=== PATIENT | female | born 1965 | race Caucasian/White ===

== ENCOUNTER 2019-06-26 09:28 | Outpatient (RCR) | payer BC, OTHER ==
[~2019-06-26 09:28] MED LIST: AC325T PO; ALBUTEROL INH; ALDACTONE25 MG PO; AMIT100T2 PO; AMIT75TA2 PO; CITA10TA GT; CTLP20T PO; ESCI20TA2 PO; ESTR0.5T PO; FRSM40T PO; FURO40TA4 PO; KCL10CCR PO; MAGN400C PO; METH10TA3 PO; METO50TA7 PO; MTF500T PO; MTP25TSR PO; OMEP20CA6 PO; PNT40TEC PO; POTA20TA15 PO; SCR1T1 PO; SLF10OP15 OP
== END 2019-07-28 | disposition home or self-care (01) ==
PROVIDERS: ATTEND Orthopaedic Surgery
DX: M75.02 Adhesive capsulitis of left shoulder (principal); I10 Essential (primary) hypertension; E11.9 Type 2 diabetes mellitus without complications; F32.9 Major depressive disorder, single episode, unspecified; Z90.710 Acquired absence of both cervix and uterus; Z98.890 Other specified postprocedural states

== ENCOUNTER 2019-11-02 06:45 | Emergency (ER) | payer BC ==
[~2019-11-02] VITALS: Ht 157 cm; Wt 77.0 kg
--- OUTSIDE RECORDS SUMMARY | 2019-11-02 06:55 | XMS REPORT | Encounter Summary ---
Author Author [facility] Organization [facility] Address Unknown Phone Unavailable Care Team Providers Care Advanced Practice Registered Nurse Name Role Phone PCP Unavailable Encounter Details Care Team Description Date Type Department Malu Almaguer [phone] Other disorder of menstruation and other abnormal bleeding from female genital tract (Primary Dx) 01/19/2000 Outpatient HIS [facility] XRAY LAB Historical Social History Date Tobacco Use Types Packs/Day Years Used Never Assessed Sex Assigned at Date Recorded Not on file Industry Job Start Date Occupation Not on file Not on file Not on file Travel End Travel History Travel Start No recent travel history available. documented as of this encounter Plan of Treatment Not on filedocumented as of this encounter Visit Diagnoses Diagnosis Other disorder of menstruation and othe r abnormal bleeding from female genital tract - Primary documented in this encounter
--- OUTSIDE RECORDS SUMMARY | 2019-11-02 06:55 | XMS REPORT | Encounter Summary ---
Author Author [facility] Organization [facility] Address Unknown Phone Unavailable Care Team Providers Care Staff Forester Name Role Phone PCP Unavailable Encounter Details Care Team Description Date Type Department Ilia Smith [phone] Gynecologic examination (Primary Dx) 01/16/2003 Outpatient [facility] Consol idated Historical [address] [address] Social History Date Tobacco Use Types Packs/Day Years Used Never Assessed Sex Assigned at Date Recorded Not on file Industry Job Start Date Occupation Not on file Not on file Not on file Travel End Travel History Travel Start No recent travel history available. documented as of this encounter Plan of Treatment Not on filedocumented as of this encounter Visit Diagnoses Diagnosis Gynecologic examination - Primary Gynecological examination documented in this encounter
--- OUTSIDE RECORDS SUMMARY | 2019-11-02 06:55 | XMS REPORT | Encounter Summary ---
Author Author [facility] Organization [facility] Address Unknown Phone Unavailable Care Team Providers Care Mainframe Architect Name Role Phone PCP Unavailable Encounter Details Care Team Description Date Type Department Ilia Haq MD [facility] [address] [facility] [address] [place] [address] CHRONIC SINUSITIS NOS (Primary Dx) 09/22/2003 [facility] Historical [address] [address] Social History Date Tobacco Use Types Packs/Day Years Used Never Assessed Sex Assigned at Date Recorded Not on file Industry Job Start Date Occupation Not on file Not on file Not on file Travel End Travel History Travel Start No recent travel history available. documented as of this encounter Plan of Treatment Not on filedocumented as of this encounter Visit Diagnoses Diagnosis Unspecified sinusitis (chronic) - Prima ry documented in this encounter
--- OUTSIDE RECORDS SUMMARY | 2019-11-02 06:55 | XMS REPORT | Encounter Summary ---
Author Author [facility] Organization [facility] Address Unknown Phone Unavailable Care Team Providers Care Negative Restorer Name Role Phone PCP Unavailable Encounter Details Care Team Description Date Type Department Ilia Smith [phone] Ovarian cyst NEC/NOS (Primary Dx) 01/20/2003 Outpatient [facility] Ultrasound [address] [place] [address] Social History Date Tobacco Use Types Packs/Day Years Used Never Assessed Sex Assigned at Date Recorded Not on file Industry Job Start Date Occupation Not on file Not on file Not on file Travel End Travel History Travel Start No recent travel history available. documented as of this encounter Plan of Treatment Not on filedocumented as of this encounter Visit Diagnoses Diagnosis Ovarian cyst NEC/NOS - Primary Other and unspecified ovarian cyst documented in this encounter
--- OUTSIDE RECORDS SUMMARY | 2019-11-02 06:55 | XMS REPORT | Encounter Summary ---
Author Author [facility] Organization [facility] Address Unknown Phone Unavailable Care Team Providers Care Radiation Protection Technician Name Role Phone PCP Unavailable Encounter Details Care Team Description Date Type Department Self, Erick Morris MD [address] [place] [address] TIETZE'S DISEASE (Primary Dx) 06/22/2003 Outpatient [facility] Consol idated Historical [facility] [place] [address] [place] [address] Social History Date Tobacco Use Types Packs/Day Years Used Never Assessed Sex Assigned at Date Recorded Not on file Industry Job Start Date Occupation Not on file Not on file Not on file Travel End Travel History Travel Start No recent travel history available. 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
--- OUTSIDE RECORDS SUMMARY | 2019-11-02 06:55 | XMS REPORT | Encounter Summary ---
Author Author [facility] Organization [facility] Address Unknown Phone Unavailable Care Team Providers Care Handkerchief Sample Clerk Name Role Phone PCP Unavailable Encounter Details Care Team Description Date Type Department Christelle Guerra, ADMISSION SPECIALIST [address] [place] [address] 01/02/2007 Outpatient [facility] Pathology [address] [place] [address] Social History Date Tobacco Use Types Packs/Day Years Used Never Assessed Sex Assigned at Date Recorded Not on file Industry Job Start Date Occupation Not on file Not on file Not on file Travel End Travel History Travel Start No recent travel history available. documented as of this encounter Plan of Treatment Not on filedocumented as of this encounter Visit Diagnoses Not on filedocumented in this encounter
--- OUTSIDE RECORDS SUMMARY | 2019-11-02 06:55 | XMS REPORT | Encounter Summary ---
Author Author [facility] Organization [facility] Address Unknown Phone Unavailable Care Team Providers Care Needle Molder Name Role Phone PCP Unavailable Encounter Details Care Team Description Date Type Department Malu Almaguer [phone] Excessive menstruation (Primary Dx) 01/19/2000 Outpatient HIS [facility] Historical Social History Date Tobacco Use Types Packs/Day Years Used Never Assessed Sex Assigned at Date Recorded Not on file Industry Job Start Date Occupation Not on file Not on file Not on file Travel End Travel History Travel Start No recent travel history available. documented as of this encounter Plan of Treatment Not on filedocumented as of this encounter Visit Diagnoses Diagnosis Excessive menstruation - Primary Excessive or frequent menstruation documented in this encounter
--- OUTSIDE RECORDS SUMMARY | 2019-11-02 06:55 | XMS REPORT | Encounter Summary ---
Author Author [facility] Organization [facility] Address Unknown Phone Unavailable Care Team Providers Care Profile Mill Operator Tape Control Name Role Phone PCP Unavailable Encounter Details Care Team Description Date Type Department Wayne Christianson MD 07/04/2002 Outpatient HIS [facility] [address] REF LAB Historical Social History Date Tobacco Use [...]
--- OUTSIDE RECORDS SUMMARY | 2019-11-02 06:55 | XMS REPORT | Encounter Summary ---
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
--- OUTSIDE RECORDS SUMMARY | 2019-11-02 06:55 | XMS REPORT | Encounter Summary ---
Author Author [facility] Organization [facility] Address Unknown Phone Unavailable Care Team Providers Care Dictionary Editor Name Role Phone PCP Unavailable Encounter Details Care Team Description Date Type Department Self, Erick Morris MD [address] [place] [address] CHEST PAIN NOS (Primary Dx) 06/15/2003 Outpatient [facility] Consol idated Historical [facility] [place] [address] [place] [address] Social History Date Tobacco Use Types Packs/Day Years Used Never Assessed Sex Assigned at Date Recorded Not on file Industry Job Start Date Occupation Not on file Not on file Not on file Travel End Travel History Travel Start No recent travel history available. documented as of this encounter Plan of Treatment Not on filedocumented as of this encounter Visit Diagnoses Diagnosis Chest pain, unspecified - Primary documented in this encounter
--- OUTSIDE RECORDS SUMMARY | 2019-11-02 06:55 | XMS REPORT | Encounter Summary ---
Author Author [facility] Organization [facility] Address Unknown Phone Unavailable Care Team Providers Care Criminal Research Specialist Name Role Phone PCP Unavailable Encounter Details Care Team Description Date Type Department Cecilia Lucas RN 03/24/2002 Outpatient [facility] Laboratory Services [address] [address] Social History Date Tobacco Use [...]
--- OUTSIDE RECORDS SUMMARY | 2019-11-02 06:55 | XMS REPORT | Encounter Summary ---
Author Author [facility] Organization [facility] Address Unknown Phone Unavailable Care Team Providers Care Four Horse Hitch Driver Name Role Phone PCP Unavailable Encounter Details Care Team Description Date Type Department TrippMalu [phone] Ant pituit hyperfunc NEC (Primary Dx) 03/13/2000 Outpatient HIS [facility] XRAY LAB Historical Social History Date [...]
--- OUTSIDE RECORDS SUMMARY | 2019-11-02 06:55 | XMS REPORT | Encounter Summary ---
Author Author [facility] Organization [facility] Address Unknown Phone Unavailable Care Team Providers Care Field Naturalist Name Role Phone PCP Unavailable Encounter Details Care Team Description Date Type Department Ilia Haq MD [facility] [address] [facility] [address] [place] [address] PREOP EXAM OTHER UNSPECIFIED (Primary Dx ) 10/14/2003 Outpatient [facility] Historical [facility] [place] [facility] [address] [place] [address] Social History Date Tobacco Use [...] as of this encounter Visit Diagnoses Diagnosis Preoperative examination, unspecified - Primary documented in this encounter
--- OUTSIDE RECORDS SUMMARY | 2019-11-02 06:55 | XMS REPORT | Encounter Summary ---
Author Author [facility] Organization [facility] Address Unknown Phone Unavailable Care Team Providers Care Operator Maintainer Name Role Phone PCP Unavailable Encounter Details Care Team Description Date Type Department Malu Almaguer [phone] Ant pituit hyperfunc NEC (Primary Dx) 01/24/2000 [facility] Historical [address] [address] Social History Date Tobacco Use [...]
--- OUTSIDE RECORDS SUMMARY | 2019-11-02 06:55 | XMS REPORT | Encounter Summary ---
Author Author [facility] Organization [facility] Address Unknown Phone Unavailable Care Team Providers Care Nailing Machine Operator Name Role Phone PCP Unavailable Encounter Details Care Team Description Date Type Department TrippMalu [phone] Ant pituit hyperfunc NEC (Primary Dx) 04/23/2000 Outpatient HIS [facility] Historical Social History Date Tobacco Use Types [...]
--- OUTSIDE RECORDS SUMMARY | 2019-11-02 06:55 | XMS REPORT | Encounter Summary ---
Author Author [facility] Organization [facility] Address Unknown Phone Unavailable Care Team Providers Care Ceramic Research Engineer Name Role Phone PCP Unavailable Encounter Details Care Team Description Date Type Department Self, Erick Morris MD [address] [place] [address] 05/09/2000 Outpatient [facility] Laboratory Services [address] [address] Social History Date Tobacco Use [...]
--- OUTSIDE RECORDS SUMMARY | 2019-11-02 06:55 | XMS REPORT | Encounter Summary ---
Author Author [facility] Organization [facility] Address Unknown Phone Unavailable Care Team Providers Care Registered Nurse Ambulatory Name Role Phone PCP Unavailable Encounter Details Care Team Description Date Type Department RendonStan, [address] [place] [address] Follow-up examination following surgery (Primary Dx) 01/18/2000 Outpatient HIS [facility] Historical Social History Date Tobacco Use Types Packs/Day Years Used Never Assessed Sex Assigned at Date Recorded Not on file Industry Job Start Date Occupation Not on file Not on file Not on file Travel End Travel History Travel Start No recent travel history available. documented as of this encounter Plan of Treatment Not on filedocumented as of this encounter Visit Diagnoses Diagnosis Follow-up examination following surgery - Primary documented in this encounter
--- OUTSIDE RECORDS SUMMARY | 2019-11-02 06:55 | XMS REPORT | Encounter Summary ---
Author Author [facility] Organization [facility] Address Unknown Phone Unavailable Care Team Providers Care Roaster Supervisor Name Role Phone PCP Unavailable Encounter Details Care Team Description Date Type Department Self, Erick Morris MD [address] [place] [address] Tietze's Disease (Primary Dx) 05/08/2006 Outpatient [facility] Consol idated Historical [facility] [place] [address] [place] [address] Social History Date Tobacco Use Types Packs/Day [...]
--- OUTSIDE RECORDS SUMMARY | 2019-11-02 06:55 | XMS REPORT | Encounter Summary ---
Author Author [facility] Organization [facility] Address Unknown Phone Unavailable Care Team Providers Care Spa Manager/Esthetician Name Role Phone PCP Unavailable Encounter Details Care Team Description Date Type Department Self, Erick Morris MD [address] [place] [address] Chest pain, unspecified (Primary Dx) 05/09/[address] [facility] Consol idated Historical [facility] [place] [address] [place] [address] Social History Date Tobacco Use Types Packs/Day [...]
--- OUTSIDE RECORDS SUMMARY | 2019-11-02 06:55 | XMS REPORT | Encounter Summary ---
Author Author [facility] Organization [facility] Address Unknown Phone Unavailable Care Team Providers Care Broker Agricultural Produce Name Role Phone PCP Unavailable Encounter Details Care Team Description Date Type Department Self, Erick Morris MD [address] [place] [address] 06/17/2003 Outpatient HIS [facility] [address] REF [facility] [...]
--- OUTSIDE RECORDS SUMMARY | 2019-11-02 06:55 | XMS REPORT | Encounter Summary ---
Author Author [facility] Organization [facility] Address Unknown Phone Unavailable Care Team Providers Care Vacuum Bottle Assembler Name Role Phone PCP Unavailable Encounter Details Care Team Description Date Type Department Self, Erick Morris MD [address] [place] [address] Chest pain, unspecified (Primary Dx) 05/08/2000 Outpatient [facility] Consol idated Historical [facility] [place] [address] [place] [address] Social History Date Tobacco Use Types Packs/Day [...]
--- OUTSIDE RECORDS SUMMARY | 2019-11-02 06:55 | XMS REPORT | Encounter Summary ---
Author Author [facility] Organization [facility] Address Unknown Phone Unavailable Care Team Providers Care Restaurant Busser Name Role Phone PCP Unavailable Encounter Details Care Team Description Date Type Department Malu Almaguer [phone] Galactorrhea-nonobstet (Primary Dx) 03/19/[address] [facility] Historical Social History Date Tobacco Use Types Packs/Day Years Used Never Assessed Sex Assigned at Date Recorded Not on file Industry Job Start Date Occupation Not on file Not on file Not on file Travel End Travel History Travel Start No recent travel history available. documented as of this encounter Plan of Treatment Not on filedocumented as of this encounter Visit Diagnoses Diagnosis Galactorrhea-nonobstet - Primary Galactorrhea not associated with childb irth documented in this encounter
--- OUTSIDE RECORDS SUMMARY | 2019-11-02 06:55 | XMS REPORT | Encounter Summary ---
Author Author [facility] Organization [facility] Address Unknown Phone Unavailable Care Team Providers Care Coin Machine Assembler Name Role Phone PCP Unavailable Encounter Details Care Team Description Date Type Department Provider, Abstract 01/02/2007 Abstract [facility]STRA[facility] Social History Date Tobacco Use Types Packs/Day Years Used Never Assessed Sex Assigned at Date Recorded Not on file Industry Job Start Date Occupation Not on file Not on file Not on file Travel End Travel History Travel Start No recent travel history available. documented as of this encounter Last Filed Vital Signs Reading Time Taken Comments Vital Sign 90/60 01/02/2007 10:00 AM CDT Blood Pressure - - Pulse - - Temperature - - Respiratory Rate - - Oxygen Saturation - - Inhaled Oxygen Concentration 65.3 kg (144 lb) 01/02/2007 10:00 AM CDT Weight - - Height - - Body Mass Index documented in this encounter Plan of Treatment Not on filedocumented as of this encounter Visit Diagnoses Not on filedocumented in this encounter
--- OUTSIDE RECORDS SUMMARY | 2019-11-02 06:55 | XMS REPORT | Encounter Summary ---
Author Author [facility] Organization [facility] Address Unknown Phone Unavailable Care Team Providers Care Grab Driver Name Role Phone PCP Unavailable Encounter Details Care Team Description Date Type Department Christelle Guerra, ENGINEER BOOSTER AND EXHAUSTER [address] [place] [address] ACUTE PHARYNGITIS (Primary Dx) 08/20/2003 Outpatient [facility] Family Historical Medicine [place] [address] [place] [address] Social History Date Tobacco Use Types Packs/Day Years Used Never Assessed Sex Assigned at Date Recorded Not on file Industry Job Start Date Occupation Not on file Not on file Not on file Travel End Travel History Travel Start No recent travel history available. documented as of this encounter Plan of Treatment Not on filedocumented as of this encounter Visit Diagnoses Diagnosis Acute pharyngitis - Primary documented in this encounter
--- OUTSIDE RECORDS SUMMARY | 2019-11-02 06:55 | XMS REPORT | Encounter Summary ---
Author Author [facility] Organization [facility] Address Unknown Phone Unavailable Care Team Providers Care Senior Behavioral Scientist Name Role Phone PCP Unavailable Encounter Details Care Team Description Date Type Department TrippMalu [phone] Ant pituit hyperfunc NEC (Primary Dx) 04/19/2000 Outpatient [facility] Historical Social History Date Tobacco [...]
--- OUTSIDE RECORDS SUMMARY | 2019-11-02 06:55 | XMS REPORT | Encounter Summary ---
Author Author [facility] Organization [facility] Address Unknown Phone Unavailable Care Team Providers Care Automotive Center Manager Name Role Phone PCP Unavailable Encounter Details Care Team Description Date Type Department Cecilia Lucas RN No proc for reasons NEC (Primary Dx) 11/26/2003 Outpatient [facility] Laboratory Services [address] [address] Social History Date Tobacco Use [...] as of this encounter Visit Diagnoses Diagnosis No proc for reasons NEC - Primary Procedure not carried out for other moise sons documented in this encounter
--- OUTSIDE RECORDS SUMMARY | 2019-11-02 06:55 | XMS REPORT | Encounter Summary ---
Author Author [facility] Organization [facility] Address Unknown Phone Unavailable Care Team Providers Care Law Writer Name Role Phone PCP Unavailable Encounter Details Care Team Description Date Type Department Ilia Haq MD [facility] [address] [facility] [address] [place] [address] CHRONIC TONSILLITIS (Primary Dx) 10/19/2003 Outpatient HIS [facility] Historical Social History Date Tobacco Use Types Packs/Day Years Used Never Assessed Sex Assigned at Date Recorded Not on file Industry Job Start Date Occupation Not on file Not on file Not on file Travel End Travel History Travel Start No recent travel history available. documented as of this encounter Plan of Treatment Not on filedocumented as of this encounter Visit Diagnoses Diagnosis Chronic tonsillitis - Primary documented in this encounter
--- OUTSIDE RECORDS SUMMARY | 2019-11-02 06:55 | XMS REPORT | Encounter Summary ---
Author Author [facility] Organization [facility] Address Unknown Phone Unavailable Care Team Providers Care Spinning Machine Operator Name Role Phone PCP Unavailable Encounter Details Care Team Description Date Type Department Self, Erick Morris MD [address] [place] [address] CHEST PAIN NOS (Primary Dx) 06/17/2003 Outpatient [facility] Consol idated Historical [facility] [place] [address] [place] [address] Social History Date Tobacco Use Types Packs/Day [...]
--- OUTSIDE RECORDS SUMMARY | 2019-11-02 06:55 | XMS REPORT | Encounter Summary ---
Author Author [facility] Organization [facility] Address Unknown Phone Unavailable Care Team Providers Care Plug Overwrap Machine Tender Name Role Phone PCP Unavailable Encounter Details Care Team Description Date Type Department Buck Isabel [phone] UNSPEC CONSTIPATION (Primary Dx) 12/15/2002 Emergency [facility] Emergency Department [address] [address] Social History Date Tobacco Use [...] of this encounter Visit Diagnoses Diagnosis Unspecified constipation - Primary documented in this encounter
--- OUTSIDE RECORDS SUMMARY | 2019-11-02 06:55 | XMS REPORT | Encounter Summary ---
Author Author [facility] Organization [facility] Address Unknown Phone Unavailable Care Team Providers Care Dev Technical Mgr Name Role Phone PCP Unavailable Encounter Details Care Team Description Date Type Department Malu Almaguer [phone] 01/20/2000 Outpatient [facility] Path[facility] [address] [place] [address] Social History Date Tobacco Use Types [...]
--- OUTSIDE RECORDS SUMMARY | 2019-11-02 06:55 | XMS REPORT | Encounter Summary ---
Author Author [facility] Organization [facility] Address Unknown Phone Unavailable Care Team Providers Care Sausage Mixer Name Role Phone PCP Unavailable Encounter Details Care Team Description Date Type Department Ilia Smith [phone] Ovarian cyst NEC/NOS (Primary Dx) 01/27/[address] [facility] Consol idated Historical [address] [address] Social History Date Tobacco Use Types Packs/Day [...]
--- OUTSIDE RECORDS SUMMARY | 2019-11-02 06:55 | XMS REPORT | Clinical Summary ---
Author Author [facility] Organization [facility] Address Unknown Phone Unavailable Care Team Providers Care Director Marketing Name Role Phone PCP Unavailable Allergies Comments Active Allergy Reactions Severity Noted Date Erythromycin Nausea and Vomiting Medications End Date Status Medication Sig Dispensed Refills Start Date Active ACIPHEX 20 mg Oral TbEC Take 20 mg by 0 mouth daily. Active Problems Problem Noted Date Esophageal reflux Social History Date Tobacco Use Types Packs/Day Years Used Never Assessed Sex Assigned at Date Recorded Not on file Industry Job Start Date Occupation Not on file Not on file Not on file Travel End Travel History Travel Start No recent travel history available. Last Filed Vital Signs Reading Time Taken Comments Vital Sign 90/60 01/02/2007 10:00 AM CDT Blood Pressure - - Pulse - - Temperature - - Respiratory Rate - - Oxygen Saturation - - Inhaled Oxygen Concentration 65.3 kg (144 lb) 01/02/2007 10:00 AM CDT Weight - - Height - - Body Mass Index Plan of Treatment Health Maintenance Due Date Last Done Comments BREAST CANCER SCREENING 2004 CERVICAL CANCER SCREENING 12/31/2009 12/31/2006 COLORECTAL SCREENING 2014 ZOSTER VACCINE (1 of 2) 2014 INFLUENZA VACCINE 01/16/2019 PNEUMOCOCCAL VACCINE 0-64 Aged Out No longer el igible based YEARS on patient's age to complete this topic Results Not on filefrom Last 3 Months
--- OUTSIDE RECORDS SUMMARY | 2019-11-02 06:55 | XMS REPORT | Encounter Summary ---
Author Author [facility] Organization [facility] Address Unknown Phone Unavailable Care Team Providers Care Drawing Operator Name Role Phone PCP Unavailable Encounter Details Care Team Description Date Type Department Wayne Christianson MD ACUTE SINUSITIS NOS (Primary Dx) 07/04/[address] [facility] Consol idated Historical [address] [address] Social History Date Tobacco Use Types Packs/Day Years Used Never Assessed Sex Assigned at Date Recorded Not on file Industry Job Start Date Occupation Not on file Not on file Not on file Travel End Travel History Travel Start No recent travel history available. documented as of this encounter Plan of Treatment Not on filedocumented as of this encounter Visit Diagnoses Diagnosis Acute sinusitis, unspecified - Primary documented in this encounter
--- OUTSIDE RECORDS SUMMARY | 2019-11-02 06:56 | XMS REPORT | Encounter Summary ---
Author Author [facility] Organization [facility] Address Unknown Phone Unavailable Care Team Providers Care Leadership Intern Name Role Phone PCP Unavailable Encounter Details Care Team Description Date Type Department Bulmaro Spencer ARNP [address] [place] [address] Need for prophylactic vaccination and in oculation against other specified disease (Primary Dx) 08/11/1993 Outpatient Historical Social History Date Tobacco Use Types Packs/Day Years Used Never Assessed Sex Assigned at Date Recorded Not on file Industry Job Start Date Occupation Not on file Not on file Not on file Travel End Travel History Travel Start No recent travel history available. documented as of this encounter Plan of Treatment Not on filedocumented as of this encounter Visit Diagnoses Diagnosis Need for prophylactic vaccination and i noculation against other specified disease - Primary documented in this encounter
--- OUTSIDE RECORDS SUMMARY | 2019-11-02 06:56 | XMS REPORT | Clinical Summary ---
Author Author [facility], [employer], [place], [facility] Organization [facility] [employer], [place], [place], [facility] Address Unknown Phone Unavailable Care Team Providers Care Mobile Health Vehicle Operator Name Role Phone Husam Red MD PCP Allergies Not on File Medications Not on file Active Problems Not on file Social History Date Tobacco Use Types Packs/Day Years Used Never Assessed Sex Assigned at Date Recorded Not on file Industry Job Start Date Occupation Not on file Not on file Not on file Travel End Travel History Travel Start No recent travel history available. Last Filed Vital Signs Not on file Plan of Treatment Health Maintenance Due Date Last Done Comments CERVICAL CANCER SCREENING 1994 BREAST CANCER SCREENING 2004 COLORECTAL SCREENING 2014 ZOSTER VACCINE (1 of 2) 2014 INFLUENZA VACCINE 01/16/2019 PNEUMOCOCCAL VACCINE 0-64 Aged Out No longer el igible based YEARS on patient's age to complete this topic Results Not on filefrom Last 3 Months
--- OUTSIDE RECORDS SUMMARY | 2019-11-02 06:56 | XMS REPORT | Encounter Summary ---
Author Author [facility], [place], [place], [place], [facility] Organization [facility] [place], [place], [place], [facility] Address Unknown Phone Unavailable Care Team Providers Care Claim Processor Name Role Phone Husam Red MD PCP Encounter Details Care Team Description Date Type Department Lorrie Ortiz, SORAYA [address] [facility] [place] [id number] 12/10/2001 Inpatient Historical Social History Date Tobacco Use Types [...]
--- OUTSIDE RECORDS SUMMARY | 2019-11-02 06:56 | XMS REPORT | Encounter Summary ---
Author Author [facility] Organization [facility] Address Unknown Phone Unavailable Care Team Providers Care Ict Account Manager Name Role Phone PCP Unavailable Encounter Details Care Team Description Date Type Department Buck Isabel [phone] Inflam disease of breast (Primary Dx) 01/03/2000 Outpatient [facility] Family [facility] Medicine [place] [address] [place] [address] Social History Date Tobacco Use [...] as of this encounter Visit Diagnoses Diagnosis Inflam disease of breast - Primary Inflammatory disease of breast documented in this encounter
--- OUTSIDE RECORDS SUMMARY | 2019-11-02 06:56 | XMS REPORT | Encounter Summary ---
Author Author [facility] Organization [facility] Address Unknown Phone Unavailable Care Team Providers Care Kitchen Help Handyman Name Role Phone PCP Unavailable Encounter Details Care Team Description Date Type Department Christelle Guerra, PLANT PRODUCTION WORKER [address] [place] [address] Symptoms in breast NEC (Primary Dx) 01/09/[facility] [address] [address] Social History Date Tobacco Use [...] as of this encounter Visit Diagnoses Diagnosis Symptoms in breast NEC - Primary Other sign and symptom in breast documented in this encounter
--- OUTSIDE RECORDS SUMMARY | 2019-11-02 06:56 | XMS REPORT | Encounter Summary ---
Author Author [facility] Organization [facility] Address Unknown Phone Unavailable Care Team Providers Care Material Movers Name Role Phone PCP Unavailable Encounter Details Care Team Description Date Type Department Jr Jonny Ernst, [facility] [address] [place] [id number] Stomach function dis NEC (Primary Dx) 08/01/1997 Outpatient Historical Social History Date Tobacco Use [...] as of this encounter Visit Diagnoses Diagnosis Stomach function dis NEC - Primary Dyspepsia and other specified disorders of function of stomach documented in this encounter
--- OUTSIDE RECORDS SUMMARY | 2019-11-02 06:56 | XMS REPORT | Encounter Summary ---
Author Author [facility] Organization [facility] Address Unknown Phone Unavailable Care Team Providers Care Repairer Sash And Door Name Role Phone PCP Unavailable Encounter Details Care Team Description Date Type Department Shawn Lu, DO [address] [place] [address] Strep sore throat (Primary Dx) 02/12/1996 Outpatient Historical Social History Date Tobacco Use [...] as of this encounter Visit Diagnoses Diagnosis Strep sore throat - Primary Streptococcal sore throat documented in this encounter
--- OUTSIDE RECORDS SUMMARY | 2019-11-02 06:56 | XMS REPORT | Encounter Summary ---
Author Author [facility] Organization [facility] Address Unknown Phone Unavailable Care Team Providers Care Instructional Support Technician Name Role Phone PCP Unavailable Encounter Details Care Team Description Date Type Department Bulmaro Spencer ARNP [address] [place] [address] Need for prophylactic vaccination and in oculation against other specified disease (Primary Dx) 03/22/1993 Outpatient Historical Social History Date Tobacco Use [...]
--- OUTSIDE RECORDS SUMMARY | 2019-11-02 06:56 | XMS REPORT | Encounter Summary ---
Author Author [facility], [place], [place], [facility] Organization [facility] [place], [place], [place], [facility] Address Unknown Phone Unavailable Care Team Providers Care Creative Director Name Role Phone Husam Red MD PCP Encounter Details Care Team Description Date Type Department Tonio Juarez MD [address] [facility] [place] [address] Edema (Primary Dx) 10/14/2009 Outpatient [facility] Historical [address] [place] [address] [place] [address] Social History Date Tobacco Use Types Packs/Day Years Used Never Assessed Sex Assigned at Date Recorded Not on file Industry Job Start Date Occupation Not on file Not on file Not on file Travel End Travel History Travel Start No recent travel history available. documented as of this encounter Plan of Treatment Not on filedocumented as of this encounter Visit Diagnoses Diagnosis Edema - Primary documented in this encounter
--- OUTSIDE RECORDS SUMMARY | 2019-11-02 06:56 | XMS REPORT | Encounter Summary ---
Author Author [facility] Organization [facility] Address Unknown Phone Unavailable Care Team Providers Care Digital Production Operator Name Role Phone PCP Unavailable Encounter Details Care Team Description Date Type Department High-risk (Primary Dx) 09/17/1991 Outpatient Historical Social History Date Tobacco Use [...] as of this encounter Visit Diagnoses Diagnosis High-risk - Primary Supervision of other high-risk pregnanc y documented in this encounter
--- OUTSIDE RECORDS SUMMARY | 2019-11-02 06:56 | XMS REPORT | Encounter Summary ---
Author Author [facility] Organization [facility] Address Unknown Phone Unavailable Care Team Providers Care Grease Worker Name Role Phone PCP Unavailable Encounter Details Care Team Description Date Type Department Christelle Guerra, MEDICAL LIAISON [address] [place] [address] Symptoms in breast NEC (Primary Dx) 01/03/2000 Outpatient [facility] [address] [place] [address] Social History Date Tobacco Use [...]
--- OUTSIDE RECORDS SUMMARY | 2019-11-02 06:56 | XMS REPORT | Encounter Summary ---
Author Author [facility] Organization [facility] Address Unknown Phone Unavailable Care Team Providers Care Aquatic Biologist Name Role Phone PCP Unavailable Encounter Details Care Team Description Date Type Department Alyse Arcos MD NO ADDRESS ON FILE Acute upper respiratory infections of un specified site (Primary Dx) 09/30/1998 Outpatient Historical Social History Date Tobacco Use [...] of this encounter Visit Diagnoses Diagnosis Acute upper respiratory infections of u nspecified site - Primary documented in this encounter
--- OUTSIDE RECORDS SUMMARY | 2019-11-02 06:56 | XMS REPORT | Encounter Summary ---
Author Author [facility] [place] Organization [facility] [place], [place], [facility] Address Unknown Phone Unavailable Care Team Providers Care Prop Drawer Name Role Phone Husam Red MD PCP Encounter Details Care Team Description Date Type Department Tonio Juarez MD [address] [facility] [place] [address] Edema (Primary Dx) 10/14/2009 Inpatient [facility] a [facility] Wound Care [address] [place] [address] Social History Date Tobacco Use Types Packs/Day [...]
--- OUTSIDE RECORDS SUMMARY | 2019-11-02 06:56 | XMS REPORT | Encounter Summary ---
Author Author [facility] Address Unknown Phone Unavailable Care Team Providers Care Pump Servicer Supervisor Name Role Phone PCP Unavailable Encounter Details Care Team Description Date Type Department [place], [address] [place] [address] Symptoms in breast NEC (Primary Dx) 01/10/2000 Outpatient [facility] Historical Social History Date Tobacco [...]
--- OUTSIDE RECORDS SUMMARY | 2019-11-02 06:56 | XMS REPORT | Encounter Summary ---
Author Author [facility] Organization [facility] Address Unknown Phone Unavailable Care Team Providers Care Design Engineer Products Name Role Phone PCP Unavailable Encounter Details Care Team Description Date Type Department Sarah Spivey AR[address] [address] 02/27/1997 Outpatient Historical Social History Date Tobacco Use [...]
--- OUTSIDE RECORDS SUMMARY | 2019-11-02 06:56 | XMS REPORT | Encounter Summary ---
Author Author [facility] Organization [facility] Address Unknown Phone Unavailable Care Team Providers Care Tree Pruner Name Role Phone PCP Unavailable Encounter Details Care Team Description Date Type Department 02/25/1992 Outpatient Historical Social History Date Tobacco Use [...]
--- OUTSIDE RECORDS SUMMARY | 2019-11-02 06:56 | XMS REPORT | Encounter Summary ---
Author Author [facility], [place], [facility] Organization [facility], [place], [facility] Address Unknown Phone Unavailable Care Team Providers Care Lead Software Tester Name Role Phone Husam Red MD PCP Encounter Details Care Team Description Date Type Department Tonio Juarez MD [address] [facility] [place] [address] Edema (Primary Dx) 11/16/2009 Inpatient [facility] a [facility] Wound Care [address] [place] [address] Social History Date [...]
--- OUTSIDE RECORDS SUMMARY | 2019-11-02 06:56 | XMS REPORT | Encounter Summary ---
Author Author [facility] Organization [facility] Address Unknown Phone Unavailable Care Team Providers Care Outside Salesperson Name Role Phone PCP Unavailable Encounter Details Care Team Description Date Type Department Previous delivery, delivered, with or without mention of antepartum condition (Primary Dx) 01/21/1992 Inpatient Historical Social History Date Tobacco Use [...] as of this encounter Visit Diagnoses Diagnosis Previous delivery, delivered, with or without mention of antepartum condition - Primary documented in this encounter
--- OUTSIDE RECORDS SUMMARY | 2019-11-02 06:56 | XMS REPORT | Encounter Summary ---
Author Author [facility] Organization [facility] Address Unknown Phone Unavailable Care Team Providers Care Gold Leaf Gilder Name Role Phone PCP Unavailable Encounter Details Care Team Description Date Type Department Blumaro Spencer ARNP [address] [place] [address] 08/13/1996 Outpatient Historical Social History Date Tobacco Use [...]
--- OUTSIDE RECORDS SUMMARY | 2019-11-02 06:56 | XMS REPORT | Encounter Summary ---
Author Author [facility] Organization [facility] Address Unknown Phone Unavailable Care Team Providers Care Parimutuel Ticket Cashier Name Role Phone PCP Unavailable Encounter Details Care Team Description Date Type Department [place], [address] [place] [address] Diffus cystic mastopathy (Primary Dx) 01/13/2000 Outpatient Historical Social History Date Tobacco Use [...] as of this encounter Visit Diagnoses Diagnosis Diffus cystic mastopathy - Primary Diffuse cystic mastopathy documented in this encounter
--- OUTSIDE RECORDS SUMMARY | 2019-11-02 06:56 | XMS REPORT | Encounter Summary ---
Author Author [facility], [place] [facility] Organization [facility] [place], [place], [facility] Address Unknown Phone Unavailable Care Team Providers Care Value Engineer Name Role Phone Husam Red MD PCP Encounter Details Care Team Description Date Type Department Tonio Juarez MD [address] [facility] [place] [address] Edema (Primary Dx) 10/16/2009 Inpatient [facility] W[facility] Care [address] [place] [address] Social History Date [...]
--- OUTSIDE RECORDS SUMMARY | 2019-11-02 06:56 | XMS REPORT | Encounter Summary ---
Author Author [facility] Organization [facility] Address Unknown Phone Unavailable Care Team Providers Care Deflector Operator Name Role Phone PCP Unavailable Encounter Details Care Team Description Date Type Department Bulmaro Spencer ARNP [address] [place] [address] Need for prophylactic vaccination and in oculation against other specified disease (Primary Dx) 01/25/1993 Outpatient Historical Social History Date Tobacco Use [...]
--- OUTSIDE RECORDS SUMMARY | 2019-11-02 06:57 | XMS REPORT | CCD ---
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 [id number] Unknown Family history Brother Diagnosis Age At Onset No Family Disease Entered N/A Son Diagnosis Age At Onset No Family Disease Entered N/A Sister Diagnosis Age At Onset No Family Disease Entered N/A Daughter Diagnosis Age At Onset No Family Disease Entered N/A Mother Diagnosis Age At Onset No Family Disease Entered N/A Brother Diagnosis Age At Onset No Family Disease Entered N/A Daughter Diagnosis Age At Onset No Family Disease Entered N/A Daughter Diagnosis Age At Onset No Family Disease Entered N/A Brother Diagnosis Age At Onset No Family Disease Entered N/A Father Diagnosis Age At Onset No Family Disease Entered N/A Social History Social History Element Codes Description Effective Dates Number of children Unknown 4 02/04/2012 Marital status Unknown M arried 12/07/[address]: 422432625 Never smoker 12/07/2011 Alcohol history Unknown occasionally drinks alcohol 12/07/2011 Has the patient ever used illegal drugs? Unknown Has never used illegal drugs 012 Allergies, Adverse Reactions, Alerts Substance Reaction Codes Entered Date Inactivated Date Status Erythromycin RxNorm: 4053 12/07/2011 No Inactive Date Active Past Medical History Illness Codes Condition Status Onset Date Resolved Date Essential (primary) hypertension ICD-9: 401.9 ICD-10: I10 Active 11/22/2018 Unknown Type 2 diabetes alex itus with hyperglycemia ICD-9: 250.02 ICD-10: E11.65 Active 07/16/2012 Unknown Pleurodynia ICD-9: 786.50 ICD-10: R07.81 Active 07/05/2018 Unknown Attention-deficit hy peractivity disorder, combined type ICD-9: 314.01 ICD-10: F90.2 Active 03/14/2018 Unknown Encounter for immuni zation ICD-9: V03.9 ICD-10: Z23 Active 03/14/2018 Unknown Mixed hyperlipidemia ICD-9: 272.2 ICD-10: E78.2 Active 03/14/2018 Unknown Other allergic rhinitis ICD-9: 477.8 ICD-10: J30.89 Active 05/01/2016 Unknown Acute maxillary sinu sitis, unspecified ICD-9: 461.0 ICD-10: J01.00 Active 04/18/2015 Unknown Allergic rhinitis, u nspecified ICD-9: 477.9 ICD-10: J30.9 Active 04/18/2015 Unknown Other acute sinusitis ICD-9: 461.8 ICD-10: J01.80 Active 05/25/2017 Unknown Melena ICD-9: 578.1 ICD-10: K92.1 Active 05/14/2017 Unknown Other disorders of p ituitary gland ICD-9: 253.8 ICD-10: E23.6 Active 05/01/2016 Unknown Other hemorrhoids ICD-9: 455.8 ICD-10: K64.8 Active 05/14/2017 Unknown Acute bronchitis due to other specified organisms ICD-9: 466.0 ICD-10: J20.8 Active 05/01/2016 Unknown Allergic rhinitis du e to pollen ICD-9: 477.0 ICD-10: J30.1 Active 10/27/2015 Unknown Otalgia, right ear ICD- 9: 388.70 ICD-10: H92.01 Active 10/27/2015 Unknown DYSURIA ICD-9: 788.1 Active 03/14/2015 Unknow n UTI ICD-9: 599.0 Active 07/16/2012 Unknow n Sunburn ICD-9: 692.71 Active 12/23/2014 Unknow n Swelling of eyelid ICD- 9: 374.82 Active 12/23/2014 Unknown Depression Unknown Active 10/13/2013 Unknow n Diabetes Unknown Active 10/13/2013 Unknow n ADHD (attention defi cit hyperactivity disorder) ICD-9: 314.01 Active 10/13/2013 Unknown Depression ICD-9: 311 Active 10/13/2013 Unknow n DIABETES TYPE II ICD-9: 250.00 Active 10/13/2013 Unknown EDEMA ICD-9: 782.3 Active 03/18/2013 Unknow n DM W/O COMPLICATION TYPE II, UNCONTROLLED ICD-9: 250.02 Active 07/16/2012 Unknown Uncontrolled narcolepsy ICD-9: 347.00 Active 01/17/2012 Unknown Hypertension Unknown Active 12/07/2011 Unknow n pituitary adenoma Unknown Active 12/07/2011 Unknown Sciatica Unknown Active 12/07/2011 Unknow n Chronic back pain ICD-9: 724.5 Active 12/07/2011 Unknown ESSENTIAL HYPERTENSION ICD-9: 401.9 Active 12/07/2011 Unknown Sacroiliitis ICD-9: 720.2 Active 12/07/2011 Unknown Sciatica ICD-9: 724.3 Active 12/07/2011 Unknow n Problems Condition Codes Effectiv e Dates Condition Status Essential (primary) hypertension ICD-9: 401.9 ICD-10: I10 11/22/2018 Active Type 2 diabetes alex itus with hyperglycemia ICD-9: 250.02 ICD-10: E11.65 07/16/2012 Active Pleurodynia ICD-9: 786.50 ICD-10: R07.81 07/05/2018 Active Attention-deficit hy peractivity disorder, combined type ICD-9: 314.01 ICD-10: F90.2 03/14/2018 Active Encounter for immuni zation ICD-9: V03.9 ICD-10: Z23 03/14/2018 Active Mixed hyperlipidemia ICD-9: 272.2 ICD-10: E78.2 03/14/2018 Active Other allergic rhinitis ICD-9: 477.8 ICD-10: J30.89 05/01/2016 Active Acute maxillary sinu sitis, unspecified ICD-9: 461.0 ICD-10: J01.00 04/18/2015 Active Allergic rhinitis, u nspecified ICD-9: 477.9 ICD-10: J30.9 04/18/2015 Active Other acute sinusitis ICD-9: 461.8 ICD-10: J01.80 05/25/2017 Active Melena ICD-9: 578.1 ICD-10: K92.1 05/14/2017 Active Other disorders of p ituitary gland ICD-9: 253.8 ICD-10: E23.6 05/01/2016 Active Other hemorrhoids ICD-9: 455.8 ICD-10: K64.8 05/14/2017 Active Acute bronchitis due to other specified organisms ICD-9: 466.0 ICD-10: J20.8 05/01/2016 Active Allergic rhinitis du e to pollen ICD-9: 477.0 ICD-10: J30.1 10/27/2015 Active Otalgia, right ear ICD- 9: 388.70 ICD-10: H92.01 10/27/2015 Active DYSURIA ICD-9: 788.1 03/14/2015 Active UTI ICD-9: 599.0 07/16/2012 Active Sunburn ICD-9: 692.71 12/23/2014 Active Swelling of eyelid ICD- 9: 374.82 12/23/2014 Active Depression Unknown 10/13/2013 Active Diabetes Unknown 10/13/2013 Active ADHD (attention defi cit hyperactivity disorder) ICD-9: 314.01 10/13/2013 Active Depression ICD-9: 311 10/13/2013 Active DIABETES TYPE II ICD-9: 250.00 10/13/2013 Active EDEMA ICD-9: 782.3 03/18/2013 Active DM W/O COMPLICATION TYPE II, UNCONTROLLED ICD-9: 250.02 07/16/2012 Active Uncontrolled narcolepsy ICD-9: 347.00 01/17/2012 Active Hypertension Unknown 12/07/2011 Active pituitary adenoma Unknown 12/07/2011 Active Sciatica Unknown 12/07/2011 Active Chronic back pain ICD-9: 724.5 12/07/2011 Active ESSENTIAL HYPERTENSION ICD-9: 401.9 12/07/2011 Active Sacroiliitis ICD-9: 720.2 12/07/2011 Active Sciatica ICD-9: 724.3 12/07/2011 Active Medications Medication Codes Instruc tions Start Date Stop Date Sta tus Fill Instructions Januvia 100 mg tablet RxNorm: 004553 1 Tablet(s) PO daily 12/12/2018 09/07/2019 Active Ritalin 10 mg tablet RxNorm: 2549964 1 Tablet(s) PO BID 12/12/2018 01/10/2019 Active Januvia 100 mg tablet RxNorm: 430701 1 Tablet(s) PO daily 12/12/2018 12/11/2018 Inactive Ritalin 10 mg tablet RxNorm: 5213717 1 Tablet(s) PO BID 10/17/2018 11/15/2018 Inactive [SAVINGS FOR NON-COVERED DRUGS -- BIN:00 3585, PCN: ASPROD1, Group: XXXXX, ID# [id number], Questions: . THIS IS NOT INSURANCE.] estradiol 0.5 mg tablet RxNorm: 622294 TAKE ONE TABLET BY MOUTH EVERY DAY 09/06/2018 08/20/2021 Ac tive Celexa 20 mg tablet RxNorm: 614654 TAKE 1 AND 1/2 TABLETS BY MOUTH DAILY 09/06/2018 08/20/2021 Ac tive trimethoprim 100 mg tablet RxNorm: 116651 1 Tablet(s) PO daily 08/30/2018 03/27/2019 Active trimethoprim 100 mg tablet RxNorm: 621455 1 Tablet(s) PO daily 08/30/2018 08/14/2018 Inactive Keflex 500 mg capsule RxNorm: 680300 1 Capsule(s) PO QID 08/15/2018 08/28/2018 Inactive Keflex 500 mg capsule RxNorm: 470011 1 Capsule(s) PO QID 08/15/2018 08/14/2018 Inactive trimethoprim 100 mg tablet RxNorm: 896159 1 Tablet(s) PO daily 08/15/2018 08/29/2018 Inactive Toprol XL 25 mg tabl et,extended release RxNorm: 821247 1 Tablet(s) PO daily 07/26/2018 06/26/2019 Ac tive waiting on mail order amitriptyline 100 mg tablet RxNorm: 353209 Tablet(s) TAKE 1 TABL ET BY MOUTH DAILY AT BEDTIME 07/26/2018 07/20/2019 Active Toprol XL 25 mg tabl et,extended release RxNorm: 568947 1 Tablet(s) PO daily 07/26/2018 07/25/2018 In active waiting on mail order Januvia 50 mg tablet RxNorm: 537633 1 Tablet(s) PO daily 07/26/2018 12/11/2018 Inactive amitriptyline 100 mg tablet RxNorm: 999816 Tablet(s) TAKE 1 TABL ET BY MOUTH DAILY AT BEDTIME 07/26/2018 07/25/2018 Inactive waiting on mail order prednisone 20 mg tablet RxNorm: 427322 3 Tablet(s) PO daily 07/05/2018 07/04/2018 Inactive Kenalog 40 mg/mL kat pension for injection RxNorm: 5760628 Milliliter(s) Inj 07/05/2018 07/05/2018 In active Ritalin 10 mg tablet RxNorm: 4472962 1 Tablet(s) PO BID 07/05/2018 08/03/2018 Inactive [SAVINGS FOR NON-COVERED DRUGS -- BIN: 3585, PCN: ASPROD1, Group: XXXXX, ID# [id number], Questions: . THIS IS NOT INSURANCE.] prednisone 20 mg tablet RxNorm: 851149 3 Tablet(s) PO daily 07/05/2018 07/09/2018 Inactive Aldactone 25 mg tablet RxNorm: 408530 Tablet(s) 1 TABLET(S) PO BID 04/17/2018 01/11/2019 Active pantoprazole 40 mg t ablet,delayed release RxNorm: 641581 1 Tablet(s) PO QHS 04/17/2018 01/11/2019 Ac tive Ritalin 10 mg tablet RxNorm: 9897270 1 Tablet(s) PO BID 04/17/2018 05/16/2018 Inactive [SAVINGS FOR NON-COVERED DRUGS -- BIN: 358, PCN: ASPROD1, Group: XXXXX, ID# [id number], Questions: . THIS IS NOT INSURANCE.] Bactrim 400 mg-80 mg tablet RxNorm: 091656 Tablet(s) TAKE 1 TABL ET BY MOUTH NEEDED FOR SEXUAL INTERCOURSE FOR UTI PREVENTION 04/17/2018 08/14/2018 Inactive Kenalog 40 mg/mL kat pension for injection RxNorm: 9085819 1 Milliliter(s) Inj 03/14/2018 03/14/2018 In active amitriptyline 100 mg tablet RxNorm: 807652 Tablet(s) TAKE 1 TABL ET BY MOUTH DAILY AT BEDTIME 03/14/2018 07/25/2018 Inactive Ritalin 10 mg tablet RxNorm: 7277963 1 Tablet(s) PO BID 03/14/2018 04/12/2018 Inactive [SAVINGS FOR NON-COVERED DRUGS -- BIN:00 3585, PCN: ASPROD1, Group: XXXXX, ID# [id number], Questions: . THIS IS NOT INSURANCE.] Bactrim 400 mg-80 mg tablet RxNorm: 976715 TAKE 1 TABLET BY MOUT H NEEDED FOR SEXUAL INTERCOURSE FOR UTI PREVENTION 09/28/2017 11/26/2017 Inactive amitriptyline 100 mg tablet RxNorm: 768083 TAKE 1 TABLET BY MOUT H DAILY AT BEDTIME 09/25/2017 03/13/2018 In active Diflucan 150 mg tablet RxNorm: 199503 1 Tablet(s) PO daily 05/31/2017 06/04/2017 Inactive Diflucan 150 mg tablet RxNorm: 601891 1 Tablet(s) PO daily 05/31/2017 05/30/2017 Inactive Kenalog 40 mg/mL kat pension for injection RxNorm: 1344080 Milliliter(s) Inj 05/25/2017 05/25/2017 In active prednisone 10 mg tablet RxNorm: 375064 Tablet(s) PO UD 05/25/2017 09/24/2017 Inactive 6,5,4,3,2,1 Phenergan with Codei ne Syrup RxNorm: 5-10 Milliliter(s) PO QID a s needed 05/25/2017 03/13/2018 In active Keflex 500 mg capsule RxNorm: 106394 1 Capsule(s) PO TID 05/25/2017 06/03/2017 Inactive ceftriaxone 500 mg s olution for injection RxNorm: 5801066 1 Milliliter(s) Inj 05/25/2017 05/25/2017 In active estradiol 0.5 mg tablet RxNorm: 292932 1 Tablet(s) PO daily 05/14/2017 09/05/2018 Inactive Celexa 20 mg tablet RxNorm: 083695 1.5 Tablet(s) PO daily 05/14/2017 09/05/2018 Inactive amitriptyline 100 mg tablet RxNorm: 386237 1 Tablet(s) PO QHS 05/14/2017 09/24/2017 Inactive Januvia 50 mg tablet RxNorm: 602413 1 Tablet(s) PO daily 05/14/2017 05/08/2018 Inactive pantoprazole 40 mg t ablet,delayed release RxNorm: 105468 1 Tablet(s) PO QHS 05/14/2017 02/07/2018 In active Bactrim 400 mg-80 mg tablet RxNorm: 571797 Tablet(s) TAKE ONE TA BLET BY MOUTH NEEDED FOR SEXUAL INTERCOURSE FOR UTI PREVENTION 05/14/2017 08/11/2017 Inactive Toprol XL 25 mg tabl et,extended release RxNorm: 395619 1 Tablet(s) PO daily 05/14/2017 05/08/2018 In active Aldactone 25 mg tablet RxNorm: 227681 Tablet(s) 1 TABLET(S) PO BID 05/14/2017 02/07/2018 Inactive Celexa 20 mg tablet RxNorm: 245100 TAKE ONE & ONE-HALF TABLETS BY MOUTH ONC E DAILY 04/12/2017 05/13/2017 Inactive Toprol XL 25 mg tabl et,extended release RxNorm: 122752 TAKE ONE TABLET BY MO UTH ONCE DAILY 02/06/2017 05/13/2017 Inactive Celexa 20 mg tablet RxNorm: 567106 TAKE ONE & ONE-HALF TABLETS BY MOUTH ONC E DAILY 01/03/2017 03/03/2017 Inactive amitriptyline 100 mg tablet RxNorm: 540491 TAKE ONE TABLET BY MO UTH AT BEDTIME 12/08/2016 05/13/2017 In active Toprol XL 25 mg tabl et,extended release RxNorm: 152745 TAKE ONE TABLET BY MO UTH ONCE DAILY 11/23/2016 02/06/2017 Inactive Januvia 50 mg tablet RxNorm: 438591 TAKE ONE TABLET BY MOUTH ONCE DAILY 11/09/2016 03/08/2017 In active Bactrim 400 mg-80 mg tablet RxNorm: 056835 TAKE ONE TABLET BY MO UTH NEEDED FOR SEXUAL INTERCOURSE FOR UTI PREVENTION 09/19/2016 04/24/2017 Inactive amitriptyline 100 mg tablet RxNorm: 092734 TAKE ONE TABLET BY MO UTH AT BEDTIME 08/31/2016 11/28/2016 In active pantoprazole 40 mg t ablet,delayed release RxNorm: 788587 Tablet(s) TAKE 1 TABL ET BY MOUTH ONCE DAILY 08/16/2016 05/12/2017 Inactive estradiol 0.5 mg tablet RxNorm: 156204 TAKE ONE TABLET BY MOUTH ONCE DAILY 08/13/2016 05/13/2017 In active amitriptyline 100 mg tablet RxNorm: 668649 TAKE ONE TABLET BY MO UTH AT BEDTIME 07/31/2016 08/29/2016 In active ProAir HFA 90 mcg/ac tuation aerosol inhaler RxNorm: 988228 2 inhale INH PRN as n eeded 05/02/2016 No Stop Date Active ciprofloxacin 0.3 % eye drops RxNorm: 139384 Drop(s) OPH 2 drops e very 2 hours while awake for days 1-2 and 2 drops every 4 hours for days 3 - 7 05/02/2016 03/13/2018 Inactive Kenalog 40 mg/mL kat pension for injection RxNorm: 2942919 Milliliter(s) Inj 05/02/2016 05/02/2016 In active Zithromax Z-Nick 250 mg tablet RxNorm: 691528 1 Tablet(s) PO UD 05/02/2016 09/24/2017 Inactive albuterol sulfate 2. 5 mg/3 mL (0.083 %) solution for nebulization RxNorm: 941831 1 Milliliter(s) INH QID as needed 03/13/2018 Inactive prednisone 20 mg tablet RxNorm: 241119 1 Tablet(s) PO BID 05/02/2016 05/06/2016 Inactive amitriptyline 100 mg tablet RxNorm: 407171 1 TABLET(S) PO QHS 03/01/2016 07/30/2016 Inactive estradiol 0.5 mg tablet RxNorm: 414354 1 TABLET(S) PO DAILY 03/01/2016 09/24/2017 Inactive TAKE 1 TABLET BY MOUTH DAILY estradiol 0.5 mg tablet RxNorm: 337696 TAKE ONE TABLET BY MOUTH ONCE DAILY 03/01/2016 05/29/2016 In active Celexa 20 mg tablet RxNorm: 954481 TAKE ONE & ONE-HALF TABLETS BY MOUTH ONC E DAILY 12/03/2015 11/26/2016 Inactive amoxicillin 500 mg c apsule RxNorm: 630719 1 Capsule(s) PO BID 11/05/2015 11/04/2015 Inactive amoxicillin 500 mg c apsule RxNorm: 951228 1 Capsule(s) PO BID 11/05/2015 04/30/2017 Inactive Kenalog 40 mg/mL kat pension for injection RxNorm: 8989823 Milliliter(s) Inj 10/28/2015 10/28/2015 In active Januvia 50 mg tablet RxNorm: 807244 Tablet(s) 1 TABLET(S) PO DAILY 10/28/2015 10/21/2016 In active Ritalin 10 mg tablet RxNorm: 7222900 1 Tablet(s) PO BID 10/28/2015 11/26/2015 Inactive [SAVINGS FOR NON-COVERED DRUGS -- BIN:00 3585, PCN: ASPROD1, Group: XXXXX, ID# [id number], Questions: . THIS IS NOT INSURANCE.] Toprol XL 25 mg tabl et,extended release RxNorm: 038713 Tablet(s) 1 TABLET(S) PO DAILY 10/28/2015 10/21/2016 Inactive prednisone 20 mg tablet RxNorm: 201347 1 Tablet(s) PO BID 10/28/2015 11/01/2015 Inactive Lasix 40 mg tablet RxNorm: 585269 TAKE ONE TABLET BY MOUTH ONCE DAILY. MAY TAKE EXTRA TABLET NEEDED. 09/27/2015 12/25/2015 Inactive Bactrim 400 mg-80 mg tablet RxNorm: 712897 Tablet(s) 1 TABLET(S) PO PRN SEXUAL INTERCOURSE, UTI PREVENTATIVE 09/22/2015 12/20/2015 Inactive pantoprazole 40 mg t ablet,delayed release RxNorm: 049084 TAKE 1 TABLET BY MOUT H ONCE DAILY 07/29/2015 01/24/2016 Inactive amitriptyline 100 mg tablet RxNorm: 900592 Tablet(s) 1 TABLET(S) PO QHS 07/26/2015 09/24/2017 In active pantoprazole 40 mg t ablet,delayed release RxNorm: 222020 TAKE 1 TABLET BY MOUT H ONCE DAILY 07/21/2015 07/28/2015 Inactive Bactrim 400 mg-80 mg tablet RxNorm: 293768 1 TABLET(S) PO PRN SE XUAL INTERCOURSE, UTI PREVENTATIVE 06/21/2015 09/18/2015 Inactive Ritalin 10 mg tablet RxNorm: 7873732 1 Tablet(s) PO BID 04/19/2015 05/18/2015 Inactive [SAVINGS FOR NON-COVERED DRUGS -- BIN:00 3585, PCN: ASPROD1, Group: XXXXX, ID# [id number], Questions: . THIS IS NOT INSURANCE.] Keflex 500 mg capsule RxNorm: 475795 1 Capsule(s) PO TID 04/19/2015 04/28/2015 Inactive Kenalog 40 mg/mL kat pension for injection RxNorm: 6851718 Milliliter(s) Inj 04/19/2015 04/19/2015 In active ceftriaxone 500 mg s olution for injection RxNorm: 3008590 Inj 04/19/2015 04/19/2015 Inactive amitriptyline 100 mg tablet RxNorm: 487085 1 TABLET(S) PO QHS 03/26/2015 07/25/2015 Inactive Lasix 40 mg tablet RxNorm: 578281 1 Tablet(s) PO daily 03/26/2015 09/21/2015 Inactive may take an extra tablet as needed Aldactone 25 mg tablet RxNorm: 616185 1 TABLET(S) PO BID 03/26/2015 12/20/2015 Inactive Levaquin 500 mg tablet RxNorm: 670133 1 Tablet(s) PO daily 03/15/2015 03/21/2015 Inactive Levaquin 500 mg tablet RxNorm: 956858 1 Tablet(s) PO daily 03/15/2015 03/14/2015 Inactive hydrocodone 5 mg-devang taminophen 325 mg tablet RxNorm: 193509 one or two tabs po ev ey six hours prn Tablet(s) PO 02/26/2015 03/13/2018 Inactive hydrocodone 5 mg-devang taminophen 325 mg tablet RxNorm: 167596 one or two tabs po ev ey six hours prn Tablet(s) PO 02/26/2015 02/25/2015 Inactive amitriptyline 100 mg tablet RxNorm: 360268 1 TABLET(S) PO QHS 02/22/2015 01/17/2016 Inactive Keflex 500 mg capsule RxNorm: 358076 1 Capsule(s) PO TID 01/25/2015 01/24/2015 Inactive Keflex 500 mg capsule RxNorm: 196008 1 Capsule(s) PO TID 01/25/2015 01/31/2015 Inactive Bactrim 400 mg-80 mg tablet RxNorm: 374946 1 Tablet(s) PO PRN se xual intercourse, uti preventative 01/04/2015 01/03/2015 Inactive Bactrim 400 mg-80 mg tablet RxNorm: 688282 1 Tablet(s) PO PRN se beto perdue, uti preventative 01/04/2015 06/20/2015 Inactive Ritalin 10 mg tablet RxNorm: 8421172 1 Tablet(s) PO BID 12/24/2014 01/22/2015 Inactive [SAVINGS FOR NON-COVERED DRUGS -- BIN:00 3585, PCN: ASPROD1, Group: XXXXX, ID# [id number], Questions: . THIS IS NOT INSURANCE.] Kenalog 40 mg/mL kat pension for injection RxNorm: 8775433 Milliliter(s) Inj 12/24/2014 12/24/2014 In active estradiol 0.5 mg tablet RxNorm: 586464 1 Tablet(s) PO daily 12/16/2014 02/29/2016 Inactive TAKE 1 TABLET BY MOUTH DAILY pantoprazole 40 mg t ablet,delayed release RxNorm: 161092 1 Tablet(s) daily 10/26/2014 07/20/2015 In active [SAVINGS FOR NON-COVERED DRUGS -- BIN:00 3585, PCN: ASPROD1, Group: XXXXX, ID# [id number], Questions: . THIS IS NOT INSURANCE.] Ritalin 10 mg tablet RxNorm: 1430098 1 Tablet(s) PO BID 10/23/2014 11/21/2014 Inactive [SAVINGS FOR NON-COVERED DRUGS -- BIN:00 3585, PCN: ASPROD1, Group: XXXXX, ID# [id number], Questions: . THIS IS NOT INSURANCE.] pantoprazole 40 mg t ablet,delayed release RxNorm: 624029 3/4 Tablet(s) daily 10/23/2014 10/25/2014 In active [SAVINGS FOR NON-COVERED DRUGS -- BIN:00 3585, PCN: ASPROD1, Group: XXXXX, ID# [id number], Questions: . THIS IS NOT INSURANCE.] Toprol XL 25 mg tabl et,extended release RxNorm: 339765 1 TABLET(S) PO DAILY 10/20/2014 10/14/2015 In active Januvia 50 mg tablet RxNorm: 682022 1 TABLET(S) PO DAILY 10/20/2014 10/14/2015 Inactive samples and script Celexa 20 mg tablet RxNorm: 479120 1.5 TABLET(S) PO DAILY TAKE 1 & 1/2 TABL ETS BY MOUTH DAILY 10/20/2014 10/14/2015 Inactive omeprazole 20 mg cap maco,delayed release RxNorm: 100939 1 Capsule(s) PO BID 09/25/2014 09/24/2014 In active omeprazole 20 mg cap maco,delayed release RxNorm: 407370 1 Capsule(s) PO BID 09/25/2014 10/22/2014 In active DC pantoprazole [SAVINGS FOR NON-COVERED DRUGS -- BIN:737859, PCN: ASPROD1, Group: XXXXX, ID# [id number], Questions: . THIS IS NOT INSURANCE.] pantoprazole 40 mg t ablet,delayed release RxNorm: 102036 1 TABLET(S) PO BID 09/24/2014 09/24/2014 In active omeprazole 20 mg tab let,delayed release RxNorm: 015238 1 Tablet(s) PO BID 08/31/2014 08/30/2014 In active dc pantoprazole 40mg omeprazole 20 mg tab let,delayed release RxNorm: 459670 1 Tablet(s) PO BID 08/31/2014 08/30/2014 In active omeprazole 20 mg tab let,delayed release RxNorm: 189275 1 Tablet(s) PO daily 08/31/2014 10/27/2015 In active change to daily Ritalin 10 mg tablet RxNorm: 8756716 1 Tablet(s) PO BID 07/20/2014 08/18/2014 Inactive [SAVINGS FOR UNINSURED PATIENTS -- BIN:0 11337, PCN: ASPROD1, Group: [id number], ID# [id number], Process claim through [employer], for questions: . THIS IS NOT INSURANCE.] amitriptyline 100 mg tablet RxNorm: 078380 1 TABLET(S) PO QHS 04/27/2014 02/21/2015 Inactive Ritalin 10 mg tablet RxNorm: 8679270 1 Tablet(s) PO BID 02/09/2014 06/08/2014 Inactive [SAVINGS FOR UNINSURED PATIENTS -- BIN:0 40464, PCN: ASPROD1, Group: [id number], ID# [id number], Process claim through [employer], for questions: . THIS IS NOT INSURANCE.] ProAir HFA 90 mcg/ac tuation aerosol inhaler RxNorm: 964239 2 inhale INH PRN 11/19/2013 10/27/2015 In active amitriptyline 100 mg tablet RxNorm: 102771 Tablet(s) PO TAKE 1 T ABLET BY MOUTH AT BEDTIME 10/27/2013 04/23/2017 Inactive Ritalin 10 mg tablet RxNorm: 5154555 1 Tablet(s) PO BID 10/13/2013 02/08/2014 Inactive estradiol 0.5 mg tablet RxNorm: 800177 1 Tablet(s) PO daily 10/13/2013 12/15/2014 Inactive TAKE 1 TABLET BY MOUTH DAILY pantoprazole 40 mg t ablet,delayed release RxNorm: 414849 1 Tablet(s) PO BID 10/13/2013 08/30/2014 In active Januvia 50 mg tablet RxNorm: 719751 1 Tablet(s) PO daily 10/13/2013 10/07/2014 Inactive samples and script Toprol XL 25 mg tabl et,extended release RxNorm: 913452 1 Tablet(s) PO daily 10/13/2013 10/07/2014 In active Celexa 20 mg tablet RxNorm: 372665 1.5 Tablet(s) PO daily TAKE 1 & 1/2 TABL ETS BY MOUTH DAILY 10/13/2013 10/07/2014 Inactive Aldactone 25 mg tablet RxNorm: 848915 1 Tablet(s) PO BID 10/13/2013 10/07/2014 Inactive Januvia 50 mg tablet RxNorm: 992615 1 Tablet(s) PO daily 10/07/2013 10/12/2013 Inactive samples and script Celexa 20 mg tablet RxNorm: 784334 1 1/2 Tablet(s) PO daily TAKE 1 & 1/2 TA BLETS BY MOUTH DAILY 05/05/2013 10/12/2013 Inactive pantoprazole 40 mg t ablet,delayed release RxNorm: 776579 1 Tablet(s) PO daily 04/30/2013 10/12/2013 In active amitriptyline 100 mg tablet RxNorm: 614986 1 Tablet(s) PO QHS 04/28/2013 10/26/2013 Inactive Ritalin 10 mg tablet RxNorm: 0665341 1 Tablet(s) PO BID 04/18/2013 05/17/2013 Inactive Kenalog 40 mg/mL Kat p for Injection RxNorm: 6301860 1 Milliliter(s) Inj 03/18/2013 03/18/2013 In active amitriptyline 100 mg tablet RxNorm: 557392 1 Tablet(s) PO QHS 03/18/2013 04/27/2013 Inactive Ritalin 10 mg tablet RxNorm: 0558461 1 Tablet(s) PO BID 02/21/2013 03/17/2013 Inactive Toprol XL 25 mg tabl et,extended release RxNorm: 986074 1 Tablet(s) PO daily 01/23/2013 07/21/2013 In active amitriptyline 100 mg tablet RxNorm: 901189 1 Tablet(s) PO QHS 01/23/2013 03/17/2013 Inactive Celexa 20 mg tablet RxNorm: 684794 Tablet(s) PO TAKE 1 & 1/2 TABLETS BY HERLINDA TH DAILY 12/13/2012 05/04/2013 Inactive Lasix 40 mg tablet RxNorm: 890624 1 Tablet(s) PO daily 12/13/2012 02/10/2013 Inactive and prn amitriptyline 100 mg tablet RxNorm: 501007 1 Tablet(s) PO QHS 10/21/2012 01/18/2013 Inactive Toprol XL 25 mg tabl et,extended release RxNorm: 678151 1 Tablet(s) PO daily 09/17/2012 01/14/2013 In active potassium chloride E R 10 mEq tablet,extended release RxNorm: 830141 1 Tablet(s) PO daily 08/19/2012 10/13/2013 Inactive Lasix 40 mg tablet RxNorm: 239630 1 Tablet(s) PO daily 08/19/2012 12/12/2012 Inactive and prn Ritalin 10 mg tablet RxNorm: 7408347 1 Tablet(s) PO BID 07/16/2012 10/13/2012 Inactive ciprofloxacin 500 mg tablet RxNorm: 202655 1 Tablet(s) PO BID 07/16/2012 07/22/2012 Inactive Celexa 20 mg tablet RxNorm: 200918 Tablet(s) PO TAKE 1 & 1/2 TABLETS BY HERLINDA TH DAILY 07/15/2012 12/12/2012 Inactive GE100 Blood Glucose Test Strip RxNorm: 1 Miscellaneous BID 07/11/2012 08/04/2013 Inactive and lancets Aldactone 25 mg tablet RxNorm: 266381 1 Tablet(s) PO BID 03/20/2012 03/14/2013 Inactive estradiol 0.5 mg tablet RxNorm: 628263 1 Tablet(s) PO daily 03/15/2012 06/07/2013 Inactive TAKE 1 TABLET BY MOUTH DAILY amitriptyline 100 mg tablet RxNorm: 694166 1 Tablet(s) PO QHS 03/13/2012 10/08/2012 Inactive amitriptyline 100 mg tablet RxNorm: 008278 1 Tablet(s) PO QHS 12/07/2011 01/05/2012 Inactive Kenalog 40 mg/mL Kat p for Injection RxNorm: 6404130 1 Milliliter(s) Inj 12/07/2011 12/07/2011 In active Provigil 200 mg Tab RxNorm: 673266 1 Tablet(s) PO QAM 12/07/2011 01/05/2012 Inactive Flonase Allergy Reli ef 50 mcg/actuation nasal spray,suspension RxNorm: 5988913 [place] NASAL daily as needed No Start Date Active Fish Oil 1,000 mg ca psule RxNorm: 1 Capsule(s) PO BID No Start Date 10/27/2015 Inactive Provigil 200 mg Tab RxNorm: 332196 1 Tablet(s) PO daily No Start Date 10/13/2013 Inactive Lasix 40 mg tablet RxNorm: 469737 1 Tablet(s) PO BID No Start Date 03/25/2015 Inactive Toprol XL 25 mg tabl et,extended release RxNorm: 898999 1 Tablet(s) PO daily No Start Date 09/16/2012 Inactive Prilosec 20 mg Capsu le, delayed release RxNorm: 980006 1 Capsule(s) PO daily No Start Date 10/13/2013 Inactive cyclobenzaprine 10 m g Tab RxNorm: 814706 1 Tablet(s) PO Q8 PRN No Start Date 03/17/2013 Inactive GE100 Blood Glucose Test Strip RxNorm: 1 Miscellaneous BID No Start Date 07/10/2012 Inactive pantoprazole 40 mg t ablet,delayed release RxNorm: 574392 1 Tablet(s) PO daily No Start Date 04/29/2013 Inactive Januvia 50 mg tablet RxNorm: 586752 1 Tablet(s) PO daily No Start Date 10/06/2013 Inactive samples and script Aldactone 25 mg tablet RxNorm: 503262 1 Tablet(s) PO BID No Start Date 03/19/2012 Inactive amitriptyline 100 mg Tab RxNorm: 488417 1 Tablet(s) PO QHS No Start Date 12/06/2011 Inactive Celexa 20 mg tablet RxNorm: 351235 1.5 Tablet(s) PO daily No Start Date 07/14/2012 Inactive potassium chloride E R 10 mEq tablet,extended release RxNorm: 073821 1 Tablet(s) PO BID No Start Date 08/18/2012 Inactive prednisone 20 mg Tab RxNorm: 079072 Tablet(s) PO UD 3 tabs x 2 days, 2 tabs x 2 days, 1 tab x 2 days, 1/2 tab x 2 days, 1/2 tab QOD x 2 doses then stop No Start Date 10/13/2013 Inactive estradiol 0.5 mg tablet RxNorm: 395744 1 Tablet(s) PO daily No Start Date 03/15/2012 Inactive Aldactone 25 mg tablet RxNorm: 261752 1 Tablet(s) PO BID No Start Date 10/12/2013 Inactive Lasix 40 mg tablet RxNorm: 087588 1 Tablet(s) PO BID No Start Date 08/18/2012 Inactive amitriptyline 75 mg Tab RxNorm: 356147 1 Tablet(s) PO QHS No Start Date 10/13/2013 Inactive Medication Administered Medication Codes Instruc tions Start Date Status Kenalog 40 mg/mL suspension for injection RxNorm: 8115210 Milliliter 07/05/2018 No longer Active Kenalog 40 mg/mL suspension for injection RxNorm: 9865482 1Milliliter 03/14/2018 N o longer Active ceftriaxone 500 mg solution for injection RxNorm: 1554266 1Milliliter 05/25/2017 N o longer Active Kenalog 40 mg/mL suspension for injection RxNorm: 2985947 Milliliter 05/25/2017 No longer Active Kenalog 40 mg/mL suspension for injection RxNorm: 9512856 Milliliter 05/02/2016 No longer Active Kenalog 40 mg/mL suspension for injection RxNorm: 1065309 Milliliter 10/28/2015 No longer Active ceftriaxone 500 mg solution for injection RxNorm: 4789308 04/19/2015 No longer A ctive Kenalog 40 mg/mL suspension for injection RxNorm: 4268276 Milliliter 04/19/2015 No longer Active Kenalog 40 mg/mL suspension for injection RxNorm: 5583694 Milliliter 12/24/2014 No longer Active Kenalog 40 mg/mL Susp for Injection RxNorm: 1517366 1Milliliter 03/18/2013 N o longer Active Kenalog 40 mg/mL Susp for Injection RxNorm: 4048018 1Milliliter 12/07/2011 N o longer Active Immunizations Vaccine Codes Date Status Tetanus, Diptheria, Pertussis CVX: 113 03/14/2018 completed Tetanus/Diptheria CVX: 113 03/14/2018 completed Assessments Condition Codes Effectiv e Dates Essential (primary) hypertension ICD -10: I10 ICD-9: 401.9 11/22/2018 Type 2 diabetes mellitus with hyperglycemia ICD-10: E11.65 ICD-9: 250.02 11/22/2018 Pleurodynia ICD-10: R07.81 ICD-9: 786.50 07/05/2018 Encounter for immunization ICD-10: Z 23 ICD-9: V03.9 03/14/2018 Attention-deficit hyperactivity disorder, combined typ e ICD- 10: F90.2 ICD-9: 314.01 03/14/2018 Other allergic rhinitis ICD-10: J30. 89 ICD-9: 477.8 03/14/2018 Mixed hyperlipidemia ICD-10: E78.2 ICD-9: 272.2 03/14/2018 Other acute sinusitis ICD-10: J01.80 ICD-9: 461.8 05/25/2017 Other disorders of pituitary gland I CD-10: E23.6 ICD-9: 253.8 05/14/2017 Other hemorrhoids ICD-10: K64.8 ICD-9: 455.8 05/14/2017 Melena ICD-10: K92.1 ICD-9: 578.1 05/14/2017 Acute bronchitis due to other specified organisms ICD-10: J20.8 ICD-9: 466.0 05/02/2016 Otalgia, right ear ICD-10: H92.01 ICD-9: 388.70 10/28/2015 Allergic rhinitis due to pollen ICD- 10: J30.1 ICD-9: 477.0 10/28/2015 Acute maxillary sinusitis, unspecified ICD-10: J01.00 ICD-9: 461.0 04/19/2015 Allergic rhinitis, unspecified ICD-1 0: J30.9 ICD-9: 477.9 04/19/2015 DYSURIA ICD-9: 788.1 UTI ICD-9: 599.0 015 Swelling of eyelid ICD-9: 374.82 12/24/2014 [place] ICD-9: 692.71 ADHD (attention deficit hyperactivity disorder) ICD-9: 314.01 10/13/2013 ESSENTIAL HYPERTENSION SNOMED: 46156 000 ICD-9: 401.9 10/13/2013 Depression ICD-9: 311 DIABETES TYPE II SNOMED: 501508362 ICD-9: 250.00 10/13/2013 EDEMA ICD-9: 782.3 03/18 DM W/O COMPLICATION TYPE II, UNCONTROLLED SNOMED: 20149462 ICD-9: 250.02 03/18/2013 Uncontrolled narcolepsy ICD-9: 347.00 01/17/2012 Sacroiliitis ICD-9: 720.2 12/07/2011 Chronic back pain ICD-9: 724.5 12/07/2011 Sciatica ICD-9: 724.3 Reason For Visit Reason For Visit Effective Dates Notes flank pain 07/05/2018 diabetes mellitus 03/14/2018 ADHD headache 05/25/2017 hemorrhoids 05/14/2017 sinus congestion 05/02/2016 earache 10/28/2015 headache 04/19/2015 eyelid edema 12/24/2014 hypertension 10/13/2013 diabetes mellitus 03/18/2013 Hospital Follow Up 07/16/2012 daytime hypersomnolence 01/17/2012 back pain 12/07/2011 Results Observation Observation Code Item Item Code Result Date Comp Metabolic Psk229 NA 139 mEq/L 11/22/2018 Comp Metabolic Ebn757 K 4.4 mEq/L 11/22/2018 Comp Metabolic Bht070 CL 105 mEq/L 11/22/2018 Comp Metabolic Ghh224 CO2 27.0 mEq/L 11/22/2018 Comp Metabolic Tzw962 AN ION GAP 11 11/22/2018 Comp Metabolic Bwl616 GL UCOSE 136 mg/dL 11/22/2018 Comp Metabolic Dsu998 Cr eat 0.8 mg/dL 11/22/2018 Comp Metabolic Wss678 eG FR 75 ml/min/1.73m2 11/22 Comp Metabolic Hrg630 BUN 13 mg/dL 11/22/2018 Comp Metabolic Sao013 B/ C Ratio 15.5 Ratio 11/22/2018 Comp Metabolic Doa574 CA LCIUM 9.3 mg/dL 11/22/2018 Comp Metabolic Rxq709 AL K PHOS 56 U/L 11/22/2018 Comp Metabolic Wrq049 T(SGOT) 15 U/L 11/22/2018 Comp Metabolic Hcp601 AL T(SGPT) 13 U/L 11/22/2018 Comp Metabolic Ref638 BI LI T 0.4 mg/dL 11/22/2018 Comp Metabolic Agk494 AL BUMIN 4.2 g/dL 11/22/2018 Comp Metabolic Woa505 TP RO 6.4 g/dL 11/22/2018 Comp Metabolic Ekh497 GL OB 2.2 g/dL 11/22/2018 Comp Metabolic Jwb872 A/ G Ratio 1.9 Ratio 11/22/2018 Comp Metabolic Dws298 Os mo 280 mOsmo 11/22/2018 Lipid Ord30 CHOL 196 mg/dL 11/22/2018 Lipid Ord30 HDL 58.0 mg/dl 11/22/2018 Lipid Ord30 TRIG 132 mg/dL 11/22/2018 Lipid Ord30 LDL 112 mg/dL 11/22/2018 Lipid Ord30 C/HDL 3.4 Ratio 11/22/2018 %Hba1C Jvo846 % HbA1c 66820-5 6.5 % 11/22/2018 %Hba1C Kxd747 Gluc Ave 140 mg/dL 11/22/2018 Cbc With Differential Ord2 WBC 7.96 K/ul 11/22/2018 Cbc With Differential Ord2 RBC 4.48 M/ul 11/22/2018 Cbc With Differential Ord2 HGB 14.3 g/dl 11/22/2018 Cbc With Differential Ord2 Neut% 66.6 % 11/22/2018 Cbc With Differential Ord2 HCT 43.5 % 11/22/2018 Cbc With Differential Ord2 Lymph% 22.6 % 11/22/2018 Cbc With Differential Ord2 MCV 97.1 fl 11/22/2018 Cbc With Differential Ord2 MCH 31.9 pg 11/22/2018 Cbc With Differential Ord2 [place]% 6.7 % 11/22/2018 Cbc With Differential Ord2 Eos% 3.5 % 11/22/2018 Cbc With Differential Ord2 MCHC 32.9 pg 11/22/2018 Cbc With Differential Ord2 PLT 327 K/ul 11/22/2018 Cbc With Differential Ord2 Baso% 0.6 % 11/22/2018 Cbc With Differential Ord2 RDW 12.6 % 11/22/2018 Cbc With Differential Ord2 Neut ABS# 5.30 K/ul 11/22/2018 Cbc With Differential Ord2 Lymph ABS# 1.80 K/ul 11/22/2018 Cbc With Differential Ord2 [place] ABS# 0.5 K/ul 11/22/2018 Cbc With Differential Ord2 Eos ABS# 0.3 K/ul 11/22/2018 Cbc With Differential Ord2 Baso ABS# 0.1 K/ul 11/22/2018 Tsh Ord6 TSH (3rd IS) 0.79 uIU/mL 11/22/2018 Cbc With Differential Ord2 WBC 8.55 K/ul 03/26/2018 Cbc With Differential Ord2 RBC 4.69 M/ul 03/26/2018 Cbc With Differential Ord2 HGB 15.0 g/dl 03/26/2018 Cbc With Differential Ord2 HCT 45.6 % 03/26/2018 Cbc With Differential Ord2 Neut% 67.6 % 03/26/2018 Cbc With Differential Ord2 MCV 97.2 fl 03/26/2018 Cbc With Differential Ord2 Lymph% 23.5 % 03/26/2018 Cbc With Differential Ord2 MCH 32.0 pg 03/26/2018 Cbc With Differential Ord2 [place]% 6.9 % 03/26/2018 Cbc With Differential Ord2 MCHC 32.9 pg 03/26/2018 Cbc With Differential Ord2 Eos% 1.5 % 03/26/2018 Cbc With Differential Ord2 PLT 351 K/ul 03/26/2018 Cbc With Differential Ord2 Baso% 0.5 % 03/26/2018 Cbc With Differential Ord2 RDW 13.1 % 03/26/2018 Cbc With Differential Ord2 Neut ABS# 5.78 K/ul 03/26/2018 Cbc With Differential Ord2 Lymph ABS# 2.01 K/ul 03/26/2018 Cbc With Differential Ord2 [place] ABS# 0.6 K/ul 03/26/2018 Cbc With Differential Ord2 Eos ABS# 0.1 K/ul 03/26/2018 Cbc With Differential Ord2 Baso ABS# 0.0 K/ul 03/26/2018 Tsh Ord6 TSH (3rd IS) 1.30 uIU/mL 03/26/2018 %Hba1C Bpf420 % HbA1c 80330-3 6.5 % 03/26/2018 %Hba1C Tzd283 Gluc Ave 140 mg/dL 03/26/2018 Comp Metabolic Wkp598 NA 141 mEq/L 03/26/2018 Comp Metabolic Kbt358 K 4.5 mEq/L 03/26/2018 Comp Metabolic Zpe460 CL 106 mEq/L 03/26/2018 Comp Metabolic Xsw452 CO2 30.0 mEq/L 03/26/2018 Comp Metabolic Xek028 AN ION GAP 10 03/26/2018 Comp Metabolic Fwg700 GL UCOSE 122 mg/dL 03/26/2018 Comp Metabolic Aiv668 Cr eat 1.0 mg/dL 03/26/2018 Comp Metabolic Dpd795 eG FR 60 ml/min/1.73m2 03/26 Comp Metabolic Ama051 BUN 18 mg/dL 03/26/2018 Comp Metabolic Qge918 B/ C Ratio 17.5 Ratio 03/26/2018 Comp Metabolic Shg583 CA LCIUM 10.1 mg/dL 03/26/2018 Comp Metabolic Uky501 AL K PHOS 67 U/L 03/26/2018 Comp Metabolic Luz660 T(SGOT) 22 U/L 03/26/2018 Comp Metabolic Amb079 AL T(SGPT) 26 U/L 03/26/2018 Comp Metabolic Ojq635 BI LI T 0.4 mg/dL 03/26/2018 Comp Metabolic Eie046 AL BUMIN 4.5 g/dL 03/26/2018 Comp Metabolic Tda241 TP RO 7.0 g/dL 03/26/2018 Comp Metabolic Qhl947 GL OB 2.6 g/dL 03/26/2018 Comp Metabolic Skt474 A/ G Ratio 1.7 Ratio 03/26/2018 Comp Metabolic Dgn978 Os mo 284 mOsmo 03/26/2018 Lipid Ord30 CHOL 203 mg/dL 03/26/2018 Lipid Ord30 HDL 62.0 mg/dl 03/26/2018 Lipid Ord30 TRIG 94 mg/dL 03/26/2018 Lipid Ord30 LDL 122 mg/dL 03/26/2018 Lipid Ord30 C/HDL 3.3 Ratio 03/26/2018 Prolactin 184274 PROLACT IN 5.2 ng/mL 05/15/2017 Cbc With Differential Ord2 WBC 9.75 K/ul 05/14/2017 Cbc With Differential Ord2 RBC 4.80 M/ul 05/14/2017 Cbc With Differential Ord2 HGB 15.3 g/dl 05/14/2017 Cbc With Differential Ord2 HCT 46.4 % 05/14/2017 Cbc With Differential Ord2 Neut% 67.1 % 05/14/2017 Cbc With Differential Ord2 MCV 96.7 fl 05/14/2017 Cbc With Differential Ord2 Lymph% 23.8 % 05/14/2017 Cbc With Differential Ord2 MCH 31.9 pg 05/14/2017 Cbc With Differential Ord2 [place]% 7.6 % 05/14/2017 Cbc With Differential Ord2 MCHC 33.0 pg 05/14/2017 Cbc With Differential Ord2 Eos% 1.2 % 05/14/2017 Cbc With Differential Ord2 PLT 369 K/ul 05/14/2017 Cbc With Differential Ord2 Baso% 0.3 % 05/14/2017 Cbc With Differential Ord2 RDW 13.2 % 05/14/2017 Cbc With Differential Ord2 Neut ABS# 6.54 K/ul 05/14/2017 Cbc With Differential Ord2 Lymph ABS# 2.32 K/ul 05/14/2017 Cbc With Differential Ord2 [place] ABS# 0.7 K/ul 05/14/2017 Cbc With Differential Ord2 Eos ABS# 0.1 K/ul 05/14/2017 Cbc With Differential Ord2 Baso ABS# 0.0 K/ul 05/14/2017 Tsh Ord6 hTSH II 1.69 uIU/mL 05/14/2017 %Hba1C Pyt573 % HbA1c 95043-9 6.4 % 05/14/2017 %Hba1C Qlx435 Gluc Ave 137 mg/dL 05/14/2017 Comp Metabolic Fvr521 NA 138 mEq/L 05/14/2017 Comp Metabolic Vuz745 K 4.2 mEq/L 05/14/2017 Comp Metabolic Scp386 CL 102 mEq/L 05/14/2017 Comp Metabolic Jpu154 CO2 29.0 mEq/L 05/14/2017 Comp Metabolic Mhz506 AN ION GAP 11 05/14/2017 Comp Metabolic Kyr187 GL UCOSE 114 mg/dL 05/14/2017 Comp Metabolic Dyt867 Cr eat 1.0 mg/dL 05/14/2017 Comp Metabolic Ild929 eG FR 64 ml/min/1.73m2 05/14 Comp Metabolic Alm744 BUN 22 mg/dL 05/14/2017 Comp Metabolic Qeb021 B/ C Ratio 22.7 Ratio 05/14/2017 Comp Metabolic Pjj056 CA LCIUM 9.6 mg/dL 05/14/2017 Comp Metabolic Yxk727 AL K PHOS 91 U/L 05/14/2017 Comp Metabolic Dhy648 T(SGOT) 13 U/L 05/14/2017 Comp Metabolic Shu809 AL T(SGPT) 16 U/L 05/14/2017 Comp Metabolic Swi124 BI LI T 0.4 mg/dL 05/14/2017 Comp Metabolic Acn981 AL BUMIN 4.2 g/dL 05/14/2017 Comp Metabolic Xkz848 TP RO 6.9 g/dL 05/14/2017 Comp Metabolic Wal950 GL OB 2.7 g/dL 05/14/2017 Comp Metabolic Yli997 A/ G Ratio 1.6 Ratio 05/14/2017 Comp Metabolic Xwj980 Os mo 280 mOsmo 05/14/2017 Lipid Ord30 CHOL 219 mg/dL 05/14/2017 Lipid Ord30 HDL 67.0 mg/dl 05/14/2017 Lipid Ord30 TRIG 157 mg/dL 05/14/2017 Lipid Ord30 LDL 121 mg/dL 05/14/2017 Lipid Ord30 C/HDL 3.3 Ratio 05/14/2017 Prolactin 107804 PROLACT IN 4.5 ng/mL 05/04/2016 %Hba1C Jqb309 % HbA1c 10623-5 5.9 % 05/03/2016 %Hba1C Caq827 Gluc Ave 123 mg/dL 05/03/2016 Cbc With Differential Ord2 WBC 8.63 K/ul 05/03/2016 Cbc With Differential Ord2 RBC 4.61 M/ul 05/03/2016 Cbc With Differential Ord2 HGB 14.9 g/dl 05/03/2016 Cbc With Differential Ord2 HCT 45.1 % 05/03/2016 Cbc With Differential Ord2 Neut% 62.8 % 05/03/2016 Cbc With Differential Ord2 MCV 97.8 fl 05/03/2016 Cbc With Differential Ord2 Lymph% 27.6 % 05/03/2016 Cbc With Differential Ord2 MCH 32.3 pg 05/03/2016 Cbc With Differential Ord2 [place]% 7.0 % 05/03/2016 Cbc With Differential Ord2 MCHC 33.0 pg 05/03/2016 Cbc With Differential Ord2 Eos% 2.0 % 05/03/2016 Cbc With Differential Ord2 PLT 344 K/ul 05/03/2016 Cbc With Differential Ord2 Baso% 0.6 % 05/03/2016 Cbc With Differential Ord2 RDW 12.7 % 05/03/2016 Cbc With Differential Ord2 Neut ABS# 5.43 K/ul 05/03/2016 Cbc With Differential Ord2 Lymph ABS# 2.38 K/ul 05/03/2016 Cbc With Differential Ord2 [place] ABS# 0.6 K/ul 05/03/2016 Cbc With Differential Ord2 Eos ABS# 0.2 K/ul 05/03/2016 Cbc With Differential Ord2 Baso ABS# 0.1 K/ul 05/03/2016 Tsh Ord6 hTSH II 0.70 uIU/mL 05/03/2016 Comp Metabolic Ivk195 NA 137 mEq/L 05/03/2016 Comp Metabolic Zxc981 K 4.3 mEq/L 05/03/2016 Comp Metabolic Vzd909 CL 102 mEq/L 05/03/2016 Comp Metabolic Xhh152 CO2 25.0 mEq/L 05/03/2016 Comp Metabolic Ywy127 AN ION GAP 14 05/03/2016 Comp Metabolic Eau168 GL UCOSE 87 mg/dL 05/03/2016 Comp Metabolic Wnj928 Cr eat 0.8 mg/dL 05/03/2016 Comp Metabolic Rrf443 eG FR 76 ml/min/1.73m2 05/03 Comp Metabolic Gsz043 BUN 11 mg/dL 05/03/2016 Comp Metabolic Isf513 B/ C Ratio 13.1 Ratio 05/03/2016 Comp Metabolic Xsa538 CA LCIUM 9.3 mg/dL 05/03/2016 Comp Metabolic Rid727 AL K PHOS 76 U/L 05/03/2016 Comp Metabolic Hrs814 T(SGOT) 27 U/L 05/03/2016 Comp Metabolic Nhg281 AL T(SGPT) 25 U/L 05/03/2016 Comp Metabolic Eiz881 BI LI T 0.3 mg/dL 05/03/2016 Comp Metabolic Tqe285 AL BUMIN 4.1 g/dL 05/03/2016 Comp Metabolic Zjn768 TP RO 7.1 g/dL 05/03/2016 Comp Metabolic Qpe736 GL OB 3.0 g/dL 05/03/2016 Comp Metabolic Cfe829 A/ G Ratio 1.4 Ratio 05/03/2016 Comp Metabolic Qzp105 Os mo 273 mOsmo 05/03/2016 Urine Culture Ucult Comp lete >100,000 col/ml aerobic grow th sent to ref lab 03/17/2015 Culture Urine [id number] URI NE CULTURE SEE NOTES 01/28/2015 Culture Urine [id number] Con tinued Results 01/28/2015 Urine Culture Ucult Comp lete >100,000 col/ml aerobic grow th sent to ref lab 01/26/2015 URINALYSIS NONAUTO W/O SCOPE 57404 Specific [place] 1.005 DateTime(Free Text in ) URINALYSIS NONAUTO W/O SCOPE 61549 PH 7.5 DateTime(Free Ruben t in ) URINALYSIS NONAUTO W/O SCOPE 94078 GLUCOSE neg DateTime(Free Ruben t in ) URINALYSIS NONAUTO W/O SCOPE 59840 Protein neg DateTime(Free Ruben t in ) URINALYSIS NONAUTO W/O SCOPE 51544 Blood trace DateTime(Free T ext in ) URINALYSIS NONAUTO W/O SCOPE 48871 Bilirubin small DateTime(Free T ext in ) URINALYSIS NONAUTO W/O SCOPE 31032 Ketones neg DateTime(Free Ruben t in ) URINALYSIS NONAUTO W/O SCOPE 32247 Urobilinogen 0.2 DateTime(Free Text in ) URINALYSIS NONAUTO W/O SCOPE 25230 Nitrite neg DateTime(Free Ruben t in ) URINALYSIS NONAUTO W/O SCOPE 21021 Leukocytes moderate DateTime(Free Text in ) Review of Systems System Result Effective Dates Constitutional No recent illness 07/05/2018 Constitutional No chills 07/05/2018 Constitutional No fever 07/05/2018 Eyes No eye erythema Ears/Nose/Throat/Neck No nasal discharge 07/05/2018 Cardiovascular No chest pain/pressure 07/05/2018 Cardiovascular No dyspnea 07/05/2018 Respiratory No cough Respiratory No dyspnea 0 07/05/2018 Musculoskeletal joint complaint 07/05/2018 Neurologic No alteration of consciousness 07/05/2018 Neurologic No mental status change 07/05/2018 Constitutional No recent illness 03/14/2018 Constitutional No anorexia 03/14/2018 Constitutional No night sweats 03/14/2018 Constitutional No chills 03/14/2018 Constitutional No diaphoresis 03/14/2018 Constitutional No fatigue 03/14/2018 Constitutional No fever 03/14/2018 Constitutional No insomnia 03/14/2018 Constitutional No malaise 03/14/2018 Constitutional No weight loss 03/14/2018 Constitutional No weight gain 03/14/2018 Eyes No eye discharge Eyes No eye erythema Ears/Nose/Throat/Neck nasal allergies 03/14/2018 Ears/Nose/Throat/Neck nasal discharge 03/14/2018 Cardiovascular No chest pain/pressure 03/14/2018 Cardiovascular No dyspnea 03/14/2018 Cardiovascular edema Respiratory No cough Gastrointestinal No abdominal pain 03/14/2018 Gastrointestinal No constipation 03/14/2018 Gastrointestinal No diarrhea 03/14/2018 Genitourinary/Nephrology No dysuria 03/14/2018 Musculoskeletal back pain 03/14/2018 Musculoskeletal No joint complaint 03/14/2018 Dermatologic No rash Dermatologic No sores Neurologic No alteration of consciousness 03/14/2018 Psychiatric No depression 03/14/2018 Endocrine No dry or coarse skin 03/14/2018 Constitutional recent illness 05/25/2017 Constitutional chills Constitutional diaphoresis 05/25/2017 Constitutional fever 01/2017 Eyes No eye discharge Eyes No eye erythema 01/2017 Ears/Nose/Throat/Neck headache 05/25/2017 Ears/Nose/Throat/Neck nasal allergies 05/25/2017 Ears/Nose/Throat/Neck nasal discharge 05/25/2017 Ears/Nose/Throat/Neck sinus congestion 05/25/2017 Ears/Nose/Throat/Neck sore throat 05/25/2017 Cardiovascular No chest pain/pressure 05/25/2017 Cardiovascular No dyspnea 05/25/2017 Respiratory productive sputum 05/25/2017 Respiratory chest congestion 05/25/2017 Respiratory cough 2016 Gastrointestinal No abdominal pain 05/25/2017 Gastrointestinal No constipation 05/25/2017 Gastrointestinal No diarrhea 05/25/2017 Dermatologic No rash 01/2017 Neurologic No alteration of consciousness 05/25/2017 Ears/Nose/Throat/Neck postnasal drip 05/25/2017 Constitutional No recent illness 05/14/2017 Constitutional No chills 05/14/2017 Constitutional No diaphoresis 05/14/2017 Constitutional No fever 05/14/2017 Eyes No eye erythema Ears/Nose/Throat/Neck nasal allergies 05/14/2017 Ears/Nose/Throat/Neck No nasal discharge 05/14/2017 Cardiovascular No chest pain/pressure 05/14/2017 Cardiovascular No dyspnea 05/14/2017 Respiratory No cough Respiratory No chest congestion 05/14/2017 Gastrointestinal No abdominal pain 05/14/2017 Gastrointestinal No constipation 05/14/2017 Gastrointestinal diarrhea 05/14/2017 Gastrointestinal No vomiting 05/14/2017 Gastrointestinal No nausea 05/14/2017 Gastrointestinal hematochezia 05/14/2017 Gastrointestinal No melena 05/14/2017 Musculoskeletal No joint complaint 05/14/2017 Neurologic No alteration of consciousness 05/14/2017 Neurologic No mental status change 05/14/2017 Constitutional recent illness 05/02/2016 Constitutional fatigue 1 07/02/2015 Eyes No eye erythema Ears/Nose/Throat/Neck nasal allergies 05/02/2016 Ears/Nose/Throat/Neck nasal discharge 05/02/2016 Ears/Nose/Throat/Neck sinus congestion 05/02/2016 Cardiovascular No chest pain/pressure 05/02/2016 Respiratory cough 2015 Respiratory chest congestion 05/02/2016 Respiratory wheezing Neurologic No alteration of consciousness 05/02/2016 Neurologic No mental status change 05/02/2016 Constitutional recent illness 10/28/2015 Constitutional No anorexia 10/28/2015 Constitutional No night sweats 10/28/2015 Constitutional No chills 10/28/2015 Constitutional No diaphoresis 10/28/2015 Constitutional fatigue 0 10/28/2015 Constitutional No fever 10/28/2015 Constitutional No insomnia 10/28/2015 Constitutional No malaise 10/28/2015 Constitutional No weight loss 10/28/2015 Constitutional No weight gain 10/28/2015 Eyes No eye discharge Eyes No eye erythema 05/2016 Ears/Nose/Throat/Neck nasal allergies 10/28/2015 Ears/Nose/Throat/Neck nasal discharge 10/28/2015 Ears/Nose/Throat/Neck otalgia 10/28/2015 Ears/Nose/Throat/Neck sinus congestion 10/28/2015 Cardiovascular No chest pain/pressure 10/28/2015 Respiratory No cough 05/2016 Gastrointestinal No abdominal pain 10/28/2015 Genitourinary/Nephrology No dysuria 10/28/2015 Musculoskeletal No joint complaint 10/28/2015 Dermatologic No rash 05/2016 Constitutional recent illness 04/19/2015 Constitutional No anorexia 04/19/2015 Constitutional night sweats 04/19/2015 Constitutional chills Constitutional diaphoresis 04/19/2015 Constitutional fever 07/2014 Constitutional fatigue 1 06/19/2014 Constitutional insomnia 04/19/2015 Constitutional No weight loss 04/19/2015 Constitutional No malaise 04/19/2015 Constitutional No weight gain 04/19/2015 Eyes No eye discharge Eyes No eye erythema 07/2014 Ears/Nose/Throat/Neck No dizziness 04/19/2015 Ears/Nose/Throat/Neck headache 04/19/2015 Ears/Nose/Throat/Neck nasal allergies 04/19/2015 Ears/Nose/Throat/Neck nasal discharge 04/19/2015 Ears/Nose/Throat/Neck otalgia 04/19/2015 Ears/Nose/Throat/Neck sinus congestion 04/19/2015 Ears/Nose/Throat/Neck sore throat 04/19/2015 Cardiovascular No chest pain/pressure 04/19/2015 Cardiovascular No dyspnea 04/19/2015 Respiratory productive sputum 04/19/2015 Respiratory chest congestion 04/19/2015 Respiratory cough 2014 Gastrointestinal No abdominal pain 04/19/2015 Gastrointestinal No constipation 04/19/2015 Gastrointestinal No diarrhea 04/19/2015 Genitourinary/Nephrology No dysuria 04/19/2015 Musculoskeletal No joint complaint 04/19/2015 Dermatologic No rash 07/2014 Neurologic No alteration of consciousness 04/19/2015 Psychiatric No anxiety 1 06/19/2014 Psychiatric No depression 04/19/2015 Endocrine No dry or coarse skin 04/19/2015 Hematologic/Lymphatic No abnormal bl eeding and bruising 04/19/2015 Constitutional No recent illness 12/24/2014 Constitutional No anorexia 12/24/2014 Constitutional No night sweats 12/24/2014 Constitutional No chills 12/24/2014 Constitutional No diaphoresis 12/24/2014 Constitutional No fatigue 12/24/2014 Constitutional No fever 12/24/2014 Constitutional No weight loss 12/24/2014 Constitutional No malaise 12/24/2014 Constitutional No insomnia 12/24/2014 Eyes No eye discharge Eyes No eye pain 015 Eyes eyelid edema 2014 Eyes eyelid erythema 02/2015 Ears/Nose/Throat/Neck No dizziness 12/24/2014 Ears/Nose/Throat/Neck No headache 12/24/2014 Cardiovascular No chest pain/pressure 12/24/2014 Respiratory No dyspnea on exertion 12/24/2014 Respiratory No cough 02/2015 Gastrointestinal No vomiting 12/24/2014 Gastrointestinal No nausea 12/24/2014 Genitourinary/Nephrology No dysuria 12/24/2014 Musculoskeletal No joint complaint 12/24/2014 Dermatologic erythema Neurologic No alteration of consciousness 12/24/2014 Constitutional No recent illness 10/13/2013 Constitutional No diaphoresis 10/13/2013 Constitutional No fatigue 10/13/2013 Constitutional No insomnia 10/13/2013 Constitutional No malaise 10/13/2013 Eyes No eye discharge Eyes No eye erythema Ears/Nose/Throat/Neck No dizziness 10/13/2013 Ears/Nose/Throat/Neck No nasal allergies 10/13/2013 Ears/Nose/Throat/Neck No nasal discharge 10/13/2013 Ears/Nose/Throat/Neck No otalgia 10/13/2013 Cardiovascular No chest pain/pressure 10/13/2013 Cardiovascular No dyspnea 10/13/2013 Cardiovascular No hypertension 10/13/2013 Gastrointestinal No abdominal pain 10/13/2013 Gastrointestinal No constipation 10/13/2013 Gastrointestinal No diarrhea 10/13/2013 Gastrointestinal No nausea 10/13/2013 Gastrointestinal No vomiting 10/13/2013 Musculoskeletal No arthralgia(s) 10/13/2013 Musculoskeletal back pain 10/13/2013 Neurologic No dizziness 10/13/2013 Neurologic No headache 0 10/13/2013 Psychiatric No anxiety 0 10/13/2013 Psychiatric depression 0 10/13/2013 Respiratory No chest tightness 10/13/2013 Respiratory No cigarette smoking 10/13/2013 Respiratory No cough Respiratory No dyspnea 0 10/13/2013 Respiratory No pedal edema 10/13/2013 Respiratory No snoring 0 10/13/2013 Respiratory No wheezing 10/13/2013 Constitutional No recent illness 03/18/2013 Constitutional No diaphoresis 03/18/2013 Constitutional No fatigue 03/18/2013 Constitutional No insomnia 03/18/2013 Constitutional No malaise 03/18/2013 Eyes No eye discharge Eyes No eye erythema 06/2012 Ears/Nose/Throat/Neck No dizziness 03/18/2013 Ears/Nose/Throat/Neck No nasal allergies 03/18/2013 Ears/Nose/Throat/Neck No nasal discharge 03/18/2013 Ears/Nose/Throat/Neck No otalgia 03/18/2013 Cardiovascular No chest pain/pressure 03/18/2013 Cardiovascular No dyspnea 03/18/2013 Cardiovascular No hypertension 03/18/2013 Gastrointestinal No abdominal pain 03/18/2013 Gastrointestinal No constipation 03/18/2013 Gastrointestinal No diarrhea 03/18/2013 Gastrointestinal No nausea 03/18/2013 Gastrointestinal No vomiting 03/18/2013 Musculoskeletal No arthralgia(s) 03/18/2013 Musculoskeletal back pain 03/18/2013 Neurologic No dizziness 03/18/2013 Neurologic No headache 1 Psychiatric No anxiety 1 Psychiatric depression 1 Psychiatric depression 0 07/16/2012 Constitutional No recent illness 07/16/2012 Constitutional No diaphoresis 07/16/2012 Constitutional No fatigue 07/16/2012 Constitutional No insomnia 07/16/2012 Constitutional No malaise 07/16/2012 Eyes No eye discharge Eyes No eye erythema Ears/Nose/Throat/Neck No dizziness 07/16/2012 Ears/Nose/Throat/Neck No nasal allergies 07/16/2012 Ears/Nose/Throat/Neck No nasal discharge 07/16/2012 Ears/Nose/Throat/Neck No otalgia 07/16/2012 Cardiovascular No chest pain/pressure 07/16/2012 Cardiovascular No dyspnea 07/16/2012 Cardiovascular No hypertension 07/16/2012 Gastrointestinal No abdominal pain 07/16/2012 Gastrointestinal No constipation 07/16/2012 Gastrointestinal No diarrhea 07/16/2012 Gastrointestinal No nausea 07/16/2012 Gastrointestinal No vomiting 07/16/2012 Musculoskeletal No arthralgia(s) 07/16/2012 Musculoskeletal back pain 07/16/2012 Neurologic No dizziness 07/16/2012 Neurologic No headache 0 07/16/2012 Psychiatric No anxiety 0 07/16/2012 Constitutional No recent illness 01/17/2012 Constitutional No diaphoresis 01/17/2012 Constitutional No fatigue 01/17/2012 Constitutional No insomnia 01/17/2012 Constitutional No malaise 01/17/2012 Eyes No eye discharge Eyes No eye erythema 06/2011 Ears/Nose/Throat/Neck No dizziness 01/17/2012 Ears/Nose/Throat/Neck No nasal allergies 01/17/2012 Ears/Nose/Throat/Neck No nasal discharge 01/17/2012 Ears/Nose/Throat/Neck No otalgia 01/17/2012 Cardiovascular No chest pain/pressure 01/17/2012 Cardiovascular No dyspnea 01/17/2012 Cardiovascular No hypertension 01/17/2012 Gastrointestinal No abdominal pain 01/17/2012 Gastrointestinal No constipation 01/17/2012 Gastrointestinal No diarrhea 01/17/2012 Gastrointestinal No nausea 01/17/2012 Gastrointestinal No vomiting 01/17/2012 Psychiatric No anxiety 0 01/17/2012 Psychiatric depression 0 01/17/2012 Neurologic No dizziness 01/17/2012 Neurologic No headache 0 01/17/2012 Musculoskeletal No arthralgia(s) 01/17/2012 Musculoskeletal back pain 01/17/2012 Constitutional No recent illness 12/07/2011 Constitutional No anorexia 12/07/2011 Constitutional No night sweats 12/07/2011 Constitutional No chills 12/07/2011 Constitutional No diaphoresis 12/07/2011 Constitutional No fatigue 12/07/2011 Constitutional No fever 12/07/2011 Constitutional No insomnia 12/07/2011 Constitutional No malaise 12/07/2011 Constitutional No weight loss 12/07/2011 Constitutional No weight gain 12/07/2011 Eyes No eye discharge Eyes No eye erythema Cardiovascular No chest pain/pressure 12/07/2011 Cardiovascular No dyspnea 12/07/2011 Cardiovascular No hypertension 12/07/2011 Ears/Nose/Throat/Neck No dizziness 12/07/2011 Ears/Nose/Throat/Neck No nasal allergies 12/07/2011 Ears/Nose/Throat/Neck No nasal discharge 12/07/2011 Ears/Nose/Throat/Neck No otalgia 12/07/2011 Respiratory No productive sputum 12/07/2011 Respiratory No chest congestion 12/07/2011 Respiratory No cough Gastrointestinal No abdominal pain 12/07/2011 Gastrointestinal No vomiting 12/07/2011 Gastrointestinal No nausea 12/07/2011 Gastrointestinal No constipation 12/07/2011 Gastrointestinal No diarrhea 12/07/2011 Physical Exam Exam Name System Name It em Name Status Result Effective Dates Notes Full Exam - Orthopedics Constitutional general appearance Overall: well nourished 07/05/2018 None Full Exam - Orthopedics Constitutional general appearance Overall: well developed 07/05/2018 None Full Exam - Orthopedics Constitutional general appearance Overall: in no acute distress 07/05/2018 None Full Exam - Orthopedics Eyes conjunctiva/eyelids Overall: conjunctiva clear 07/05/2018 None Full Exam - Orthopedics Eyes conjunctiva/eyelids Overall: eyelids normal 07/05/2018 None Full Exam - Orthopedics Ears/Nose/Throat lips/teeth/gingiva Overall: benign lips 07/05/2018 None Full Exam - Orthopedics Ears/Nose/Throat oral cavity/pharynx/larynx Overall: oral mucosa clear 07/05/2018 None Full Exam - Orthopedics Respiratory respiratory effort/rhythm Overall: no retractions 07/05/2018 None Full Exam - Orthopedics Respiratory respiratory effort/rhythm Overall: normal rate 07/05/2018 None Full Exam - Orthopedics Psychiatric orientation/consciousness Overall: oriented to person, place and time 07/05/2018 None Full Exam - Orthopedics Psychiatric mood and affect Overall: normal mood and affect 07/05/2018 None Full Exam - Orthopedics Psychiatric appearance Overall: well-groomed, good eye contact 07/05/2018 None Full Exam - Orthopedics MS: spine/ri b/pelvis insp & palp - S/R/P Ribs/trunk inspection: normal ribs and sternum 07/05/2018 tender to palpation - left ribs Full Exam - General 1994 Constitutional general appearance Overall: well developed 03/14/2018 None Full Exam - General 1994 Constitutional general appearance Overall: in no acute distress 03/14/2018 None Full Exam - General 1994 Constitutional general appearance Overall: well nourished 03/14/2018 None Full Exam - General 1994 Eyes conjunctiva/eyelids Overall: conjunctiva clear 03/14/2018 None Full Exam - General 1994 Eyes conjunctiva/eyelids Overall: cornea clear 03/14/2018 None Full Exam - General 1994 Eyes conjunctiva/eyelids Overall: eyelids normal 03/14/2018 None Full Exam - General 1994 Ears/Nose/Throat lips/teeth/gingiva Overall: benign lips 03/14/2018 None Full Exam - General 1994 Ears/Nose/Throat oral cavity/pharynx/larynx Overall: oral mucosa clear 03/14/2018 None Full Exam - General 1994 Respiratory auscultation Overall: breath sounds clear bilaterally 03/14/2018 None Full Exam - General 1994 Respiratory respiratory effort/rhythm Overall: no retractions 03/14/2018 None Full Exam - General 1994 Respiratory respiratory effort/rhythm Overall: normal rate 03/14/2018 None Full Exam - General 1994 Cardiovascular auscultation of heart Overall: regular rate 03/14/2018 None Full Exam - General 1994 Cardiovascular auscultation of heart Overall: normal heart sounds 03/14/2018 None Full Exam - General 1994 Musculoskeletal gait and station Overall: normal gait 03/14/2018 None Full Exam - General 1994 Musculoskeletal gait and station Overall: normal station 03/14/2018 None Full Exam - General 1994 Musculoskeletal head and neck Overall: head atraumatic 03/14/2018 None Full Exam - General 1994 Neurologic cranial nerves Overall: crainial nerves 2 - 12 grossly intact 03/14/2018 None Full Exam - General 1994 Psychiatric orientation/consciousness Overall: oriented to person, place and time 03/14/2018 None Full Exam - General 1994 Psychiatric mood and affect Overall: normal mood and affect 03/14/2018 None Full Exam - General 1994 Psychiatric appearance Overall: well-groomed, good eye contact 03/14/2018 None Full Exam - General 1994 Abdomen abdominal exam Overall: no tenderness 03/14/2018 None Full Exam - General 1994 Abdomen abdominal exam Overall: normal bowel sounds 03/14/2018 None Full Exam - General 1994 Ears/Nose/Throat otoscopic exam External auditory canal: partial cerumen occlusion 03/14/2018 None Full Exam - General 1994 Ears/Nose/Throat otoscopic exam Overall: tympanic membranes clear 03/14/2018 None Full Exam - General 1994 Ears/Nose/Throat otoscopic exam Tympanic membrane: not visualized 03/14/2018 None Full Exam - ENT Constitutional general appearance Overall: well nourished 05/25/2017 None Full Exam - ENT Constitutional general appearance Overall: well developed 05/25/2017 None Full Exam - ENT Constitutional general appearance Overall: in no acute distress 05/25/2017 None Full Exam - ENT Ears/Nose/Throat otoscopic exam Overall: external auditory canals normal 05/25/2017 None Full Exam - ENT Ears/Nose/Throat otoscopic exam Overall: tympanic membranes normal 05/25/2017 None Full Exam - ENT Ears/Nose/Throat oropharynx Overall: oral mucosa clear 05/25/2017 None Full Exam - ENT Face and Head palpation Left maxillary sinus: tender 05/25/2017 None Full Exam - ENT Face and Head palpation Right maxillary sinus: tender 05/25/2017 None Full Exam - ENT Respiratory inspection Overall: no retractions 05/25/2017 None Full Exam - ENT Respiratory inspection Overall: normal rate 01/2017 None Full Exam - ENT Respiratory auscultation Overall: breath sounds clear bilater ally 05/25/2017 None Full Exam - ENT Cardiovascular auscultation of heart Overall: regular rate 05/25/2017 None Full Exam - ENT Cardiovascular auscultation of heart Overall: normal heart sounds 05/25/2017 None Full Exam - ENT Lymphatic palpation of lymph nodes Overall: shotty lymphadenopathy 05/25/2017 None Full Exam - ENT Neurologic orientation Overall: oriented to person, place a nd time 05/25/2017 None Full Exam - ENT Ears/Nose/Throat lips/teeth/gingiva Overall: benign lips 05/25/2017 None Full Exam - ENT Ears/Nose/Throat oropharynx Posterior Pharynx: clear post nasal drainage 05/25/2017 None Full Exam - ENT Neurologic mood and affect Overall: normal affect 05/25/2017 None Full Exam - ENT Neurologic mood and affect Overall: normal mood 05/25/2017 None Full Exam - ENT Neurologic cranial nerves/coordination Overall: cranial nerves 2-12 grossly intact 05/25/2017 None Full Exam - General 1994 Constitutional general appearance Overall: well developed 05/14/2017 None Full Exam - General 1994 Constitutional general appearance Overall: in no acute distress 05/14/2017 None Full Exam - General 1994 Constitutional general appearance Overall: well nourished 05/14/2017 None Full Exam - General 1994 Eyes conjunctiva/eyelids Overall: conjunctiva clear 05/14/2017 None Full Exam - General 1994 Eyes conjunctiva/eyelids Overall: cornea clear 05/14/2017 None Full Exam - General 1994 Eyes conjunctiva/eyelids Overall: eyelids normal 05/14/2017 None Full Exam - General 1994 Ears/Nose/Throat lips/teeth/gingiva Overall: benign lips 05/14/2017 None Full Exam - General 1994 Ears/Nose/Throat oral cavity/pharynx/larynx Overall: oral mucosa clear 05/14/2017 None Full Exam - General 1994 Respiratory respiratory effort/rhythm Overall: normal rate 05/14/2017 None Full Exam - General 1994 Respiratory respiratory effort/rhythm Overall: no retractions 05/14/2017 None Full Exam - General 1994 Respiratory auscultation Overall: breath sounds clear bilaterally 05/14/2017 None Full Exam - General 1994 Cardiovascular auscultation of heart Overall: regular rate 05/14/2017 None Full Exam - General 1994 Cardiovascular auscultation of heart Overall: normal heart sounds 05/14/2017 None Full Exam - General 1994 Musculoskeletal head and neck Overall: head atraumatic 05/14/2017 None Full Exam - General 1994 Musculoskeletal gait and station Overall: normal station 05/14/2017 None Full Exam - General 1994 Musculoskeletal gait and station Overall: normal gait 05/14/2017 None Full Exam - General 1994 Neurologic cranial nerves Overall: crainial nerves 2 - 12 grossly intact 05/14/2017 None Full Exam - General 1994 Psychiatric orientation/consciousness Overall: oriented to person, place and time 05/14/2017 None Full Exam - General 1994 Psychiatric mood and affect Overall: normal mood and affect 05/14/2017 None Full Exam - General 1994 Psychiatric appearance Overall: well-groomed, good eye contact 05/14/2017 None Full Exam - General 1994 Constitutional general appearance Overall: well developed 05/02/2016 None Full Exam - General 1994 Constitutional general appearance Overall: in no acute distress 05/02/2016 None Full Exam - General 1994 Constitutional general appearance Overall: well nourished 05/02/2016 None Full Exam - General 1994 Eyes conjunctiva/eyelids Overall: conjunctiva clear 05/02/2016 None Full Exam - General 1994 Eyes conjunctiva/eyelids Overall: eyelids normal 05/02/2016 None Full Exam - General 1994 Eyes pupils and irises Overall: pupils equal, round, reactive to light and accomodation 05/02/2016 None Full Exam - General 1994 Ears/Nose/Throat otoscopic exam Overall: external auditory canals clear 05/02/2016 None Full Exam - General 1994 Ears/Nose/Throat otoscopic exam Tympanic membrane: air-fluid level 05/02/2016 None Full Exam - General 1994 Ears/Nose/Throat lips/teeth/gingiva Overall: benign lips 05/02/2016 None Full Exam - General 1994 Ears/Nose/Throat oral cavity/pharynx/larynx Overall: oral mucosa clear 05/02/2016 None Full Exam - General 1994 Ears/Nose/Throat oral cavity/pharynx/larynx Posterior Pharynx: clear post nasal drainage 05/02/2016 None Full Exam - General 1994 Respiratory auscultation Lower lung field: expiratory wheezes 05/02/2016 None Full Exam - General 1994 Respiratory respiratory effort/rhythm Overall: no retractions 05/02/2016 None Full Exam - General 1994 Respiratory respiratory effort/rhythm Overall: normal rate 05/02/2016 None Full Exam - General 1994 Cardiovascular auscultation of heart Overall: regular rate 05/02/2016 None Full Exam - General 1994 Cardiovascular auscultation of heart Overall: normal heart sounds 05/02/2016 None Full Exam - General 1994 Lymphatic neck nodes Overall: posterior cervical chain benign 05/02/2016 None Full Exam - General 1994 Lymphatic neck nodes Overall: anterior cervical chain benign 05/02/2016 None Full Exam - General 1994 Neurologic cranial nerves Overall: crainial nerves 2 - 12 grossly intact 05/02/2016 None Full Exam - General 1994 Psychiatric orientation/consciousness Overall: oriented to person, place and time 05/02/2016 None Full Exam - General 1994 Psychiatric mood and affect Overall: normal mood and affect 05/02/2016 None Full Exam - General 1994 Psychiatric appearance Overall: well-groomed, good eye contact 05/02/2016 None Full Exam - ENT Constitutional general appearance Overall: well nourished 10/28/2015 None Full Exam - ENT Constitutional general appearance Overall: well developed 10/28/2015 None Full Exam - ENT Constitutional general appearance Overall: in no acute distress 10/28/2015 None Full Exam - ENT Ears/Nose/Throat otoscopic exam Overall: external auditory canals normal 10/28/2015 None Full Exam - ENT Ears/Nose/Throat oropharynx Overall: oral mucosa clear 10/28/2015 None Full Exam - ENT Respiratory inspection Overall: no retractions 10/28/2015 None Full Exam - ENT Respiratory inspection Overall: normal rate 05/2016 None Full Exam - ENT Respiratory auscultation Overall: breath sounds clear bilater ally 10/28/2015 None Full Exam - ENT Cardiovascular auscultation of heart Overall: regular rate 10/28/2015 None Full Exam - ENT Cardiovascular auscultation of heart Overall: normal heart sounds 10/28/2015 None Full Exam - ENT Lymphatic palpation of lymph nodes Overall: shotty lymphadenopathy 10/28/2015 None Full Exam - ENT Integument inspection of skin Overall: no rash, lesions 10/28/2015 None Full Exam - ENT Neurologic orientation Overall: oriented to person, place a nd time 10/28/2015 None Full Exam - ENT Face and Head palpation Overall: no sinus tenderness 10/28/2015 None Full Exam - ENT Ears/Nose/Throat otoscopic exam Left tympanic membrane: air-fluid le sherly 10/28/2015 None Full Exam - ENT Ears/Nose/Throat otoscopic exam Right tympanic membrane: air-fluid level 10/28/2015 None Full Exam - ENT Constitutional general appearance Overall: well nourished 04/19/2015 None Full Exam - ENT Constitutional general appearance Overall: well developed 04/19/2015 None Full Exam - ENT Constitutional general appearance Overall: in no acute distress 04/19/2015 None Full Exam - ENT Neurologic orientation Overall: oriented to person, place a nd time 04/19/2015 None Full Exam - ENT Integument inspection of skin Overall: no rash, lesions 04/19/2015 None Full Exam - ENT Lymphatic palpation of lymph nodes Overall: shotty lymphadenopathy 04/19/2015 None Full Exam - ENT Cardiovascular auscultation of heart Overall: regular rate 04/19/2015 None Full Exam - ENT Cardiovascular auscultation of heart Overall: normal heart sounds 04/19/2015 None Full Exam - ENT Respiratory inspection Overall: no retractions 04/19/2015 None Full Exam - ENT Respiratory inspection Overall: normal rate 07/2014 None Full Exam - ENT Respiratory auscultation Overall: breath sounds clear bilater ally 04/19/2015 None Full Exam - ENT Face and Head palpation Left maxillary sinus: tender 04/19/2015 None Full Exam - ENT Face and Head palpation Right maxillary sinus: tender 04/19/2015 None Full Exam - ENT Ears/Nose/Throat otoscopic exam Overall: external auditory canals normal 04/19/2015 None Full Exam - ENT Ears/Nose/Throat otoscopic exam Overall: tympanic membranes normal 04/19/2015 None Full Exam - ENT Ears/Nose/Throat oropharynx Overall: oral mucosa clear 04/19/2015 None Full Exam - ENT Constitutional general appearance Overall: well nourished 12/24/2014 None Full Exam - ENT Constitutional general appearance Overall: well developed 12/24/2014 None Full Exam - ENT Constitutional general appearance Overall: in no acute distress 12/24/2014 None Full Exam - ENT Neurologic orientation Overall: oriented to person, place a nd time 12/24/2014 None Full Exam - ENT Lymphatic palpation of lymph nodes Overall: anterior cervical chain benign 12/24/2014 None Full Exam - ENT Lymphatic palpation of lymph nodes Overall: posterior cervical chain benign 12/24/2014 None Full Exam - ENT Ears/Nose/Throat oropharynx Overall: oral mucosa clear 12/24/2014 None Full Exam - ENT Ears/Nose/Throat otoscopic exam Overall: external auditory canals normal 12/24/2014 None Full Exam - ENT Ears/Nose/Throat otoscopic exam Overall: tympanic membranes normal 12/24/2014 None Full Exam - ENT Eyes ocu lar motility Left eye movement: a normal exam 12/24/2014 None Full Exam - ENT Eyes ocu lar motility Right eye movement: a normal exam 12/24/2014 None Full Exam - ENT Eyes ocu lar motility Overall: normal gaze alignment 12/24/2014 swelling bilateral upper and lower eyeli ds-sunburn to forhead noted Full Exam - ENT Respiratory auscultation Overall: breath sounds clear bilater ally 12/24/2014 None Full Exam - ENT Respiratory inspection Overall: no retractions 12/24/2014 None Full Exam - ENT Respiratory inspection Overall: normal rate 02/2015 None Full Exam - ENT Cardiovascular auscultation of heart Overall: regular rate 12/24/2014 None Full Exam - ENT Cardiovascular auscultation of heart Overall: normal heart sounds 12/24/2014 None Full Exam - ENT Cardiovascular auscultation of heart Overall: no murmurs 12/24/2014 None Full Exam - General 1994 Constitutional general appearance Development: well developed 10/13/2013 None Full Exam - General 1994 Constitutional general appearance Development: appears stated age 0410/13/2013 None Full Exam - General 1994 Eyes conjunctiva/eyelids Overall: conjunctiva clear 10/13/2013 None Full Exam - General 1994 Eyes pupils and irises Overall: pupils equal, round, reactive to light and accomodation 10/13/2013 None Full Exam - General 1994 Ears/Nose/Throat otoscopic exam Overall: external auditory canals clear 10/13/2013 None Full Exam - General 1994 Ears/Nose/Throat otoscopic exam Overall: tympanic membranes clear 10/13/2013 None Full Exam - General 1994 Ears/Nose/Throat oral cavity/pharynx/larynx Overall: oral mucosa clear 10/13/2013 None Full Exam - General 1994 Ears/Nose/Throat oral cavity/pharynx/larynx Overall: oropharyngeal mucosa clear 10/13/2013 None Full Exam - General 1994 Ears/Nose/Throat oral cavity/pharynx/larynx Overall: no masses 10/13/2013 None Full Exam - General 1994 Respiratory auscultation Overall: breath sounds clear bilaterally 10/13/2013 None Full Exam - General 1994 Respiratory respiratory effort/rhythm Overall: no retractions 10/13/2013 None Full Exam - General 1994 Respiratory respiratory effort/rhythm Overall: normal rate 10/13/2013 None Full Exam - General 1994 Cardiovascular extremities Overall: no clubbing 10/13/2013 None Full Exam - General 1994 Cardiovascular auscultation of heart Overall: regular rate 10/13/2013 None Full Exam - General 1994 Cardiovascular auscultation of heart Overall: normal heart sounds 10/13/2013 None Full Exam - General 1994 Cardiovascular auscultation of heart Overall: no murmurs 10/13/2013 None Full Exam - General 1994 Abdomen abdominal exam Overall: no tenderness 10/13/2013 None Full Exam - General 1994 Abdomen abdominal exam Overall: normal bowel sounds 10/13/2013 None Full Exam - General 1994 Musculoskeletal spine, ribs and pelvis Spine: a normal exam 10/13/2013 None Full Exam - General 1994 Musculoskeletal spine, ribs and pelvis Sacroiliac joints: tender left sacroiliac joint 10/13/2013 None Full Exam - General 1994 Musculoskeletal spine, ribs and pelvis Inspection: a normal exam 10/13/2013 None Full Exam - General 1994 Neurologic deep tendon reflexes Overall: deep tendon reflexes intact 10/13/2013 None Full Exam - General 1994 Neurologic cranial nerves Overall: crainial nerves 2 - 12 grossly intact 10/13/2013 None Full Exam - General 1994 Psychiatric orientation/consciousness Overall: oriented to person, place and time 10/13/2013 None Full Exam - General 1994 Constitutional general appearance Development: well developed 03/18/2013 None Full Exam - General 1994 Constitutional general appearance Development: appears stated age 1003/18/2013 None Full Exam - General 1994 Eyes conjunctiva/eyelids Overall: conjunctiva clear 03/18/2013 None Full Exam - General 1994 Eyes pupils and irises Overall: pupils equal, round, reactive to light and accomodation 03/18/2013 None Full Exam - General 1995 Ears/Nose/Throat otoscopic exam Overall: external auditory canals clear 03/18/2013 None Full Exam - General 1995 Ears/Nose/Throat otoscopic exam Overall: tympanic membranes clear 03/18/2013 None Full Exam - General 1995 Ears/Nose/Throat oral cavity/pharynx/larynx Overall: oral mucosa clear 03/18/2013 None Full Exam - General 1995 Ears/Nose/Throat oral cavity/pharynx/larynx Overall: oropharyngeal mucosa clear 03/18/2013 None Full Exam - General 1994 Ears/Nose/Throat oral cavity/pharynx/larynx Overall: no masses 03/18/2013 None Full Exam - General 1994 Respiratory auscultation Overall: breath sounds clear bilaterally 03/18/2013 None Full Exam - General 1994 Respiratory respiratory effort/rhythm Overall: no retractions 03/18/2013 None Full Exam - General 1994 Respiratory respiratory effort/rhythm Overall: normal rate 03/18/2013 None Full Exam - General 1994 Cardiovascular extremities Overall: no clubbing 03/18/2013 None Full Exam - General 1994 Cardiovascular auscultation of heart Overall: regular rate 03/18/2013 None Full Exam - General 1994 Cardiovascular auscultation of heart Overall: normal heart sounds 03/18/2013 None Full Exam - General 1994 Cardiovascular auscultation of heart Overall: no murmurs 03/18/2013 None Full Exam - General 1994 Abdomen abdominal exam Overall: no tenderness 03/18/2013 None Full Exam - General 1994 Abdomen abdominal exam Overall: normal bowel sounds 03/18/2013 None Full Exam - General 1994 Musculoskeletal spine, ribs and pelvis Spine: a normal exam 03/18/2013 None Full Exam - General 1994 Musculoskeletal spine, ribs and pelvis Sacroiliac joints: tender left sacroiliac joint 03/18/2013 None Full Exam - General 1994 Musculoskeletal spine, ribs and pelvis Inspection: a normal exam 03/18/2013 None Full Exam - General 1994 Neurologic deep tendon reflexes Overall: deep tendon reflexes intact 03/18/2013 None Full Exam - General 1994 Neurologic cranial nerves Overall: crainial nerves 2 - 12 grossly intact 03/18/2013 None Full Exam - General 1994 Psychiatric orientation/consciousness Overall: oriented to person, place and time 03/18/2013 None Full Exam - General 1994 Eyes pupils and irises Overall: pupils equal, round, reactive to light and accomodation 07/16/2012 None Full Exam - General 1995 Ears/Nose/Throat otoscopic exam Overall: external auditory canals clear 07/16/2012 None Full Exam - General 1995 Ears/Nose/Throat otoscopic exam Overall: tympanic membranes clear 07/16/2012 None Full Exam - General 1995 Ears/Nose/Throat oral cavity/pharynx/larynx Overall: oral mucosa clear 07/16/2012 None Full Exam - General 1995 Ears/Nose/Throat oral cavity/pharynx/larynx Overall: oropharyngeal mucosa clear 07/16/2012 None Full Exam - General 1994 Ears/Nose/Throat oral cavity/pharynx/larynx Overall: no masses 07/16/2012 None Full Exam - General 1994 Respiratory auscultation Overall: breath sounds clear bilaterally 07/16/2012 None Full Exam - General 1994 Respiratory respiratory effort/rhythm Overall: no retractions 07/16/2012 None Full Exam - General 1994 Respiratory respiratory effort/rhythm Overall: normal rate 07/16/2012 None Full Exam - General 1994 Cardiovascular extremities Overall: no clubbing 07/16/2012 None Full Exam - General 1994 Cardiovascular auscultation of heart Overall: regular rate 07/16/2012 None Full Exam - General 1994 Cardiovascular auscultation of heart Overall: normal heart sounds 07/16/2012 None Full Exam - General 1994 Cardiovascular auscultation of heart Overall: no murmurs 07/16/2012 None Full Exam - General 1994 Constitutional general appearance Development: well developed 07/16/2012 None Full Exam - General 1994 Constitutional general appearance Development: appears stated age 0107/16/2012 None Full Exam - General 1994 Eyes conjunctiva/eyelids Overall: conjunctiva clear 07/16/2012 None Full Exam - General 1994 Abdomen abdominal exam Overall: no tenderness 07/16/2012 None Full Exam - General 1994 Abdomen abdominal exam Overall: normal bowel sounds 07/16/2012 None Full Exam - General 1994 Musculoskeletal spine, ribs and pelvis Spine: a normal exam 07/16/2012 None Full Exam - General 1994 Musculoskeletal spine, ribs and pelvis Sacroiliac joints: tender left sacroiliac joint 07/16/2012 None Full Exam - General 1994 Musculoskeletal spine, ribs and pelvis Inspection: a normal exam 07/16/2012 None Full Exam - General 1994 Neurologic deep tendon reflexes Overall: deep tendon reflexes intact 07/16/2012 None Full Exam - General 1994 Neurologic cranial nerves Overall: crainial nerves 2 - 12 grossly intact 07/16/2012 None Full Exam - General 1994 Psychiatric orientation/consciousness Overall: oriented to person, place and time 07/16/2012 None Full Exam - General 1994 Ears/Nose/Throat oral cavity/pharynx/larynx Overall: no masses 01/17/2012 None Full Exam - General 1994 Respiratory auscultation Overall: breath sounds clear bilaterally 01/17/2012 None Full Exam - General 1994 Respiratory respiratory effort/rhythm Overall: no retractions 01/17/2012 None Full Exam - General 1994 Respiratory respiratory effort/rhythm Overall: normal rate 01/17/2012 None Full Exam - General 1994 Cardiovascular extremities Overall: no clubbing 01/17/2012 None Full Exam - General 1994 Cardiovascular auscultation of heart Overall: regular rate 01/17/2012 None Full Exam - General 1994 Cardiovascular auscultation of heart Overall: normal heart sounds 01/17/2012 None Full Exam - General 1994 Cardiovascular auscultation of heart Overall: no murmurs 01/17/2012 None Full Exam - General 1994 Abdomen abdominal exam Overall: no tenderness 01/17/2012 None Full Exam - General 1994 Abdomen abdominal exam Overall: normal bowel sounds 01/17/2012 None Full Exam - General 1994 Musculoskeletal spine, ribs and pelvis Spine: a normal exam 01/17/2012 None Full Exam - General 1994 Musculoskeletal spine, ribs and pelvis Sacroiliac joints: tender left sacroiliac joint 01/17/2012 None Full Exam - General 1994 Musculoskeletal spine, ribs and pelvis Inspection: a normal exam 01/17/2012 None Full Exam - General 1994 Neurologic deep tendon reflexes Overall: deep tendon reflexes intact 01/17/2012 None Full Exam - General 1994 Constitutional general appearance Development: well developed 01/17/2012 None Full Exam - General 1994 Constitutional general appearance Development: appears stated age 0801/17/2012 None Full Exam - General 1994 Eyes conjunctiva/eyelids Overall: conjunctiva clear 01/17/2012 None Full Exam - General 1994 Eyes pupils and irises Overall: pupils equal, round, reactive to light and accomodation 01/17/2012 None Full Exam - General 1994 Ears/Nose/Throat otoscopic exam Overall: external auditory canals clear 01/17/2012 None Full Exam - General 1995 Ears/Nose/Throat otoscopic exam Overall: tympanic membranes clear 01/17/2012 None Full Exam - General 1995 Ears/Nose/Throat oral cavity/pharynx/larynx Overall: oral mucosa clear 01/17/2012 None Full Exam - General 1995 Ears/Nose/Throat oral cavity/pharynx/larynx Overall: oropharyngeal mucosa clear 01/17/2012 None Full Exam - General 1994 Neurologic cranial nerves Overall: crainial nerves 2 - 12 grossly intact 01/17/2012 None Full Exam - General 1994 Psychiatric orientation/consciousness Overall: oriented to person, place and time 01/17/2012 None Full Exam - General 1994 Constitutional general appearance Development: appears stated age 0612/07/2011 None Full Exam - General 1994 Eyes conjunctiva/eyelids Overall: conjunctiva clear 12/07/2011 None Full Exam - General 1994 Eyes pupils and irises Overall: pupils equal, round, reactive to light and accomodation 12/07/2011 None Full Exam - General 1994 Psychiatric orientation/consciousness Overall: oriented to person, place and time 12/07/2011 None Full Exam - General 1994 Neurologic deep tendon reflexes Overall: deep tendon reflexes intact 12/07/2011 None Full Exam - General 1994 Neurologic cranial nerves Overall: crainial nerves 2 - 12 grossly intact 12/07/2011 None Full Exam - General 1994 Musculoskeletal spine, ribs and pelvis Sacroiliac joints: tender left sacroiliac joint 12/07/2011 None Full Exam - General 1994 Musculoskeletal spine, ribs and pelvis Inspection: a normal exam 12/07/2011 None Full Exam - General 1994 Musculoskeletal spine, ribs and pelvis Spine: a normal exam 12/07/2011 None Full Exam - General 1994 Abdomen abdominal exam Overall: no tenderness 12/07/2011 None Full Exam - General 1994 Abdomen abdominal exam Overall: normal bowel sounds 12/07/2011 None Full Exam - General 1994 Cardiovascular extremities Overall: no clubbing 12/07/2011 None Full Exam - General 1994 Cardiovascular auscultation of heart Overall: regular rate 12/07/2011 None Full Exam - General 1994 Cardiovascular auscultation of heart Overall: normal heart sounds 12/07/2011 None Full Exam - General 1994 Constitutional general appearance Development: well developed 12/07/2011 None Full Exam - General 1994 Cardiovascular auscultation of heart Overall: no murmurs 12/07/2011 None Full Exam - General 1994 Respiratory auscultation Overall: breath sounds clear bilaterally 12/07/2011 None Full Exam - General 1994 Respiratory respiratory effort/rhythm Overall: normal rate 12/07/2011 None Full Exam - General 1994 Respiratory respiratory effort/rhythm Overall: no retractions 12/07/2011 None Full Exam - General 1994 Ears/Nose/Throat oral cavity/pharynx/larynx Overall: oropharyngeal mucosa clear 12/07/2011 None Full Exam - General 1994 Ears/Nose/Throat oral cavity/pharynx/larynx Overall: no masses 12/07/2011 None Full Exam - General 1994 Ears/Nose/Throat oral cavity/pharynx/larynx Overall: oral mucosa clear 12/07/2011 None Full Exam - General 1994 Ears/Nose/Throat otoscopic exam Overall: tympanic membranes clear 12/07/2011 None Full Exam - General 1994 Ears/Nose/Throat otoscopic exam Overall: external auditory canals clear 12/07/2011 None Procedures Procedure Codes Date THER/PROPH/DIAG INJ SC/IM CPT-4: 86800 07/05/2018 TRIAMCINOLONE ACET I [place] NOS CPT-4: J3301 07/05/2018 TRIAMCINOLONE ACET I [place] NOS CPT-4: J3301 03/14/2018 IMMUNIZATION ADMIN CPT- 4: 27921 03/14/2018 ADACEL TDAP VACCINE 7 YRS/> IM CPT-4: 32007 03/14/2018 TRIAMCINOLONE ACET I [place] NOS CPT-4: J3301 05/25/2017 ROCEPHIN, PER 250 MG CPT-4: J0696 05/25/2017 TRIAMCINOLONE ACET I [place] NOS CPT-4: J3301 05/02/2016 TRIAMCINOLONE ACET I [place] NOS CPT-4: J3301 10/28/2015 ROCEPHIN, PER 250 MG CPT-4: J0696 04/19/2015 TRIAMCINOLONE ACET I [place] NOS CPT-4: J3301 04/19/2015 URINALYSIS NONAUTO W /O SCOPE CPT-4: 01581 03/15/2015 URINALYSIS NONAUTO W /O SCOPE CPT-4: 22272 01/25/2015 TRIAMCINOLONE ACET I [place] NOS CPT-4: J3301 12/24/2014 THER/PROPH/DIAG INJ SC/IM CPT-4: 10487 12/24/2014 URINALYSIS NONAUTO W /O SCOPE CPT-4: 27345 07/16/2012 DRAIN/INJECT JOINT/B URSA CPT-4: 03882 12/07/2011 Vital Signs Date Vital 07/05/2018 Blood Pressure 1: 132/78 Code: 8480-6 BMI: 32.6 Code: 40140-3 Heart Rate 1: 75 bpm Height: 5'2" SpO2: 96% Weight: 178 lbs 03/14/2018 Blood Pressure 1: 108/74 Code: 8480-6 BMI: 33.3 Code: 94423-3 Heart Rate 1: 91 bpm Height: 5'2" SpO2: 98% Weight: 182 lbs 05/25/2017 Blood Pressure 1: 142/82 Code: 8480-6 BMI: 32.0 Code: 26040-5 Heart Rate 1: 96 bpm Height: 5'2" SpO2: 94% Temperature: 37.3 (C ) / 99.2 (F) Weight: 175 lbs 05/14/2017 Blood Pressure 1: 142/78 Code: 8480-6 BMI: 32.0 Code: 18069-7 Heart Rate 1: 111 bpm Height: 5'2" SpO2: 95% Weight: 175 lbs 05/02/2016 Blood Pressure 1: 124/74 Code: 8480-6 BMI: 32.4 Code: 60681-7 Heart Rate 1: 107 bpm Height: 5'2" SpO2: 98% Weight: 177 lbs 10/28/2015 Blood Pressure 1: 124/80 Code: 8480-6 BMI: 32.6 Code: 35276-6 Heart Rate 1: 78 bpm Height: 5'2" SpO2: 91% Weight: 178 lbs 04/19/2015 Blood Pressure 1: 110/78 Code: 8480-6 BMI: 31.5 Code: 51059-2 Heart Rate 1: 88 bpm Height: 5'2" SpO2: 96% Weight: 172 lbs 12/24/2014 Blood Pressure 1: 112/72 Code: 8480-6 BMI: 30.4 Code: 91037-4 Heart Rate 1: 88 bpm Height: 5'2" Weight: 166 lbs 10/13/2013 Blood Pressure 1: 104/78 Code: 8480-6 BMI: 30.7 Code: 48356-3 Heart Rate 1: 100 bpm Height: 5'2" Weight: 168 lbs 03/18/2013 Blood Pressure 1: 112/74 Code: 8480-6 Heart Rate 1: 88 bpm Weight: 161 lbs 07/16/2012 Blood Pressure 1: 108/72 Code: 8480-6 Heart Rate 1: 92 bpm Weight: 168 lbs 01/17/2012 Blood Pressure 1: 112/72 Code: 8480-6 Heart Rate 1: 80 bpm Weight: 174 lbs 12/07/2011 Blood Pressure 1: 114/74 Code: 8480-6 Heart Rate 1: 96 bpm Respiratory Rate: 12 bpm Weight: 174 lbs Functional Status No Functional Status data History of Present Illness Symptom Name Status Resu lt Effective Date Notes Location on the left 07/05/2018 None Quality sharp 07/05/2018 None Quality stabbing 07/05/2018 None Quality constant 07/05/2018 None Onset and Resolution s udden in onset 07/05/2018 None Onset of Symptom 10 da ys ago 07/05/2018 None Limitation on Activities moderately limits activities 07/05/2018 None diabetes mellitus Quality chronic 03/14/2018 None diabetes mellitus Quality non-insulin dependent 03/14/2018 None diabetes mellitus Alleviating Factors medication 03/14/2018 None diabetes mellitus Exacerbating Factors diet 03/14/2018 None nasal allergies Location in both nares 03/14/2018 None nasal allergies Onset and Resolution ongoing 03/14/2018 None nasal allergies Pertinent Findings cough 03/14/2018 None nasal allergies Pertinent Findings Denies fever 03/14/2018 None nasal allergies Significant Medical Conditions allergic rhinitis 03/14/2018 None diabetes mellitus Test results Pt checking blood glucose readings, did not bring results to clinic 03/14/2018 None diabetes mellitus Glucose monitoring occasional glucose testing 03/14/2018 None diabetes mellitus Pertinent Findings Denies dizziness 03/14/2018 None diabetes mellitus Pertinent Findings Denies dyspnea 03/14/2018 None diabetes mellitus Pertinent Findings Denies nausea 03/14/2018 None disturbances of thinking Quality chronic 03/14/2018 None disturbances of thinking Onset and R esolution ongoing 03/14/2018 None disturbances of thinking Alleviating Factors medication 03/14/2018 No ne headache Location diffus cassandra 05/25/2017 None headache Quality aching 05/25/2017 None headache Quality constant 05/25/2017 None headache Quality pressure 05/25/2017 None headache Onset and Resolution sudden in onset 05/25/2017 None headache Onset of Symptom 10 days ago 05/25/2017 None headache Frequency of Episodes daily 05/25/2017 None headache Pertinent Findings dizziness 05/25/2017 None headache Pertinent Findings facial pain 05/25/2017 None sinus congestion Location frontal sinuses 05/25/2017 None sinus congestion Quality fullness 05/25/2017 None sinus congestion Quality pressure 05/25/2017 None sinus congestion Quality constant 05/25/2017 None sinus congestion Onset and Resolution sudden in onset 05/25/2017 None sinus congestion Onset of Symptom 10 days ago 05/25/2017 None sinus congestion Frequency of Episodes daily 05/25/2017 None sore throat Location dif fusely 05/25/2017 None sore throat Quality achi ng 05/25/2017 None sore throat Quality scra tchy 05/25/2017 None sore throat Onset and Resolution sudden in onset 05/25/2017 None sore throat Onset of Symptom 10 days ago 05/25/2017 None sore throat Frequency of Episodes daily 05/25/2017 None hemorrhoids Quality blee ding 05/14/2017 None hemorrhoids Quality cons tant 05/14/2017 None hemorrhoids Quality itch ing 05/14/2017 None hemorrhoids Quality pres sure 05/14/2017 None hemorrhoids Onset and Resolution ongoing 05/14/2017 None hemorrhoids Pertinent Findings pain 05/14/2017 None sinus congestion Onset and Resolution sudden in onset 05/02/2016 None sinus congestion Onset of Symptom 2 weeks ago 05/02/2016 None sinus congestion Frequency of Episodes daily 05/02/2016 None sinus congestion Timing of Episodes all day long 05/02/2016 None sinus congestion Pertinent Findings cough 05/02/2016 None sinus congestion Pertinent Findings hoarseness 05/02/2016 None sinus congestion Location on both sides 05/02/2016 None sinus congestion Quality fullness 05/02/2016 None sinus congestion Quality pressure 05/02/2016 None cough Location in the th roat 05/02/2016 None cough Quality constant 05/02/2016 None cough Quality hacking 05/02/2016 None cough Onset and Resolution sudden in onset 05/02/2016 None cough Onset of Symptom 2 weeks ago 05/02/2016 None cough Frequency of Episodes daily 05/02/2016 None cough Pertinent Findings chest discomfort 05/02/2016 None cough Pertinent Findings hoarseness 05/02/2016 None cough Pertinent Findings nasal congestion 05/02/2016 None earache Location right e ar 10/28/2015 None earache Quality sharp pa in 10/28/2015 None earache Onset and Resolution ongoing 10/28/2015 None earache Onset of Symptom 2 months ago 10/28/2015 None earache Frequency of Episodes daily 10/28/2015 None headache Onset of Symptom 9 days ago 04/19/2015 None headache Frequency of Episodes increasing 04/19/2015 None headache Pertinent Findings Denies nausea 04/19/2015 None headache Pertinent Findings fever 04/19/2015 None headache Location in the frontal area 04/19/2015 None cough Onset of Symptom 1 months ago 04/19/2015 None cough Frequency of Episodes increasing 04/19/2015 None cough Pertinent Findings fever 04/19/2015 None cough Pertinent Findings sputum production 04/19/2015 None headache Onset and Resolution ongoing 04/19/2015 None headache Limitation on Activities does not limit activities 04/19/2015 None headache Significant Medical Conditions allergic rhinitis 04/19/2015 None headache Triggers no kno wn associated factors 04/19/2015 None headache Pertinent Findings Denies anxiety 04/19/2015 None headache Pertinent Findings Denies dizziness 04/19/2015 None cough Location in the th roat 04/19/2015 None cough Quality acute 04/19/2015 None cough Onset and Resolution ongoing 04/19/2015 None cough Limitation on Activities does not limit activities 04/19/2015 None cough Triggers no known associated factors 04/19/2015 None eyelid edema Location on both eyelids 12/24/2014 started on Sunday after s he was at [employer] [place] before- On Sunday was swollen into forehead reports that it looked like a baseball on forehead, that is better- has moved into eyes and nose. eyelid edema Onset of Symptom 3 days ago 12/24/2014 None eyelid edema Pertinent Findings Denies facial pain 12/24/2014 None eyelid edema Quality acu te 12/24/2014 None eyelid edema Onset and Resolution ongoing 12/24/2014 None eyelid edema Limitation on Activities does not limit activities 12/24/2014 None eyelid edema Frequency of Episodes decreasing 12/24/2014 None eyelid edema Length of Episodes _ days 12/24/2014 None eyelid edema Triggers no known associated factors 12/24/2014 None hypertension Quality chr onic 10/13/2013 None hypertension Blood Pressure Values patient checking blood pressure at home - did not bring in readings 10/13/2013 None hypertension Pertinent Findings edema 10/13/2013 None diabetes mellitus Pertinent Findings Denies nausea 10/13/2013 None diabetes mellitus Pertinent Findings lethargy 10/13/2013 None hypertension Pertinent Findings Denies dizziness 10/13/2013 None hypertension Pertinent Findings Denies dyspnea 10/13/2013 None hypertension Pertinent Findings lethargy 10/13/2013 None hypertension Pertinent Findings Denies palpitations 10/13/2013 None hypertension Onset and Resolution ongoing 10/13/2013 None hypertension Onset of Symptom during adulthood 10/13/2013 None hypertension Alleviating Factors medication 10/13/2013 None hypertension Exacerbating Factors stress 10/13/2013 None diabetes mellitus Onset of Symptom onset as an adult 10/13/2013 None diabetes mellitus Quality non-insulin dependent 10/13/2013 None diabetes mellitus Quality improving 10/13/2013 None diabetes mellitus Nutrition regular diet 10/13/2013 None diabetes mellitus Exercise no exercise 10/13/2013 None diabetes mellitus Quality non-insulin dependent 03/18/2013 None diabetes mellitus Test results Pt checking blood glucose readings, did not bring results to clinic 03/18/2013 states metformin makes her nauseated diabetes mellitus Severity mild 03/18/2013 None diabetes mellitus Blood glucose levels greater than 120 03/18/2013 None diabetes mellitus Nutrition regular diet 03/18/2013 None diabetes mellitus Exercise no exercise 03/18/2013 None diabetes mellitus Pertinent Findings Denies lethargy 03/18/2013 None diabetes mellitus Pertinent Findings Denies dizziness 03/18/2013 None diabetes mellitus Pertinent Findings Denies dyspnea 03/18/2013 None diabetes mellitus Quality non-insulin dependent 07/16/2012 None diabetes mellitus Quality stable 07/16/2012 None diabetes mellitus Test results Pt checking blood glucose at home, see scanned readings 07/16/2012 None dysuria Quality acute 07/16/2012 None dysuria Quality burning 07/16/2012 None dysuria Quality worsening 07/16/2012 None Hospital Follow Up Quality acute illness 07/16/2012 None Hospital Follow Up Quality improving 07/16/2012 None diabetes mellitus Onset of Symptom onset as an adult 07/16/2012 None diabetes mellitus Severity mild 07/16/2012 None diabetes mellitus Blood glucose levels greater than 120 07/16/2012 None diabetes mellitus Glucose monitoring occasional glucose testing 07/16/2012 None diabetes mellitus Pertinent Findings Denies dizziness 07/16/2012 None diabetes mellitus Pertinent Findings lethargy 07/16/2012 None diabetes mellitus Pertinent Findings Denies nausea 07/16/2012 None diabetes mellitus Exercise minimal exercise 07/16/2012 None diabetes mellitus Alleviating Factors diet 07/16/2012 None diabetes mellitus Alleviating Factors medication 07/16/2012 None dysuria Onset and Resolution sudden in onset 07/16/2012 None dysuria Onset of Symptom 1-2 days ago 07/16/2012 None dysuria Significant Medical Conditions diabetes mellitus 07/16/2012 None dysuria Triggers no know n associated factors 07/16/2012 None dysuria Pertinent Findings back pain 07/16/2012 None dysuria Pertinent Findings bladder pain 07/16/2012 None dysuria Pertinent Findings nocturia 07/16/2012 None dysuria Pertinent Findings polyuria 07/16/2012 None daytime hypersomnolence Onset of Symptom 1 years ago 01/17/2012 since dx with pituitary tumor daytime hypersomnolence Frequency of Episodes daily 01/17/2012 None daytime hypersomnolence Onset and Re solution gradual in onset 01/17/2012 None daytime hypersomnolence Onset and Re solution ongoing 01/17/2012 None daytime hypersomnolence Quality chronic 01/17/2012 None daytime hypersomnolence Quality worsening 01/17/2012 None daytime hypersomnolence Triggers no known associated factors 01/17/2012 None daytime hypersomnolence Pertinent Findings Denies bradycardia 01/17/2012 None daytime hypersomnolence Pertinent Findings caffeine consumption 01/17/2012 None daytime hypersomnolence Pertinent Findings decreased energy level 01/17/2012 None daytime hypersomnolence Pertinent Findings edema 01/17/2012 None daytime hypersomnolence Pertinent Findings Denies frequent napping 01/17/2012 None daytime hypersomnolence Pertinent Findings Denies frequent arousals 01/17/2012 None daytime hypersomnolence Pertinent Findings Denies frequent nocturnal awakening 01/17/2012 None daytime hypersomnolence Pertinent Findings Denies heartburn 01/17/2012 None daytime hypersomnolence Pertinent Findings Denies noisy breathing 01/17/2012 None daytime hypersomnolence Pertinent Findings poor concentration 01/17/2012 None daytime hypersomnolence Pertinent Findings Denies poor sleep hygiene 01/17/2012 None daytime hypersomnolence Pertinent Findings Denies restless sleep 01/17/2012 None daytime hypersomnolence Pertinent Findings stress 01/17/2012 None back pain Initial treatment heat 12/07/2011 None back pain Initial treatment medication 12/07/2011 None back pain Initial treatment injections 12/07/2011 None back pain Initial treatment physical therapy 12/07/2011 None back pain Radiating down left leg 12/07/2011 None back pain Severity severe 12/07/2011 None back pain Quality acute 12/07/2011 None back pain Quality pinchi ng 12/07/2011 None back pain Location lumba r-sacral spine 12/07/2011 left lower side, into but tock, down left leg. Saw Dr. Driver and had injections in the past that didn't help. Also saw Dr. Quan-took physical therapy-states helped. States elavil helps the most with pain. back pain Onset and Resolution sudden in onset 12/07/2011 None back pain Onset of Symptom 1 days ago 12/07/2011 Started last night. 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 back pain Limitation on Activities moderately limits activities 12/07/2011 Taking ibuprofen for the pain. back pain Frequency of Episodes constant 12/07/2011 None back pain Triggers no kn own associated factors 12/07/2011 None back pain Alleviating Factors heat 12/07/2011 None back pain Alleviating Factors medication 12/07/2011 None Advance Directives No Advance Directive data Encounters Encounter Performer Loca tion Codes Date EST. PATIENT, LEVEL III Diagnosis: Pleurodynia[ICD10: R07.81] [facility] CPT-4: 83558 07/05/2018 ([id number]) [id number] EST. P ATIENT, LEVEL IV Diagnosis: Type 2 diabetes mellitus with hyperglycemia[ICD10: E11.65] Diagnosis: Mixed hyperlipidemia[ICD10: E78.2] Diagnosis: Other allergic rhinitis[ICD10: J30.89] Diagnosis: Attention-deficit hyperactivity disorder, combined type[ICD10: F90.2] Diagnosis: Encounter for immunization[ICD10: Z23] [facility] CPT-4: 29265 03/14/2018 13020 EST. PATIENT, LEVEL IV Diagnosis: Other acute sinusitis[ICD10: J01.80] Diagnosis: Other allergic rhinitis[ICD10: J30.89] [facility] CPT-4: 00098 05/25/2017 [id number] EST. PATIENT, LEVEL III Diagnosis: Other hemorrhoids[ICD10: K64.8] Diagnosis: Melena[ICD10: K92.1] Diagnosis: Type 2 diabetes mellitus with hyperglycemia[ICD10: E11.65] Diagnosis: Other disorders of pituitary gland[ICD10: E23.6] Michelle Martinez MD, [facility] CPT-4: 06072 05/14/2017 [id number] EST. PATIENT, LEVEL IV Diagnosis: Type 2 diabetes mellitus with hyperglycemia[ICD10: E11.65] Diagnosis: Other allergic rhinitis[ICD10: J30.89] Diagnosis: Acute bronchitis due to other specified organisms[ICD10: J20.8] Diagnosis: Other disorders of pituitary gland[ICD10: E23.6] Michelle Martinez MD, [facility] CPT-4: 75496 05/02/2016 ([id number]) [id number] EST. P ATIENT, LEVEL III Diagnosis: Allergic rhinitis due to pollen[ICD10: J30.1] Diagnosis: Otalgia, right ear[ICD10: H92.01] Maci Martinez MD, [facility] CPT- 4: 93432 10/28/2015 ([id number]) [id number] EST. P ATIENT, LEVEL III Diagnosis: Acute maxillary sinusitis, unspecified[ICD10: J01.00] Diagnosis: Allergic rhinitis, unspecified[ICD10: J30.9] Maci Martinez MD, [facility] CPT-4: 99740 04/19/2015 ([id number]) [id number] EST. P ATIENT, LEVEL III Diagnosis: Swelling of eyelid[ICD9: 374.82] Diagnosis: Sunburn[ICD9: 692.71] Maci Martinez MD, [facility] CPT-4: 30657 12/24/2014 ([id number]) 25484 EST. P ATIENT, LEVEL IV Diagnosis: ESSENTIAL HYPERTENSION[SNOMED: 75335551] Diagnosis: DIABETES TYPE II[SNOMED: 793972833] Diagnosis: ADHD (attention deficit hyperactivity disorder)[ICD9: 314.01] Diagnosis: Depression[ICD9: 311] Joy Martinez MD, [facility] CPT-4: 39088 10/13/2013 ([id number]) [id number] EST. P ATIENT, LEVEL IV Diagnosis: DM W/O COMPLICATION TYPE II, UNCONTROLLED[SNOMED: 71975704] Diagnosis: ESSENTIAL HYPERTENSION[SNOMED: 50604970] Diagnosis: EDEMA[ICD9: 782.3] Joy Martinez MD, [facility] CPT-4: 22939 03/18/2013 ([id number]) 84486 EST. P ATIENT, LEVEL IV Diagnosis: UTI[ICD9: 599.0] Diagnosis: DM W/O COMPLICATION TYPE II, UNCONTROLLED[SNOMED: 72287297] Joy Martinez MD, [facility] CPT-4: 61135 07/16/2012 ([id number]) 78423 EST. P ATIENT, LEVEL III Diagnosis: Uncontrolled narcolepsy[ICD9: 347.00] Diagnosis: ESSENTIAL HYPERTENSION[SNOMED: 16781691] Joy Martinez MD, C CPT-4: 35180 01/17/2012 Office outpatient ne w 30 minutes Diagnosis: Sciatica[ICD9: 724.3] Diagnosis: Chronic back pain[ICD9: 724.5] Diagnosis: ESSENTIAL HYPERTENSION[SNOMED: 36086670] Joy Martinez MD, C CPT-4: 45865 12/07/2011 Plan of Care Planned Activity Notes C odes Status Date Patient Education: Patient Medication Summary Completed 11/22/2018 Visit Plan: Left rib pain - the pat ient was instructed in appropriate posture - The pt is to use prn antiinflammatories to manage acute pain. The patient is to call the office if the pain is worsening or does not improve. 07/05/2018 Appointment: Michelle Mora WPtel: [address] [place], [place] [id number] (15 min) Moderate 07/05/2018 Patient Education: Patient Medication Summary Completed 07/05/2018 Visit Plan: Diabetes Mellitus -I nava ve recommended for the patient to have follow up labs prior to the next office visit. The patient has been instructed to continue with current medications as previously directed, continue with regular FSBS monitoring to assure continued control of diabetes. Pt to call for any acute concerns, complaints, or if the blood glucose readings are starting to become less controlled. Hyperlipidemia - pt has been counseled about appropriate diet, exercise, and need for low fat food choices. I have discussed the need for the patient to take medications as prescribed. If the patient has negative side effects from the medication, they are to CALL the office and not abruptly discontinue the medication without discussion with a practitioner in the office. We will check labs in 3-6 months for follow up on the patient's chronic medical problem and to assure normal liver response to medications. Allergies-kenalog injection today in the office ADHD-controlled with ritalin -refilled today in the office 03/14/2018 App[facility]ment: [facility] [phone] [phone] (30 min) Complex 03/14/2018 Patient Education: Patient Medication Summary Completed 03/14/2018 Patient Education: Diabetes Completed 03/14/2018 Patient Education: Cholesterol Management Completed 03/14/2018 Visit Plan: Sinusitis - Pt has acut e infection - pain in face, maxillary region, Pt informed to use decongestant, RX given to patient, sinus rinses also recommended. Call if symptoms do not show improvement. Allerg ies - chronic - recommended pt to use allergy medication as prescribed. Pt has been counseled as to the appropriate use of the medication. Pt to call if allergy symptoms are not controlled with the medication. If using nasal spray, instructions as follows: Nasal spray- use twice daily, one spray per nostril twice daily, after 30 minutes, rinse out nose with saline spray.. Use opposite hand per nostril to spray in the nasal steroid allergy spray. 05/25/2017 Appointment: [facility] [phone] [facility] (15 min) Moderate 05/25/2017 Patient Education: Patient Medication Summary Completed 05/25/2017 Referral: Jules Maria Referral Initiated 05/24/2017 Visit Plan: Hemorrhoids, screening colonoscopy - will refer pt to surgeon to eval and treat - pt is to notify clinic if symptoms do not improve, if they worsen, or with any changes, questions, or concerns. Diabetes Mellitus - I have recommended for the patient to have follow up labs prior to the next office visit. The patient has been instructed to continue with current medications as previously directed, continue with regular FSBS monitoring to assure continued control of diabetes. Pt to call for any acute concerns, complaints, or if the blood glucose readings are starting to become less controlled. I have recommended for the patient to follow more strictly to the diabetic diet as discussed in clinic to allow for greater blood glucose control. 05/14/2017 Appointment: [facility] [phone] [facility] (30 min) Complex 05/14/2017 Patient Education: Patient Medication Summary Completed 05/14/2017 Patient Education: Obesity Completed 05/14/2017 Care Plan: Referral Order SNOMED-CT : 665699775 Pending 05/14/2017 Visit Plan: Allergies - chronic - r ecommended pt to use allergy medication as prescribed. Pt has been counseled as to the appropriate use of the medication. Pt to call if allergy symptoms are not controlled with th e medication. If using nasal spray, instructions as follows: Nasal spray- use twice daily, one spray per nostril twice daily, after 30 minutes, rinse out nose with saline spray.. Use opposite hand per nostril to spray in the nasal steroid allergy spray. Bronchitis - acute case of bronchitis identified. Pt has been given antibiotics, breathing treatments as appropriate, and pt has been instructed to call if symptoms are not improved, or if symptoms acutely worsen. Diabetes Mellitus - I have recommended for the patient to have follow up labs prior to the next office visit. The patient has been instructed to continue with current medications as previously directed, continue with regular FSBS monitoring to assure continued control of diabetes. Pt to call for any acute concerns, complaints, or if the blood glucose readings are starting to become less controlled. 05/02/2016 Visit Plan: Allergies - chronic - r ecommended pt to use allergy medication as prescribed. Pt has been counseled as to the appropriate use of the medication. Pt to call if allergy symptoms are not controlled with th e medication. If using nasal spray, instructions as follows: Nasal spray- use twice daily, one spray per nostril twice daily, after 30 minutes, rinse out nose with saline spray.. Use opposite hand per nostril to spray in the nasal steroid allergy spray. Bronchitis - acute case of bronchitis identified. Pt has been given antibiotics, breathing treatments as appropriate, and pt has been instructed to call if symptoms are not improved, or if symptoms acutely worsen. Diabetes Mellitus - I have recommended for the patient to have follow up labs prior to the next office visit. The patient has been instructed to continue with current medications as previously directed, continue with regular FSBS monitoring to assure continued control of diabetes. Pt to call for any acute concerns, complaints, or if the blood glucose readings are starting to become less controlled. 05/02/2016 Appointment: Maci Moreno WPtel: [facility] [address] (15 min) Moderate 05/02/2016 Patient Education: Patient Medication Summary Completed 05/02/2016 Visit Plan: Allergies - right earac he - recommended pt to use allergy medication as prescribed. Pt has been counseled as to the appropriate use of the medication. Pt to call if allergy symptoms are not controlled with the medication. If using nasal spray, instructions as follows: Nasal spray- use twice daily, one spray per nostril twice daily, after 30 minutes, rinse out nose with saline spray.. Use opposite hand per nostril to spray in the nasal steroid allergy spray. 10/28/2015 Appointment: Maci Moreno WPtel: [phone] (30 min) Complex 10/28/2015 Patient Education: Patient Medication Summary Completed 10/28/2015 Patient Education: Obesity Completed 10/28/2015 Visit Plan: Sinusitis - Pt has acut e infection - pain in face, maxillary region, Pt informed to use decongestant, RX given to patient, sinus rinses also recommended. Call if symptoms do not show improvement. Roceph in and kenalog injections today in the office for acute symptoms. 04/19/2015 Appointment: Maci Moreno WPtel: [phone] (15 min) Moderate 04/19/2015 Patient Education: Patient Medication Summary Completed 04/19/2015 Appointment: Lab Draw 03/15/2015 Patient Education: Patient Medication Summary Completed 03/15/2015 Patient Education: Patient Medication Summary Completed 01/25/2015 Visit Plan: Swelling of eyelids-sun burn reaction-discussed natural and expected course of this diagnosis and to alert me if symptoms do not follow expected course, or if any worse. Kenalog injection today in the office and samples of duexis (ibuprofen and pepcid) provided for patient and instructed on use. Patient and daughter verbalized understanding of plan. 12/24/2014 Visit Plan: Swelling of eyelids-sun burn reaction-discussed natural and expected course of this diagnosis and to alert me if symptoms do not follow expected course, or if any worse. Kenalog injection today in the office and samples of duexis (ibuprofen and pepcid) provided for patient and instructed on use. Patient and daughter verbalized understanding of plan. 12/24/2014 Patient Education: Patient Medication Summary Completed 12/24/2014 Visit Plan: Hypertension - well con trolled - continue with current medications, continue with no added salt diet. Pt has been encouraged to exercise daily. The pt has been advised to call the office if there are any acute concerns about change in blood pressure readings at home. Diabetes Mellitus - controlled - per recent FSBS reports. I have recommended for the patient to have follow up labs prior to the next office visit. The patient has been instructed to continue with current medications as previously directed, continue with regular FSBS monitoring to assure continued control of diabetes. Pt to call for any acute concerns, complaints, or if the blood glucose readings are starting to become less controlled. Chronic Depression and anxiety - the pt has symptoms of chronic anxiety and depression that have been fairly well controlled since the last office visit. The pt has expected periods of exacerbation with abatement of the symptoms with change in situational exposure. No change in current medications. ADHD symptoms - rx for ritalin given to the patient. 10/13/2013 Appointment: Joy Martinez WPtel: [address] [place], [place] [id number] [place] Follow up 10/13/2013 Patient Education: Patient Medication Summary Completed 10/13/2013 Patient Education: Hypertension Completed 10/13/2013 Appointment: Maci Moreno WPtel: [address] [place], [place] [id number] [place] Follow up 08/29/2013 Appointment: Joy Martinez WPtel: [facility] [place] Follow up 06/23/2013 Visit Plan: Diabetes Mellitus - Unc ontrolled - per recent FSBS reports. I have recommended for the patient to have follow up labs prior to the next office visit. The patient has been instructed to continue with current medications as previously directed, continue with regular FSBS monitoring to assure continued control of diabetes. Pt to call for any acute concerns, complaints, or if the blood glucose readings are starting to become less controlled. I have recommended for the patient to follow more strictly to the diabetic diet as discussed in clinic to allow for greater blood glucose control. stop metformin Insomnia - Pt has been advised to increase the light in the house during the day, and start dimming the lights during the evening hours. Pt has been advised to cut out caffiene after 5pm. Daytime napping worsens night time insomnia. Edema - pt has been advised to elevate legs to prevent dependent edema, compression has been recommended to help to naturally decrease peripheral edema. Diuretic use has been discussed and pt has been instructed in appropriate use of such medication as necessary to further attempt to reduce peripheral edema. 03/18/2013 Appointment: Joy Martinez WPtel: [facility] Follow up 03/18/2013 Patient Education: Patient Medication Summary Completed 03/18/2013 Patient Education: Hypertension Completed 03/18/2013 Appointment: Joy Martinez WPtel: [address] [place], [place] [id number] Follow up 10/15/2012 Appointment: Maci Moreno WPtel: [phone] Diabetic education 07/22/2012 Visit Plan: Diabetes Mellitus - Unc ontrolled - per recent FSBS reports. I have recommended for the patient to have follow up labs prior to the next office visit. The patient has been instructed to continue with current medications as previously directed, continue with regular FSBS monitoring to assure continued control of diabetes. Pt to call for any acute concerns, complaints, or if the blood glucose readings are starting to become less controlled. I have recommended for the patient to follow more strictly to the diabetic diet as discussed in clinic to allow for greater blood glucose control. UTI - pt with positive urinalysis - culture sent if appropriate. Antibiotic electronically prescribed to pt's pharmacy of choice. Pt to call if symptoms do not improve. 07/16/2012 Appointment: Joy [facility]Ptel[facility] [phone] [facility] [facility] 07/16/2012 Patient Education: Patient Medication Summary Completed 07/16/2012 Visit Plan: Daytime hypersomnolence /narcolepsy - recommended pt to start on ritalin and will follow her sypmtoms on the medication. She is to check her blood pressure dilligently and call if her blood pressure starts to become elevated on the ritalin. Hypertension - well controlled - continue with current medications, continue with no added salt diet. Pt has been encouraged to exercise daily. The pt has been advised to call the office if there are any acute concerns about change in blood pressure readings at home. 01/17/2012 Appointment: Joy Martinez WPtel: [address] [facility] [facility] 01/17/2012 Patient Education: Patient Medication Summary Completed 01/17/2012 Patient Education: High Blood Pressure: Essential Hypertension Completed 01/17/2012 Visit Plan: Hypertension - well con trolled - continue with current medications, continue with no added salt diet. Pt has been encouraged to exercise daily. The pt has been advised to call the office if there are any acute concerns about change in blood pressure readings at home. Joint Injection - Pt was given post - injection instructions. The pt has been advised to use antiinflammatories post injection today, ice to the injected site, call if redness, warmth, or increased pain occurs at the site of injection. Chronic Back pain - plan to increase elavil to 100mg po Q HS 12/07/2011 Appointment: Maci Moreno WPtel[facility] [phone] [phone] [place] New Patient 12/07/2011 Patient Education: Patient Medication Summary Completed 12/07/2011 Patient Education: High Blood Pressure: Essential Hypertension Completed 12/07/2011 Referral: Jules Maria Referral Initiated Instructions Comment . Hypertension - wel l controlled - continue with current medications, continue with no added salt diet. Pt has been encouraged to exercise daily. The pt has been advised to call the office if there are any acute concerns about change in blood pressure readings at home. Diabetes Mellitus - controlled - per recent FSBS reports. I have recommended for the patient to have follow up labs prior to the next office visit. The patient has been instructed to continue with current medications as previously directed, continue with regular FSBS monitoring to assure continued control of diabetes. Pt to call for any acute concerns, complaints, or if the blood glucose readings are starting to become less controlled. Chronic Depression and anxiety - the pt has symptoms of chronic anxiety and depression that have been fairly well controlled since the last office visit. The pt has expected periods of exacerbation with abatement of the symptoms with change in situational exposure. No change in current medications. ADHD symptoms - rx for ritalin given to the patient. . Hemorrhoids, scree cody colonoscopy - will refer pt to surgeon to eval and treat - pt is to notify clinic if symptoms do not improve, if they worsen, or with any changes, questions, or concerns. Diabetes Mellitus - I have recommended for the patient to have follow up labs prior to the next office visit. The patient has been instructed to continue with current medications as previously directed, continue with regular FSBS monitoring to assure continued control of diabetes. Pt to call for any acute concerns, complaints, or if the blood glucose readings are starting to become less controlled. I have recommended for the patient to follow more strictly to the diabetic diet as discussed in clinic to allow for greater blood glucose control. Apply heat to low ba ck this evening to help with the pain. Hold ibuprofen while on the prednisone. . Hypertension - well controlled - continue with current medications, continue with no added salt diet. Pt has been encouraged to exercise daily. The pt has been advised to call the office if there are any acute concerns about change in blood pressure readings at home. Joint Injection - Pt was given post - injection instructions. The pt has been advised to use antiinflammatories post injection today, ice to the injected site, call if redness, warmth, or increased pain occurs at the site of injection. Chronic Back pain - plan to increase elavil to 100mg po Q HS . Left rib pain - t he patient was instructed in appropriate posture - The pt is to use prn antiinflammatories to manage acute pain. The patient is to call the office if the pain is worsening or does not improve. . Swelling of eyelid s-sunburn reaction-discussed natural and expected course of this diagnosis and to alert me if symptoms do not follow expected course, or if any worse. Kenalog injection today in the office and samples of duexis (ibuprofen and pepcid) provided for patient and instructed on use. Patient and daughter verbalized understanding of plan. . Swelling of eyelid s-sunburn reaction-discussed natural and expected course of this diagnosis and to alert me if symptoms do not follow expected course, or if any worse. Kenalog injection today in the office and samples of duexis (ibuprofen and pepcid) provided for patient and instructed on use. Patient and daughter verbalized understanding of plan. . Sinusitis - Pt has acute infection - pain in face, maxillary region, Pt informed to use decongestant, RX given to patient, sinus rinses also recommended. Call if symptoms do not show improvement. Rocephin and kenalog injections today in the office for acute symptoms. . Allergies - chroni c - recommended pt to use allergy medication as prescribed. Pt has been counseled as to the appropriate use of the medication. Pt to call if allergy symptoms are not controlled with the medication. If using nasal spray, instructions as follows: Nasal spray- use twice daily, one spray per nostril twice daily, after 30 minutes, rinse out nose with saline spray.. Use opposite hand per nostril to spray in the nasal steroid allergy spray. Bronchitis - acute case of bronchitis identified. Pt has been given antibiotics, breathing treatments as appropriate, and pt has been instructed to call if symptoms are not improved, or if symptoms acutely worsen. Diabetes Mellitus - I have recommended for the patient to have follow up labs prior to the next office visit. The patient has been instructed to continue with current medications as previously directed, continue with regular FSBS monitoring to assure continued control of diabetes. Pt to call for any acute concerns, complaints, or if the blood glucose readings are starting to become less controlled. . Allergies - chroni c - recommended pt to use allergy medication as prescribed. Pt has been counseled as to the appropriate use of the medication. Pt to call if allergy symptoms are not controlled with the medication. If using nasal spray, instructions as follows: Nasal spray- use twice daily, one spray per nostril twice daily, after 30 minutes, rinse out nose with saline spray.. Use opposite hand per nostril to spray in the nasal steroid allergy spray. Bronchitis - acute case of bronchitis identified. Pt has been given antibiotics, breathing treatments as appropriate, and pt has been instructed to call if symptoms are not improved, or if symptoms acutely worsen. Diabetes Mellitus - I have recommended for the patient to have follow up labs prior to the next office visit. The patient has been instructed to continue with current medications as previously directed, continue with regular FSBS monitoring to assure continued control of diabetes. Pt to call for any acute concerns, complaints, or if the blood glucose readings are starting to become less controlled. Tdap kenalog 40mg refill ritalin fasting labs-orders sent to [facility] -go any time fasting . Diabetes Mellitus -I have recommended for the patient to have follow up labs prior to the next office visit. The patient has been instructed to continue with current medications as previously directed, continue with regular FSBS monitoring to assure continued control of diabetes. Pt to call for any acute concerns, complaints, or if the blood glucose readings are starting to become less controlled. Hyperlipidemia - pt has been counseled about appropriate diet, exercise, and need for low fat food choices. I have discussed the need for the patient to take medications as prescribed. If the patient has negative side effects from the medication, they are to CALL the office and not abruptly discontinue the medication without discussion with a practitioner in the office. We will check labs in 3-6 months for follow up on the patient's chronic medical problem and to assure normal liver response to medications. Allergies-kenalog injection today in the office ADHD-controlled with ritalin -refilled today in the office . Daytime hypersomno lence/narcolepsy - recommended pt to start on ritalin and will follow her sypmtoms on the medication. She is to check her blood pressure dilligently and call if her blood pressure starts to become elevated on the ritalin. Hypertension - well controlled - continue with current medications, continue with no added salt diet. Pt has been encouraged to exercise daily. The pt has been advised to call the office if there are any acute concerns about change in blood pressure readings at home. . Diabetes Mellitus - Uncontrolled - per recent FSBS reports. I have recommended for the patient to have follow up labs prior to the next office visit. The patient has been instructed to continue with current medications as previously directed, continue with regular FSBS monitoring to assure continued control of diabetes. Pt to call for any acute concerns, complaints, or if the blood glucose readings are starting to become less controlled. I have recommended for the patient to follow more strictly to the diabetic diet as discussed in clinic to allow for greater blood glucose control. stop metformin Insomnia - Pt has been advised to increase the light in the house during the day, and start dimming the lights during the evening hours. Pt has been advised to cut out caffiene after 5pm. Daytime napping worsens night time insomnia. Edema - pt has been advised to elevate legs to prevent dependent edema, compression has been recommended to help to naturally decrease peripheral edema. Diuretic use has been discussed and pt has been instructed in appropriate use of such medication as necessary to further attempt to reduce peripheral edema. . Sinusitis - Pt has acute infection - pain in face, maxillary region, Pt informed to use decongestant, RX given to patient, sinus rinses also recommended. Call if symptoms do not show improvement. Allergies - chronic - recommended pt to use allergy medication as prescribed. Pt has been counseled as to the appropriate use of the medication. Pt to call if allergy symptoms are not controlled with the medication. If using nasal spray, instructions as follows: Nasal spray- use twice daily, one spray per nostril twice daily, after 30 minutes, rinse out nose with saline spray.. Use opposite hand per nostril to spray in the nasal steroid allergy spray. kenalog injection to day start prednisone tomorrow zyrtec . Allergies - right earache - recommende d pt to use allergy medication as prescribed. Pt has been counseled as to the appropriate use of the medication. Pt to call if allergy symptoms are not controlled with the medication. If using nasal spray, instructions as follows: Nasal spray- use twice daily, one spray per nostril twice daily, after 30 minutes, rinse out nose with saline spray.. Use opposite hand per nostril to spray in the nasal steroid allergy spray. . Diabetes Mellitus - Uncontrolled - per recent FSBS reports. I have recommended for the patient to have follow up labs prior to the next office visit. The patient has been instructed to continue with current medications as previously directed, continue with regular FSBS monitoring to assure continued control of diabetes. Pt to call for any acute concerns, complaints, or if the blood glucose readings are starting to become less controlled. I have recommended for the patient to follow more strictly to the diabetic diet as discussed in clinic to allow for greater blood glucose control. UTI - pt with positive urinalysis - culture sent if appropriate. Antibiotic electronically prescribed to pt's pharmacy of choice. Pt to call if symptoms do not improve.
--- OUTSIDE RECORDS SUMMARY | 2019-11-02 06:59 | XMS REPORT | CCD ---
Author Author Lianne Martinez Organization [facility] Address [address] [place] [address] Phone Care Team Providers Care Setup Technician Name Role Phone PP Unavailable CCM Unavailable Summary Purpose Interface Exchange Insurance Providers Payer name Policy type / Coverage type Covered alliance party ID Effective Begin Date Effective End Date [employer] [id number] Unknown Family history Brother Diagnosis Age At [...] M arried 12/07/[address]: 465586792 Never smoker 12/07/2011 Alcohol history Unknown occasionally [...] Fill Instructions Januvia 100 mg tablet RxNorm: 555670 1 Tablet(s) PO daily 12/12/2018 09/07/2019 Active Januvia 100 mg tablet RxNorm: 717358 1 Tablet(s) PO daily 12/12/2018 12/11/2018 Inactive Ritalin 10 mg tablet RxNorm: 5774950 1 Tablet(s) PO BID 10/17/2018 11/15/2018 Inactive [SAVINGS FOR NON-COVERED DRUGS -- BIN:00 3585, PCN: ASPROD1, Group: XXXXX, ID# [id number], Questions: . THIS IS NOT INSURANCE.] estradiol 0.5 mg tablet RxNorm: 759041 TAKE ONE TABLET BY MOUTH EVERY DAY 09/06/2018 08/20/2021 Ac tive Celexa 20 mg tablet RxNorm: 425473 TAKE 1 AND 1/2 TABLETS BY MOUTH DAILY 09/06/2018 08/20/2021 Ac tive trimethoprim 100 mg tablet RxNorm: 195073 1 Tablet(s) PO daily 08/30/2018 03/27/2019 Active trimethoprim 100 mg tablet RxNorm: 773101 1 Tablet(s) PO daily 08/30/2018 08/14/2018 Inactive Keflex 500 mg capsule RxNorm: 512605 1 Capsule(s) PO QID 08/15/2018 08/28/2018 Inactive Keflex 500 mg capsule RxNorm: 989306 1 Capsule(s) PO QID 08/15/2018 08/14/2018 Inactive trimethoprim 100 mg tablet RxNorm: 857707 1 Tablet(s) PO daily 08/15/2018 08/29/2018 Inactive Toprol XL 25 mg tabl et,extended release RxNorm: 199475 1 Tablet(s) PO daily 07/26/2018 06/26/2019 Ac tive waiting on mail order amitriptyline 100 mg tablet RxNorm: 215151 Tablet(s) TAKE 1 TABL ET BY MOUTH DAILY AT BEDTIME 07/26/2018 07/20/2019 Active Toprol XL 25 mg tabl et,extended release RxNorm: 055701 1 Tablet(s) PO daily 07/26/2018 07/25/2018 In active waiting on mail order Januvia 50 mg tablet RxNorm: 951383 1 Tablet(s) PO daily 07/26/2018 12/11/2018 Inactive amitriptyline 100 mg tablet RxNorm: 192726 Tablet(s) TAKE 1 TABL ET BY MOUTH DAILY AT BEDTIME 07/26/2018 07/25/2018 Inactive waiting on mail order prednisone 20 mg tablet RxNorm: 272752 3 Tablet(s) PO daily 07/05/2018 07/04/2018 Inactive Kenalog 40 mg/mL kat pension for injection RxNorm: 5401023 Milliliter(s) Inj 07/05/2018 07/05/2018 In active Ritalin 10 mg tablet RxNorm: 3906977 1 Tablet(s) PO BID 07/05/2018 08/03/2018 Inactive [SAVINGS FOR NON-COVERED DRUGS -- BIN:00 3585, PCN: ASPROD1, Group: XXXXX, ID# [id number], Questions: . THIS IS NOT INSURANCE.] prednisone 20 mg tablet RxNorm: 967530 3 Tablet(s) PO daily 07/05/2018 07/09/2018 Inactive Aldactone 25 mg tablet RxNorm: 650610 Tablet(s) 1 TABLET(S) PO BID 04/17/2018 01/11/2019 Active pantoprazole 40 mg t ablet,delayed release RxNorm: 076839 1 Tablet(s) PO QHS 04/17/2018 01/11/2019 Ac tive Ritalin 10 mg tablet RxNorm: 4857119 1 Tablet(s) PO BID 04/17/2018 05/16/2018 Inactive [SAVINGS FOR NON-COVERED DRUGS -- BIN: 3585, PCN: ASPROD1, Group: XXXXX, ID# [id number], Questions: . THIS IS NOT INSURANCE.] Bactrim 400 mg-80 mg tablet RxNorm: 200642 Tablet(s) TAKE 1 TABL ET BY MOUTH NEEDED FOR SEXUAL INTERCOURSE FOR UTI PREVENTION 04/17/2018 08/14/2018 Inactive Kenalog 40 mg/mL kat pension for injection RxNorm: 1669863 1 Milliliter(s) Inj 03/14/2018 03/14/2018 In active amitriptyline 100 mg tablet RxNorm: 451003 Tablet(s) TAKE 1 TABL ET BY MOUTH DAILY AT BEDTIME 03/14/2018 07/25/2018 Inactive Ritalin 10 mg tablet RxNorm: 8457263 1 Tablet(s) PO BID 03/14/2018 04/12/2018 Inactive [SAVINGS FOR NON-COVERED DRUGS -- BIN:00 3585, PCN: ASPROD1, Group: XXXXX, ID# [id number], Questions: . THIS IS NOT INSURANCE.] Bactrim 400 mg-80 mg tablet RxNorm: 479301 TAKE 1 TABLET BY MOUT H NEEDED FOR SEXUAL INTERCOURSE FOR UTI PREVENTION 09/28/2017 11/26/2017 Inactive amitriptyline 100 mg tablet RxNorm: 891316 TAKE 1 TABLET BY MOUT H DAILY AT BEDTIME 09/25/2017 03/13/2018 In active Diflucan 150 mg tablet RxNorm: 051067 1 Tablet(s) PO daily 05/31/2017 06/04/2017 Inactive Diflucan 150 mg tablet RxNorm: 654336 1 Tablet(s) PO daily 05/31/2017 05/30/2017 Inactive Kenalog 40 mg/mL kat pension for injection RxNorm: 6682937 Milliliter(s) Inj 05/25/2017 05/25/2017 In active prednisone 10 mg tablet RxNorm: 863040 Tablet(s) PO UD 05/25/2017 09/24/2017 Inactive 6,5,4,3,2,1 Phenergan with Codei ne Syrup RxNorm: 5-10 Milliliter(s) PO QID a s needed 05/25/2017 03/13/2018 In active Keflex 500 mg capsule RxNorm: 357637 1 Capsule(s) PO TID 05/25/2017 06/03/2017 Inactive ceftriaxone 500 mg s olution for injection RxNorm: 9787982 1 Milliliter(s) Inj 05/25/2017 05/25/2017 In active estradiol 0.5 mg tablet RxNorm: 509445 1 Tablet(s) PO daily 05/14/2017 09/05/2018 Inactive Celexa 20 mg tablet RxNorm: 311837 1.5 Tablet(s) PO daily 05/14/2017 09/05/2018 Inactive amitriptyline 100 mg tablet RxNorm: 941910 1 Tablet(s) PO QHS 05/14/2017 09/24/2017 Inactive Januvia 50 mg tablet RxNorm: 184094 1 Tablet(s) PO daily 05/14/2017 05/08/2018 Inactive pantoprazole 40 mg t ablet,delayed release RxNorm: 598144 1 Tablet(s) PO QHS 05/14/2017 02/07/2018 In active Bactrim 400 mg-80 mg tablet RxNorm: 690777 Tablet(s) TAKE ONE TA BLET BY MOUTH NEEDED FOR SEXUAL INTERCOURSE FOR UTI PREVENTION 05/14/2017 08/11/2017 Inactive Toprol XL 25 mg tabl et,extended release RxNorm: 372421 1 Tablet(s) PO daily 05/14/2017 05/08/2018 In active Aldactone 25 mg tablet RxNorm: 793284 Tablet(s) 1 TABLET(S) PO BID 05/14/2017 02/07/2018 Inactive Celexa 20 mg tablet RxNorm: 741263 TAKE ONE & ONE-HALF TABLETS BY MOUTH ONC E DAILY 04/12/2017 05/13/2017 Inactive Toprol XL 25 mg tabl et,extended release RxNorm: 855840 TAKE ONE TABLET BY MO UTH ONCE DAILY 02/06/2017 05/13/2017 Inactive Celexa 20 mg tablet RxNorm: 484073 TAKE ONE & ONE-HALF TABLETS BY MOUTH ONC E DAILY 01/03/2017 03/03/2017 Inactive amitriptyline 100 mg tablet RxNorm: 152306 TAKE ONE TABLET BY MO UTH AT BEDTIME 12/08/2016 05/13/2017 In active Toprol XL 25 mg tabl et,extended release RxNorm: 434911 TAKE ONE TABLET BY MO UTH ONCE DAILY 11/23/2016 02/06/2017 Inactive Januvia 50 mg tablet RxNorm: 364802 TAKE ONE TABLET BY MOUTH ONCE DAILY 11/09/2016 03/08/2017 In active Bactrim 400 mg-80 mg tablet RxNorm: 773852 TAKE ONE TABLET BY MO UTH NEEDED FOR SEXUAL INTERCOURSE FOR UTI PREVENTION 09/19/2016 04/24/2017 Inactive amitriptyline 100 mg tablet RxNorm: 078603 TAKE ONE TABLET BY MO UTH AT BEDTIME 08/31/2016 11/28/2016 In active pantoprazole 40 mg t ablet,delayed release RxNorm: 706201 Tablet(s) TAKE 1 TABL ET BY MOUTH ONCE DAILY 08/16/2016 05/12/2017 Inactive estradiol 0.5 mg tablet RxNorm: 038711 TAKE ONE TABLET BY MOUTH ONCE DAILY 08/13/2016 05/13/2017 In active amitriptyline 100 mg tablet RxNorm: 661748 TAKE ONE TABLET BY MO UTH AT BEDTIME 07/31/2016 08/29/2016 In active ProAir HFA 90 mcg/ac tuation aerosol inhaler RxNorm: 113908 2 inhale INH PRN as n eeded 05/02/2016 No Stop Date Active ciprofloxacin 0.3 % eye drops RxNorm: 153324 Drop(s) OPH 2 drops e very 2 hours while awake for days 1-2 and 2 drops every 4 hours for days 3 - 7 05/02/2016 03/13/2018 Inactive Kenalog 40 mg/mL kat pension for injection RxNorm: 5911629 Milliliter(s) Inj 05/02/2016 05/02/2016 In active Zithromax Z-Nick 250 mg tablet RxNorm: 225916 1 Tablet(s) PO UD 05/02/2016 09/24/2017 Inactive albuterol sulfate 2. 5 mg/3 mL (0.083 %) solution for nebulization RxNorm: 020395 1 Milliliter(s) INH QID as needed 03/13/2018 Inactive prednisone 20 mg tablet RxNorm: 425935 1 Tablet(s) PO BID 05/02/2016 05/06/2016 Inactive amitriptyline 100 mg tablet RxNorm: 101107 1 TABLET(S) PO QHS 03/01/2016 07/30/2016 Inactive estradiol 0.5 mg tablet RxNorm: 680531 1 TABLET(S) PO DAILY 03/01/2016 09/24/2017 Inactive TAKE 1 TABLET BY MOUTH DAILY estradiol 0.5 mg tablet RxNorm: 994842 TAKE ONE TABLET BY MOUTH ONCE DAILY 03/01/2016 05/29/2016 In active Celexa 20 mg tablet RxNorm: 825048 TAKE ONE & ONE-HALF TABLETS BY MOUTH ONC E DAILY 12/03/2015 11/26/2016 Inactive amoxicillin 500 mg c apsule RxNorm: 762803 1 Capsule(s) PO BID 11/05/2015 11/04/2015 Inactive amoxicillin 500 mg c apsule RxNorm: 536581 1 Capsule(s) PO BID 11/05/2015 04/30/2017 Inactive Kenalog 40 mg/mL kat pension for injection RxNorm: 7742214 Milliliter(s) Inj 10/28/2015 10/28/2015 In active Januvia 50 mg tablet RxNorm: 579140 Tablet(s) 1 TABLET(S) PO DAILY 10/28/2015 10/21/2016 In active Ritalin 10 mg tablet RxNorm: 8531467 1 Tablet(s) PO BID 10/28/2015 11/26/2015 Inactive [SAVINGS FOR NON-COVERED DRUGS -- BIN:00 3585, PCN: ASPROD1, Group: XXXXX, ID# [id number], Questions: . THIS IS NOT INSURANCE.] Toprol XL 25 mg tabl et,extended release RxNorm: 965952 Tablet(s) 1 TABLET(S) PO DAILY 10/28/2015 10/21/2016 Inactive prednisone 20 mg tablet RxNorm: 078545 1 Tablet(s) PO BID 10/28/2015 11/01/2015 Inactive Lasix 40 mg tablet RxNorm: 101267 TAKE ONE TABLET BY MOUTH ONCE DAILY. MAY TAKE EXTRA TABLET NEEDED. 09/27/2015 12/25/2015 Inactive Bactrim 400 mg-80 mg tablet RxNorm: 258345 Tablet(s) 1 TABLET(S) PO PRN SEXUAL INTERCOURSE, UTI PREVENTATIVE 09/22/2015 12/20/2015 Inactive pantoprazole 40 mg t ablet,delayed release RxNorm: 254649 TAKE 1 TABLET BY MOUT H ONCE DAILY 07/29/2015 01/24/2016 Inactive amitriptyline 100 mg tablet RxNorm: 689575 Tablet(s) 1 TABLET(S) PO QHS 07/26/2015 09/24/2017 In active pantoprazole 40 mg t ablet,delayed release RxNorm: 968224 TAKE 1 TABLET BY MOUT H ONCE DAILY 07/21/2015 07/28/2015 Inactive Bactrim 400 mg-80 mg tablet RxNorm: 225679 1 TABLET(S) PO PRN SE XUAL INTERCOURSE, UTI PREVENTATIVE 06/21/2015 09/18/2015 Inactive Ritalin 10 mg tablet RxNorm: 1172345 1 Tablet(s) PO BID 04/19/2015 05/18/2015 Inactive [SAVINGS FOR NON-COVERED DRUGS -- BIN:00 3585, PCN: ASPROD1, Group: XXXXX, ID# [id number], Questions: . THIS IS NOT INSURANCE.] Keflex 500 mg capsule RxNorm: 899313 1 Capsule(s) PO TID 04/19/2015 04/28/2015 Inactive Kenalog 40 mg/mL kat pension for injection RxNorm: 2498470 Milliliter(s) Inj 04/19/2015 04/19/2015 In active ceftriaxone 500 mg s olution for injection RxNorm: 2294346 Inj 04/19/2015 04/19/2015 Inactive amitriptyline 100 mg tablet RxNorm: 433780 1 TABLET(S) PO QHS 03/26/2015 07/25/2015 Inactive Lasix 40 mg tablet RxNorm: 169613 1 Tablet(s) PO daily 03/26/2015 09/21/2015 Inactive may take an extra tablet as needed Aldactone 25 mg tablet RxNorm: 563467 1 TABLET(S) PO BID 03/26/2015 12/20/2015 Inactive Levaquin 500 mg tablet RxNorm: 313430 1 Tablet(s) PO daily 03/15/2015 03/21/2015 Inactive Levaquin 500 mg tablet RxNorm: 858600 1 Tablet(s) PO daily 03/15/2015 03/14/2015 Inactive hydrocodone 5 mg-devang taminophen 325 mg tablet RxNorm: 689097 one or two tabs po ev ey six hours prn Tablet(s) PO 02/26/2015 03/13/2018 Inactive hydrocodone 5 mg-devang taminophen 325 mg tablet RxNorm: 863306 one or two tabs po ev ey six hours prn Tablet(s) PO 02/26/2015 02/25/2015 Inactive amitriptyline 100 mg tablet RxNorm: 959198 1 TABLET(S) PO QHS 02/22/2015 01/17/2016 Inactive Keflex 500 mg capsule RxNorm: 982090 1 Capsule(s) PO TID 01/25/2015 01/24/2015 Inactive Keflex 500 mg capsule RxNorm: 467398 1 Capsule(s) PO TID 01/25/2015 01/31/2015 Inactive Bactrim 400 mg-80 mg tablet RxNorm: 679835 1 Tablet(s) PO PRN se xual intercourse, uti preventative 01/04/2015 01/03/2015 Inactive Bactrim 400 mg-80 mg tablet RxNorm: 710879 1 Tablet(s) PO PRN se xual intercourse, uti preventative 01/04/2015 06/20/2015 Inactive Ritalin 10 mg tablet RxNorm: 2664428 1 Tablet(s) PO BID 12/24/2014 01/22/2015 Inactive [SAVINGS FOR NON-COVERED DRUGS -- BIN:00 3585, PCN: ASPROD1, Group: XXXXX, ID# [id number], Questions: . THIS IS NOT INSURANCE.] Kenalog 40 mg/mL kat pension for injection RxNorm: 2588615 Milliliter(s) Inj 12/24/2014 12/24/2014 In active estradiol 0.5 mg tablet RxNorm: 036879 1 Tablet(s) PO daily 12/16/2014 02/29/2016 Inactive TAKE 1 TABLET BY MOUTH DAILY pantoprazole 40 mg t ablet,delayed release RxNorm: 712094 1 Tablet(s) daily 10/26/2014 07/20/2015 In active [SAVINGS FOR NON-COVERED DRUGS -- BIN:00 3585, PCN: ASPROD1, Group: XXXXX, ID# [id number], Questions: . THIS IS NOT INSURANCE.] Ritalin 10 mg tablet RxNorm: 2455291 1 Tablet(s) PO BID 10/23/2014 11/21/2014 Inactive [SAVINGS FOR NON-COVERED DRUGS -- BIN:00 3585, PCN: ASPROD1, Group: XXXXX, ID# [id number], Questions: . THIS IS NOT INSURANCE.] pantoprazole 40 mg t ablet,delayed release RxNorm: 777718 3/4 Tablet(s) daily 10/23/2014 10/25/2014 In active [SAVINGS FOR NON-COVERED DRUGS -- BIN:00 3585, PCN: ASPROD1, Group: XXXXX, ID# [id number], Questions: . THIS IS NOT INSURANCE.] Toprol XL 25 mg tabl et,extended release RxNorm: 637108 1 TABLET(S) PO DAILY 10/20/2014 10/14/2015 In active Januvia 50 mg tablet RxNorm: 460463 1 TABLET(S) PO DAILY 10/20/2014 10/14/2015 Inactive samples and script Celexa 20 mg tablet RxNorm: 572501 1.5 TABLET(S) PO DAILY TAKE 1 & 1/2 TABL ETS BY MOUTH DAILY 10/20/2014 10/14/2015 Inactive omeprazole 20 mg cap maco,delayed release RxNorm: 334170 1 Capsule(s) PO BID 09/25/2014 09/24/2014 In active omeprazole 20 mg cap maco,delayed release RxNorm: 580769 1 Capsule(s) PO BID 09/25/2014 10/22/2014 In active DC pantoprazole [SAVINGS FOR NON-COVERED DRUGS -- BIN:488510, PCN: ASPROD1, Group: XXXXX, ID# [id number], Questions: . THIS IS NOT INSURANCE.] pantoprazole 40 mg t ablet,delayed release RxNorm: 224863 1 TABLET(S) PO BID 09/24/2014 09/24/2014 In active omeprazole 20 mg tab let,delayed release RxNorm: 607430 1 Tablet(s) PO BID 08/31/2014 08/30/2014 In active dc pantoprazole 40mg omeprazole 20 mg tab let,delayed release RxNorm: 110916 1 Tablet(s) PO BID 08/31/2014 08/30/2014 In active omeprazole 20 mg tab let,delayed release RxNorm: 236207 1 Tablet(s) PO daily 08/31/2014 10/27/2015 In active change to daily Ritalin 10 mg tablet RxNorm: 2100484 1 Tablet(s) PO BID 07/20/2014 08/18/2014 Inactive [SAVINGS FOR UNINSURED PATIENTS -- BIN:0 58850, PCN: ASPROD1, Group: [id number], ID# [id number], Process claim through [employer], for questions: . THIS IS NOT INSURANCE.] amitriptyline 100 mg tablet RxNorm: 336904 1 TABLET(S) PO QHS 04/27/2014 02/21/2015 Inactive Ritalin 10 mg tablet RxNorm: 0707459 1 Tablet(s) PO BID 02/09/2014 06/08/2014 Inactive [SAVINGS FOR UNINSURED PATIENTS -- BIN:0 12042, PCN: ASPROD1, Group: AME08, ID# [id number], Process claim through [employer], for questions: . THIS IS NOT INSURANCE.] ProAir HFA 90 mcg/ac tuation aerosol inhaler RxNorm: 032074 2 inhale INH PRN 11/19/2013 10/27/2015 In active amitriptyline 100 mg tablet RxNorm: 426033 Tablet(s) PO TAKE 1 T ABLET BY MOUTH AT BEDTIME 10/27/2013 04/23/2017 Inactive Ritalin 10 mg tablet RxNorm: 3448214 1 Tablet(s) PO BID 10/13/2013 02/08/2014 Inactive estradiol 0.5 mg tablet RxNorm: 056553 1 Tablet(s) PO daily 10/13/2013 12/15/2014 Inactive TAKE 1 TABLET BY MOUTH DAILY pantoprazole 40 mg t ablet,delayed release RxNorm: 971484 1 Tablet(s) PO BID 10/13/2013 08/30/2014 In active Januvia 50 mg tablet RxNorm: 805232 1 Tablet(s) PO daily 10/13/2013 10/07/2014 Inactive samples and script Toprol XL 25 mg tabl et,extended release RxNorm: 437486 1 Tablet(s) PO daily 10/13/2013 10/07/2014 In active Celexa 20 mg tablet RxNorm: 023159 1.5 Tablet(s) PO daily TAKE 1 & 1/2 TABL ETS BY MOUTH DAILY 10/13/2013 10/07/2014 Inactive Aldactone 25 mg tablet RxNorm: 502353 1 Tablet(s) PO BID 10/13/2013 10/07/2014 Inactive Januvia 50 mg tablet RxNorm: 669594 1 Tablet(s) PO daily 10/07/2013 10/12/2013 Inactive samples and script Celexa 20 mg tablet RxNorm: 202154 1 1/2 Tablet(s) PO daily TAKE 1 & 1/2 TA BLETS BY MOUTH DAILY 05/05/2013 10/12/2013 Inactive pantoprazole 40 mg t ablet,delayed release RxNorm: 145562 1 Tablet(s) PO daily 04/30/2013 10/12/2013 In active amitriptyline 100 mg tablet RxNorm: 276249 1 Tablet(s) PO QHS 04/28/2013 10/26/2013 Inactive Ritalin 10 mg tablet RxNorm: 6839302 1 Tablet(s) PO BID 04/18/2013 05/17/2013 Inactive Kenalog 40 mg/mL Kat p for Injection RxNorm: 4981169 1 Milliliter(s) Inj 03/18/2013 03/18/2013 In active amitriptyline 100 mg tablet RxNorm: 323463 1 Tablet(s) PO QHS 03/18/2013 04/27/2013 Inactive Ritalin 10 mg tablet RxNorm: 3137445 1 Tablet(s) PO BID 02/21/2013 03/17/2013 Inactive Toprol XL 25 mg tabl et,extended release RxNorm: 403483 1 Tablet(s) PO daily 01/23/2013 07/21/2013 In active amitriptyline 100 mg tablet RxNorm: 291704 1 Tablet(s) PO QHS 01/23/2013 03/17/2013 Inactive Celexa 20 mg tablet RxNorm: 256264 Tablet(s) PO TAKE 1 & 1/2 TABLETS BY HERLINDA DAILY 12/13/2012 05/04/2013 Inactive Lasix 40 mg tablet RxNorm: 007948 1 Tablet(s) PO daily 12/13/2012 02/10/2013 Inactive and prn amitriptyline 100 mg tablet RxNorm: 588859 1 Tablet(s) PO QHS 10/21/2012 01/18/2013 Inactive Toprol XL 25 mg tabl et,extended release RxNorm: 457596 1 Tablet(s) PO daily 09/17/2012 01/14/2013 In active potassium chloride E R 10 mEq tablet,extended release RxNorm: 083714 1 Tablet(s) PO daily 08/19/2012 10/13/2013 Inactive Lasix 40 mg tablet RxNorm: 981903 1 Tablet(s) PO daily 08/19/2012 12/12/2012 Inactive and prn Ritalin 10 mg tablet RxNorm: 7924346 1 Tablet(s) PO BID 07/16/2012 10/13/2012 Inactive ciprofloxacin 500 mg tablet RxNorm: 497464 1 Tablet(s) PO BID 07/16/2012 07/22/2012 Inactive Celexa 20 mg tablet RxNorm: 204195 Tablet(s) PO TAKE 1 & 1/2 TABLETS BY HERLINDA DAILY 07/15/2012 12/12/2012 Inactive GE100 Blood Glucose Test Strip RxNorm: 1 Miscellaneous BID 07/11/2012 08/04/2013 Inactive and lancets Aldactone 25 mg tablet RxNorm: 402460 1 Tablet(s) PO BID 03/20/2012 03/14/2013 Inactive estradiol 0.5 mg tablet RxNorm: 390785 1 Tablet(s) PO daily 03/15/2012 06/07/2013 Inactive TAKE 1 TABLET BY MOUTH DAILY amitriptyline 100 mg tablet RxNorm: 038069 1 Tablet(s) PO QHS 03/13/2012 10/08/2012 Inactive amitriptyline 100 mg tablet RxNorm: 300767 1 Tablet(s) PO QHS 12/07/2011 01/05/2012 Inactive Kenalog 40 mg/mL Kat p for Injection RxNorm: 6559221 1 Milliliter(s) Inj 12/07/2011 12/07/2011 In active Provigil 200 mg Tab RxNorm: 205112 1 Tablet(s) PO QAM 12/07/2011 01/05/2012 Inactive Flonase Allergy Reli ef 50 mcg/actuation nasal spray,suspension RxNorm: 6781803 [place] NASAL daily as needed No Start Date Active Fish Oil 1,000 mg ca psule RxNorm: 1 Capsule(s) PO BID No Start Date 10/27/2015 Inactive Provigil 200 mg Tab RxNorm: 178136 1 Tablet(s) PO daily No Start Date 10/13/2013 Inactive Lasix 40 mg tablet RxNorm: 646024 1 Tablet(s) PO BID No Start Date 03/25/2015 Inactive Toprol XL 25 mg tabl et,extended release RxNorm: 599218 1 Tablet(s) PO daily No Start Date 09/16/2012 Inactive Prilosec 20 mg Capsu le, delayed release RxNorm: 635024 1 Capsule(s) PO daily No Start Date 10/13/2013 Inactive cyclobenzaprine 10 m g Tab RxNorm: 215379 1 Tablet(s) PO Q8 PRN No Start Date 03/17/2013 Inactive GE100 Blood Glucose Test Strip RxNorm: 1 Miscellaneous BID No Start Date 07/10/2012 Inactive pantoprazole 40 mg t ablet,delayed release RxNorm: 493829 1 Tablet(s) PO daily No Start Date 04/29/2013 Inactive Januvia 50 mg tablet RxNorm: 222221 1 Tablet(s) PO daily No Start Date 10/06/2013 Inactive samples and script Aldactone 25 mg tablet RxNorm: 866837 1 Tablet(s) PO BID No Start Date 03/19/2012 Inactive amitriptyline 100 mg Tab RxNorm: 609598 1 Tablet(s) PO QHS No Start Date 12/06/2011 Inactive Celexa 20 mg tablet RxNorm: 691630 1.5 Tablet(s) PO daily No Start Date 07/14/2012 Inactive potassium chloride E R 10 mEq tablet,extended release RxNorm: 906837 1 Tablet(s) PO BID No Start Date 08/18/2012 Inactive prednisone 20 mg Tab RxNorm: 410814 Tablet(s) PO UD 3 tabs x 2 days, 2 tabs x 2 days, 1 tab x 2 days, 1/2 tab x 2 days, 1/2 tab QOD x 2 doses then stop No Start Date 10/13/2013 Inactive estradiol 0.5 mg tablet RxNorm: 555450 1 Tablet(s) PO daily No Start Date 03/15/2012 Inactive Aldactone 25 mg tablet RxNorm: 269673 1 Tablet(s) PO BID No Start Date 10/12/2013 Inactive Lasix 40 mg tablet RxNorm: 315581 1 Tablet(s) PO BID No Start Date 08/18/2012 Inactive amitriptyline 75 mg Tab RxNorm: 772263 1 Tablet(s) PO QHS No Start Date 10/13/2013 Inactive Medication Administered Medication Codes Instruc tions Start Date Status Kenalog 40 mg/mL suspension for injection RxNorm: 6462207 Milliliter 07/05/2018 No longer Active Kenalog 40 mg/mL suspension for injection RxNorm: 9517588 1Milliliter 03/14/2018 N o longer Active ceftriaxone 500 mg solution for injection RxNorm: 0333597 1Milliliter 05/25/2017 N o longer Active Kenalog 40 mg/mL suspension for injection RxNorm: 7007305 Milliliter 05/25/2017 No longer Active Kenalog 40 mg/mL suspension for injection RxNorm: 8049156 Milliliter 05/02/2016 No longer Active Kenalog 40 mg/mL suspension for injection RxNorm: 1777437 Milliliter 10/28/2015 No longer Active ceftriaxone 500 mg solution for injection RxNorm: 7389748 04/19/2015 No longer A ctive Kenalog 40 mg/mL suspension for injection RxNorm: 6240158 Milliliter 04/19/2015 No longer Active Kenalog 40 mg/mL suspension for injection RxNorm: 1653440 Milliliter 12/24/2014 No longer Active Kenalog 40 mg/mL Susp for Injection RxNorm: 0187468 1Milliliter 03/18/2013 N o longer Active Kenalog 40 mg/mL Susp for Injection RxNorm: 5683404 1Milliliter 12/07/2011 N o longer Active Immunizations [...] disorder) ICD-9: 314.01 10/13/2013 ESSENTIAL HYPERTENSION SNOMED: 68930 000 ICD-9: 401.9 10/13/2013 Depression ICD-9: 311 DIABETES TYPE II SNOMED: 377607705 ICD-9: 250.00 10/13/2013 EDEMA ICD-9: 782.3 03/18 DM W/O COMPLICATION TYPE II, UNCONTROLLED SNOMED: 04490514 ICD-9: 250.02 03/18/2013 Uncontrolled narcolepsy ICD-9: 347.00 [...] Item Item Code Result Date Comp Metabolic Axb467 NA 139 mEq/L 11/22/2018 Comp Metabolic Nlq096 K 4.4 mEq/L 11/22/2018 Comp Metabolic Rji612 CL 105 mEq/L 11/22/2018 Comp Metabolic Rgf929 CO2 27.0 mEq/L 11/22/2018 Comp Metabolic Fkr407 AN ION GAP 11 11/22/2018 Comp Metabolic Lgg050 GL UCOSE 136 mg/dL 11/22/2018 Comp Metabolic Buc970 Cr eat 0.8 mg/dL 11/22/2018 Comp Metabolic Wdt143 eG FR 75 ml/min/1.73m2 11/22 Comp Metabolic Fss199 BUN 13 mg/dL 11/22/2018 Comp Metabolic Zxj875 B/ C Ratio 15.5 Ratio 11/22/2018 Comp Metabolic Kvj765 CA LCIUM 9.3 mg/dL 11/22/2018 Comp Metabolic Dfm749 AL K PHOS 56 U/L 11/22/2018 Comp Metabolic Lqy394 T(SGOT) 15 U/L 11/22/2018 Comp Metabolic Ziz667 AL T(SGPT) 13 U/L 11/22/2018 Comp Metabolic Iks942 BI LI T 0.4 mg/dL 11/22/2018 Comp Metabolic Itp643 AL BUMIN 4.2 g/dL 11/22/2018 Comp Metabolic Kiq648 TP RO 6.4 g/dL 11/22/2018 Comp Metabolic Vhg991 GL OB 2.2 g/dL 11/22/2018 Comp Metabolic Xqw877 A/ G Ratio 1.9 Ratio 11/22/2018 Comp Metabolic Uky663 Os mo 280 mOsmo 11/22/2018 Lipid Ord30 CHOL 196 mg/dL 11/22/2018 Lipid Ord30 HDL 58.0 mg/dl 11/22/2018 Lipid Ord30 TRIG 132 mg/dL 11/22/2018 Lipid Ord30 LDL 112 mg/dL 11/22/2018 Lipid Ord30 C/HDL 3.4 Ratio 11/22/2018 %Hba1C Nho294 % HbA1c 39342-8 6.5 % 11/22/2018 %Hba1C Hih241 Gluc Ave 140 mg/dL 11/22/2018 Cbc With [...] 31.9 pg 11/22/2018 Cbc With Differential Ord2 [place]% 6.7 % 11/22/2018 Cbc With Differential Ord2 [...] 1.80 K/ul 11/22/2018 Cbc With Differential Ord2 [place] ABS# 0.5 K/ul 11/22/2018 Cbc With Differential [...] 32.0 pg 03/26/2018 Cbc With Differential Ord2 [place]% 6.9 % 03/26/2018 Cbc With Differential Ord2 [...] 2.01 K/ul 03/26/2018 Cbc With Differential Ord2 [place] ABS# 0.6 K/ul 03/26/2018 Cbc With Differential Ord2 Eos ABS# 0.1 K/ul 03/26/2018 Cbc With Differential Ord2 Baso ABS# 0.0 K/ul 03/26/2018 Tsh Ord6 TSH (3rd IS) 1.30 uIU/mL 03/26/2018 %Hba1C Kys011 % HbA1c 26524-5 6.5 % 03/26/2018 %Hba1C Won842 Gluc Ave 140 mg/dL 03/26/2018 Comp Metabolic Ogp331 NA 141 mEq/L 03/26/2018 Comp Metabolic Gbe097 K 4.5 mEq/L 03/26/2018 Comp Metabolic Aan076 CL 106 mEq/L 03/26/2018 Comp Metabolic Ohq780 CO2 30.0 mEq/L 03/26/2018 Comp Metabolic Jqa134 AN ION GAP 10 03/26/2018 Comp Metabolic Xzh609 GL UCOSE 122 mg/dL 03/26/2018 Comp Metabolic Fph730 Cr eat 1.0 mg/dL 03/26/2018 Comp Metabolic Tbd216 eG FR 60 ml/min/1.73m2 03/26 Comp Metabolic Krn953 BUN 18 mg/dL 03/26/2018 Comp Metabolic Ini357 B/ C Ratio 17.5 Ratio 03/26/2018 Comp Metabolic Apb293 CA LCIUM 10.1 mg/dL 03/26/2018 Comp Metabolic Azv761 AL K PHOS 67 U/L 03/26/2018 Comp Metabolic Oac276 T(SGOT) 22 U/L 03/26/2018 Comp Metabolic Xiv887 AL T(SGPT) 26 U/L 03/26/2018 Comp Metabolic Ile893 BI LI T 0.4 mg/dL 03/26/2018 Comp Metabolic Yqf732 AL BUMIN 4.5 g/dL 03/26/2018 Comp Metabolic Ayv749 TP RO 7.0 g/dL 03/26/2018 Comp Metabolic Dkx693 GL OB 2.6 g/dL 03/26/2018 Comp Metabolic Ift434 A/ G Ratio 1.7 Ratio 03/26/2018 Comp Metabolic Vbx222 Os mo 284 mOsmo 03/26/2018 Lipid Ord30 CHOL 203 mg/dL 03/26/2018 Lipid Ord30 HDL 62.0 mg/dl 03/26/2018 Lipid Ord30 TRIG 94 mg/dL 03/26/2018 Lipid Ord30 LDL 122 mg/dL 03/26/2018 Lipid Ord30 C/HDL 3.3 Ratio 03/26/2018 Prolactin 669764 PROLACT IN 5.2 ng/mL 05/15/2017 Cbc With [...] 31.9 pg 05/14/2017 Cbc With Differential Ord2 [place]% 7.6 % 05/14/2017 Cbc With Differential Ord2 [...] 2.32 K/ul 05/14/2017 Cbc With Differential Ord2 [place] ABS# 0.7 K/ul 05/14/2017 Cbc With Differential Ord2 Eos ABS# 0.1 K/ul 05/14/2017 Cbc With Differential Ord2 Baso ABS# 0.0 K/ul 05/14/2017 Tsh Ord6 hTSH II 1.69 uIU/mL 05/14/2017 %Hba1C Kif739 % HbA1c 41942-1 6.4 % 05/14/2017 %Hba1C Xve593 Gluc Ave 137 mg/dL 05/14/2017 Comp Metabolic Uhb731 NA 138 mEq/L 05/14/2017 Comp Metabolic Efx356 K 4.2 mEq/L 05/14/2017 Comp Metabolic Pwb898 CL 102 mEq/L 05/14/2017 Comp Metabolic Vud509 CO2 29.0 mEq/L 05/14/2017 Comp Metabolic Gxn598 AN ION GAP 11 05/14/2017 Comp Metabolic Bya360 GL UCOSE 114 mg/dL 05/14/2017 Comp Metabolic Pnr954 Cr eat 1.0 mg/dL 05/14/2017 Comp Metabolic Crl210 eG FR 64 ml/min/1.73m2 05/14 Comp Metabolic Obf434 BUN 22 mg/dL 05/14/2017 Comp Metabolic Kje322 B/ C Ratio 22.7 Ratio 05/14/2017 Comp Metabolic Cfx425 CA LCIUM 9.6 mg/dL 05/14/2017 Comp Metabolic Tsk586 AL K PHOS 91 U/L 05/14/2017 Comp Metabolic Pbr095 T(SGOT) 13 U/L 05/14/2017 Comp Metabolic Wdf675 AL T(SGPT) 16 U/L 05/14/2017 Comp Metabolic Sro461 BI LI T 0.4 mg/dL 05/14/2017 Comp Metabolic Sda204 AL BUMIN 4.2 g/dL 05/14/2017 Comp Metabolic Rya149 TP RO 6.9 g/dL 05/14/2017 Comp Metabolic Swh416 GL OB 2.7 g/dL 05/14/2017 Comp Metabolic Wmz634 A/ G Ratio 1.6 Ratio 05/14/2017 Comp Metabolic Aad060 Os mo 280 mOsmo 05/14/2017 Lipid Ord30 CHOL 219 mg/dL 05/14/2017 Lipid Ord30 HDL 67.0 mg/dl 05/14/2017 Lipid Ord30 TRIG 157 mg/dL 05/14/2017 Lipid Ord30 LDL 121 mg/dL 05/14/2017 Lipid Ord30 C/HDL 3.3 Ratio 05/14/2017 Prolactin 752438 PROLACT IN 4.5 ng/mL 05/04/2016 %Hba1C Qnm147 % HbA1c 72999-3 5.9 % 05/03/2016 %Hba1C Rti843 Gluc Ave 123 mg/dL 05/03/2016 Cbc With [...] 32.3 pg 05/03/2016 Cbc With Differential Ord2 [place]% 7.0 % 05/03/2016 Cbc With Differential Ord2 [...] 2.38 K/ul 05/03/2016 Cbc With Differential Ord2 [place] ABS# 0.6 K/ul 05/03/2016 Cbc With Differential Ord2 Eos ABS# 0.2 K/ul 05/03/2016 Cbc With Differential Ord2 Baso ABS# 0.1 K/ul 05/03/2016 Tsh Ord6 hTSH II 0.70 uIU/mL 05/03/2016 Comp Metabolic Vgl330 NA 137 mEq/L 05/03/2016 Comp Metabolic Drz509 K 4.3 mEq/L 05/03/2016 Comp Metabolic Fgm366 CL 102 mEq/L 05/03/2016 Comp Metabolic Jxj125 CO2 25.0 mEq/L 05/03/2016 Comp Metabolic Rfa728 AN ION GAP 14 05/03/2016 Comp Metabolic Xnl415 GL UCOSE 87 mg/dL 05/03/2016 Comp Metabolic Kqr100 Cr eat 0.8 mg/dL 05/03/2016 Comp Metabolic Jeu098 eG FR 76 ml/min/1.73m2 05/03 Comp Metabolic Syz079 BUN 11 mg/dL 05/03/2016 Comp Metabolic Lrv799 B/ C Ratio 13.1 Ratio 05/03/2016 Comp Metabolic Gzu204 CA LCIUM 9.3 mg/dL 05/03/2016 Comp Metabolic Isg743 AL K PHOS 76 U/L 05/03/2016 Comp Metabolic Toq641 T(SGOT) 27 U/L 05/03/2016 Comp Metabolic Hbp682 AL T(SGPT) 25 U/L 05/03/2016 Comp Metabolic Mwc521 BI LI T 0.3 mg/dL 05/03/2016 Comp Metabolic Hbw918 AL BUMIN 4.1 g/dL 05/03/2016 Comp Metabolic Mar783 TP RO 7.1 g/dL 05/03/2016 Comp Metabolic Sap236 GL OB 3.0 g/dL 05/03/2016 Comp Metabolic Jyc493 A/ G Ratio 1.4 Ratio 05/03/2016 Comp Metabolic Rfu762 Os mo 273 mOsmo 05/03/2016 Urine Culture Ucult Comp lete >100,000 col/ml aerobic grow th sent to ref lab 03/17/2015 Culture Urine [id number] URI NE CULTURE SEE NOTES 01/28/2015 Culture Urine [id number] Con tinued Results 01/28/2015 Urine Culture Ucult Comp lete >100,000 col/ml aerobic grow th sent to ref lab 01/26/2015 URINALYSIS NONAUTO W/O SCOPE 97515 Specific [place] 1.005 DateTime(Free Text in ) URINALYSIS NONAUTO W/O SCOPE 88594 PH 7.5 DateTime(Free Ruben t in ) URINALYSIS NONAUTO W/O SCOPE 37240 GLUCOSE neg DateTime(Free Ruben t in ) URINALYSIS NONAUTO W/O SCOPE 09693 Protein neg DateTime(Free Ruben t in ) URINALYSIS NONAUTO W/O SCOPE 68090 Blood trace DateTime(Free T ext in ) URINALYSIS NONAUTO W/O SCOPE 68056 Bilirubin small DateTime(Free T ext in ) URINALYSIS NONAUTO W/O SCOPE 22405 Ketones neg DateTime(Free Ruben t in ) URINALYSIS NONAUTO W/O SCOPE 26224 Urobilinogen 0.2 DateTime(Free Text in ) URINALYSIS NONAUTO W/O SCOPE 27675 Nitrite neg DateTime(Free Ruben t in ) URINALYSIS NONAUTO W/O SCOPE 43539 Leukocytes moderate DateTime(Free Text in ) Review [...] - General 1995 Ears/Nose/Throat oral cavity/pharynx/larynx Overall: no masses 03/18/2013 [...] - General 1995 Ears/Nose/Throat oral cavity/pharynx/larynx Overall: no masses 07/16/2012 [...] Procedure Codes Date THER/PROPH/DIAG INJ SC/IM CPT-4: 79139 07/05/2018 TRIAMCINOLONE ACET I [place] NOS CPT-4: J3301 07/05/2018 TRIAMCINOLONE ACET I [place] NOS CPT-4: J3301 03/14/2018 IMMUNIZATION ADMIN CPT- 4: 84907 03/14/2018 ADACEL TDAP VACCINE 7 YRS/> IM CPT-4: 10996 03/14/2018 TRIAMCINOLONE ACET I [place] NOS CPT-4: J3301 05/25/2017 ROCEPHIN, PER 250 MG CPT-4: J0696 05/25/2017 TRIAMCINOLONE ACET I [place] NOS CPT-4: J3301 05/02/2016 TRIAMCINOLONE ACET I [place] NOS CPT-4: J3301 10/28/2015 ROCEPHIN, PER 250 MG CPT-4: J0696 04/19/2015 TRIAMCINOLONE ACET I [place] NOS CPT-4: J3301 04/19/2015 URINALYSIS NONAUTO W /O SCOPE CPT-4: 17006 03/15/2015 URINALYSIS NONAUTO W /O SCOPE CPT-4: 50035 01/25/2015 TRIAMCINOLONE ACET I [place] NOS CPT-4: J3301 12/24/2014 THER/PROPH/DIAG INJ SC/IM CPT-4: 42737 12/24/2014 URINALYSIS NONAUTO W /O SCOPE CPT-4: 64218 07/16/2012 DRAIN/INJECT JOINT/B URSA CPT-4: 21640 12/07/2011 Vital Signs Date Vital 07/05/2018 Blood Pressure 1: 132/78 Code: 8480-6 BMI: 32.6 Code: 88635-7 Heart Rate 1: 75 bpm Height: 5'2" SpO2: 96% Weight: 178 lbs 03/14/2018 Blood Pressure 1: 108/74 Code: 8480-6 BMI: 33.3 Code: 67981-7 Heart Rate 1: 91 bpm Height: 5'2" SpO2: 98% Weight: 182 lbs 05/25/2017 Blood Pressure 1: 142/82 Code: 8480-6 BMI: 32.0 Code: 30149-7 Heart Rate 1: 96 bpm Height: 5'2" SpO2: 94% Temperature: 37.3 (C ) / 99.2 (F) Weight: 175 lbs 05/14/2017 Blood Pressure 1: 142/78 Code: 8480-6 BMI: 32.0 Code: 24430-0 Heart Rate 1: 111 bpm Height: 5'2" SpO2: 95% Weight: 175 lbs 05/02/2016 Blood Pressure 1: 124/74 Code: 8480-6 BMI: 32.4 Code: 21789-2 Heart Rate 1: 107 bpm Height: 5'2" SpO2: 98% Weight: 177 lbs 10/28/2015 Blood Pressure 1: 124/80 Code: 8480-6 BMI: 32.6 Code: 55512-4 Heart Rate 1: 78 bpm Height: 5'2" SpO2: 91% Weight: 178 lbs 04/19/2015 Blood Pressure 1: 110/78 Code: 8480-6 BMI: 31.5 Code: 88259-5 Heart Rate 1: 88 bpm Height: 5'2" SpO2: 96% Weight: 172 lbs 12/24/2014 Blood Pressure 1: 112/72 Code: 8480-6 BMI: 30.4 Code: 83460-5 Heart Rate 1: 88 bpm Height: 5'2" Weight: 166 lbs 10/13/2013 Blood Pressure 1: 104/78 Code: 8480-6 BMI: 30.7 Code: 05353-8 Heart Rate 1: 100 bpm Height: 5'2" [...] State s she was sitting in the [employer] test systems with the dog, and was slightly twisted-sat [...] Pleurodynia[ICD10: R07.81] [facility] CPT-4: 99598 07/05/2018 ([id number]) 11971 EST. P ATIENT, LEVEL IV Diagnosis: Type 2 diabetes mellitus with hyperglycemia[ICD10: E11.65] Diagnosis: Mixed hyperlipidemia[ICD10: E78.2] Diagnosis: Other allergic rhinitis[ICD10: J30.89] Diagnosis: Attention-deficit hyperactivity disorder, combined type[ICD10: F90.2] Diagnosis: Encounter for immunization[ICD10: Z23] [facility] CPT-4: 91650 03/14/2018 18095 EST. PATIENT, LEVEL IV Diagnosis: Other acute sinusitis[ICD10: J01.80] Diagnosis: Other allergic rhinitis[ICD10: J30.89] [facility] CPT-4: 53451 05/25/2017 53683 EST. 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 P ATIENT, LEVEL III Diagnosis: Allergic rhinitis due to pollen[ICD10: J30.1] Diagnosis: Otalgia, right ear[ICD10: H92.01] Maci Martinez MD, [facility] CPT- 4: 75777 10/28/2015 ([id number]) 51115 EST. P ATIENT, LEVEL III Diagnosis: Acute maxillary sinusitis, unspecified[ICD10: J01.00] Diagnosis: Allergic rhinitis, unspecified[ICD10: J30.9] Maci Martinez MD, [facility] CPT-4: 51668 04/19/2015 ([id number]) 31993 EST. P ATIENT, LEVEL III Diagnosis: Swelling of eyelid[ICD9: 374.82] Diagnosis: Sunburn[ICD9: 692.71] Maci Martinez MD, [facility] CPT-4: 06981 12/24/2014 ([id number]) 05369 EST. P ATIENT, LEVEL IV Diagnosis: ESSENTIAL HYPERTENSION[SNOMED: 21598431] Diagnosis: DIABETES TYPE II[SNOMED: 985429844] Diagnosis: ADHD (attention deficit hyperactivity disorder)[ICD9: 314.01] Diagnosis: Depression[ICD9: 311] Joy Martinez MD, [facility] CPT-4: 66527 10/13/2013 ([id number]) 08814 EST. P ATIENT, LEVEL IV Diagnosis: DM W/O COMPLICATION TYPE II, UNCONTROLLED[SNOMED: 23110562] Diagnosis: ESSENTIAL HYPERTENSION[SNOMED: 22239961] Diagnosis: EDEMA[ICD9: 782.3] Joy Martinez MD, [facility] CPT-4: 79165 03/18/2013 ([id number]) 09635 EST. P ATIENT, LEVEL IV Diagnosis: UTI[ICD9: 599.0] Diagnosis: DM W/O COMPLICATION TYPE II, UNCONTROLLED[SNOMED: 39732758] Joy Martinez MD, [facility] CPT-4: 23972 07/16/2012 ([id number]) 74478 EST. P ATIENT, LEVEL III Diagnosis: Uncontrolled narcolepsy[ICD9: 347.00] Diagnosis: ESSENTIAL HYPERTENSION[SNOMED: 52843748] Joy Martinez MD, C CPT-4: 34756 01/17/2012 Office outpatient ne w 30 minutes Diagnosis: Sciatica[ICD9: 724.3] Diagnosis: Chronic back pain[ICD9: 724.5] Diagnosis: ESSENTIAL HYPERTENSION[SNOMED: 28402079] Joy Martinez MD, C CPT-4: 86799 12/07/2011 Plan of Care Planned Activity Notes [...] not improve. 07/05/2018 Appointment: Michelle Mora WPtel: [address] [place], [place] [phone] (15 min) Moderate 07/05/2018 Patient Education: Patient [...] the office 03/14/2018 Appointment: Maci Moreno WPtel: [phone] [phone] (30 min) Complex 03/14/2018 Patient Education: Patient [...] allergy spray. 05/25/2017 Appointment: Michelle Mora WPtel: [phone] [facility] (15 min) Moderate 05/25/2017 Patient Education: Patient [...] for greater blood glucose control. 05/14/2017 Appointment: Michelel [facility]el[facility] ([facility] min[facility] 05/14/2017 Patient Education: Patient Medication Summary Completed 05/14/2017 Patient Education: Obesity Completed 05/14/2017 Care Plan: Referral Order SNOMED-CT : [id number] Pending 05/14/2017 Visit Plan: Allergies - chronic [...] less controlled. 05/02/2016 Appointment: Maci Moreno WPtel: [phone] (15 min) Moderate 05/02/2016 Patient Education: Patient [...] allergy spray. 10/28/2015 Appointment: Maci Moreno WPtel: [phone] (30 min) Complex 10/28/2015 Patient Education: [...] acute symptoms. 04/19/2015 Appointment: Maci Moreno WPtel: [phone] (15 min) Moderate 04/19/2015 Patient Education: [...] the patient. 10/13/2013 Appointment: Joy Martinez WPtel[facility] [place] Follow up 10/13/2013 Patient Education: Patient Medication Summary Completed 10/13/2013 Patient Education: Hypertension Completed 10/13/2013 Appointment: Maci Moreno WPtel[phone] [place] Follow up 08/29/2013 Appointment: Joy Martinez WPtel: [facility] [place] Follow up 06/23/2013 Visit Plan: Diabetes [...] peripheral edema. 03/18/2013 Appointment: Joy Martinez WPtel: [facility] Follow up 03/18/2013 Patient Education: Patient Medication Summary Completed 03/18/2013 Patient Education: Hypertension Completed 03/18/2013 Appointment: Joy Martinez WPtel: [address] [place], [place] [phone] Follow up 10/15/2012 Appointment: Maci Moreno WPtel: [address] [place], [place] [phone] Diabetic education 07/22/2012 Visit Plan: Diabetes Mellitus [...] not improve. 07/16/2012 Appointment: Joy Martinez WPtel: [facility] [place] Hospital follow up 07/16/2012 Patient Education: Patient [...] home. 01/17/2012 Appointment: Joy Martinez WPtel: [phone] [phone] Other 01/17/2012 Patient Education: Patient Medication Summary Completed [...] HS 12/07/2011 Appointment: [phone] [place] [address] New Patient 12/07/2011 Patient Education: Patient Medication [...] - will refer pt to surgeon to evzana and treat - pt is to notify [...] 40mg refill ritalin fasting labs-orders sent to [facility] -go any time fasting . Diabetes [...]
--- OUTSIDE RECORDS SUMMARY | 2019-11-02 07:00 | XMS REPORT | CCD ---
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 Name Role Phone PP Unavailable CCM Unavailable Summary Purpose Interface Exchange Insurance Providers Payer name Policy type / Coverage type Covered republican ID Effective Begin Date Effective End Date [employer] e [id number] Unknown Family history Brother Diagnosis Age At [...] M arried 12/07/[address]: 716929530 Never smoker 12/07/2011 Alcohol history Unknown occasionally [...] Date Stop Date Sta tus Fill Instructions Ritalin 10 mg tablet RxNorm: 1085700 1 Tablet(s) PO BID 10/17/2018 11/15/2018 Inactive [SAVINGS FOR NON-COVERED DRUGS -- BIN:00 9613, PCN: ASPROD1, Group: XXXXX, ID# [id number], Questions: . THIS IS NOT INSURANCE.] estradiol 0.5 mg tablet RxNorm: 697368 TAKE ONE TABLET BY MOUTH EVERY DAY 09/06/2018 08/20/2021 Ac tive Celexa 20 mg tablet RxNorm: 605636 TAKE 1 AND 1/2 TABLETS BY MOUTH DAILY 09/06/2018 08/20/2021 Ac tive trimethoprim 100 mg tablet RxNorm: 045513 1 Tablet(s) PO daily 08/30/2018 03/27/2019 Active trimethoprim 100 mg tablet RxNorm: 843750 1 Tablet(s) PO daily 08/30/2018 08/14/2018 Inactive Keflex 500 mg capsule RxNorm: 199117 1 Capsule(s) PO QID 08/15/2018 08/28/2018 Inactive Keflex 500 mg capsule RxNorm: 059972 1 Capsule(s) PO QID 08/15/2018 08/14/2018 Inactive trimethoprim 100 mg tablet RxNorm: 916740 1 Tablet(s) PO daily 08/15/2018 08/29/2018 Inactive Toprol XL 25 mg tabl et,extended release RxNorm: 335223 1 Tablet(s) PO daily 07/26/2018 06/26/2019 Ac tive waiting on mail order amitriptyline 100 mg tablet RxNorm: 190543 Tablet(s) TAKE 1 TABL ET BY MOUTH DAILY AT BEDTIME 07/26/2018 07/20/2019 Active Januvia 50 mg tablet RxNorm: 436400 1 Tablet(s) PO daily 07/26/2018 07/20/2019 Active Toprol XL 25 mg tabl et,extended release RxNorm: 898795 1 Tablet(s) PO daily 07/26/2018 07/25/2018 In active waiting on mail order amitriptyline 100 mg tablet RxNorm: 035511 Tablet(s) TAKE 1 TABL ET BY MOUTH DAILY AT BEDTIME 07/26/2018 07/25/2018 Inactive waiting on mail order prednisone 20 mg tablet RxNorm: 764034 3 Tablet(s) PO daily 07/05/2018 07/04/2018 Inactive Kenalog 40 mg/mL kat pension for injection RxNorm: 1779328 Milliliter(s) Inj 07/05/2018 07/05/2018 In active Ritalin 10 mg tablet RxNorm: 7555878 1 Tablet(s) PO BID 07/05/2018 08/03/2018 Inactive [SAVINGS FOR NON-COVERED DRUGS -- BIN:00 3585, PCN: ASPROD1, Group: XXXXX, ID# [id number], Questions: . THIS IS NOT INSURANCE.] prednisone 20 mg tablet RxNorm: 728328 3 Tablet(s) PO daily 07/05/2018 07/09/2018 Inactive Aldactone 25 mg tablet RxNorm: 762383 Tablet(s) 1 TABLET(S) PO BID 04/17/2018 01/11/2019 Active pantoprazole 40 mg t ablet,delayed release RxNorm: 702952 1 Tablet(s) PO QHS 04/17/2018 01/11/2019 Ac tive Ritalin 10 mg tablet RxNorm: 4133071 1 Tablet(s) PO BID 04/17/2018 05/16/2018 Inactive [SAVINGS FOR NON-COVERED DRUGS -- BIN:3584, PCN: ASPROD1, Group: XXXXX, ID# [id number], Questions: . THIS IS NOT INSURANCE.] Bactrim 400 mg-80 mg tablet RxNorm: 316028 Tablet(s) TAKE 1 TABL ET BY MOUTH NEEDED FOR SEXUAL INTERCOURSE FOR UTI PREVENTION 04/17/2018 08/14/2018 Inactive Kenalog 40 mg/mL kat pension for injection RxNorm: 9484038 1 Milliliter(s) Inj 03/14/2018 03/14/2018 In active amitriptyline 100 mg tablet RxNorm: 830125 Tablet(s) TAKE 1 TABL ET BY MOUTH DAILY AT BEDTIME 03/14/2018 07/25/2018 Inactive Ritalin 10 mg tablet RxNorm: 3503812 1 Tablet(s) PO BID 03/14/2018 04/12/2018 Inactive [SAVINGS FOR NON-COVERED DRUGS -- BIN:3584, PCN: ASPROD1, Group: XXXXX, ID# [id number], Questions: . THIS IS NOT INSURANCE.] Bactrim 400 mg-80 mg tablet RxNorm: 802398 TAKE 1 TABLET BY MOUT H NEEDED FOR SEXUAL INTERCOURSE FOR UTI PREVENTION 09/28/2017 11/26/2017 Inactive amitriptyline 100 mg tablet RxNorm: 949838 TAKE 1 TABLET BY MOUT H DAILY AT BEDTIME 09/25/2017 03/13/2018 In active Diflucan 150 mg tablet RxNorm: 564963 1 Tablet(s) PO daily 05/31/2017 06/04/2017 Inactive Diflucan 150 mg tablet RxNorm: 373430 1 Tablet(s) PO daily 05/31/2017 05/30/2017 Inactive Kenalog 40 mg/mL kat pension for injection RxNorm: 0151145 Milliliter(s) Inj 05/25/2017 05/25/2017 In active prednisone 10 mg tablet RxNorm: 835442 Tablet(s) PO UD 05/25/2017 09/24/2017 Inactive 6,5,4,3,2,1 Phenergan with Codei ne Syrup RxNorm: 5-10 Milliliter(s) PO QID a s needed 05/25/2017 03/13/2018 In active Keflex 500 mg capsule RxNorm: 297787 1 Capsule(s) PO TID 05/25/2017 06/03/2017 Inactive ceftriaxone 500 mg s olution for injection RxNorm: 1010819 1 Milliliter(s) Inj 05/25/2017 05/25/2017 In active estradiol 0.5 mg tablet RxNorm: 550186 1 Tablet(s) PO daily 05/14/2017 09/05/2018 Inactive Celexa 20 mg tablet RxNorm: 131883 1.5 Tablet(s) PO daily 05/14/2017 09/05/2018 Inactive amitriptyline 100 mg tablet RxNorm: 543190 1 Tablet(s) PO QHS 05/14/2017 09/24/2017 Inactive Januvia 50 mg tablet RxNorm: 353228 1 Tablet(s) PO daily 05/14/2017 05/08/2018 Inactive pantoprazole 40 mg t ablet,delayed release RxNorm: 117823 1 Tablet(s) PO QHS 05/14/2017 02/07/2018 In active Bactrim 400 mg-80 mg tablet RxNorm: 580996 Tablet(s) TAKE ONE TA BLET BY MOUTH NEEDED FOR SEXUAL INTERCOURSE FOR UTI PREVENTION 05/14/2017 08/11/2017 Inactive Toprol XL 25 mg tabl et,extended release RxNorm: 740072 1 Tablet(s) PO daily 05/14/2017 05/08/2018 In active Aldactone 25 mg tablet RxNorm: 127386 Tablet(s) 1 TABLET(S) PO BID 05/14/2017 02/07/2018 Inactive Celexa 20 mg tablet RxNorm: 681858 TAKE ONE & ONE-HALF TABLETS BY MOUTH ONC E DAILY 04/12/2017 05/13/2017 Inactive Toprol XL 25 mg tabl et,extended release RxNorm: 936689 TAKE ONE TABLET BY MO UTH ONCE DAILY 02/06/2017 05/13/2017 Inactive Celexa 20 mg tablet RxNorm: 099104 TAKE ONE & ONE-HALF TABLETS BY MOUTH ONC E DAILY 01/03/2017 03/03/2017 Inactive amitriptyline 100 mg tablet RxNorm: 751777 TAKE ONE TABLET BY MO UTH AT BEDTIME 12/08/2016 05/13/2017 In active Toprol XL 25 mg tabl et,extended release RxNorm: 312653 TAKE ONE TABLET BY MO UTH ONCE DAILY 11/23/2016 02/06/2017 Inactive Januvia 50 mg tablet RxNorm: 107078 TAKE ONE TABLET BY MOUTH ONCE DAILY 11/09/2016 03/08/2017 In active Bactrim 400 mg-80 mg tablet RxNorm: 671408 TAKE ONE TABLET BY MO UTH NEEDED FOR SEXUAL INTERCOURSE FOR UTI PREVENTION 09/19/2016 04/24/2017 Inactive amitriptyline 100 mg tablet RxNorm: 882580 TAKE ONE TABLET BY MO UTH AT BEDTIME 08/31/2016 11/28/2016 In active pantoprazole 40 mg t ablet,delayed release RxNorm: 736009 Tablet(s) TAKE 1 TABL ET BY MOUTH ONCE DAILY 08/16/2016 05/12/2017 Inactive estradiol 0.5 mg tablet RxNorm: 339602 TAKE ONE TABLET BY MOUTH ONCE DAILY 08/13/2016 05/13/2017 In active amitriptyline 100 mg tablet RxNorm: 167427 TAKE ONE TABLET BY MO UTH AT BEDTIME 07/31/2016 08/29/2016 In active ProAir HFA 90 mcg/ac tuation aerosol inhaler RxNorm: 963190 2 inhale INH PRN as n eeded 05/02/2016 No Stop Date Active ciprofloxacin 0.3 % eye drops RxNorm: 691071 Drop(s) OPH 2 drops e very 2 hours while awake for days 1-2 and 2 drops every 4 hours for days 3 - 7 05/02/2016 03/13/2018 Inactive Kenalog 40 mg/mL kat pension for injection RxNorm: 6866727 Milliliter(s) Inj 05/02/2016 05/02/2016 In active Zithromax Z-Nick 250 mg tablet RxNorm: 702898 1 Tablet(s) PO UD 05/02/2016 09/24/2017 Inactive albuterol sulfate 2. 5 mg/3 mL (0.083 %) solution for nebulization RxNorm: 961159 1 Milliliter(s) INH QID as needed 03/13/2018 Inactive prednisone 20 mg tablet RxNorm: 225526 1 Tablet(s) PO BID 05/02/2016 05/06/2016 Inactive amitriptyline 100 mg tablet RxNorm: 215802 1 TABLET(S) PO QHS 03/01/2016 07/30/2016 Inactive estradiol 0.5 mg tablet RxNorm: 977121 1 TABLET(S) PO DAILY 03/01/2016 09/24/2017 Inactive TAKE 1 TABLET BY MOUTH DAILY estradiol 0.5 mg tablet RxNorm: 354126 TAKE ONE TABLET BY MOUTH ONCE DAILY 03/01/2016 05/29/2016 In active Celexa 20 mg tablet RxNorm: 655722 TAKE ONE & ONE-HALF TABLETS BY MOUTH ONC E DAILY 12/03/2015 11/26/2016 Inactive amoxicillin 500 mg c apsule RxNorm: 321562 1 Capsule(s) PO BID 11/05/2015 11/04/2015 Inactive amoxicillin 500 mg c apsule RxNorm: 969831 1 Capsule(s) PO BID 11/05/2015 04/30/2017 Inactive Kenalog 40 mg/mL kat pension for injection RxNorm: 5772812 Milliliter(s) Inj 10/28/2015 10/28/2015 In active Januvia 50 mg tablet RxNorm: 372211 Tablet(s) 1 TABLET(S) PO DAILY 10/28/2015 10/21/2016 In active Ritalin 10 mg tablet RxNorm: 0450470 1 Tablet(s) PO BID 10/28/2015 11/26/2015 Inactive [SAVINGS FOR NON-COVERED DRUGS -- BIN:00 3585, PCN: ASPROD1, Group: XXXXX, ID# [id number], Questions: . THIS IS NOT INSURANCE.] Toprol XL 25 mg tabl et,extended release RxNorm: 556690 Tablet(s) 1 TABLET(S) PO DAILY 10/28/2015 10/21/2016 Inactive prednisone 20 mg tablet RxNorm: 605833 1 Tablet(s) PO BID 10/28/2015 11/01/2015 Inactive Lasix 40 mg tablet RxNorm: 723807 TAKE ONE TABLET BY MOUTH ONCE DAILY. MAY TAKE EXTRA TABLET NEEDED. 09/27/2015 12/25/2015 Inactive Bactrim 400 mg-80 mg tablet RxNorm: 398234 Tablet(s) 1 TABLET(S) PO PRN SEXUAL INTERCOURSE, UTI PREVENTATIVE 09/22/2015 12/20/2015 Inactive pantoprazole 40 mg t ablet,delayed release RxNorm: 938445 TAKE 1 TABLET BY MOUT H ONCE DAILY 07/29/2015 01/24/2016 Inactive amitriptyline 100 mg tablet RxNorm: 897327 Tablet(s) 1 TABLET(S) PO QHS 07/26/2015 09/24/2017 In active pantoprazole 40 mg t ablet,delayed release RxNorm: 620159 TAKE 1 TABLET BY MOUT H ONCE DAILY 07/21/2015 07/28/2015 Inactive Bactrim 400 mg-80 mg tablet RxNorm: 915670 1 TABLET(S) PO PRN SE XUAL INTERCOURSE, UTI PREVENTATIVE 06/21/2015 09/18/2015 Inactive Ritalin 10 mg tablet RxNorm: 1858921 1 Tablet(s) PO BID 04/19/2015 05/18/2015 Inactive [SAVINGS FOR NON-COVERED DRUGS -- BIN:00 3585, PCN: ASPROD1, Group: XXXXX, ID# [id number], Questions: . THIS IS NOT INSURANCE.] Keflex 500 mg capsule RxNorm: 865444 1 Capsule(s) PO TID 04/19/2015 04/28/2015 Inactive Kenalog 40 mg/mL kat pension for injection RxNorm: 0368851 Milliliter(s) Inj 04/19/2015 04/19/2015 In active ceftriaxone 500 mg s olution for injection RxNorm: 3215995 Inj 04/19/2015 04/19/2015 Inactive amitriptyline 100 mg tablet RxNorm: 500032 1 TABLET(S) PO QHS 03/26/2015 07/25/2015 Inactive Lasix 40 mg tablet RxNorm: 824809 1 Tablet(s) PO daily 03/26/2015 09/21/2015 Inactive may take an extra tablet as needed Aldactone 25 mg tablet RxNorm: 929878 1 TABLET(S) PO BID 03/26/2015 12/20/2015 Inactive Levaquin 500 mg tablet RxNorm: 112553 1 Tablet(s) PO daily 03/15/2015 03/21/2015 Inactive Levaquin 500 mg tablet RxNorm: 273301 1 Tablet(s) PO daily 03/15/2015 03/14/2015 Inactive hydrocodone 5 mg-devang taminophen 325 mg tablet RxNorm: 239196 one or two tabs po ev ey six hours prn Tablet(s) PO 02/26/2015 03/13/2018 Inactive hydrocodone 5 mg-devang taminophen 325 mg tablet RxNorm: 848166 one or two tabs po ev ey six hours prn Tablet(s) PO 02/26/2015 02/25/2015 Inactive amitriptyline 100 mg tablet RxNorm: 377111 1 TABLET(S) PO QHS 02/22/2015 01/17/2016 Inactive Keflex 500 mg capsule RxNorm: 365831 1 Capsule(s) PO TID 01/25/2015 01/24/2015 Inactive Keflex 500 mg capsule RxNorm: 008289 1 Capsule(s) PO TID 01/25/2015 01/31/2015 Inactive Bactrim 400 mg-80 mg tablet RxNorm: 851135 1 Tablet(s) PO PRN se xual intercourse, uti preventative 01/04/2015 01/03/2015 Inactive Bactrim 400 mg-80 mg tablet RxNorm: 526130 1 Tablet(s) PO PRN se xual intercourse, uti preventative 01/04/2015 06/20/2015 Inactive Ritalin 10 mg tablet RxNorm: 1228568 1 Tablet(s) PO BID 12/24/2014 01/22/2015 Inactive [SAVINGS FOR NON-COVERED DRUGS -- BIN:00 3585, PCN: ASPROD1, Group: XXXXX, ID# [id number], Questions: . THIS IS NOT INSURANCE.] Kenalog 40 mg/mL kat pension for injection RxNorm: 9885800 Milliliter(s) Inj 12/24/2014 12/24/2014 In active estradiol 0.5 mg tablet RxNorm: 705675 1 Tablet(s) PO daily 12/16/2014 02/29/2016 Inactive TAKE 1 TABLET BY MOUTH DAILY pantoprazole 40 mg t ablet,delayed release RxNorm: 333084 1 Tablet(s) daily 10/26/2014 07/20/2015 In active [SAVINGS FOR NON-COVERED DRUGS -- BIN:00 3585, PCN: ASPROD1, Group: XXXXX, ID# [id number], Questions: . THIS IS NOT INSURANCE.] Ritalin 10 mg tablet RxNorm: 7108078 1 Tablet(s) PO BID 10/23/2014 11/21/2014 Inactive [SAVINGS FOR NON-COVERED DRUGS -- BIN:00 3585, PCN: ASPROD1, Group: XXXXX, ID# [id number], Questions: . THIS IS NOT INSURANCE.] pantoprazole 40 mg t ablet,delayed release RxNorm: 150462 3/4 Tablet(s) daily 10/23/2014 10/25/2014 In active [SAVINGS FOR NON-COVERED DRUGS -- BIN:00 3585, PCN: ASPROD1, Group: XXXXX, ID# [id number], Questions: . THIS IS NOT INSURANCE.] Toprol XL 25 mg tabl et,extended release RxNorm: 893422 1 TABLET(S) PO DAILY 10/20/2014 10/14/2015 In active Januvia 50 mg tablet RxNorm: 598320 1 TABLET(S) PO DAILY 10/20/2014 10/14/2015 Inactive samples and script Celexa 20 mg tablet RxNorm: 505569 1.5 TABLET(S) PO DAILY TAKE 1 & 1/2 TABL ETS BY MOUTH DAILY 10/20/2014 10/14/2015 Inactive omeprazole 20 mg cap maco,delayed release RxNorm: 553011 1 Capsule(s) PO BID 09/25/2014 09/24/2014 In active omeprazole 20 mg cap maco,delayed release RxNorm: 594891 1 Capsule(s) PO BID 09/25/2014 10/22/2014 In active DC pantoprazole [SAVINGS FOR NON-COVERED DRUGS -- BIN:089509, PCN: ASPROD1, Group: XXXXX, ID# [id number], Questions: . THIS IS NOT INSURANCE.] pantoprazole 40 mg t ablet,delayed release RxNorm: 263543 1 TABLET(S) PO BID 09/24/2014 09/24/2014 In active omeprazole 20 mg tab let,delayed release RxNorm: 601111 1 Tablet(s) PO BID 08/31/2014 08/30/2014 In active dc pantoprazole 40mg omeprazole 20 mg tab let,delayed release RxNorm: 271417 1 Tablet(s) PO BID 08/31/2014 08/30/2014 In active omeprazole 20 mg tab let,delayed release RxNorm: 834814 1 Tablet(s) PO daily 08/31/2014 10/27/2015 In active change to daily Ritalin 10 mg tablet RxNorm: 5261230 1 Tablet(s) PO BID 07/20/2014 08/18/2014 Inactive [SAVINGS FOR UNINSURED PATIENTS -- BIN:0 47887, PCN: ASPROD1, Group: [id number], ID# [id number], Process claim through [employer], for questions: . THIS IS NOT INSURANCE.] amitriptyline 100 mg tablet RxNorm: 082449 1 TABLET(S) PO QHS 04/27/2014 02/21/2015 Inactive Ritalin 10 mg tablet RxNorm: 2658402 1 Tablet(s) PO BID 02/09/2014 06/08/2014 Inactive [SAVINGS FOR UNINSURED PATIENTS -- BIN:0 25508, PCN: ASPROD1, Group: [id number], ID# [id number], Process claim through [employer], for questions: . THIS IS NOT INSURANCE.] ProAir HFA 90 mcg/ac tuation aerosol inhaler RxNorm: 823084 2 inhale INH PRN 11/19/2013 10/27/2015 In active amitriptyline 100 mg tablet RxNorm: 411443 Tablet(s) PO TAKE 1 T ABLET BY MOUTH AT BEDTIME 10/27/2013 04/23/2017 Inactive Ritalin 10 mg tablet RxNorm: 5409991 1 Tablet(s) PO BID 10/13/2013 02/08/2014 Inactive estradiol 0.5 mg tablet RxNorm: 160519 1 Tablet(s) PO daily 10/13/2013 12/15/2014 Inactive TAKE 1 TABLET BY MOUTH DAILY pantoprazole 40 mg t ablet,delayed release RxNorm: 619757 1 Tablet(s) PO BID 10/13/2013 08/30/2014 In active Januvia 50 mg tablet RxNorm: 912560 1 Tablet(s) PO daily 10/13/2013 10/07/2014 Inactive samples and script Toprol XL 25 mg tabl et,extended release RxNorm: 494254 1 Tablet(s) PO daily 10/13/2013 10/07/2014 In active Celexa 20 mg tablet RxNorm: 914157 1.5 Tablet(s) PO daily TAKE 1 & 1/2 TABL ETS BY MOUTH DAILY 10/13/2013 10/07/2014 Inactive Aldactone 25 mg tablet RxNorm: 057525 1 Tablet(s) PO BID 10/13/2013 10/07/2014 Inactive Januvia 50 mg tablet RxNorm: 025841 1 Tablet(s) PO daily 10/07/2013 10/12/2013 Inactive samples and script Celexa 20 mg tablet RxNorm: 973587 1 1/2 Tablet(s) PO daily TAKE 1 & 1/2 TA BLETS BY MOUTH DAILY 05/05/2013 10/12/2013 Inactive pantoprazole 40 mg t ablet,delayed release RxNorm: 613609 1 Tablet(s) PO daily 04/30/2013 10/12/2013 In active amitriptyline 100 mg tablet RxNorm: 340373 1 Tablet(s) PO QHS 04/28/2013 10/26/2013 Inactive Ritalin 10 mg tablet RxNorm: 0061990 1 Tablet(s) PO BID 04/18/2013 05/17/2013 Inactive Kenalog 40 mg/mL Kat p for Injection RxNorm: 2403530 1 Milliliter(s) Inj 03/18/2013 03/18/2013 In active amitriptyline 100 mg tablet RxNorm: 467507 1 Tablet(s) PO QHS 03/18/2013 04/27/2013 Inactive Ritalin 10 mg tablet RxNorm: 0463259 1 Tablet(s) PO BID 02/21/2013 03/17/2013 Inactive Toprol XL 25 mg tabl et,extended release RxNorm: 424137 1 Tablet(s) PO daily 01/23/2013 07/21/2013 In active amitriptyline 100 mg tablet RxNorm: 981618 1 Tablet(s) PO QHS 01/23/2013 03/17/2013 Inactive Celexa 20 mg tablet RxNorm: 179284 Tablet(s) PO TAKE 1 & 1/2 TABLETS BY HERLINDA DAILY 12/13/2012 05/04/2013 Inactive Lasix 40 mg tablet RxNorm: 319928 1 Tablet(s) PO daily 12/13/2012 02/10/2013 Inactive and prn amitriptyline 100 mg tablet RxNorm: 169470 1 Tablet(s) PO QHS 10/21/2012 01/18/2013 Inactive Toprol XL 25 mg tabl et,extended release RxNorm: 467761 1 Tablet(s) PO daily 09/17/2012 01/14/2013 In active potassium chloride E R 10 mEq tablet,extended release RxNorm: 346652 1 Tablet(s) PO daily 08/19/2012 10/13/2013 Inactive Lasix 40 mg tablet RxNorm: 592310 1 Tablet(s) PO daily 08/19/2012 12/12/2012 Inactive and prn Ritalin 10 mg tablet RxNorm: 4284936 1 Tablet(s) PO BID 07/16/2012 10/13/2012 Inactive ciprofloxacin 500 mg tablet RxNorm: 311686 1 Tablet(s) PO BID 07/16/2012 07/22/2012 Inactive Celexa 20 mg tablet RxNorm: 083814 Tablet(s) PO TAKE 1 & 1/2 TABLETS BY HERLINDA DAILY 07/15/2012 12/12/2012 Inactive GE100 Blood Glucose Test Strip RxNorm: 1 Miscellaneous BID 07/11/2012 08/04/2013 Inactive and lancets Aldactone 25 mg tablet RxNorm: 887651 1 Tablet(s) PO BID 03/20/2012 03/14/2013 Inactive estradiol 0.5 mg tablet RxNorm: 323204 1 Tablet(s) PO daily 03/15/2012 06/07/2013 Inactive TAKE 1 TABLET BY MOUTH DAILY amitriptyline 100 mg tablet RxNorm: 839156 1 Tablet(s) PO QHS 03/13/2012 10/08/2012 Inactive amitriptyline 100 mg tablet RxNorm: 266675 1 Tablet(s) PO QHS 12/07/2011 01/05/2012 Inactive Kenalog 40 mg/mL Kat p for Injection RxNorm: 6679540 1 Milliliter(s) Inj 12/07/2011 12/07/2011 In active Provigil 200 mg Tab RxNorm: 080865 1 Tablet(s) PO QAM 12/07/2011 01/05/2012 Inactive Flonase Allergy Reli ef 50 mcg/actuation nasal spray,suspension RxNorm: 8302172 [place] NASAL daily as needed No Start Date Active Fish Oil 1,000 mg ca psule RxNorm: 1 Capsule(s) PO BID No Start Date 10/27/2015 Inactive Provigil 200 mg Tab RxNorm: 455638 1 Tablet(s) PO daily No Start Date 10/13/2013 Inactive Lasix 40 mg tablet RxNorm: 606754 1 Tablet(s) PO BID No Start Date 03/25/2015 Inactive Toprol XL 25 mg tabl et,extended release RxNorm: 034000 1 Tablet(s) PO daily No Start Date 09/16/2012 Inactive Prilosec 20 mg Capsu le, delayed release RxNorm: 123030 1 Capsule(s) PO daily No Start Date 10/13/2013 Inactive cyclobenzaprine 10 m g Tab RxNorm: 038750 1 Tablet(s) PO Q8 PRN No Start Date 03/17/2013 Inactive GE100 Blood Glucose Test Strip RxNorm: 1 Miscellaneous BID No Start Date 07/10/2012 Inactive pantoprazole 40 mg t ablet,delayed release RxNorm: 252362 1 Tablet(s) PO daily No Start Date 04/29/2013 Inactive Januvia 50 mg tablet RxNorm: 327921 1 Tablet(s) PO daily No Start Date 10/06/2013 Inactive samples and script Aldactone 25 mg tablet RxNorm: 348858 1 Tablet(s) PO BID No Start Date 03/19/2012 Inactive amitriptyline 100 mg Tab RxNorm: 521723 1 Tablet(s) PO QHS No Start Date 12/06/2011 Inactive Celexa 20 mg tablet RxNorm: 491371 1.5 Tablet(s) PO daily No Start Date 07/14/2012 Inactive potassium chloride E R 10 mEq tablet,extended release RxNorm: 584639 1 Tablet(s) PO BID No Start Date 08/18/2012 Inactive prednisone 20 mg Tab RxNorm: 173465 Tablet(s) PO UD 3 tabs x 2 days, 2 tabs x 2 days, 1 tab x 2 days, 1/2 tab x 2 days, 1/2 tab QOD x 2 doses then stop No Start Date 10/13/2013 Inactive estradiol 0.5 mg tablet RxNorm: 518533 1 Tablet(s) PO daily No Start Date 03/15/2012 Inactive Aldactone 25 mg tablet RxNorm: 724345 1 Tablet(s) PO BID No Start Date 10/12/2013 Inactive Lasix 40 mg tablet RxNorm: 270604 1 Tablet(s) PO BID No Start Date 08/18/2012 Inactive amitriptyline 75 mg Tab RxNorm: 038671 1 Tablet(s) PO QHS No Start Date 10/13/2013 Inactive Medication Administered Medication Codes Instruc tions Start Date Status Kenalog 40 mg/mL suspension for injection RxNorm: 8151716 Milliliter 07/05/2018 No longer Active Kenalog 40 mg/mL suspension for injection RxNorm: 1744900 1Milliliter 03/14/2018 N o longer Active ceftriaxone 500 mg solution for injection RxNorm: 4777974 1Milliliter 05/25/2017 N o longer Active Kenalog 40 mg/mL suspension for injection RxNorm: 1647617 Milliliter 05/25/2017 No longer Active Kenalog 40 mg/mL suspension for injection RxNorm: 7508692 Milliliter 05/02/2016 No longer Active Kenalog 40 mg/mL suspension for injection RxNorm: 9529158 Milliliter 10/28/2015 No longer Active ceftriaxone 500 mg solution for injection RxNorm: 2154604 04/19/2015 No longer A ctive Kenalog 40 mg/mL suspension for injection RxNorm: 5734602 Milliliter 04/19/2015 No longer Active Kenalog 40 mg/mL suspension for injection RxNorm: 5325129 Milliliter 12/24/2014 No longer Active Kenalog 40 mg/mL Susp for Injection RxNorm: 1170929 1Milliliter 03/18/2013 N o longer Active Kenalog 40 mg/mL Susp for Injection RxNorm: 9662713 1Milliliter 12/07/2011 N o longer Active Immunizations [...] disorder) ICD-9: 314.01 10/13/2013 ESSENTIAL HYPERTENSION SNOMED: 33949 000 ICD-9: 401.9 10/13/2013 Depression ICD-9: 311 DIABETES TYPE II SNOMED: 937863383 ICD-9: 250.00 10/13/2013 EDEMA ICD-9: 782.3 03/18 DM W/O COMPLICATION TYPE II, UNCONTROLLED SNOMED: 93489466 ICD-9: 250.02 03/18/2013 Uncontrolled narcolepsy ICD-9: 347.00 [...] Observation Code Item Item Code Result Date Cbc With Differential Ord2 WBC 8.55 K/ul [...] 32.0 pg 03/26/2018 Cbc With Differential Ord2 [place]% 6.9 % 03/26/2018 Cbc With Differential Ord2 [...] 2.01 K/ul 03/26/2018 Cbc With Differential Ord2 [place] ABS# 0.6 K/ul 03/26/2018 Cbc With Differential Ord2 E[place] ABS# 0.1 K/ul 03/26/2018 Cbc With Differential Ord2 Baso ABS# 0.0 K/ul 03/26/2018 Tsh Ord6 TSH (3rd IS) 1.30 uIU/mL 03/26/2018 %Hba1C Nrv550 % HbA1c 98142-2 6.5 % 03/26/2018 %Hba1C Tzm363 Gluc Ave 140 mg/dL 03/26/2018 Comp Metabolic Tkc053 NA 141 mEq/L 03/26/2018 Comp Metabolic Oto222 K 4.5 mEq/L 03/26/2018 Comp Metabolic Lst124 CL 106 mEq/L 03/26/2018 Comp Metabolic Nfu166 CO2 30.0 mEq/L 03/26/2018 Comp Metabolic Cfd773 AN ION GAP 10 03/26/2018 Comp Metabolic Xgp763 GL UCOSE 122 mg/dL 03/26/2018 Comp Metabolic Zll222 Cr eat 1.0 mg/dL 03/26/2018 Comp Metabolic Vfv868 eG FR 60 ml/min/1.73m2 03/26 Comp Metabolic Lfe787 BUN 18 mg/dL 03/26/2018 Comp Metabolic Ipq143 B/ C Ratio 17.5 Ratio 03/26/2018 Comp Metabolic Xpg122 CA LCIUM 10.1 mg/dL 03/26/2018 Comp Metabolic Dch484 AL K PHOS 67 U/L 03/26/2018 Comp Metabolic Tnd671 T(SGOT) 22 U/L 03/26/2018 Comp Metabolic Ueh807 AL T(SGPT) 26 U/L 03/26/2018 Comp Metabolic Xor317 BI LI T 0.4 mg/dL 03/26/2018 Comp Metabolic Hff343 AL BUMIN 4.5 g/dL 03/26/2018 Comp Metabolic Zye096 TP RO 7.0 g/dL 03/26/2018 Comp Metabolic Mzn809 GL OB 2.6 g/dL 03/26/2018 Comp Metabolic Crk349 A/ G Ratio 1.7 Ratio 03/26/2018 Comp Metabolic Xhu103 Os mo 284 mOsmo 03/26/2018 Lipid Ord30 CHOL 203 mg/dL 03/26/2018 Lipid Ord30 HDL 62.0 mg/dl 03/26/2018 Lipid Ord30 TRIG 94 mg/dL 03/26/2018 Lipid Ord30 LDL 122 mg/dL 03/26/2018 Lipid Ord30 C/HDL 3.3 Ratio 03/26/2018 Prolactin 599083 PROLACT IN 5.2 ng/mL 05/15/2017 Cbc With [...] 31.9 pg 05/14/2017 Cbc With Differential Ord2 [place]% 7.6 % 05/14/2017 Cbc With Differential Ord2 [...] 2.32 K/ul 05/14/2017 Cbc With Differential Ord2 [place] ABS# 0.7 K/ul 05/14/2017 Cbc With Differential Ord2 Eos ABS# 0.1 K/ul 05/14/2017 Cbc With Differential Ord2 Baso ABS# 0.0 K/ul 05/14/2017 Tsh Ord6 hTSH II 1.69 uIU/mL 05/14/2017 %Hba1C Qtt583 % HbA1c 07187-5 6.4 % 05/14/2017 %Hba1C Uyu599 Gluc Ave 137 mg/dL 05/14/2017 Comp Metabolic Nke744 NA 138 mEq/L 05/14/2017 Comp Metabolic Fxs079 K 4.2 mEq/L 05/14/2017 Comp Metabolic Les788 CL 102 mEq/L 05/14/2017 Comp Metabolic Tva818 CO2 29.0 mEq/L 05/14/2017 Comp Metabolic Jlr095 AN ION GAP 11 05/14/2017 Comp Metabolic Uof605 GL UCOSE 114 mg/dL 05/14/2017 Comp Metabolic Qda451 Cr eat 1.0 mg/dL 05/14/2017 Comp Metabolic Csw037 eG FR 64 ml/min/1.73m2 05/14 Comp Metabolic Qtv889 BUN 22 mg/dL 05/14/2017 Comp Metabolic Rdp493 B/ C Ratio 22.7 Ratio 05/14/2017 Comp Metabolic Vnb688 CA LCIUM 9.6 mg/dL 05/14/2017 Comp Metabolic Oqe642 AL K PHOS 91 U/L 05/14/2017 Comp Metabolic Qnx338 T(SGOT) 13 U/L 05/14/2017 Comp Metabolic Pmy881 AL T(SGPT) 16 U/L 05/14/2017 Comp Metabolic Nst680 BI LI T 0.4 mg/dL 05/14/2017 Comp Metabolic Soc713 AL BUMIN 4.2 g/dL 05/14/2017 Comp Metabolic Ini876 TP RO 6.9 g/dL 05/14/2017 Comp Metabolic Vbq403 GL OB 2.7 g/dL 05/14/2017 Comp Metabolic Pxu761 A/ G Ratio 1.6 Ratio 05/14/2017 Comp Metabolic Lyn176 Os mo 280 mOsmo 05/14/2017 Lipid Ord30 CHOL 219 mg/dL 05/14/2017 Lipid Ord30 HDL 67.0 mg/dl 05/14/2017 Lipid Ord30 TRIG 157 mg/dL 05/14/2017 Lipid Ord30 LDL 121 mg/dL 05/14/2017 Lipid Ord30 C/HDL 3.3 Ratio 05/14/2017 Prolactin 848440 PROLACT IN 4.5 ng/mL 05/04/2016 %Hba1C Ydc958 % HbA1c 44371-1 5.9 % 05/03/2016 %Hba1C Yae796 Gluc Ave 123 mg/dL 05/03/2016 Cbc With [...] 32.3 pg 05/03/2016 Cbc With Differential Ord2 [place]% 7.0 % 05/03/2016 Cbc With Differential Ord2 [...] 2.38 K/ul 05/03/2016 Cbc With Differential Ord2 [place] ABS# 0.6 K/ul 05/03/2016 Cbc With Differential Ord2 Eos ABS# 0.2 K/ul 05/03/2016 Cbc With Differential Ord2 Baso ABS# 0.1 K/ul 05/03/2016 Tsh Ord6 hTSH II 0.70 uIU/mL 05/03/2016 Comp Metabolic Xau031 NA 137 mEq/L 05/03/2016 Comp Metabolic Mdk593 K 4.3 mEq/L 05/03/2016 Comp Metabolic Gah831 CL 102 mEq/L 05/03/2016 Comp Metabolic Auf755 CO2 25.0 mEq/L 05/03/2016 Comp Metabolic Zrn877 AN ION GAP 14 05/03/2016 Comp Metabolic Evk581 GL UCOSE 87 mg/dL 05/03/2016 Comp Metabolic Dhv054 Cr eat 0.8 mg/dL 05/03/2016 Comp Metabolic Tlq590 eG FR 76 ml/min/1.73m2 05/03 Comp Metabolic Fay184 BUN 11 mg/dL 05/03/2016 Comp Metabolic Zdj523 B/ C Ratio 13.1 Ratio 05/03/2016 Comp Metabolic Uye081 CA LCIUM 9.3 mg/dL 05/03/2016 Comp Metabolic Nst465 AL K PHOS 76 U/L 05/03/2016 Comp Metabolic Bgz047 T(SGOT) 27 U/L 05/03/2016 Comp Metabolic Mld265 AL T(SGPT) 25 U/L 05/03/2016 Comp Metabolic Mey495 BI LI T 0.3 mg/dL 05/03/2016 Comp Metabolic Blp087 AL BUMIN 4.1 g/dL 05/03/2016 Comp Metabolic Qja674 TP RO 7.1 g/dL 05/03/2016 Comp Metabolic Fgg060 GL OB 3.0 g/dL 05/03/2016 Comp Metabolic Ulr746 A/ G Ratio 1.4 Ratio 05/03/2016 Comp Metabolic Gtb469 Os mo 273 mOsmo 05/03/2016 Urine Culture Ucult Comp lete >100,000 col/ml aerobic grow th sent to ref lab 03/17/2015 Culture Urine [id number] URI NE CULTURE SEE NOTES 01/28/2015 Culture Urine [id number] Con tinued Results 01/28/2015 Urine Culture Ucult Comp lete >100,000 col/ml aerobic grow th sent to ref lab 01/26/2015 URINALYSIS NONAUTO W/O SCOPE 49940 Specific [place] 1.005 DateTime(Free Text in Aprima) URINALYSIS NONAUTO W/O SCOPE 12128 PH 7.5 DateTime(Free Ruben t in ) URINALYSIS NONAUTO W/O SCOPE 89878 GLUCOSE neg DateTime(Free Ruben t in Sepima) URINALYSIS NONAUTO W/O SCOPE 35565 Protein neg DateTime(Free Ruben t in ) URINALYSIS NONAUTO W/O SCOPE 41477 Blood trace DateTime(Free T ext in Aprima) URINALYSIS NONAUTO W/O SCOPE 57318 Bilirubin small DateTime(Free T ext in Aprima) URINALYSIS NONAUTO W/O SCOPE 46563 Ketones neg DateTime(Free Ruben t in Aprima) URINALYSIS NONAUTO W/O SCOPE 21177 Urobilinogen 0.2 DateTime(Free Text in Aprima) URINALYSIS NONAUTO W/O SCOPE 63574 Nitrite neg DateTime(Free Ruben t in Aprima) URINALYSIS NONAUTO W/O SCOPE 78638 Leukocytes moderate DateTime(Free Text in Aprima) Review of Systems System Result Effective Dates [...] - left ribs Full Exam - General 1995 Constitutional general appearance Overall: well developed 03/14/2018 [...] sounds 03/18/2013 None Full Exam - General 1995 Musculoskeletal spine, ribs and pelvis Spine: a normal exam 03/18/2013 None Full Exam - General 1994 Musculoskeletal spine, ribs and pelvis Sacroiliac joints: tender left sacroiliac joint 03/18/2013 None Full Exam - General 1994 Musculoskeletal spine, ribs and pelvis Inspection: a normal exam 03/18/2013 None Full Exam - General 1995 Neurologic deep tendon reflexes Overall: deep tendon [...] accomodation 07/16/2012 None Full Exam - General 1994 [...] Procedure Codes Date THER/PROPH/DIAG INJ SC/IM CPT-4: 15163 07/05/2018 TRIAMCINOLONE ACET I [place] NOS CPT-4: J3301 07/05/2018 TRIAMCINOLONE ACET I [place] NOS CPT-4: J3301 03/14/2018 IMMUNIZATION ADMIN CPT- 4: 03902 03/14/2018 ADACEL TDAP VACCINE 7 YRS/> IM CPT-4: 31928 03/14/2018 TRIAMCINOLONE ACET I [place] NOS CPT-4: J3301 05/25/2017 ROCEPHIN, PER 250 MG CPT-4: J0696 05/25/2017 TRIAMCINOLONE ACET I [place] NOS CPT-4: J3301 05/02/2016 TRIAMCINOLONE ACET I [place] NOS CPT-4: J3301 10/28/2015 ROCEPHIN, PER 250 MG CPT-4: J0696 04/19/2015 TRIAMCINOLONE ACET I [place] NOS CPT-4: J3301 04/19/2015 URINALYSIS NONAUTO W /O SCOPE CPT-4: 54653 03/15/2015 URINALYSIS NONAUTO W /O SCOPE CPT-4: 35228 01/25/2015 TRIAMCINOLONE ACET I [place] NOS CPT-4: J3301 12/24/2014 THER/PROPH/DIAG INJ SC/IM CPT-4: 67906 12/24/2014 URINALYSIS NONAUTO W /O SCOPE CPT-4: 29791 07/16/2012 DRAIN/INJECT JOINT/B URSA CPT-4: 70266 12/07/2011 Vital Signs Date Vital 07/05/2018 Blood Pressure 1: 132/78 Code: 8480-6 BMI: 32.6 Code: 38645-9 Heart Rate 1: 75 bpm Height: 5'2" SpO2: 96% Weight: 178 lbs 03/14/2018 Blood Pressure 1: 108/74 Code: 8480-6 BMI: 33.3 Code: 15637-5 Heart Rate 1: 91 bpm Height: 5'2" SpO2: 98% Weight: 182 lbs 05/25/2017 Blood Pressure 1: 142/82 Code: 8480-6 BMI: 32.0 Code: 74435-5 Heart Rate 1: 96 bpm Height: 5'2" SpO2: 94% Temperature: 37.3 (C ) / 99.2 (F) Weight: 175 lbs 05/14/2017 Blood Pressure 1: 142/78 Code: 8480-6 BMI: 32.0 Code: 74031-2 Heart Rate 1: 111 bpm Height: 5'2" SpO2: 95% Weight: 175 lbs 05/02/2016 Blood Pressure 1: 124/74 Code: 8480-6 BMI: 32.4 Code: 14852-6 Heart Rate 1: 107 bpm Height: 5'2" SpO2: 98% Weight: 177 lbs 10/28/2015 Blood Pressure 1: 124/80 Code: 8480-6 BMI: 32.6 Code: 19648-2 Heart Rate 1: 78 bpm Height: 5'2" SpO2: 91% Weight: 178 lbs 04/19/2015 Blood Pressure 1: 110/78 Code: 8480-6 BMI: 31.5 Code: 46984-2 Heart Rate 1: 88 bpm Height: 5'2" SpO2: 96% Weight: 172 lbs 12/24/2014 Blood Pressure 1: 112/72 Code: 8480-6 BMI: 30.4 Code: 80280-3 Heart Rate 1: 88 bpm Height: 5'2" Weight: 166 lbs 10/13/2013 Blood Pressure 1: 104/78 Code: 8480-6 BMI: 30.7 Code: 69221-6 Heart Rate 1: 100 bpm Height: 5'2" [...] State s she was sitting in the orthopedic rn with the dog, and was slightly twisted-sat [...] Pleurodynia[ICD10: R07.81] [facility] CPT-4: 20853 07/05/2018 ([id number]) 66685 EST. P ATIENT, LEVEL IV Diagnosis: Type 2 diabetes mellitus with hyperglycemia[ICD10: E11.65] Diagnosis: Mixed hyperlipidemia[ICD10: E78.2] Diagnosis: Other allergic rhinitis[ICD10: J30.89] Diagnosis: Attention-deficit hyperactivity disorder, combined type[ICD10: F90.2] Diagnosis: Encounter for immunization[ICD10: Z23] Maci Martinez MD, [facility] CPT-4: 34943 03/14/2018 [id number] EST. PATIENT, LEVEL IV Diagnosis: Other acute sinusitis[ICD10: J01.80] Diagnosis: Other allergic rhinitis[ICD10: J30.89] Michelle Martinez MD, [facility] CPT-4: 94161 05/25/2017 [id number] EST. 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 P ATIENT, LEVEL III Diagnosis: Allergic rhinitis due to pollen[ICD10: J30.1] Diagnosis: Otalgia, right ear[ICD10: H92.01] Maci Martinez MD, [facility] CPT- 4: 10045 10/28/2015 ([id number]) 48508 EST. P ATIENT, LEVEL III Diagnosis: Acute maxillary sinusitis, unspecified[ICD10: J01.00] Diagnosis: Allergic rhinitis, unspecified[ICD10: J30.9] Maci Martinez MD, [facility] CPT-4: 83906 04/19/2015 ([id number]) 24846 EST. P ATIENT, LEVEL III Diagnosis: Swelling of eyelid[ICD9: 374.82] Diagnosis: Sunburn[ICD9: 692.71] Maci Martinez MD, [facility] CPT-4: 54266 12/24/2014 ([id number]) 76676 EST. P ATIENT, LEVEL IV Diagnosis: ESSENTIAL HYPERTENSION[SNOMED: 06407282] Diagnosis: DIABETES TYPE II[SNOMED: 270456650] Diagnosis: ADHD (attention deficit hyperactivity disorder)[ICD9: 314.01] Diagnosis: Depression[ICD9: 311] Joy Martinez MD, [facility] CPT-4: 73368 10/13/2013 ([id number]) 95907 EST. P ATIENT, LEVEL IV Diagnosis: DM W/O COMPLICATION TYPE II, UNCONTROLLED[SNOMED: 09829294] Diagnosis: ESSENTIAL HYPERTENSION[SNOMED: 62892082] Diagnosis: EDEMA[ICD9: 782.3] Joy Martinez MD, [facility] CPT-4: 24607 03/18/2013 ([id number]) 50774 EST. P ATIENT, LEVEL IV Diagnosis: UTI[ICD9: 599.0] Diagnosis: DM W/O COMPLICATION TYPE II, UNCONTROLLED[SNOMED: 60222250] Joy Martinez MD, [facility] CPT-4: 58917 07/16/2012 ([id number]) 91517 EST. P ATIENT, LEVEL III Diagnosis: Uncontrolled narcolepsy[ICD9: 347.00] Diagnosis: ESSENTIAL HYPERTENSION[SNOMED: 95002525] Joy Martinez MD, C CPT-4: 22902 01/17/2012 Office outpatient ne w 30 minutes Diagnosis: Sciatica[ICD9: 724.3] Diagnosis: Chronic back pain[ICD9: 724.5] Diagnosis: ESSENTIAL HYPERTENSION[SNOMED: 83797440] Joy Martinez MD, LL C CPT-4: 24698 12/07/2011 Plan of Care Planned Activity Notes C odes Status Date Patient Education: Patient Medication Summary Completed 11/22/2018 Care Plan: Comp Metabolic Pending 11/22/2018 Care Plan: Cbc With Differential Pending 11/22/2018 Care Plan: %Hba1C LOIN C : 47880-3 Pending 11/22/2018 Care Plan: Tsh Pending 11/22/2018 Care Plan: Lipid Pending 11/22/2018 Visit Plan: Left rib pain - the pat ient was instructed in appropriate posture - The pt is to use prn antiinflammatories to manage acute pain. The patient is to call the office if the pain is worsening or does not improve. 07/05/2018 [phone] [facility] ([facility] min) Moderate 07/05/2018 Patient Education: Patient [...] the office 03/14/2018 Appointment[facility] [phone] [phone] (30 min) Complex 03/14/2018 Patient Education: [...] spray. 05/25/2017 [facility]ment[facility] [phone] [facility] (15 min) Moderate 05/25/2017 Patient Education: [...] control. 05/14/2017 [facility]ment[facility] [phone] [facility] (30 min) Complex 05/14/2017 Patient Education: Patient Medication Summary Completed 05/14/2017 Patient Education: Obesity Completed 05/14/2017 Care Plan: Referral Order SNOMED-CT : [id number] Pending 05/14/2017 Visit Plan: Allergies - chronic [...] less controlled. 05/02/2016 Appointment: Maci Moreno WPtel: [address] [place] [address] (15 min) Moderate 05/02/2016 Patient Education: Patient [...] allergy spray. 10/28/2015 Appointment: Maci Moreno WPtel: [phone] (30 min) Complex 10/28/2015 Patient Education: Patient [...] acute symptoms. 04/19/2015 [facility]ment[facility] [phone] [phone] [place] (15 min) Moderate 04/19/2015 Patient Education: Patient [...] the patient. 10/13/2013 [phone] Follow up 10/13/2013 Patient Education: Patient Medication Summary Completed 10/13/2013 Patient Education: Hypertension Completed 10/13/2013 [facility]: [facility] [phone] [phone] Follow up 08/29/2013 Appointment: Joy Martinez WPtel: [phone] [facility] Follow up 06/23/2013 Visit Plan: Diabetes Mellitus [...] peripheral edema. 03/18/2013 [facility]ment: [phone] [facility] Follow up 03/18/2013 Patient Education: Patient Medication Summary Completed 03/18/2013 Patient Education: Hypertension Completed 03/18/2013 [facility]ment: [phone] Follow up 10/15/2012 Appointment: Maci Morenotel: [phone] [phone] Diabetic education 07/22/2012 Visit Plan: Diabetes Mellitus [...] not improve. 07/16/2012 Appointment: Joy Martinez WPtel: [facility] follow up 07/16/2012 Patient Education: Patient [...] at home. 01/17/2012 Appointment: Joy Martinez WPtel: [phone] [facility] [facility] 01/17/2012 Patient Education: Patient Medication Summary Completed [...] Q HS 12/07/2011 App[facility]ment: [facility] [phone] [phone] New Patient 12/07/2011 Patient Education: Patient Medication [...] 40mg refill ritalin fasting labs-orders sent to [facility] -go any time fasting . Diabetes [...]
--- OUTSIDE RECORDS SUMMARY | 2019-11-02 07:01 | XMS REPORT | CCD ---
Author Author Lianne Martinez Organization [facility] Address [address] [place] [address] Phone Care Team Providers Care Cash Posting Clerk Name Role Phone PP Unavailable CCM Unavailable Summary Purpose Interface Exchange Insurance Providers Payer name Policy type / Coverage type Covered green party ID Effective Begin Date Effective End Date Blue Cross Blue Shield [facility] e Cross/Blue Shield [id number] 2015 Un known Family history Brother Diagnosis Age At Onset [...] M arried 12/07/[address]: [id number] Never smoker 12/07/2011 Alcohol history Unknown occasionally drinks alcohol 12/07/2011 Has the patient ever used illegal drugs? Unknown Has never used illegal drugs 012 Allergies, Adverse Reactions, Alerts Allergies, Adverse Reactions, Alerts data not found Past Medical History Illness Codes Condition Status Onset Date Resolved Date Acute bronchitis due to other specified organisms ICD-9: 466.0 ICD-10: J20.8 Active 05/01/2016 Unknown Other allergic rhinitis ICD-9: 477.8 ICD-10: J30.89 Active 05/01/2016 Unknown Other disorders of p ituitary gland ICD-9: 253.8 ICD-10: E23.6 Active 05/01/2016 Unknown Type 2 diabetes alex itus with hyperglycemia ICD-9: 250.02 ICD-10: E11.65 Active 07/16/2012 Unknown Allergic rhinitis du e to pollen ICD-9: 477.0 ICD-10: J30.1 Active 10/27/2015 Unknown Otalgia, right ear ICD- 9: 388.70 ICD-10: H92.01 Active 10/27/2015 Unknown Acute maxillary sinu sitis, unspecified ICD-9: 461.0 ICD-10: J01.00 Active 04/18/2015 Unknown Allergic rhinitis, u nspecified ICD-9: 477.9 ICD-10: J30.9 Active 04/18/2015 Unknown DYSURIA ICD-9: 788.1 Active 03/14/2015 Unknow [...] Condition Codes Effectiv e Dates Condition Status Acute bronchitis due to other specified organisms ICD-9: 466.0 ICD-10: J20.8 05/01/2016 Active Other allergic rhinitis ICD-9: 477.8 ICD-10: J30.89 05/01/2016 Active Other disorders of p ituitary gland ICD-9: 253.8 ICD-10: E23.6 05/01/2016 Active Type 2 diabetes alex itus with hyperglycemia ICD-9: 250.02 ICD-10: E11.65 07/16/2012 Active Allergic rhinitis du e to pollen ICD-9: 477.0 ICD-10: J30.1 10/27/2015 Active Otalgia, right ear ICD- 9: 388.70 ICD-10: H92.01 10/27/2015 Active Acute maxillary sinu sitis, unspecified ICD-9: 461.0 ICD-10: J01.00 04/18/2015 Active Allergic rhinitis, u nspecified ICD-9: 477.9 ICD-10: J30.9 04/18/2015 Active DYSURIA ICD-9: 788.1 03/14/2015 Active UTI [...] Date Stop Date Sta tus Fill Instructions Celexa 20 mg tablet RxNorm: 523895 TAKE ONE & ONE-HALF TABLETS BY MOUTH ONC E DAILY 01/03/2017 03/03/2017 Active amitriptyline 100 mg tablet RxNorm: 841416 TAKE ONE TABLET BY MO UT AT BEDTIME 12/08/2016 06/05/2017 Ac tive Toprol XL 25 mg tabl et,extended release RxNorm: 218304 TAKE ONE TABLET BY MO UTH ONCE DAILY 11/23/2016 01/21/2017 Active Januvia 50 mg tablet RxNorm: 258277 TAKE ONE TABLET BY MOUTH ONCE DAILY 11/09/2016 03/08/2017 Ac tive Bactrim 400 mg-80 mg tablet RxNorm: 444144 TAKE ONE TABLET BY MO UTH NEEDED FOR SEXUAL INTERCOURSE FOR UTI PREVENTION 09/19/2016 12/17/2016 Inactive amitriptyline 100 mg tablet RxNorm: 761704 TAKE ONE TABLET BY [facility] AT BEDTIME 08/31/2016 11/28/2016 In active pantoprazole 40 mg t ablet,delayed release RxNorm: 192914 Tablet(s) TAKE 1 TABL ET BY MOUTH ONCE DAILY 08/16/2016 05/12/2017 Active estradiol 0.5 mg tablet RxNorm: 909468 TAKE ONE TABLET BY MOUTH ONCE DAILY 08/13/2016 08/07/2017 Ac tive amitriptyline 100 mg tablet RxNorm: 036819 TAKE ONE TABLET BY [facility] AT BEDTIME 07/31/2016 08/29/2016 In active ProAir HFA 90 mcg/ac tuation aerosol inhaler RxNorm: 567854 2 inhale INH PRN as n eeded 05/02/2016 No Stop Date Active ciprofloxacin 0.3 % eye drops RxNorm: 396283 Drop(s) OPH 2 drops e very 2 hours while awake for days 1-2 and 2 drops every 4 hours for days 3 - 7 05/02/2016 No Stop Date Active Zithromax Z-Nick 250 mg tablet RxNorm: 518933 1 Tablet(s) PO UD 05/02/2016 No Stop Date Active albuterol sulfate 2. 5 mg/3 mL (0.083 %) solution for nebulization RxNorm: 640981 1 Milliliter(s) INH QID as needed No Stop Date Active Kenalog 40 mg/mL kat pension for injection RxNorm: 4638347 Milliliter(s) Inj 05/02/2016 05/02/2016 In active prednisone 20 mg tablet RxNorm: 793820 1 Tablet(s) PO BID 05/02/2016 05/06/2016 Inactive estradiol 0.5 mg tablet RxNorm: 574039 1 TABLET(S) PO DAILY 03/01/2016 02/23/2017 Active TAKE 1 TABLET BY MOUTH DAILY amitriptyline 100 mg tablet RxNorm: 477146 1 TABLET(S) PO QHS 03/01/2016 07/30/2016 Inactive estradiol 0.5 mg tablet RxNorm: 007537 TAKE ONE TABLET BY MOUTH ONCE DAILY 03/01/2016 05/29/2016 In active Celexa 20 mg tablet RxNorm: 726908 TAKE ONE & ONE-HALF TABLETS BY MOUTH ONC E DAILY 12/03/2015 11/26/2016 Inactive amoxicillin 500 mg c apsule RxNorm: 876884 1 Capsule(s) PO BID 11/05/2015 11/14/2015 Inactive amoxicillin 500 mg c apsule RxNorm: 628054 1 Capsule(s) PO BID 11/05/2015 11/04/2015 Inactive Ritalin 10 mg tablet RxNorm: 8643359 1 Tablet(s) PO BID 10/28/2015 11/26/2015 Inactive [SAVINGS FOR NON-COVERED DRUGS -- BIN:00 6037, PCN: ASPROD1, Group: XXXXX, ID# [id number], Questions: . THIS IS NOT INSURANCE.] Kenalog 40 mg/mL kat pension for injection RxNorm: 6546139 Milliliter(s) Inj 10/28/2015 10/28/2015 In active Januvia 50 mg tablet RxNorm: 769399 Tablet(s) 1 TABLET(S) PO DAILY 10/28/2015 10/21/2016 In active Toprol XL 25 mg tabl et,extended release RxNorm: 970459 Tablet(s) 1 TABLET(S) PO DAILY 10/28/2015 10/21/2016 Inactive prednisone 20 mg tablet RxNorm: 913748 1 Tablet(s) PO BID 10/28/2015 11/01/2015 Inactive Lasix 40 mg tablet RxNorm: 167794 TAKE ONE TABLET BY MOUTH ONCE DAILY. MAY TAKE EXTRA TABLET NEEDED. 09/27/2015 12/25/2015 Inactive Bactrim 400 mg-80 mg tablet RxNorm: 968207 Tablet(s) 1 TABLET(S) PO PRN SEXUAL INTERCOURSE, UTI PREVENTATIVE 09/22/2015 12/20/2015 Inactive pantoprazole 40 mg t ablet,delayed release RxNorm: 763772 TAKE 1 TABLET BY MOUT H ONCE DAILY 07/29/2015 01/24/2016 Inactive amitriptyline 100 mg tablet RxNorm: 597245 Tablet(s) 1 TABLET(S) PO QHS 07/26/2015 11/22/2015 In active pantoprazole 40 mg t ablet,delayed release RxNorm: 269481 TAKE 1 TABLET BY MOUT H ONCE DAILY 07/21/2015 07/28/2015 Inactive Bactrim 400 mg-80 mg tablet RxNorm: 742133 1 TABLET(S) PO PRN SE XUAL INTERCOURSE, UTI PREVENTATIVE 06/21/2015 09/18/2015 Inactive Ritalin 10 mg tablet RxNorm: 7181615 1 Tablet(s) PO BID 04/19/2015 05/18/2015 Inactive [SAVINGS FOR NON-COVERED DRUGS -- BIN:00 3585, PCN: ASPROD1, Group: XXXXX, ID# [id number], Questions: . THIS IS NOT INSURANCE.] Keflex 500 mg capsule RxNorm: 454918 1 Capsule(s) PO TID 04/19/2015 04/28/2015 Inactive Kenalog 40 mg/mL kat pension for injection RxNorm: 4013149 Milliliter(s) Inj 04/19/2015 04/19/2015 In active ceftriaxone 500 mg s olution for injection RxNorm: 0271360 Inj 04/19/2015 04/19/2015 Inactive Aldactone 25 mg tablet RxNorm: 681257 1 TABLET(S) PO BID 03/26/2015 12/20/2015 Inactive amitriptyline 100 mg tablet RxNorm: 491751 1 TABLET(S) PO QHS 03/26/2015 07/25/2015 Inactive Lasix 40 mg tablet RxNorm: 005533 1 Tablet(s) PO daily 03/26/2015 09/21/2015 Inactive may take an extra tablet as needed Levaquin 500 mg tablet RxNorm: 089929 1 Tablet(s) PO daily 03/15/2015 03/21/2015 Inactive Levaquin 500 mg tablet RxNorm: 279039 1 Tablet(s) PO daily 03/15/2015 03/14/2015 Inactive hydrocodone 5 mg-devang taminophen 325 mg tablet RxNorm: 351128 one or two tabs po ev ey six hours prn Tablet(s) PO 02/26/2015 03/27/2015 Inactive hydrocodone 5 mg-devang taminophen 325 mg tablet RxNorm: 300018 one or two tabs po ev ey six hours prn Tablet(s) PO 02/26/2015 02/25/2015 Inactive amitriptyline 100 mg tablet RxNorm: 431602 1 TABLET(S) PO QHS 02/22/2015 01/17/2016 Inactive Keflex 500 mg capsule RxNorm: 032911 1 Capsule(s) PO TID 01/25/2015 01/24/2015 Inactive Keflex 500 mg capsule RxNorm: 417078 1 Capsule(s) PO TID 01/25/2015 01/31/2015 Inactive Bactrim 400 mg-80 mg tablet RxNorm: 778602 1 Tablet(s) PO PRN se xual intercourse, uti preventative 01/04/2015 01/03/2015 Inactive Bactrim 400 mg-80 mg tablet RxNorm: 573051 1 Tablet(s) PO PRN se xual intercourse, uti preventative 01/04/2015 06/20/2015 Inactive Ritalin 10 mg tablet RxNorm: 7453708 1 Tablet(s) PO BID 12/24/2014 01/22/2015 Inactive [SAVINGS FOR NON-COVERED DRUGS -- BIN:00 3545, PCN: ASPROD1, Group: XXXXX, ID# [id number], Questions: . THIS IS NOT INSURANCE.] Kenalog 40 mg/mL kat pension for injection RxNorm: 8011047 Milliliter(s) Inj 12/24/2014 12/24/2014 In active estradiol 0.5 mg tablet RxNorm: 156286 1 Tablet(s) PO daily 12/16/2014 02/29/2016 Inactive TAKE 1 TABLET BY MOUTH DAILY pantoprazole 40 mg t ablet,delayed release RxNorm: 226775 1 Tablet(s) daily 10/26/2014 07/20/2015 In active [SAVINGS FOR NON-COVERED DRUGS -- BIN:00 3585, PCN: ASPROD1, Group: XXXXX, ID# [id number], Questions: . THIS IS NOT INSURANCE.] Ritalin 10 mg tablet RxNorm: 3431120 1 Tablet(s) PO BID 10/23/2014 11/21/2014 Inactive [SAVINGS FOR NON-COVERED DRUGS -- BIN:00 3585, PCN: ASPROD1, Group: XXXXX, ID# [id number], Questions: . THIS IS NOT INSURANCE.] pantoprazole 40 mg t ablet,delayed release RxNorm: 105354 3/4 Tablet(s) daily 10/23/2014 10/25/2014 In active [SAVINGS FOR NON-COVERED DRUGS -- BIN:00 3585, PCN: ASPROD1, Group: XXXXX, ID# [id number], Questions: . THIS IS NOT INSURANCE.] Toprol XL 25 mg tabl et,extended release RxNorm: 408242 1 TABLET(S) PO DAILY 10/20/2014 10/14/2015 In active Januvia 50 mg tablet RxNorm: 926407 1 TABLET(S) PO DAILY 10/20/2014 10/14/2015 Inactive samples and script Celexa 20 mg tablet RxNorm: 409688 1.5 TABLET(S) PO DAILY TAKE 1 & 1/2 TABL ETS BY MOUTH DAILY 10/20/2014 10/14/2015 Inactive omeprazole 20 mg cap maco,delayed release RxNorm: 877289 1 Capsule(s) PO BID 09/25/2014 09/24/2014 In active omeprazole 20 mg cap maco,delayed release RxNorm: 081337 1 Capsule(s) PO BID 09/25/2014 10/22/2014 In active DC pantoprazole [SAVINGS FOR NON-COVERED DRUGS -- BIN:519449, PCN: ASPROD1, Group: XXXXX, ID# [id number], Questions: . THIS IS NOT INSURANCE.] pantoprazole 40 mg t ablet,delayed release RxNorm: 047608 1 TABLET(S) PO BID 09/24/2014 09/24/2014 In active omeprazole 20 mg tab let,delayed release RxNorm: 635924 1 Tablet(s) PO BID 08/31/2014 08/30/2014 In active dc pantoprazole 40mg omeprazole 20 mg tab let,delayed release RxNorm: 808399 1 Tablet(s) PO BID 08/31/2014 08/30/2014 In active omeprazole 20 mg tab let,delayed release RxNorm: 569911 1 Tablet(s) PO daily 08/31/2014 10/27/2015 In active change to daily Ritalin 10 mg tablet RxNorm: 7982155 1 Tablet(s) PO BID 07/20/2014 08/18/2014 Inactive [SAVINGS FOR UNINSURED PATIENTS -- BIN:0 66494, PCN: ASPROD1, Group: [id number], ID# [id number], Process claim through [employer], for questions: . THIS IS NOT INSURANCE.] amitriptyline 100 mg tablet RxNorm: 084831 1 TABLET(S) PO QHS 04/27/2014 02/21/2015 Inactive Ritalin 10 mg tablet RxNorm: 8266981 1 Tablet(s) PO BID 02/09/2014 06/08/2014 Inactive [SAVINGS FOR UNINSURED PATIENTS -- BIN:0 90040, PCN: ASPROD1, Group: [id number], ID# [id number], Process claim through [employer], for questions: . THIS IS NOT INSURANCE.] ProAir HFA 90 mcg/ac tuation aerosol inhaler RxNorm: 562501 2 inhale INH PRN 11/19/2013 10/27/2015 In active amitriptyline 100 mg tablet RxNorm: 725446 Tablet(s) PO TAKE 1 T ABLET BY MOUTH AT BEDTIME 10/27/2013 No Stop Date Active Ritalin 10 mg tablet RxNorm: 6272583 1 Tablet(s) PO BID 10/13/2013 02/08/2014 Inactive estradiol 0.5 mg tablet RxNorm: 649907 1 Tablet(s) PO daily 10/13/2013 12/15/2014 Inactive TAKE 1 TABLET BY MOUTH DAILY pantoprazole 40 mg t ablet,delayed release RxNorm: 536644 1 Tablet(s) PO BID 10/13/2013 08/30/2014 In active Januvia 50 mg tablet RxNorm: 959976 1 Tablet(s) PO daily 10/13/2013 10/07/2014 Inactive samples and script Toprol XL 25 mg tabl et,extended release RxNorm: 380921 1 Tablet(s) PO daily 10/13/2013 10/07/2014 In active Celexa 20 mg tablet RxNorm: 300747 1.5 Tablet(s) PO daily TAKE 1 & 1/2 TABL ETS BY MOUTH DAILY 10/13/2013 10/07/2014 Inactive Aldactone 25 mg tablet RxNorm: 093769 1 Tablet(s) PO BID 10/13/2013 10/07/2014 Inactive Januvia 50 mg tablet RxNorm: 959060 1 Tablet(s) PO daily 10/07/2013 10/12/2013 Inactive samples and script Celexa 20 mg tablet RxNorm: 162059 1 1/2 Tablet(s) PO daily TAKE 1 & 1/2 TA BLETS BY MOUTH DAILY 05/05/2013 10/12/2013 Inactive pantoprazole 40 mg t ablet,delayed release RxNorm: 166713 1 Tablet(s) PO daily 04/30/2013 10/12/2013 In active amitriptyline 100 mg tablet RxNorm: 026858 1 Tablet(s) PO QHS 04/28/2013 10/26/2013 Inactive Ritalin 10 mg tablet RxNorm: 1468183 1 Tablet(s) PO BID 04/18/2013 05/17/2013 Inactive Kenalog 40 mg/mL Kat p for Injection RxNorm: 0066815 1 Milliliter(s) Inj 03/18/2013 03/18/2013 In active amitriptyline 100 mg tablet RxNorm: 408520 1 Tablet(s) PO QHS 03/18/2013 04/27/2013 Inactive Ritalin 10 mg tablet RxNorm: 8567233 1 Tablet(s) PO BID 02/21/2013 03/17/2013 Inactive Toprol XL 25 mg tabl et,extended release RxNorm: 323468 1 Tablet(s) PO daily 01/23/2013 07/21/2013 In active amitriptyline 100 mg tablet RxNorm: 100866 1 Tablet(s) PO QHS 01/23/2013 03/17/2013 Inactive Celexa 20 mg tablet RxNorm: 193452 Tablet(s) PO TAKE 1 & 1/2 TABLETS BY [facility] DAILY 12/13/2012 05/04/2013 Inactive Lasix 40 mg tablet RxNorm: 417850 1 Tablet(s) PO daily 12/13/2012 02/10/2013 Inactive and prn amitriptyline 100 mg tablet RxNorm: 146907 1 Tablet(s) PO QHS 10/21/2012 01/18/2013 Inactive Toprol XL 25 mg tabl et,extended release RxNorm: 783295 1 Tablet(s) PO daily 09/17/2012 01/14/2013 In active potassium chloride E R 10 mEq tablet,extended release RxNorm: 986687 1 Tablet(s) PO daily 08/19/2012 10/13/2013 Inactive Lasix 40 mg tablet RxNorm: 178390 1 Tablet(s) PO daily 08/19/2012 12/12/2012 Inactive and prn Ritalin 10 mg tablet RxNorm: 2261659 1 Tablet(s) PO BID 07/16/2012 10/13/2012 Inactive ciprofloxacin 500 mg tablet RxNorm: 778964 1 Tablet(s) PO BID 07/16/2012 07/22/2012 Inactive Celexa 20 mg tablet RxNorm: 665098 Tablet(s) PO TAKE 1 & 1/2 TABLETS BY [facility] DAILY 07/15/2012 12/12/2012 Inactive GE100 Blood Glucose Test Strip RxNorm: 1 Miscellaneous BID 07/11/2012 08/04/2013 Inactive and lancets Aldactone 25 mg tablet RxNorm: 149767 1 Tablet(s) PO BID 03/20/2012 03/14/2013 Inactive estradiol 0.5 mg tablet RxNorm: 756221 1 Tablet(s) PO daily 03/15/2012 06/07/2013 Inactive TAKE 1 TABLET BY MOUTH DAILY amitriptyline 100 mg tablet RxNorm: 436391 1 Tablet(s) PO QHS 03/13/2012 10/08/2012 Inactive amitriptyline 100 mg tablet RxNorm: 127680 1 Tablet(s) PO QHS 12/07/2011 01/05/2012 Inactive Kenalog 40 mg/mL Kat p for Injection RxNorm: 3801769 1 Milliliter(s) Inj 12/07/2011 12/07/2011 In active Provigil 200 mg Tab RxNorm: 804023 1 Tablet(s) PO QAM 12/07/2011 01/05/2012 Inactive Fish Oil 1,000 mg ca psule RxNorm: 1 Capsule(s) PO BID No Start Date 10/27/2015 Inactive Provigil 200 mg Tab RxNorm: 541820 1 Tablet(s) PO daily No Start Date 10/13/2013 Inactive Lasix 40 mg tablet RxNorm: 359951 1 Tablet(s) PO BID No Start Date 03/25/2015 Inactive Toprol XL 25 mg tabl et,extended release RxNorm: 733913 1 Tablet(s) PO daily No Start Date 09/16/2012 Inactive Prilosec 20 mg Capsu le, delayed release RxNorm: 985476 1 Capsule(s) PO daily No Start Date 10/13/2013 Inactive cyclobenzaprine 10 m g Tab RxNorm: 417401 1 Tablet(s) PO Q8 PRN No Start Date 03/17/2013 Inactive GE100 Blood Glucose Test Strip RxNorm: 1 Miscellaneous BID No Start Date 07/10/2012 Inactive pantoprazole 40 mg t ablet,delayed release RxNorm: 103251 1 Tablet(s) PO daily No Start Date 04/29/2013 Inactive Januvia 50 mg tablet RxNorm: 164090 1 Tablet(s) PO daily No Start Date 10/06/2013 Inactive samples and script Aldactone 25 mg tablet RxNorm: 051134 1 Tablet(s) PO BID No Start Date 03/19/2012 Inactive amitriptyline 100 mg Tab RxNorm: 611794 1 Tablet(s) PO QHS No Start Date 12/06/2011 Inactive Celexa 20 mg tablet RxNorm: 203026 1.5 Tablet(s) PO daily No Start Date 07/14/2012 Inactive potassium chloride E R 10 mEq tablet,extended release RxNorm: 416331 1 Tablet(s) PO BID No Start Date 08/18/2012 Inactive prednisone 20 mg Tab RxNorm: 175611 Tablet(s) PO UD 3 tabs x 2 days, 2 tabs x 2 days, 1 tab x 2 days, 1/2 tab x 2 days, 1/2 tab QOD x 2 doses then stop No Start Date 10/13/2013 Inactive estradiol 0.5 mg tablet RxNorm: 316695 1 Tablet(s) PO daily No Start Date 03/15/2012 Inactive Aldactone 25 mg tablet RxNorm: 058838 1 Tablet(s) PO BID No Start Date 10/12/2013 Inactive Lasix 40 mg tablet RxNorm: 065787 1 Tablet(s) PO BID No Start Date 08/18/2012 Inactive amitriptyline 75 mg Tab RxNorm: 669976 1 Tablet(s) PO QHS No Start Date 10/13/2013 Inactive Medication Administered Medication Codes Instruc tions Start Date Status Kenalog 40 mg/mL suspension for injection RxNorm: 3924071 Milliliter 05/02/2016 No longer Active Kenalog 40 mg/mL suspension for injection RxNorm: 0597224 Milliliter 10/28/2015 No longer Active ceftriaxone 500 mg solution for injection RxNorm: 0354398 04/19/2015 No longer A ctive Kenalog 40 mg/mL suspension for injection RxNorm: 4717815 Milliliter 04/19/2015 No longer Active Kenalog 40 mg/mL suspension for injection RxNorm: 1890509 Milliliter 12/24/2014 No longer Active Kenalog 40 mg/mL Susp for Injection RxNorm: 3174032 1Milliliter 03/18/2013 N o longer Active Kenalog 40 mg/mL Susp for Injection RxNorm: 6083408 1Milliliter 12/07/2011 N o longer Active Immunizations No Immunization data Assessments Condition Codes Effectiv e Dates Type 2 diabetes mellitus with hyperglycemia ICD-10: E11.65 ICD-9: 250.02 05/02/2016 Other allergic rhinitis ICD-10: J30. 89 ICD-9: 477.8 05/02/2016 Other disorders of pituitary gland I CD-10: E23.6 ICD-9: 253.8 05/02/2016 Acute bronchitis due to other specified organisms [...] disorder) ICD-9: 314.01 10/13/2013 ESSENTIAL HYPERTENSION SNOMED: 49870 000 ICD-9: 401.9 10/13/2013 Depression ICD-9: 311 DIABETES TYPE II SNOMED: 003571063 ICD-9: 250.00 10/13/2013 EDEMA ICD-9: 782.3 03/18 DM W/O COMPLICATION TYPE II, UNCONTROLLED SNOMED: 45851689 ICD-9: 250.02 03/18/2013 Uncontrolled narcolepsy ICD-9: 347.00 01/17/2012 Sacroiliitis ICD-9: 720.2 12/07/2011 Chronic back pain ICD-9: 724.5 12/07/2011 Sciatica ICD-9: 724.3 Reason For Visit Reason For Visit Effective Dates Notes sinus congestion 05/02/2016 earache 10/28/2015 headache 04/19/2015 eyelid edema 12/24/2014 hypertension 10/13/2013 diabetes mellitus 03/18/2013 Hospital Follow Up 07/16/2012 daytime hypersomnolence 01/17/2012 back pain 12/07/2011 Results Observation Observation Code Item Item Code Result Date Prolactin 149904 PROLACT IN 4.5 ng/mL 05/04/2016 %Hba1C Nzv917 % HbA1c 34389-6 5.9 % 05/03/2016 %Hba1C Mhe988 Gluc Ave 123 mg/dL 05/03/2016 Cbc With Differential Ord2 WBC 8.63 K/ul 05/03/2016 Cbc With Differential Ord2 RBC 4.61 M/ul 05/03/2016 Cbc With Differential Ord2 HGB 14.9 g/dl 05/03/2016 Cbc With Differential Ord2 Neut% 62.8 % 05/03/2016 Cbc With Differential Ord2 HCT 45.1 % 05/03/2016 Cbc With Differential Ord2 MCV 97.8 fl 05/03/2016 Cbc With Differential Ord2 Lymph% 27.6 % 05/03/2016 Cbc With Differential Ord2 MCH 32.3 pg 05/03/2016 Cbc With Differential Ord2 Kimble% 7.0 % 05/03/2016 Cbc With Differential Ord2 [...] 2.38 K/ul 05/03/2016 Cbc With Differential Ord2 Kimble ABS# 0.6 K/ul 05/03/2016 Cbc With Differential Ord2 Eos ABS# 0.2 K/ul 05/03/2016 Cbc With Differential Ord2 Baso ABS# 0.1 K/ul 05/03/2016 Tsh Ord6 hTSH II 0.70 uIU/mL 05/03/2016 Comp Metabolic Vqf117 NA 137 mEq/L 05/03/2016 Comp Metabolic Api689 K 4.3 mEq/L 05/03/2016 Comp Metabolic Maz303 CL 102 mEq/L 05/03/2016 Comp Metabolic Fej204 CO2 25.0 mEq/L 05/03/2016 Comp Metabolic Hrk309 AN ION GAP 14 05/03/2016 Comp Metabolic Uux571 GL UCOSE 87 mg/dL 05/03/2016 Comp Metabolic Maq608 Cr eat 0.8 mg/dL 05/03/2016 Comp Metabolic Lal904 eG FR 76 ml/min/1.73m2 05/03 Comp Metabolic Dxc798 BUN 11 mg/dL 05/03/2016 Comp Metabolic Awr219 B/ C Ratio 13.1 Ratio 05/03/2016 Comp Metabolic Epa221 CA LCIUM 9.3 mg/dL 05/03/2016 Comp Metabolic Fzf985 AL K PHOS 76 U/L 05/03/2016 Comp Metabolic Slk250 T(SGOT) 27 U/L 05/03/2016 Comp Metabolic Yrq040 AL T(SGPT) 25 U/L 05/03/2016 Comp Metabolic Oda893 BI LI T 0.3 mg/dL 05/03/2016 Comp Metabolic Icy972 AL BUMIN 4.1 g/dL 05/03/2016 Comp Metabolic Bnw729 TP RO 7.1 g/dL 05/03/2016 Comp Metabolic Ckk098 GL OB 3.0 g/dL 05/03/2016 Comp Metabolic Qcd564 A/ G Ratio 1.4 Ratio 05/03/2016 Comp Metabolic Rxm376 Os mo 273 mOsmo 05/03/2016 Urine Culture Ucult Comp lete >100,000 col/ml aerobic grow th sent to ref lab 03/17/2015 Culture Urine [id number] URI NE CULTURE SEE NOTES 01/28/2015 Culture Urine [id number] Con tinued Results 01/28/2015 Urine Culture Ucult Comp lete >100,000 col/ml aerobic grow th sent to ref lab 01/26/2015 URINALYSIS NONAUTO W/O SCOPE 95390 Specific Welsh 1.005 DateTime(Free Text in Aprima) URINALYSIS NONAUTO W/O SCOPE 14854 PH 7.5 DateTime(Free Ruben t in ) URINALYSIS NONAUTO W/O SCOPE 48058 GLUCOSE neg DateTime(Free Ruben t in ) URINALYSIS NONAUTO W/O SCOPE 54295 Protein neg DateTime(Free Ruben t in [employer]) URINALYSIS NONAUTO W/O SCOPE 28167 Blood trace DateTime(Free T ext in ) URINALYSIS NONAUTO W/O SCOPE 84031 Bilirubin small DateTime(Free T ext in Apr[employer]) URINALYSIS NONAUTO W/O SCOPE 13443 Ketones neg DateTime(Free Ruben t in Apr[employer]) URINALYSIS NONAUTO W/O SCOPE 99382 Urobilinogen 0.2 DateTime(Free Text in [employer]) URINALYSIS NONAUTO W/O SCOPE 04971 Nitrite neg DateTime(Free Ruben t in Aprima) URINALYSIS NONAUTO W/O SCOPE 24326 Leukocytes moderate DateTime(Free Text in Apr[employer]) Review of Systems System Result Effective Dates Constitutional recent illness 05/02/2016 Constitutional fatigue 1 [...] Result Effective Dates Notes Full Exam - General 1994 Constitutional general [...] clear 10/13/2013 None Full Exam - General 1995 Ears/Nose/Throat [...] clear 12/07/2011 None Procedures Procedure Codes Date TRIAMCINOLONE ACET I [place] NOS CPT-4: F7556Pigalos 05/02/2016 TRIAMCINOLONE ACET I [place] NOS CPT-4: J5059Ahjrngk 10/28/2015 ROCEPHIN, PER 250 MG CPT-4: G2155Odmzvgk 04/19/2015 TRIAMCINOLONE ACET I [place] NOS CPT-4: M9120Jsmdxwa 04/19/2015 URINALYSIS NONAUTO W /O SCOPE CPT-4: 39938Vphalzo 03/15/2015 URINALYSIS NONAUTO W /O SCOPE CPT-4: 71072Exmwbgb 01/25/2015 TRIAMCINOLONE ACET I [place] NOS CPT-4: M6335Cdbzqlf 12/24/2014 THER/PROPH/DIAG INJ SC/IM CPT-4: 49652Tixafnf 12/24/2014 URINALYSIS NONAUTO W /O SCOPE CPT-4: 60846Tzkzbnk 07/16/2012 DRAIN/INJECT JOINT/B URSA CPT-4: 68434Fxxgxpr 12/07/2011 Vital Signs Date Vital 05/02/2016 Blood Pressure 1: 124/74 Code: 8480-6 BMI: 32.4 Code: 53114-0 Heart Rate 1: 107 bpm Height: 5'2" SpO2: 98% Weight: 177 lbs 10/28/2015 Blood Pressure 1: 124/80 Code: 8480-6 BMI: 32.6 Code: 82129-0 Heart Rate 1: 78 bpm Height: 5'2" SpO2: 91% Weight: 178 lbs 04/19/2015 Blood Pressure 1: 110/78 Code: 8480-6 BMI: 31.5 Code: 22473-8 Heart Rate 1: 88 bpm Height: 5'2" SpO2: 96% Weight: 172 lbs 12/24/2014 Blood Pressure 1: 112/72 Code: 8480-6 BMI: 30.4 Code: 97642-5 Heart Rate 1: 88 bpm Height: 5'2" Weight: 166 lbs 10/13/2013 Blood Pressure 1: 104/78 Code: 8480-6 BMI: 30.7 Code: 30106-2 Heart Rate 1: 100 bpm Height: 5'2" [...] Name Status Resu lt Effective Date Notes sinus congestion Onset and Resolution sudden in [...] State s she was sitting in the doctor of dental surgery with the dog, and was slightly twisted-sat [...] Loca tion Codes Date EST. 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 CPT-4: 58606 05/02/2016 ([id number]) [id number] EST. P ATGENA, LEVEL III Diagnosis: Allergic rhinitis due to pollen[ICD10: J30.1] Diagnosis: Otalgia, right ear[ICD10: H92.01] Maci Martinez MD, [facility] CPT- 4: 27953 10/28/2015 ([id number]) [id number] EST. P ATGENA, LEVEL III Diagnosis: Acute maxillary sinusitis, unspecified[ICD10: J01.00] Diagnosis: Allergic rhinitis, unspecified[ICD10: J30.9] Maci Martinez MD, [facility] CPT-4: 05801 04/19/2015 ([id number]) [id number] EST. P ATIENT, LEVEL III Diagnosis: Swelling of eyelid[ICD9: 374.82] Diagnosis: Sunburn[ICD9: 692.71] Maci Martinez MD, [facility] CPT-4: [id number] 12/24/2014 ([id number]) [id number] EST. P ATIENT, LEVEL IV Diagnosis: ESSENTIAL HYPERTENSION[SNOMED: 06236132] Diagnosis: DIABETES TYPE II[SNOMED: 352184490] Diagnosis: ADHD (attention deficit hyperactivity disorder)[ICD9: 314.01] Diagnosis: Depression[ICD9: 311] Joy Martinez MD, [facility] CPT-4: 18109 10/13/2013 ([id number]) 96956 EST. P ATIENT, LEVEL IV Diagnosis: DM W/O COMPLICATION TYPE II, UNCONTROLLED[SNOMED: 45413254] Diagnosis: ESSENTIAL HYPERTENSION[SNOMED: 74626307] Diagnosis: EDEMA[ICD9: 782.3] Joy Martinez MD, [facility] CPT-4: 19409 03/18/2013 ([id number]) 14337 EST. P ATIENT, LEVEL IV Diagnosis: UTI[ICD9: 599.0] Diagnosis: DM W/O COMPLICATION TYPE II, UNCONTROLLED[SNOMED: 22561860] Joy Martinez MD, [facility] CPT-4: 34761 07/16/2012 ([id number]) 88903 EST. P ATIENT, LEVEL III Diagnosis: Uncontrolled narcolepsy[ICD9: 347.00] Diagnosis: ESSENTIAL HYPERTENSION[SNOMED: 31448844] Joy Martinez MD, C CPT-4: 70903 01/17/2012 Office outpatient ne w 30 minutes Diagnosis: Sciatica[ICD9: 724.3] Diagnosis: Chronic back pain[ICD9: 724.5] Diagnosis: ESSENTIAL HYPERTENSION[SNOMED: 33930344] Joy Martinez MD, C CPT-4: 61230 12/07/2011 Plan of Care Planned Activity Notes C odes Status Date Visit Plan: Allergies - chronic - recomm ended pt to use allergy medication as prescribed. Pt has been counseled as to the appropriate use of the medication. Pt to call if allergy symptoms are not controlled with the medication.If using nasal spray, instructions as follows: Nasal spray- use twice daily, one spray per nostril twice daily, after 30 minutes, rinse out nose with saline spray.. Use opposite hand per nostril to spray in the nasal steroid allergy spray.Bronchitis - acute case of bronchitis identified. Pt has been given antibiotics, breathing treatments as appropriate, and pt has been instructed to call if symptoms are not improved, or if symptoms acutely worsen.Diabetes Mellitus - I have recommended for the patient to have follow up labs prior to the next office visit. The patient has been instructed to continue with current medications as previously directed, continue with regular FSBS monitoring to assure continued control of diabetes. Pt to call for any acute concerns, compl aints, or if the blood glucose readings are starting to become less controlled. 05/02/2016 Visit Plan: Allergies - chronic - recomm ended pt to use allergy medication as prescribed. Pt has been counseled as to the appropriate use of the medication. Pt to call if allergy symptoms are not controlled with the medication.If using nasal spray, instructions as follows: Nasal spray- use twice daily, one spray per nostril twice daily, after 30 minutes, rinse out nose with saline spray.. Use opposite hand per nostril to spray in the nasal steroid allergy spray.Bronchitis - acute case of bronchitis identified. Pt has been given antibiotics, breathing treatments as appropriate, and pt has been instructed to call if symptoms are not improved, or if symptoms acutely worsen.Diabetes Mellitus - I have recommended for the patient to have follow up labs prior to the next office visit. The patient has been instructed to continue with current medications as previously directed, continue with regular FSBS monitoring to assure continued control of diabetes. Pt to call for any acute concerns, compl aints, or if the blood glucose readings are starting to become less controlled. 05/02/2016 Appointment: Maci Moreno WPtel: [address] [place], [place] [phone] (15 min) Moderate 05/02/2016 Patient Education: Patient Medication Summary Completed 05/02/2016 Visit Plan: Allergies - right earache - recommended pt to use allergy medication as prescribed. Pt has been counseled as to the appropriate use of the medication. Pt to call if allergy symptoms are not controlled with the medication.If using nasal spray, instructions as follows: Nasal spray- use twice daily, one spray per nostril twice daily, after 30 minutes, rinse out nose with saline spray.. Use opposite hand per nostril to spray in the nasal steroid allergy spray. 10/28/2015 Appointment: Maci Moreno WPtel: [address] [phone] (30 min) Complex 10/28/2015 Patient Education: Patient Medication Summary Completed 10/28/2015 Patient Education: Obesity Completed 10/28/2015 Visit Plan: Sinusitis - Pt has acute inf ection - pain in face, maxillary region, Pt informed to use decongestant, RX given to patient, sinus rinses also recommended. Call if symptoms do not show improvement.Rocephin and kenalog injections today in the office for acute symptoms. 04/19/2015 Appointment: [facility] [phone] (15 min) Moderate 04/19/2015 Patient Education: Patient Medication Summary Completed 04/19/2015 Appointment: Lab Draw 03/15/2015 Patient Education: Patient Medication Summary Completed 03/15/2015 Patient Education: Patient Medication Summary Completed 01/25/2015 Visit Plan: Swelling of eyelids-sunburn reaction-discussed natural and expected course of this diagnosis and to alert me if symptoms do not follow expected course, or if any worse. Kenalog injection today in the office and samples of duexis (ibuprofen and pepcid) provided for patient and instructed on use. Patient and daughter verbalized understanding of plan. 12/24/2014 Visit Plan: Swelling of eyelids-sunburn reaction-discussed natural and expected course of this diagnosis and to alert me if symptoms do not follow expected course, or if any worse. Kenalog injection today in the office and samples of duexis (ibuprofen and pepcid) provided for patient and instructed on use. Patient and daughter verbalized understanding of plan. 12/24/2014 Patient Education: Patient Medication Summary Completed 12/24/2014 Visit Plan: Hypertension - well controll ed - continue with current medications, continue with no added salt diet. Pt has been encouraged to exercise daily.The pt has been advised to call the [...] in situational exposure. No change in current medications.ADHD symptoms - rx for ritalin given to the patient. 2013 Appointment: Joy Martinez WPtel: [facility] Follow up 10/13/2013 Patient Education: Patient Medication Summary Completed 10/13/2013 Patient Education: Hypertension Completed 10/13/2013 Appointment: Maci Moreno WPtel: [phone] Follow up 08/29/2013 Appointment: [facility]el[facility] Follow up 06/23/2013 Visit Plan: Diabetes Mellitus - Uncontro lled - per recent FSBS reports. I have [...] glucose readings are starting to become less controlled.I have recommended for the patient to follow more strictly to the diabetic diet as discussed in clinic to allow for greater blood glucose control.stop metformin Insomnia - Pt has been advised to increase the light in the house during the day, and start dimming the lights during the evening hours.Pt has been advised to cut out caffiene after 5pm.Daytime napping worsens night time insomnia. Edema - pt has been advised to elevate legs to prevent dependent edema, compression has been recommended to help to naturally decrease peripheral edema. Diuretic use has been discussed and pt has been instructed in appropriate use of such medication as necessary to further attempt to reduce peripheral edema. 03/18/2013 Appointment: Joy Martinez WPtel: [facility] Follow up 03/18/2013 Patient Education: Patient Medication Summary Completed 03/18/2013 Patient Education: Hypertension Completed 03/18/2013 Appointment: Joy Martinez WPtel: [address] [place], [place] [id number] Follow up 10/15/2012 Appointment: Maci Moreno WPtel: [phone] Diabetic education 07/22/2012 Visit Plan: Diabetes Mellitus - Uncontr olled - per recent FSBS reports. I have [...] glucose readings are starting to become less controlled.I have recommended for the patient to follow more strictly to the diabetic diet as discussed in clinic to allow for greater blood glucose control.UTI - pt with positive urinalysis - culture sent if appropriate. Antibiotic electronically prescribed to pt's pharmacy of choice. Pt to call if symptoms do not improve. 2012 Appointment: Joy Martinez WPtel: [facility] [facility] follow up 07/16/2012 Patient Education: Patient Medication Summary Completed 07/16/2012 Visit Plan: Daytime hypersomnolence/narc olepsy - recommended pt to start on ritalin and will follow her sypmtoms on the medication. She is to check her blood pressure dilligently and call if her blood pressure starts to become elevated on the ritalin. Hypertension - well controlled - continue with current medications, continue with no added salt diet. Pt has been encouraged to exercise daily.The pt has been advised to call the office if there are any acute concerns about change in blood pressure readings at home. 01/17/2012 Appointment: [facility] Other 01/17/2012 Patient Education: Patient Medication Summary Completed 01/17/2012 Patient Education: High Blood Pressure: Essential Hypertension Completed 01/17/2012 Visit Plan: Hypertension - well controll ed - continue with current medications, continue with no added salt diet. Pt has been encouraged to exercise daily.The pt has been advised to call the [...] HS 12/07/2011 Appointment: Maci Moreno [facility]el: [facility] [phone] New Patient 12/07/2011 Patient Education: Patient Medication Summary Completed 12/07/2011 Patient Education: High Blood Pressure: Essential Hypertension Completed 12/07/2011 Instructions Comment . Hypertension - wel l [...] rx for ritalin given to the patient. Apply heat to low ba ck this [...] elavil to 100mg po Q HS . Swelling of eyelid s-sunburn reaction-discussed natural [...] are starting to become less controlled. . Daytime hypersomno lence/narcolepsy - recommended pt [...] to further attempt to reduce peripheral edema. kenalog injection to day start prednisone tomorrow [...]
--- OUTSIDE RECORDS SUMMARY | 2019-11-02 07:02 | XMS REPORT | CCD ---
Author Author Lianne Martinez Organization [facility] Address [address] [place] [address] Phone Care Team Providers Care Manager Basketball Name Role Phone PP Unavailable CCM Unavailable Summary Purpose Interface Exchange Insurance Providers Payer name Policy type / Coverage type Covered green party ID Effective Begin Date Effective End Date Blue Cross Blue Shield [facility] e Cross/Blue Shield [id number] 2015 Un known Family history Brother Diagnosis [...] M arried 12/07/[address]: 304063109 Never smoker 12/07/2011 Alcohol history Unknown occasionally [...] Date Stop Date Sta tus Fill Instructions amitriptyline 100 mg tablet RxNorm: 222765 TAKE ONE TABLET BY [facility] AT BEDTIME 12/08/2016 06/05/2017 Ac tive Toprol XL 25 mg tabl et,extended release RxNorm: 472824 TAKE ONE TABLET BY MO UTH ONCE DAILY 11/23/2016 01/21/2017 Active Januvia 50 mg tablet RxNorm: 289229 TAKE ONE TABLET BY MOUTH ONCE DAILY 11/09/2016 03/08/2017 Ac tive Bactrim 400 mg-80 mg tablet RxNorm: 911405 TAKE ONE TABLET BY MO UTH NEEDED FOR SEXUAL INTERCOURSE FOR UTI PREVENTION 09/19/2016 12/17/2016 Active amitriptyline 100 mg tablet RxNorm: 617446 TAKE ONE TABLET BY MO UT AT BEDTIME 08/31/2016 11/28/2016 In active pantoprazole 40 mg t ablet,delayed release RxNorm: 804230 Tablet(s) TAKE 1 TABL ET BY MOUTH ONCE DAILY 08/16/2016 05/12/2017 Active estradiol 0.5 mg tablet RxNorm: 247307 TAKE ONE TABLET BY MOUTH ONCE DAILY 08/13/2016 08/07/2017 Ac tive amitriptyline 100 mg tablet RxNorm: 509597 TAKE ONE TABLET BY [facility] AT BEDTIME 07/31/2016 08/29/2016 In active ProAir HFA 90 mcg/ac tuation aerosol inhaler RxNorm: 684788 2 inhale INH PRN as n eeded 05/02/2016 No Stop Date Active ciprofloxacin 0.3 % eye drops RxNorm: 394109 Drop(s) OPH 2 drops e very 2 hours while awake for days 1-2 and 2 drops every 4 hours for days 3 - 7 05/02/2016 No Stop Date Active Zithromax Z-Nick 250 mg tablet RxNorm: 023606 1 Tablet(s) PO UD 05/02/2016 No Stop Date Active albuterol sulfate 2. 5 mg/3 mL (0.083 %) solution for nebulization RxNorm: 997324 1 Milliliter(s) INH QID as needed No Stop Date Active Kenalog 40 mg/mL kat pension for injection RxNorm: 3355175 Milliliter(s) Inj 05/02/2016 05/02/2016 In active prednisone 20 mg tablet RxNorm: 348922 1 Tablet(s) PO BID 05/02/2016 05/06/2016 Inactive estradiol 0.5 mg tablet RxNorm: 952419 1 TABLET(S) PO DAILY 03/01/2016 02/23/2017 Active TAKE 1 TABLET BY MOUTH DAILY amitriptyline 100 mg tablet RxNorm: 805337 1 TABLET(S) PO QHS 03/01/2016 07/30/2016 Inactive estradiol 0.5 mg tablet RxNorm: 465107 TAKE ONE TABLET BY MOUTH ONCE DAILY 03/01/2016 05/29/2016 In active Celexa 20 mg tablet RxNorm: 476176 TAKE ONE & ONE-HALF TABLETS BY MOUTH ONC E DAILY 12/03/2015 11/26/2016 Inactive amoxicillin 500 mg c apsule RxNorm: 854303 1 Capsule(s) PO BID 11/05/2015 11/14/2015 Inactive amoxicillin 500 mg c apsule RxNorm: 616064 1 Capsule(s) PO BID 11/05/2015 11/04/2015 Inactive Ritalin 10 mg tablet RxNorm: 2133456 1 Tablet(s) PO BID 10/28/2015 11/26/2015 Inactive [SAVINGS FOR NON-COVERED DRUGS -- BIN:00 3585, PCN: ASPROD1, Group: XXXXX, ID# [id number], Questions: . THIS IS NOT INSURANCE.] Kenalog 40 mg/mL kat pension for injection RxNorm: 0295737 Milliliter(s) Inj 10/28/2015 10/28/2015 In active Januvia 50 mg tablet RxNorm: 646125 Tablet(s) 1 TABLET(S) PO DAILY 10/28/2015 10/21/2016 In active Toprol XL 25 mg tabl et,extended release RxNorm: 095744 Tablet(s) 1 TABLET(S) PO DAILY 10/28/2015 10/21/2016 Inactive prednisone 20 mg tablet RxNorm: 260763 1 Tablet(s) PO BID 10/28/2015 11/01/2015 Inactive Lasix 40 mg tablet RxNorm: 183840 TAKE ONE TABLET BY MOUTH ONCE DAILY. MAY TAKE EXTRA TABLET NEEDED. 09/27/2015 12/25/2015 Inactive Bactrim 400 mg-80 mg tablet RxNorm: 015217 Tablet(s) 1 TABLET(S) PO PRN SEXUAL INTERCOURSE, UTI PREVENTATIVE 09/22/2015 12/20/2015 Inactive pantoprazole 40 mg t ablet,delayed release RxNorm: 605566 TAKE 1 TABLET BY MOUT H ONCE DAILY 07/29/2015 01/24/2016 Inactive amitriptyline 100 mg tablet RxNorm: 511701 Tablet(s) 1 TABLET(S) PO QHS 07/26/2015 11/22/2015 In active pantoprazole 40 mg t ablet,delayed release RxNorm: 409219 TAKE 1 TABLET BY MOUT H ONCE DAILY 07/21/2015 07/28/2015 Inactive Bactrim 400 mg-80 mg tablet RxNorm: 381489 1 TABLET(S) PO PRN SE XUAL INTERCOURSE, UTI PREVENTATIVE 06/21/2015 09/18/2015 Inactive Ritalin 10 mg tablet RxNorm: 3223161 1 Tablet(s) PO BID 04/19/2015 05/18/2015 Inactive [SAVINGS FOR NON-COVERED DRUGS -- BIN:00 1535, PCN: ASPROD1, Group: XXXXX, ID# [id number], Questions: . THIS IS NOT INSURANCE.] Keflex 500 mg capsule RxNorm: 788530 1 Capsule(s) PO TID 04/19/2015 04/28/2015 Inactive Kenalog 40 mg/mL kat pension for injection RxNorm: 1069865 Milliliter(s) Inj 04/19/2015 04/19/2015 In active ceftriaxone 500 mg s olution for injection RxNorm: 4846127 Inj 04/19/2015 04/19/2015 Inactive Aldactone 25 mg tablet RxNorm: 300367 1 TABLET(S) PO BID 03/26/2015 12/20/2015 Inactive amitriptyline 100 mg tablet RxNorm: 881887 1 TABLET(S) PO QHS 03/26/2015 07/25/2015 Inactive Lasix 40 mg tablet RxNorm: 162745 1 Tablet(s) PO daily 03/26/2015 09/21/2015 Inactive may take an extra tablet as needed Levaquin 500 mg tablet RxNorm: 998285 1 Tablet(s) PO daily 03/15/2015 03/21/2015 Inactive Levaquin 500 mg tablet RxNorm: 964901 1 Tablet(s) PO daily 03/15/2015 03/14/2015 Inactive hydrocodone 5 mg-devang taminophen 325 mg tablet RxNorm: 444599 one or two tabs po ev ey six hours prn Tablet(s) PO 02/26/2015 03/27/2015 Inactive hydrocodone 5 mg-devang taminophen 325 mg tablet RxNorm: 040098 one or two tabs po ev ey six hours prn Tablet(s) PO 02/26/2015 02/25/2015 Inactive amitriptyline 100 mg tablet RxNorm: 731274 1 TABLET(S) PO QHS 02/22/2015 01/17/2016 Inactive Keflex 500 mg capsule RxNorm: 090968 1 Capsule(s) PO TID 01/25/2015 01/24/2015 Inactive Keflex 500 mg capsule RxNorm: 353457 1 Capsule(s) PO TID 01/25/2015 01/31/2015 Inactive Bactrim 400 mg-80 mg tablet RxNorm: 818687 1 Tablet(s) PO PRN se xual intercourse, uti preventative 01/04/2015 01/03/2015 Inactive Bactrim 400 mg-80 mg tablet RxNorm: 842584 1 Tablet(s) PO PRN se xual intercourse, uti preventative 01/04/2015 06/20/2015 Inactive Ritalin 10 mg tablet RxNorm: 2761178 1 Tablet(s) PO BID 12/24/2014 01/22/2015 Inactive [SAVINGS FOR NON-COVERED DRUGS -- BIN:00 3585, PCN: ASPROD1, Group: XXXXX, ID# [id number], Questions: . THIS IS NOT INSURANCE.] Kenalog 40 mg/mL kat pension for injection RxNorm: 2349290 Milliliter(s) Inj 12/24/2014 12/24/2014 In active estradiol 0.5 mg tablet RxNorm: 406212 1 Tablet(s) PO daily 12/16/2014 02/29/2016 Inactive TAKE 1 TABLET BY MOUTH DAILY pantoprazole 40 mg t ablet,delayed release RxNorm: 945637 1 Tablet(s) daily 10/26/2014 07/20/2015 In active [SAVINGS FOR NON-COVERED DRUGS -- BIN:00 3585, PCN: ASPROD1, Group: XXXXX, ID# [id number], Questions: . THIS IS NOT INSURANCE.] Ritalin 10 mg tablet RxNorm: 9806303 1 Tablet(s) PO BID 10/23/2014 11/21/2014 Inactive [SAVINGS FOR NON-COVERED DRUGS -- BIN:00 3585, PCN: ASPROD1, Group: XXXXX, ID# [id number], Questions: . THIS IS NOT INSURANCE.] pantoprazole 40 mg t ablet,delayed release RxNorm: 710912 3/4 Tablet(s) daily 10/23/2014 10/25/2014 In active [SAVINGS FOR NON-COVERED DRUGS -- BIN: 3585, PCN: ASPROD1, Group: XXXXX, ID# [id number], Questions: . THIS IS NOT INSURANCE.] Toprol XL 25 mg tabl et,extended release RxNorm: 632793 1 TABLET(S) PO DAILY 10/20/2014 10/14/2015 In active Januvia 50 mg tablet RxNorm: 802598 1 TABLET(S) PO DAILY 10/20/2014 10/14/2015 Inactive samples and script Celexa 20 mg tablet RxNorm: 363786 1.5 TABLET(S) PO DAILY TAKE 1 & 1/2 TABL ETS BY MOUTH DAILY 10/20/2014 10/14/2015 Inactive omeprazole 20 mg cap maco,delayed release RxNorm: 129625 1 Capsule(s) PO BID 09/25/2014 09/24/2014 In active omeprazole 20 mg cap maco,delayed release RxNorm: 219522 1 Capsule(s) PO BID 09/25/2014 10/22/2014 In active DC pantoprazole [SAVINGS FOR NON-COVERED DRUGS -- BIN:547556, PCN: ASPROD1, Group: XXXXX, ID# [id number], Questions: . THIS IS NOT INSURANCE.] pantoprazole 40 mg t ablet,delayed release RxNorm: 976242 1 TABLET(S) PO BID 09/24/2014 09/24/2014 In active omeprazole 20 mg tab let,delayed release RxNorm: 592033 1 Tablet(s) PO BID 08/31/2014 08/30/2014 In active dc pantoprazole 40mg omeprazole 20 mg tab let,delayed release RxNorm: 528350 1 Tablet(s) PO BID 08/31/2014 08/30/2014 In active omeprazole 20 mg tab let,delayed release RxNorm: 428622 1 Tablet(s) PO daily 08/31/2014 10/27/2015 In active change to daily Ritalin 10 mg tablet RxNorm: 3759073 1 Tablet(s) PO BID 07/20/2014 08/18/2014 Inactive [SAVINGS FOR UNINSURED PATIENTS -- BIN:0 96648, PCN: ASPROD1, Group: [id number], ID# [id number], Process claim through [employer], for questions: . THIS IS NOT INSURANCE.] amitriptyline 100 mg tablet RxNorm: 943441 1 TABLET(S) PO QHS 04/27/2014 02/21/2015 Inactive Ritalin 10 mg tablet RxNorm: 1690086 1 Tablet(s) PO BID 02/09/2014 06/08/2014 Inactive [SAVINGS FOR UNINSURED PATIENTS -- BIN:0 79114, PCN: ASPROD1, Group: AME08, ID# [id number], Process claim through [employer], for questions: . THIS IS NOT INSURANCE.] ProAir HFA 90 mcg/ac tuation aerosol inhaler RxNorm: 744471 2 inhale INH PRN 11/19/2013 10/27/2015 In active amitriptyline 100 mg tablet RxNorm: 838477 Tablet(s) PO TAKE 1 T ABLET BY MOUTH AT BEDTIME 10/27/2013 No Stop Date Active Ritalin 10 mg tablet RxNorm: 9883477 1 Tablet(s) PO BID 10/13/2013 02/08/2014 Inactive estradiol 0.5 mg tablet RxNorm: 857647 1 Tablet(s) PO daily 10/13/2013 12/15/2014 Inactive TAKE 1 TABLET BY MOUTH DAILY pantoprazole 40 mg t ablet,delayed release RxNorm: 502113 1 Tablet(s) PO BID 10/13/2013 08/30/2014 In active Januvia 50 mg tablet RxNorm: 176803 1 Tablet(s) PO daily 10/13/2013 10/07/2014 Inactive samples and script Toprol XL 25 mg tabl et,extended release RxNorm: 530617 1 Tablet(s) PO daily 10/13/2013 10/07/2014 In active Celexa 20 mg tablet RxNorm: 333343 1.5 Tablet(s) PO daily TAKE 1 & 1/2 TABL ETS BY MOUTH DAILY 10/13/2013 10/07/2014 Inactive Aldactone 25 mg tablet RxNorm: 217857 1 Tablet(s) PO BID 10/13/2013 10/07/2014 Inactive Januvia 50 mg tablet RxNorm: 505191 1 Tablet(s) PO daily 10/07/2013 10/12/2013 Inactive samples and script Celexa 20 mg tablet RxNorm: 794054 1 1/2 Tablet(s) PO daily TAKE 1 & 1/2 TA BLETS BY MOUTH DAILY 05/05/2013 10/12/2013 Inactive pantoprazole 40 mg t ablet,delayed release RxNorm: 844027 1 Tablet(s) PO daily 04/30/2013 10/12/2013 In active amitriptyline 100 mg tablet RxNorm: 147564 1 Tablet(s) PO QHS 04/28/2013 10/26/2013 Inactive Ritalin 10 mg tablet RxNorm: 8928266 1 Tablet(s) PO BID 04/18/2013 05/17/2013 Inactive Kenalog 40 mg/mL Kat p for Injection RxNorm: 8970484 1 Milliliter(s) Inj 03/18/2013 03/18/2013 In active amitriptyline 100 mg tablet RxNorm: 443986 1 Tablet(s) PO QHS 03/18/2013 04/27/2013 Inactive Ritalin 10 mg tablet RxNorm: 0371065 1 Tablet(s) PO BID 02/21/2013 03/17/2013 Inactive Toprol XL 25 mg tabl et,extended release RxNorm: 229659 1 Tablet(s) PO daily 01/23/2013 07/21/2013 In active amitriptyline 100 mg tablet RxNorm: 841947 1 Tablet(s) PO QHS 01/23/2013 03/17/2013 Inactive Celexa 20 mg tablet RxNorm: 563282 Tablet(s) PO TAKE 1 & 1/2 TABLETS BY HERLINDA TH DAILY 12/13/2012 05/04/2013 Inactive Lasix 40 mg tablet RxNorm: 323287 1 Tablet(s) PO daily 12/13/2012 02/10/2013 Inactive and prn amitriptyline 100 mg tablet RxNorm: 313595 1 Tablet(s) PO QHS 10/21/2012 01/18/2013 Inactive Toprol XL 25 mg tabl et,extended release RxNorm: 345326 1 Tablet(s) PO daily 09/17/2012 01/14/2013 In active potassium chloride E R 10 mEq tablet,extended release RxNorm: 204520 1 Tablet(s) PO daily 08/19/2012 10/13/2013 Inactive Lasix 40 mg tablet RxNorm: 190882 1 Tablet(s) PO daily 08/19/2012 12/12/2012 Inactive and prn Ritalin 10 mg tablet RxNorm: 1792253 1 Tablet(s) PO BID 07/16/2012 10/13/2012 Inactive ciprofloxacin 500 mg tablet RxNorm: 908659 1 Tablet(s) PO BID 07/16/2012 07/22/2012 Inactive Celexa 20 mg tablet RxNorm: 474431 Tablet(s) PO TAKE 1 & 1/2 TABLETS BY HERLINDA DAILY 07/15/2012 12/12/2012 Inactive GE100 Blood Glucose Test Strip RxNorm: 1 Miscellaneous BID 07/11/2012 08/04/2013 Inactive and lancets Aldactone 25 mg tablet RxNorm: 033449 1 Tablet(s) PO BID 03/20/2012 03/14/2013 Inactive estradiol 0.5 mg tablet RxNorm: 767273 1 Tablet(s) PO daily 03/15/2012 06/07/2013 Inactive TAKE 1 TABLET BY MOUTH DAILY amitriptyline 100 mg tablet RxNorm: 995357 1 Tablet(s) PO QHS 03/13/2012 10/08/2012 Inactive amitriptyline 100 mg tablet RxNorm: 598037 1 Tablet(s) PO QHS 12/07/2011 01/05/2012 Inactive Kenalog 40 mg/mL Kat p for Injection RxNorm: 9608629 1 Milliliter(s) Inj 12/07/2011 12/07/2011 In active Provigil 200 mg Tab RxNorm: 386040 1 Tablet(s) PO QAM 12/07/2011 01/05/2012 Inactive Fish Oil 1,000 mg ca psule RxNorm: 1 Capsule(s) PO BID No Start Date 10/27/2015 Inactive Provigil 200 mg Tab RxNorm: 112476 1 Tablet(s) PO daily No Start Date 10/13/2013 Inactive Lasix 40 mg tablet RxNorm: 445635 1 Tablet(s) PO BID No Start Date 03/25/2015 Inactive Toprol XL 25 mg tabl et,extended release RxNorm: 323942 1 Tablet(s) PO daily No Start Date 09/16/2012 Inactive Prilosec 20 mg Capsu le, delayed release RxNorm: 165674 1 Capsule(s) PO daily No Start Date 10/13/2013 Inactive cyclobenzaprine 10 m g Tab RxNorm: 640973 1 Tablet(s) PO Q8 PRN No Start Date 03/17/2013 Inactive GE100 Blood Glucose Test Strip RxNorm: 1 Miscellaneous BID No Start Date 07/10/2012 Inactive pantoprazole 40 mg t ablet,delayed release RxNorm: 568799 1 Tablet(s) PO daily No Start Date 04/29/2013 Inactive Januvia 50 mg tablet RxNorm: 671945 1 Tablet(s) PO daily No Start Date 10/06/2013 Inactive samples and script Aldactone 25 mg tablet RxNorm: 994753 1 Tablet(s) PO BID No Start Date 03/19/2012 Inactive amitriptyline 100 mg Tab RxNorm: 148895 1 Tablet(s) PO QHS No Start Date 12/06/2011 Inactive Celexa 20 mg tablet RxNorm: 509097 1.5 Tablet(s) PO daily No Start Date 07/14/2012 Inactive potassium chloride E R 10 mEq tablet,extended release RxNorm: 181494 1 Tablet(s) PO BID No Start Date 08/18/2012 Inactive prednisone 20 mg Tab RxNorm: 434515 Tablet(s) PO UD 3 tabs x 2 days, 2 tabs x 2 days, 1 tab x 2 days, 1/2 tab x 2 days, 1/2 tab QOD x 2 doses then stop No Start Date 10/13/2013 Inactive estradiol 0.5 mg tablet RxNorm: 281759 1 Tablet(s) PO daily No Start Date 03/15/2012 Inactive Aldactone 25 mg tablet RxNorm: 538913 1 Tablet(s) PO BID No Start Date 10/12/2013 Inactive Lasix 40 mg tablet RxNorm: 811303 1 Tablet(s) PO BID No Start Date 08/18/2012 Inactive amitriptyline 75 mg Tab RxNorm: 202333 1 Tablet(s) PO QHS No Start Date 10/13/2013 Inactive Medication Administered Medication Codes Instruc tions Start Date Status Kenalog 40 mg/mL suspension for injection RxNorm: 6420698 Milliliter 05/02/2016 No longer Active Kenalog 40 mg/mL suspension for injection RxNorm: 2533895 Milliliter 10/28/2015 No longer Active ceftriaxone 500 mg solution for injection RxNorm: 0412448 04/19/2015 No longer A ctive Kenalog 40 mg/mL suspension for injection RxNorm: 5969358 Milliliter 04/19/2015 No longer Active Kenalog 40 mg/mL suspension for injection RxNorm: 8828009 Milliliter 12/24/2014 No longer Active Kenalog 40 mg/mL Susp for Injection RxNorm: 8188621 1Milliliter 03/18/2013 N o longer Active Kenalog 40 mg/mL Susp for Injection RxNorm: 1745475 1Milliliter 12/07/2011 N o longer Active Immunizations [...] disorder) ICD-9: 314.01 10/13/2013 ESSENTIAL HYPERTENSION SNOMED: 11148 000 ICD-9: 401.9 10/13/2013 Depression ICD-9: 311 DIABETES TYPE II SNOMED: 444420851 ICD-9: 250.00 10/13/2013 EDEMA ICD-9: 782.3 03/18 DM W/O COMPLICATION TYPE II, UNCONTROLLED SNOMED: 29038948 ICD-9: 250.02 03/18/2013 Uncontrolled narcolepsy ICD-9: 347.00 [...] Code Item Item Code Result Date Prolactin 367332 PROLACT IN 4.5 ng/mL 05/04/2016 %Hba1C Mjq634 % HbA1c 47307-2 5.9 % 05/03/2016 %Hba1C Muk878 Gluc Ave 123 mg/dL 05/03/2016 Cbc With [...] 32.3 pg 05/03/2016 Cbc With Differential Ord2 Jenkins% 7.0 % 05/03/2016 Cbc With Differential Ord2 [...] 2.38 K/ul 05/03/2016 Cbc With Differential Ord2 Jenkins ABS# 0.6 K/ul 05/03/2016 Cbc With Differential Ord2 Eos ABS# 0.2 K/ul 05/03/2016 Cbc With Differential Ord2 Baso ABS# 0.1 K/ul 05/03/2016 Tsh Ord6 hTSH II 0.70 uIU/mL 05/03/2016 Comp Metabolic Hxw254 NA 137 mEq/L 05/03/2016 Comp Metabolic Slt985 K 4.3 mEq/L 05/03/2016 Comp Metabolic Vvw695 CL 102 mEq/L 05/03/2016 Comp Metabolic Sgc639 CO2 25.0 mEq/L 05/03/2016 Comp Metabolic Dgr414 AN ION GAP 14 05/03/2016 Comp Metabolic Gkr278 GL UCOSE 87 mg/dL 05/03/2016 Comp Metabolic Owd486 Cr eat 0.8 mg/dL 05/03/2016 Comp Metabolic Ozr619 eG FR 76 ml/min/1.73m2 05/03 Comp Metabolic Wcn684 BUN 11 mg/dL 05/03/2016 Comp Metabolic Jhm357 B/ C Ratio 13.1 Ratio 05/03/2016 Comp Metabolic Fbf264 CA LCIUM 9.3 mg/dL 05/03/2016 Comp Metabolic Abl335 AL K PHOS 76 U/L 05/03/2016 Comp Metabolic Fhd585 T(SGOT) 27 U/L 05/03/2016 Comp Metabolic Vnh108 AL T(SGPT) 25 U/L 05/03/2016 Comp Metabolic Gih720 BI LI T 0.3 mg/dL 05/03/2016 Comp Metabolic Eob602 AL BUMIN 4.1 g/dL 05/03/2016 Comp Metabolic Ryk587 TP RO 7.1 g/dL 05/03/2016 Comp Metabolic Dhr391 GL OB 3.0 g/dL 05/03/2016 Comp Metabolic Oaj474 A/ G Ratio 1.4 Ratio 05/03/2016 Comp Metabolic Fxo662 Os mo 273 mOsmo 05/03/2016 Urine Culture Ucult Comp lete >100,000 col/ml aerobic grow th sent to ref lab 03/17/2015 Culture Urine [id number] URI NE CULTURE SEE NOTES 01/28/2015 Culture Urine [id number] Con tinued Results 01/28/2015 Urine Culture Ucult Comp lete >100,000 col/ml aerobic grow th sent to ref lab 01/26/2015 URINALYSIS NONAUTO W/O SCOPE 74681 Specific Lilly 1.005 DateTime(Free Text in Aprima) URINALYSIS NONAUTO W/O SCOPE 73516 PH 7.5 DateTime(Free Ruben t in Aprima) URINALYSIS NONAUTO W/O SCOPE 54053 GLUCOSE neg DateTime(Free Ruben t in Aprima) URINALYSIS NONAUTO W/O SCOPE 91536 Protein neg DateTime(Free Ruben t in Aprima) URINALYSIS NONAUTO W/O SCOPE 72536 Blood trace DateTime(Free T ext in Aprima) URINALYSIS NONAUTO W/O SCOPE 53546 Bilirubin small DateTime(Free T ext in Aprima) URINALYSIS NONAUTO W/O SCOPE 29719 Ketones neg DateTime(Free Ruben t in Aprima) URINALYSIS NONAUTO W/O SCOPE 43308 Urobilinogen 0.2 DateTime(Free Text in Aprima) URINALYSIS NONAUTO W/O SCOPE 33572 Nitrite neg DateTime(Free Ruben t in Aprima) URINALYSIS NONAUTO W/O SCOPE 91920 Leukocytes moderate DateTime(Free Text in Aprima) Review [...] accomodation 03/18/2013 None Full Exam - General 1994 [...] time 07/16/2012 None Full Exam - General 1995 Ears/Nose/Throat oral cavity/pharynx/larynx Overall: no masses 01/17/2012 [...] Date TRIAMCINOLONE ACET I [place] NOS CPT-4: E5473Anoeeoc 05/02/2016 TRIAMCINOLONE ACET I [place] NOS CPT-4: N4798Vkidrkv 10/28/2015 ROCEPHIN, PER 250 MG CPT-4: F9030Dislbrz 04/19/2015 TRIAMCINOLONE ACET I [place] NOS CPT-4: X8043Baxscai 04/19/2015 URINALYSIS NONAUTO W /O SCOPE CPT-4: 43295Kdozeth 03/15/2015 URINALYSIS NONAUTO W /O SCOPE CPT-4: 72601Uvirfaa 01/25/2015 TRIAMCINOLONE ACET I [place] NOS CPT-4: P6037Cndxmgq 12/24/2014 THER/PROPH/DIAG INJ SC/IM CPT-4: 27604Oiaqgox 12/24/2014 URINALYSIS NONAUTO W /O SCOPE CPT-4: 50414Wsvjvjt 07/16/2012 DRAIN/INJECT JOINT/B URSA CPT-4: 76418Uhprcsr 12/07/2011 Vital Signs Date Vital 05/02/2016 Blood Pressure 1: 124/74 Code: 8480-6 BMI: 32.4 Code: 83003-0 Heart Rate 1: 107 bpm Height: 5'2" SpO2: 98% Weight: 177 lbs 10/28/2015 Blood Pressure 1: 124/80 Code: 8480-6 BMI: 32.6 Code: 25008-3 Heart Rate 1: 78 bpm Height: 5'2" SpO2: 91% Weight: 178 lbs 04/19/2015 Blood Pressure 1: 110/78 Code: 8480-6 BMI: 31.5 Code: 23115-8 Heart Rate 1: 88 bpm Height: 5'2" SpO2: 96% Weight: 172 lbs 12/24/2014 Blood Pressure 1: 112/72 Code: 8480-6 BMI: 30.4 Code: 40357-8 Heart Rate 1: 88 bpm Height: 5'2" Weight: 166 lbs 10/13/2013 Blood Pressure 1: 104/78 Code: 8480-6 BMI: 30.7 Code: 98345-5 Heart Rate 1: 100 bpm Height: 5'2" [...] State s she was sitting in the pattern drum maker with the dog, and was slightly twisted-sat [...] of pituitary gland[ICD10: E23.6] [facility] CPT-4: 49590 05/02/2016 ([id number]) 25422 EST. P ATIENT, LEVEL III Diagnosis: Allergic rhinitis due to pollen[ICD10: J30.1] Diagnosis: Otalgia, right ear[ICD10: H92.01] [facility] CPT- 4: 44217 10/28/2015 ([id number]) 82155 EST. P ATIENT, LEVEL III Diagnosis: Acute maxillary sinusitis, unspecified[ICD10: J01.00] Diagnosis: Allergic rhinitis, unspecified[ICD10: J30.9] [facility] CPT-4: 13705 04/19/2015 ([id number]) 35424 EST. P ATIENT, LEVEL III Diagnosis: Swelling of eyelid[ICD9: 374.82] Diagnosis: Sunburn[ICD9: 692.71] Maci Martinez MD, [facility] CPT-4: 51068 12/24/2014 ([id number]) 51795 EST. P ATIENT, LEVEL IV Diagnosis: ESSENTIAL HYPERTENSION[SNOMED: 21357887] Diagnosis: DIABETES TYPE II[SNOMED: 371073900] Diagnosis: ADHD (attention deficit hyperactivity disorder)[ICD9: 314.01] Diagnosis: Depression[ICD9: 311] Joy [facility] MD, [facility] CPT-4: 31420 10/13/2013 ([id number]) 61582 EST. P ATIENT, LEVEL IV Diagnosis: DM W/O COMPLICATION TYPE II, UNCONTROLLED[SNOMED: 33638007] Diagnosis: ESSENTIAL HYPERTENSION[SNOMED: 21929415] Diagnosis: EDEMA[ICD9: 782.3] Joy Martinez MD, [facility] CPT-4: 79601 03/18/2013 ([id number]) 59637 EST. P ATIENT, LEVEL IV Diagnosis: UTI[ICD9: 599.0] Diagnosis: DM W/O COMPLICATION TYPE II, UNCONTROLLED[SNOMED: 00037427] Joy Martinez MD, [facility] CPT-4: 62281 07/16/2012 ([id number]) 67405 EST. P ATIENT, LEVEL III Diagnosis: Uncontrolled narcolepsy[ICD9: 347.00] Diagnosis: ESSENTIAL HYPERTENSION[SNOMED: 31373685] [facility] CPT-4: 31031 01/17/2012 Office outpatient ne w 30 minutes Diagnosis: Sciatica[ICD9: 724.3] Diagnosis: Chronic back pain[ICD9: 724.5] Diagnosis: ESSENTIAL HYPERTENSION[SNOMED: 10951279] [facility] CPT-4: 81206 12/07/2011 Plan of Care Planned Activity Notes [...] less controlled. 05/02/2016 Appointment: [phone] (15 min) Moderate 05/02/2016 Patient Education: Patient [...] spray. 10/28/2015 Appointment: Maci Moreno WPtel: [phone] [phone] (30 min) Complex 10/28/2015 Patient Education: Patient [...] acute symptoms. 04/19/2015 Appointment: Maci Moreno WPtel: [phone] [phone] (15 min) Moderate 04/19/2015 Patient Education: Patient [...] the patient. 2013 Appointment: Joy Martinez WPtel: [phone] [facility] Follow up 10/13/2013 Patient Education: Patient Medication Summary Completed 10/13/2013 Patient Education: Hypertension Completed 10/13/2013 Appointment: Maci Moreno WPtel: [phone] [phone] Follow up 08/29/2013 Appointment: Joy Martinez WPtel: [facility] Follow up 06/23/2013 Visit Plan: Diabetes Mellitus [...] peripheral edema. 03/18/2013 Appointment: Joy Martinez WPtel: [address] [place], [place] [phone] Follow up 03/18/2013 Patient Education: Patient Medication Summary Completed 03/18/2013 Patient Education: Hypertension Completed 03/18/2013 Appointment: Joy Martinez WPtel: [address] [place], [place] [phone] Follow up 10/15/2012 Appointment: Maci Moreno WPtel: [address] [place], [place] [id number] Diabetic education 07/22/2012 Visit Plan: Diabetes Mellitus [...] not improve. 2012 Appointment: Joy Martinez WPtel: [facility] [facility] follow up 07/16/2012 Patient Education: Patient [...] at home. 01/17/2012 Appointment: [facility] [id number] [facility] [place] Other 01/17/2012 Patient Education: Patient Medication Summary [...] Q HS 12/07/2011 [facility]ment: [facility] [address] [facility] New Patient 12/07/2011 Patient Education: Patient Medication [...]
--- OUTSIDE RECORDS SUMMARY | 2019-11-02 07:03 | XMS REPORT | CCD ---
Author Author Linane Martinez Organization [facility] Address [address] [place] [address] Phone Care Team Providers Care Director Of Automation Name Role Phone PP Unavailable CCM Unavailable Summary Purpose Interface Exchange Insurance Providers Payer name Policy type / Coverage type Covered republican ID Effective Begin Date Effective End Date Blue Cross Blue Shield [facility] e Cross/Blue Shield [id number] 2015 Un known Family history Brother Diagnosis [...] M arried 12/07/[address]: 899081636 Never smoker 12/07/2011 Alcohol history Unknown occasionally [...] Date Stop Date Sta tus Fill Instructions Toprol XL 25 mg tabl et,extended release RxNorm: 572962 TAKE ONE TABLET BY [facility] ONCE DAILY 11/23/2016 01/21/2017 Active Januvia 50 mg tablet RxNorm: 616280 TAKE ONE TABLET BY MOUTH ONCE DAILY 11/09/2016 03/08/2017 Ac tive Bactrim 400 mg-80 mg tablet RxNorm: 124692 TAKE ONE TABLET BY [facility] NEEDED FOR SEXUAL INTERCOURSE FOR UTI PREVENTION 09/19/2016 12/17/2016 Active amitriptyline 100 mg tablet RxNorm: 235992 TAKE ONE TABLET BY [facility] AT BEDTIME 08/31/2016 11/28/2016 Ac tive pantoprazole 40 mg t ablet,delayed release RxNorm: 642015 Tablet(s) TAKE 1 TABL ET BY MOUTH ONCE DAILY 08/16/2016 05/12/2017 Active estradiol 0.5 mg tablet RxNorm: 833607 TAKE ONE TABLET BY MOUTH ONCE DAILY 08/13/2016 08/07/2017 Ac tive amitriptyline 100 mg tablet RxNorm: 805094 TAKE ONE TABLET BY [facility] AT BEDTIME 07/31/2016 08/29/2016 In active ProAir HFA 90 mcg/ac tuation aerosol inhaler RxNorm: 826909 2 inhale INH PRN as n eeded 05/02/2016 No Stop Date Active ciprofloxacin 0.3 % eye drops RxNorm: 036657 Drop(s) OPH 2 drops e very 2 hours while awake for days 1-2 and 2 drops every 4 hours for days 3 - 7 05/02/2016 No Stop Date Active Zithromax Z-Nick 250 mg tablet RxNorm: 666532 1 Tablet(s) PO UD 05/02/2016 No Stop Date Active albuterol sulfate 2. 5 mg/3 mL (0.083 %) solution for nebulization RxNorm: 442998 1 Milliliter(s) INH QID as needed No Stop Date Active Kenalog 40 mg/mL kat pension for injection RxNorm: 6817377 Milliliter(s) Inj 05/02/2016 05/02/2016 In active prednisone 20 mg tablet RxNorm: 487023 1 Tablet(s) PO BID 05/02/2016 05/06/2016 Inactive estradiol 0.5 mg tablet RxNorm: 983737 1 TABLET(S) PO DAILY 03/01/2016 02/23/2017 Active TAKE 1 TABLET BY MOUTH DAILY amitriptyline 100 mg tablet RxNorm: 501528 1 TABLET(S) PO QHS 03/01/2016 07/30/2016 Inactive estradiol 0.5 mg tablet RxNorm: 341581 TAKE ONE TABLET BY MOUTH ONCE DAILY 03/01/2016 05/29/2016 In active Celexa 20 mg tablet RxNorm: 677383 TAKE ONE & ONE-HALF TABLETS BY MOUTH ONC E DAILY 12/03/2015 11/26/2016 Active amoxicillin 500 mg c apsule RxNorm: 814815 1 Capsule(s) PO BID 11/05/2015 11/14/2015 Inactive amoxicillin 500 mg c apsule RxNorm: 891195 1 Capsule(s) PO BID 11/05/2015 11/04/2015 Inactive Ritalin 10 mg tablet RxNorm: 1104058 1 Tablet(s) PO BID 10/28/2015 11/26/2015 Inactive [SAVINGS FOR NON-COVERED DRUGS -- BIN:00 4485, PCN: ASPROD1, Group: XXXXX, ID# [id number], Questions: . THIS IS NOT INSURANCE.] Kenalog 40 mg/mL kat pension for injection RxNorm: 3975655 Milliliter(s) Inj 10/28/2015 10/28/2015 In active Januvia 50 mg tablet RxNorm: 305217 Tablet(s) 1 TABLET(S) PO DAILY 10/28/2015 10/21/2016 In active Toprol XL 25 mg tabl et,extended release RxNorm: 693464 Tablet(s) 1 TABLET(S) PO DAILY 10/28/2015 10/21/2016 Inactive prednisone 20 mg tablet RxNorm: 134122 1 Tablet(s) PO BID 10/28/2015 11/01/2015 Inactive Lasix 40 mg tablet RxNorm: 832098 TAKE ONE TABLET BY MOUTH ONCE DAILY. MAY TAKE EXTRA TABLET NEEDED. 09/27/2015 12/25/2015 Inactive Bactrim 400 mg-80 mg tablet RxNorm: 421858 Tablet(s) 1 TABLET(S) PO PRN SEXUAL INTERCOURSE, UTI PREVENTATIVE 09/22/2015 12/20/2015 Inactive pantoprazole 40 mg t ablet,delayed release RxNorm: 014189 TAKE 1 TABLET BY MOUT H ONCE DAILY 07/29/2015 01/24/2016 Inactive amitriptyline 100 mg tablet RxNorm: 682042 Tablet(s) 1 TABLET(S) PO QHS 07/26/2015 11/22/2015 In active pantoprazole 40 mg t ablet,delayed release RxNorm: 481615 TAKE 1 TABLET BY MOUT H ONCE DAILY 07/21/2015 07/28/2015 Inactive Bactrim 400 mg-80 mg tablet RxNorm: 753887 1 TABLET(S) PO PRN SE XUAL INTERCOURSE, UTI PREVENTATIVE 06/21/2015 09/18/2015 Inactive Ritalin 10 mg tablet RxNorm: 0974980 1 Tablet(s) PO BID 04/19/2015 05/18/2015 Inactive [SAVINGS FOR NON-COVERED DRUGS -- BIN:00 3585, PCN: ASPROD1, Group: XXXXX, ID# [id number], Questions: . THIS IS NOT INSURANCE.] Keflex 500 mg capsule RxNorm: 449355 1 Capsule(s) PO TID 04/19/2015 04/28/2015 Inactive Kenalog 40 mg/mL kat pension for injection RxNorm: 2601934 Milliliter(s) Inj 04/19/2015 04/19/2015 In active ceftriaxone 500 mg s olution for injection RxNorm: 6675681 Inj 04/19/2015 04/19/2015 Inactive Aldactone 25 mg tablet RxNorm: 131542 1 TABLET(S) PO BID 03/26/2015 12/20/2015 Inactive amitriptyline 100 mg tablet RxNorm: 812015 1 TABLET(S) PO QHS 03/26/2015 07/25/2015 Inactive Lasix 40 mg tablet RxNorm: 713197 1 Tablet(s) PO daily 03/26/2015 09/21/2015 Inactive may take an extra tablet as needed Levaquin 500 mg tablet RxNorm: 378099 1 Tablet(s) PO daily 03/15/2015 03/21/2015 Inactive Levaquin 500 mg tablet RxNorm: 019938 1 Tablet(s) PO daily 03/15/2015 03/14/2015 Inactive hydrocodone 5 mg-devang taminophen 325 mg tablet RxNorm: 113129 one or two tabs po ev ey six hours prn Tablet(s) PO 02/26/2015 03/27/2015 Inactive hydrocodone 5 mg-devang taminophen 325 mg tablet RxNorm: 082069 one or two tabs po ev ey six hours prn Tablet(s) PO 02/26/2015 02/25/2015 Inactive amitriptyline 100 mg tablet RxNorm: 642338 1 TABLET(S) PO QHS 02/22/2015 01/17/2016 Inactive Keflex 500 mg capsule RxNorm: 319484 1 Capsule(s) PO TID 01/25/2015 01/24/2015 Inactive Keflex 500 mg capsule RxNorm: 160973 1 Capsule(s) PO TID 01/25/2015 01/31/2015 Inactive Bactrim 400 mg-80 mg tablet RxNorm: 361946 1 Tablet(s) PO PRN se xual intercourse, uti preventative 01/04/2015 01/03/2015 Inactive Bactrim 400 mg-80 mg tablet RxNorm: 139746 1 Tablet(s) PO PRN se xual intercourse, uti preventative 01/04/2015 06/20/2015 Inactive Ritalin 10 mg tablet RxNorm: 7964100 1 Tablet(s) PO BID 12/24/2014 01/22/2015 Inactive [SAVINGS FOR NON-COVERED DRUGS -- BIN:00 3585, PCN: ASPROD1, Group: XXXXX, ID# [id number], Questions: . THIS IS NOT INSURANCE.] Kenalog 40 mg/mL kat pension for injection RxNorm: 5197582 Milliliter(s) Inj 12/24/2014 12/24/2014 In active estradiol 0.5 mg tablet RxNorm: 810248 1 Tablet(s) PO daily 12/16/2014 02/29/2016 Inactive TAKE 1 TABLET BY MOUTH DAILY pantoprazole 40 mg t ablet,delayed release RxNorm: 034543 1 Tablet(s) daily 10/26/2014 07/20/2015 In active [SAVINGS FOR NON-COVERED DRUGS -- BIN:00 3585, PCN: ASPROD1, Group: XXXXX, ID# [id number], Questions: . THIS IS NOT INSURANCE.] Ritalin 10 mg tablet RxNorm: 2385469 1 Tablet(s) PO BID 10/23/2014 11/21/2014 Inactive [SAVINGS FOR NON-COVERED DRUGS -- BIN: 3585, PCN: ASPROD1, Group: XXXXX, ID# [id number], Questions: . THIS IS NOT INSURANCE.] pantoprazole 40 mg t ablet,delayed release RxNorm: 112315 3/4 Tablet(s) daily 10/23/2014 10/25/2014 In active [SAVINGS FOR NON-COVERED DRUGS -- BIN:00 3585, PCN: ASPROD1, Group: XXXXX, ID# [id number], Questions: . THIS IS NOT INSURANCE.] Toprol XL 25 mg tabl et,extended release RxNorm: 785429 1 TABLET(S) PO DAILY 10/20/2014 10/14/2015 In active Januvia 50 mg tablet RxNorm: 208311 1 TABLET(S) PO DAILY 10/20/2014 10/14/2015 Inactive samples and script Celexa 20 mg tablet RxNorm: 438432 1.5 TABLET(S) PO DAILY TAKE 1 & 1/2 TABL ETS BY MOUTH DAILY 10/20/2014 10/14/2015 Inactive omeprazole 20 mg cap maco,delayed release RxNorm: 658406 1 Capsule(s) PO BID 09/25/2014 09/24/2014 In active omeprazole 20 mg cap maco,delayed release RxNorm: 029869 1 Capsule(s) PO BID 09/25/2014 10/22/2014 In active DC pantoprazole [SAVINGS FOR NON-COVERED DRUGS -- BIN:826518, PCN: ASPROD1, Group: XXXXX, ID# [id number], Questions: . THIS IS NOT INSURANCE.] pantoprazole 40 mg t ablet,delayed release RxNorm: 422082 1 TABLET(S) PO BID 09/24/2014 09/24/2014 In active omeprazole 20 mg tab let,delayed release RxNorm: 051611 1 Tablet(s) PO BID 08/31/2014 08/30/2014 In active dc pantoprazole 40mg omeprazole 20 mg tab let,delayed release RxNorm: 154069 1 Tablet(s) PO BID 08/31/2014 08/30/2014 In active omeprazole 20 mg tab let,delayed release RxNorm: 269320 1 Tablet(s) PO daily 08/31/2014 10/27/2015 In active change to daily Ritalin 10 mg tablet RxNorm: 0821305 1 Tablet(s) PO BID 07/20/2014 08/18/2014 Inactive [SAVINGS FOR UNINSURED PATIENTS -- BIN:0 05111, PCN: ASPROD1, Group: AME08, ID# [id number], Process claim through [employer], for questions: . THIS IS NOT INSURANCE.] amitriptyline 100 mg tablet RxNorm: 336455 1 TABLET(S) PO QHS 04/27/2014 02/21/2015 Inactive Ritalin 10 mg tablet RxNorm: 8226350 1 Tablet(s) PO BID 02/09/2014 06/08/2014 Inactive [SAVINGS FOR UNINSURED PATIENTS -- BIN:0 93663, PCN: ASPROD1, Group: AME08, ID# [id number], Process claim through [employer], for questions: . THIS IS NOT INSURANCE.] ProAir HFA 90 mcg/ac tuation aerosol inhaler RxNorm: 014489 2 inhale INH PRN 11/19/2013 10/27/2015 In active amitriptyline 100 mg tablet RxNorm: 141924 Tablet(s) PO TAKE 1 T ABLET BY MOUTH AT BEDTIME 10/27/2013 No Stop Date Active Ritalin 10 mg tablet RxNorm: 6900666 1 Tablet(s) PO BID 10/13/2013 02/08/2014 Inactive estradiol 0.5 mg tablet RxNorm: 830823 1 Tablet(s) PO daily 10/13/2013 12/15/2014 Inactive TAKE 1 TABLET BY MOUTH DAILY pantoprazole 40 mg t ablet,delayed release RxNorm: 578267 1 Tablet(s) PO BID 10/13/2013 08/30/2014 In active Januvia 50 mg tablet RxNorm: 531284 1 Tablet(s) PO daily 10/13/2013 10/07/2014 Inactive samples and script Toprol XL 25 mg tabl et,extended release RxNorm: 284366 1 Tablet(s) PO daily 10/13/2013 10/07/2014 In active Celexa 20 mg tablet RxNorm: 455907 1.5 Tablet(s) PO daily TAKE 1 & 1/2 TABL ETS BY MOUTH DAILY 10/13/2013 10/07/2014 Inactive Aldactone 25 mg tablet RxNorm: 475854 1 Tablet(s) PO BID 10/13/2013 10/07/2014 Inactive Januvia 50 mg tablet RxNorm: 581980 1 Tablet(s) PO daily 10/07/2013 10/12/2013 Inactive samples and script Celexa 20 mg tablet RxNorm: 574707 1 1/2 Tablet(s) PO daily TAKE 1 & 1/2 TA BLETS BY MOUTH DAILY 05/05/2013 10/12/2013 Inactive pantoprazole 40 mg t ablet,delayed release RxNorm: 631678 1 Tablet(s) PO daily 04/30/2013 10/12/2013 In active amitriptyline 100 mg tablet RxNorm: 529047 1 Tablet(s) PO QHS 04/28/2013 10/26/2013 Inactive Ritalin 10 mg tablet RxNorm: 5330597 1 Tablet(s) PO BID 04/18/2013 05/17/2013 Inactive Kenalog 40 mg/mL Kat p for Injection RxNorm: 7370409 1 Milliliter(s) Inj 03/18/2013 03/18/2013 In active amitriptyline 100 mg tablet RxNorm: 926348 1 Tablet(s) PO QHS 03/18/2013 04/27/2013 Inactive Ritalin 10 mg tablet RxNorm: 0486146 1 Tablet(s) PO BID 02/21/2013 03/17/2013 Inactive Toprol XL 25 mg tabl et,extended release RxNorm: 354409 1 Tablet(s) PO daily 01/23/2013 07/21/2013 In active amitriptyline 100 mg tablet RxNorm: 102887 1 Tablet(s) PO QHS 01/23/2013 03/17/2013 Inactive Celexa 20 mg tablet RxNorm: 238128 Tablet(s) PO TAKE 1 & 1/2 TABLETS BY HERLINDA TH DAILY 12/13/2012 05/04/2013 Inactive Lasix 40 mg tablet RxNorm: 800418 1 Tablet(s) PO daily 12/13/2012 02/10/2013 Inactive and prn amitriptyline 100 mg tablet RxNorm: 207437 1 Tablet(s) PO QHS 10/21/2012 01/18/2013 Inactive Toprol XL 25 mg tabl et,extended release RxNorm: 113478 1 Tablet(s) PO daily 09/17/2012 01/14/2013 In active potassium chloride E R 10 mEq tablet,extended release RxNorm: 375336 1 Tablet(s) PO daily 08/19/2012 10/13/2013 Inactive Lasix 40 mg tablet RxNorm: 850425 1 Tablet(s) PO daily 08/19/2012 12/12/2012 Inactive and prn Ritalin 10 mg tablet RxNorm: 4058946 1 Tablet(s) PO BID 07/16/2012 10/13/2012 Inactive ciprofloxacin 500 mg tablet RxNorm: 867212 1 Tablet(s) PO BID 07/16/2012 07/22/2012 Inactive Celexa 20 mg tablet RxNorm: 602363 Tablet(s) PO TAKE 1 & 1/2 TABLETS BY HERLINDA TH DAILY 07/15/2012 12/12/2012 Inactive GE100 Blood Glucose Test Strip RxNorm: 1 Miscellaneous BID 07/11/2012 08/04/2013 Inactive and lancets Aldactone 25 mg tablet RxNorm: 143959 1 Tablet(s) PO BID 03/20/2012 03/14/2013 Inactive estradiol 0.5 mg tablet RxNorm: 286088 1 Tablet(s) PO daily 03/15/2012 06/07/2013 Inactive TAKE 1 TABLET BY MOUTH DAILY amitriptyline 100 mg tablet RxNorm: 968465 1 Tablet(s) PO QHS 03/13/2012 10/08/2012 Inactive amitriptyline 100 mg tablet RxNorm: 054802 1 Tablet(s) PO QHS 12/07/2011 01/05/2012 Inactive Kenalog 40 mg/mL Kat p for Injection RxNorm: 7077464 1 Milliliter(s) Inj 12/07/2011 12/07/2011 In active Provigil 200 mg Tab RxNorm: 542881 1 Tablet(s) PO QAM 12/07/2011 01/05/2012 Inactive Fish Oil 1,000 mg ca psule RxNorm: 1 Capsule(s) PO BID No Start Date 10/27/2015 Inactive Provigil 200 mg Tab RxNorm: 190636 1 Tablet(s) PO daily No Start Date 10/13/2013 Inactive Lasix 40 mg tablet RxNorm: 268379 1 Tablet(s) PO BID No Start Date 03/25/2015 Inactive Toprol XL 25 mg tabl et,extended release RxNorm: 538333 1 Tablet(s) PO daily No Start Date 09/16/2012 Inactive Prilosec 20 mg Capsu le, delayed release RxNorm: 528233 1 Capsule(s) PO daily No Start Date 10/13/2013 Inactive cyclobenzaprine 10 m g Tab RxNorm: 269016 1 Tablet(s) PO Q8 PRN No Start Date 03/17/2013 Inactive GE100 Blood Glucose Test Strip RxNorm: 1 Miscellaneous BID No Start Date 07/10/2012 Inactive pantoprazole 40 mg t ablet,delayed release RxNorm: 857719 1 Tablet(s) PO daily No Start Date 04/29/2013 Inactive Januvia 50 mg tablet RxNorm: 105006 1 Tablet(s) PO daily No Start Date 10/06/2013 Inactive samples and script Aldactone 25 mg tablet RxNorm: 725549 1 Tablet(s) PO BID No Start Date 03/19/2012 Inactive amitriptyline 100 mg Tab RxNorm: 850666 1 Tablet(s) PO QHS No Start Date 12/06/2011 Inactive Celexa 20 mg tablet RxNorm: 789697 1.5 Tablet(s) PO daily No Start Date 07/14/2012 Inactive potassium chloride E R 10 mEq tablet,extended release RxNorm: 266445 1 Tablet(s) PO BID No Start Date 08/18/2012 Inactive prednisone 20 mg Tab RxNorm: 100567 Tablet(s) PO UD 3 tabs x 2 days, 2 tabs x 2 days, 1 tab x 2 days, 1/2 tab x 2 days, 1/2 tab QOD x 2 doses then stop No Start Date 10/13/2013 Inactive estradiol 0.5 mg tablet RxNorm: 330787 1 Tablet(s) PO daily No Start Date 03/15/2012 Inactive Aldactone 25 mg tablet RxNorm: 456704 1 Tablet(s) PO BID No Start Date 10/12/2013 Inactive Lasix 40 mg tablet RxNorm: 487191 1 Tablet(s) PO BID No Start Date 08/18/2012 Inactive amitriptyline 75 mg Tab RxNorm: 150295 1 Tablet(s) PO QHS No Start Date 10/13/2013 Inactive Medication Administered Medication Codes Instruc tions Start Date Status Kenalog 40 mg/mL suspension for injection RxNorm: 6940215 Milliliter 05/02/2016 No longer Active Kenalog 40 mg/mL suspension for injection RxNorm: 3813630 Milliliter 10/28/2015 No longer Active ceftriaxone 500 mg solution for injection RxNorm: 8294297 04/19/2015 No longer A ctive Kenalog 40 mg/mL suspension for injection RxNorm: 4093343 Milliliter 04/19/2015 No longer Active Kenalog 40 mg/mL suspension for injection RxNorm: 9189749 Milliliter 12/24/2014 No longer Active Kenalog 40 mg/mL Susp for Injection RxNorm: 9447705 1Milliliter 03/18/2013 N o longer Active Kenalog 40 mg/mL Susp for Injection RxNorm: 6921521 1Milliliter 12/07/2011 N o longer Active Immunizations [...] disorder) ICD-9: 314.01 10/13/2013 ESSENTIAL HYPERTENSION SNOMED: 89320 000 ICD-9: 401.9 10/13/2013 Depression ICD-9: 311 DIABETES TYPE II SNOMED: 827152852 ICD-9: 250.00 10/13/2013 EDEMA ICD-9: 782.3 03/18 DM W/O COMPLICATION TYPE II, UNCONTROLLED SNOMED: 85255682 ICD-9: 250.02 03/18/2013 Uncontrolled narcolepsy ICD-9: 347.00 [...] Code Item Item Code Result Date Prolactin PROLACT IN 4.5 ng/mL 05/04/2016 %Hba1C Qvc961 % HbA1c 14223-2 5.9 % 05/03/2016 %Hba1C Reu953 Gluc Ave 123 mg/dL 05/03/2016 Cbc With [...] 32.3 pg 05/03/2016 Cbc With Differential Ord2 [place]% 7.0 % 05/03/2016 Cbc With Differential Ord2 [...] 2.38 K/ul 05/03/2016 Cbc With Differential Ord2 [place] ABS# 0.6 K/ul 05/03/2016 Cbc With Differential Ord2 Eos ABS# 0.2 K/ul 05/03/2016 Cbc With Differential Ord2 Baso ABS# 0.1 K/ul 05/03/2016 Tsh Ord6 hTSH II 0.70 uIU/mL 05/03/2016 Comp Metabolic Xkq794 NA 137 mEq/L 05/03/2016 Comp Metabolic Khs501 K 4.3 mEq/L 05/03/2016 Comp Metabolic Idb652 CL 102 mEq/L 05/03/2016 Comp Metabolic Nze862 CO2 25.0 mEq/L 05/03/2016 Comp Metabolic Odo234 AN ION GAP 14 05/03/2016 Comp Metabolic Bkq081 GL UCOSE 87 mg/dL 05/03/2016 Comp Metabolic Nxr039 Cr eat 0.8 mg/dL 05/03/2016 Comp Metabolic Amo465 eG FR 76 ml/min/1.73m2 05/03 Comp Metabolic Kic546 BUN 11 mg/dL 05/03/2016 Comp Metabolic Mfv988 B/ C Ratio 13.1 Ratio 05/03/2016 Comp Metabolic Vgf720 CA LCIUM 9.3 mg/dL 05/03/2016 Comp Metabolic Mog848 AL K PHOS 76 U/L 05/03/2016 Comp Metabolic Xkf690 T(SGOT) 27 U/L 05/03/2016 Comp Metabolic Jex941 AL T(SGPT) 25 U/L 05/03/2016 Comp Metabolic Xqa638 BI LI T 0.3 mg/dL 05/03/2016 Comp Metabolic Xit367 AL BUMIN 4.1 g/dL 05/03/2016 Comp Metabolic Rqj275 TP RO 7.1 g/dL 05/03/2016 Comp Metabolic Cmg111 GL OB 3.0 g/dL 05/03/2016 Comp Metabolic Yds991 A/ G Ratio 1.4 Ratio 05/03/2016 Comp Metabolic Rac385 Os mo 273 mOsmo 05/03/2016 Urine Culture Ucult Comp lete >100,000 col/ml aerobic grow th sent to ref lab 03/17/2015 Culture Urine [id number] URI NE CULTURE SEE NOTES 01/28/2015 Culture Urine [id number] Con tinued Results 01/28/2015 Urine Culture Ucult Comp lete >100,000 col/ml aerobic grow th sent to ref lab 01/26/2015 URINALYSIS NONAUTO W/O SCOPE 26588 Specific [place] 1.005 DateTime(Free Text in ) URINALYSIS NONAUTO W/O SCOPE 93485 PH 7.5 DateTime(Free Ruben t in Apr) URINALYSIS NONAUTO W/O SCOPE 25539 GLUCOSE neg DateTime(Free Ruben t in ) URINALYSIS NONAUTO W/O SCOPE 32302 Protein neg DateTime(Free Ruben t in ) URINALYSIS NONAUTO W/O SCOPE 19103 Blood trace DateTime(Free T ext in ) URINALYSIS NONAUTO W/O SCOPE 05801 Bilirubin small DateTime(Free T ext in ) URINALYSIS NONAUTO W/O SCOPE 11807 Ketones neg DateTime(Free Ruben t in Aprima) URINALYSIS NONAUTO W/O SCOPE 28681 Urobilinogen 0.2 DateTime(Free Text in ) URINALYSIS NONAUTO W/O SCOPE 64001 Nitrite neg DateTime(Free Ruben t in ) URINALYSIS NONAUTO W/O SCOPE 07855 Leukocytes moderate DateTime(Free Text in ) Review [...] Date TRIAMCINOLONE ACET I [place] NOS CPT-4: D2409Ufqggve 05/02/2016 TRIAMCINOLONE ACET I [place] NOS CPT-4: H4410Gvcopsl 10/28/2015 ROCEPHIN, PER 250 MG CPT-4: V8394Ldhirwn 04/19/2015 TRIAMCINOLONE ACET I [place] NOS CPT-4: R8281Lwsphfg 04/19/2015 URINALYSIS NONAUTO W /O SCOPE CPT-4: 56803Exorgjt 03/15/2015 URINALYSIS NONAUTO W /O SCOPE CPT-4: 78421Moigroo 01/25/2015 TRIAMCINOLONE ACET I [place] NOS CPT-4: W9188Hxcdxwx 12/24/2014 THER/PROPH/DIAG INJ SC/IM CPT-4: 80486Syvgklk 12/24/2014 URINALYSIS NONAUTO W /O SCOPE CPT-4: 34248Fqxwffw 07/16/2012 DRAIN/INJECT JOINT/B URSA CPT-4: 68555Gkhjkmi 12/07/2011 Vital Signs Date Vital 05/02/2016 Blood Pressure 1: 124/74 Code: 8480-6 BMI: 32.4 Code: 09751-3 Heart Rate 1: 107 bpm Height: 5'2" SpO2: 98% Weight: 177 lbs 10/28/2015 Blood Pressure 1: 124/80 Code: 8480-6 BMI: 32.6 Code: 24757-4 Heart Rate 1: 78 bpm Height: 5'2" SpO2: 91% Weight: 178 lbs 04/19/2015 Blood Pressure 1: 110/78 Code: 8480-6 BMI: 31.5 Code: 45546-9 Heart Rate 1: 88 bpm Height: 5'2" SpO2: 96% Weight: 172 lbs 12/24/2014 Blood Pressure 1: 112/72 Code: 8480-6 BMI: 30.4 Code: 18996-8 Heart Rate 1: 88 bpm Height: 5'2" Weight: 166 lbs 10/13/2013 Blood Pressure 1: 104/78 Code: 8480-6 BMI: 30.7 Code: 65032-1 Heart Rate 1: 100 bpm Height: 5'2" [...] State s she was sitting in the diamond sizer and grader with the dog, and was slightly twisted-sat [...] gland[ICD10: E23.6] [facility] CPT-4: 90568 05/02/2016 ([id number]) 65950 EST. P ATIENT, LEVEL III Diagnosis: Allergic rhinitis due to pollen[ICD10: J30.1] Diagnosis: Otalgia, right ear[ICD10: H92.01] [facility] CPT- 4: 01950 10/28/2015 ([id number]) 47314 EST. P ATIENT, LEVEL III Diagnosis: Acute maxillary sinusitis, unspecified[ICD10: J01.00] Diagnosis: Allergic rhinitis, unspecified[ICD10: J30.9] [facility] CPT-4: 62211 04/19/2015 ([id number] EST. P ATIENT, LEVEL III Diagnosis: Swelling of eyelid[ICD9: 374.82] Diagnosis: Sunburn[ICD9: 692.71] Maci Martinez MD, [facility] CPT-4: 76376 12/24/2014 ([id number] EST. P ATIENT, LEVEL IV Diagnosis: ESSENTIAL HYPERTENSION[SNOMED: 39752432] Diagnosis: DIABETES TYPE II[SNOMED: 416225640] Diagnosis: ADHD (attention deficit hyperactivity disorder)[ICD9: 314.01] Diagnosis: Depression[ICD9: 311] Joy [facility] MD, [facility] CPT-4: 47361 10/13/2013 ([id number]) 02206 EST. P ATIENT, LEVEL IV Diagnosis: DM W/O COMPLICATION TYPE II, UNCONTROLLED[SNOMED: 21205357] Diagnosis: ESSENTIAL HYPERTENSION[SNOMED: 33803861] Diagnosis: EDEMA[ICD9: 782.3] Joy Martinez MD, [facility] CPT-4: 66766 03/18/2013 ([id number]) 80246 EST. P ATIENT, LEVEL IV Diagnosis: UTI[ICD9: 599.0] Diagnosis: DM W/O COMPLICATION TYPE II, UNCONTROLLED[SNOMED: 57394293] Joy Martinez MD, [facility] CPT-4: 04109 07/16/2012 ([id number]) 43590 EST. P ATIENT, LEVEL III Diagnosis: Uncontrolled narcolepsy[ICD9: 347.00] Diagnosis: ESSENTIAL HYPERTENSION[SNOMED: 51701438] [facility] CPT-4: 51749 01/17/2012 Office outpatient ne w 30 minutes Diagnosis: Sciatica[ICD9: 724.3] Diagnosis: Chronic back pain[ICD9: 724.5] Diagnosis: ESSENTIAL HYPERTENSION[SNOMED: 21550699] [facility] CPT-4: 86257 12/07/2011 Plan of Care Planned Activity Notes [...] less controlled. 05/02/2016 Appointment: Maci Moreno WPtel[place] [facility] [place] [facility] [place] [phone] (15 min) Moderate 05/02/2016 Patient Education: Patient [...] allergy spray. 10/28/2015 Appointment: Maci Moreno WPtel: [address] [place], [place] [phone] (30 min) Complex 10/28/2015 Patient Education: Patient [...] symptoms. 04/19/2015 Appointment: Maci Moreno WPtel: [phone] [phone] (15 min) Moderate 04/19/2015 Patient Education: [...] the patient. 2013 [phone] [facility] Follow up 10/13/2013 Patient Education: Patient Medication Summary Completed 10/13/2013 Patient Education: Hypertension Completed 10/13/2013 [phone] [phone] Follow up 08/29/2013 [facility] [phone] [facility] [place] Follow up 06/23/2013 Visit [...] edema. 03/18/2013 Appointment: Joy Martinez WPtel: [facility] [place] [facility] [place] [facility] Follow up 03/18/2013 Patient Education: Patient Medication Summary Completed 03/18/2013 Patient Education: Hypertension Completed 03/18/2013 Appointment: Joy Martinez WPtel: [address] [place] [phone] Follow up 10/15/2012 Appointment: Maci Moreno WPtel: [address] [place], [place] [id number] Diabetic education 07/22/2012 Visit Plan: Diabetes Mellitus [...] not improve. 2012 Appointment: Joy Martinez WPtel: [address] [place] [id number] [facility] follow up 07/16/2012 Patient Education: Patient Medication [...] at home. 01/17/2012 Appointment: Joy Martinez WPtel: [facility] [place] [facility] [place] [facility] [facility] 01/17/2012 Patient Education: Patient Medication Summary Completed [...] Q HS 12/07/2011 Appointment: Maci Moreno WPtel: [facility] [place] [facility] [place] [id number] New Patient 12/07/2011 Patient Education: Patient [...]
--- OUTSIDE RECORDS SUMMARY | 2019-11-02 07:04 | XMS REPORT | CCD ---
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 Unknown Has never used illegal drugs 012 Allergies, Adverse Reactions, Alerts Substance Reaction Codes Entered Date Inactivated Date Status Erythromycin RxNorm: 4053 12/07/2011 No Inactive Date Active Past Medical History Illness Codes Condition Status Onset Date Resolved Date Pleurodynia ICD-9: 786.50 ICD-10: R07.81 Active 07/05/2018 Unknown Attention-deficit hy peractivity disorder, combined type ICD-9: 314.01 ICD-10: F90.2 Active 03/14/2018 Unknown Encounter for immuni zation ICD-9: V03.9 ICD-10: Z23 Active 03/14/2018 Unknown Mixed hyperlipidemia ICD-9: 272.2 ICD-10: E78.2 Active 03/14/2018 Unknown Other allergic rhinitis ICD-9: 477.8 ICD-10: J30.89 Active 05/01/2016 Unknown Type 2 diabetes alex itus with hyperglycemia ICD-9: 250.02 ICD-10: E11.65 Active 07/16/2012 Unknown Acute maxillary sinu sitis, unspecified ICD-9: [...] Condition Codes Effectiv e Dates Condition Status Pleurodynia ICD-9: 786.50 ICD-10: R07.81 07/05/2018 Active Attention-deficit hy peractivity disorder, combined type ICD-9: 314.01 ICD-10: F90.2 03/14/2018 Active Encounter for immuni zation ICD-9: V03.9 ICD-10: Z23 03/14/2018 Active Mixed hyperlipidemia ICD-9: 272.2 ICD-10: E78.2 03/14/2018 Active Other allergic rhinitis ICD-9: 477.8 ICD-10: J30.89 05/01/2016 Active Type 2 diabetes alex itus with hyperglycemia ICD-9: 250.02 ICD-10: E11.65 07/16/2012 Active Acute maxillary sinu sitis, unspecified ICD-9: [...] Instruc tions Start Date Stop Date Sta Fill Instructions Ritalin 10 mg tablet RxNorm: 4060675 1 Tablet(s) PO BID 10/17/2018 11/15/2018 Active [SAVINGS FOR NON-COVERED DRUGS -- BIN:00 3585, PCN: ASPROD1, Group: XXXXX, ID# [id number], Questions: . THIS IS NOT INSURANCE.] estradiol 0.5 mg tablet RxNorm: 379320 TAKE ONE TABLET BY MOUTH EVERY DAY 09/06/2018 08/20/2021 Ac tive Celexa 20 mg tablet RxNorm: 662045 TAKE 1 AND 1/2 TABLETS BY MOUTH DAILY 09/06/2018 08/20/2021 Ac tive trimethoprim 100 mg tablet RxNorm: 622676 1 Tablet(s) PO daily 08/30/2018 03/27/2019 Active trimethoprim 100 mg tablet RxNorm: 564194 1 Tablet(s) PO daily 08/30/2018 08/14/2018 Inactive Keflex 500 mg capsule RxNorm: 624019 1 Capsule(s) PO QID 08/15/2018 08/28/2018 Inactive Keflex 500 mg capsule RxNorm: 582397 1 Capsule(s) PO QID 08/15/2018 08/14/2018 Inactive trimethoprim 100 mg tablet RxNorm: 934856 1 Tablet(s) PO daily 08/15/2018 08/29/2018 Inactive Toprol XL 25 mg tabl et,extended release RxNorm: 105059 1 Tablet(s) PO daily 07/26/2018 06/26/2019 Ac tive waiting on mail order amitriptyline 100 mg tablet RxNorm: 589090 Tablet(s) TAKE 1 TABL ET BY MOUTH DAILY AT BEDTIME 07/26/2018 07/20/2019 Active Januvia 50 mg tablet RxNorm: 124893 1 Tablet(s) PO daily 07/26/2018 07/20/2019 Active Toprol XL 25 mg tabl et,extended release RxNorm: 946168 1 Tablet(s) PO daily 07/26/2018 07/25/2018 In active waiting on mail order amitriptyline 100 mg tablet RxNorm: 773765 Tablet(s) TAKE 1 TABL ET BY MOUTH DAILY AT BEDTIME 07/26/2018 07/25/2018 Inactive waiting on mail order prednisone 20 mg tablet RxNorm: 543670 3 Tablet(s) PO daily 07/05/2018 07/04/2018 Inactive Kenalog 40 mg/mL kat pension for injection RxNorm: 8031507 Milliliter(s) Inj 07/05/2018 07/05/2018 In active Ritalin 10 mg tablet RxNorm: 3419730 1 Tablet(s) PO BID 07/05/2018 08/03/2018 Inactive [SAVINGS FOR NON-COVERED DRUGS -- BIN:00 0019, PCN: ASPROD1, Group: XXXXX, ID# [id number], Questions: . THIS IS NOT INSURANCE.] prednisone 20 mg tablet RxNorm: 297016 3 Tablet(s) PO daily 07/05/2018 07/09/2018 Inactive Aldactone 25 mg tablet RxNorm: 874917 Tablet(s) 1 TABLET(S) PO BID 04/17/2018 01/11/2019 Active pantoprazole 40 mg t ablet,delayed release RxNorm: 401025 1 Tablet(s) PO QHS 04/17/2018 01/11/2019 Ac tive Ritalin 10 mg tablet RxNorm: 4950851 1 Tablet(s) PO BID 04/17/2018 05/16/2018 Inactive [SAVINGS FOR NON-COVERED DRUGS -- BIN:00 3585, PCN: ASPROD1, Group: XXXXX, ID# [id number], Questions: . THIS IS NOT INSURANCE.] Bactrim 400 mg-80 mg tablet RxNorm: 580007 Tablet(s) TAKE 1 TABL ET BY MOUTH NEEDED FOR SEXUAL INTERCOURSE FOR UTI PREVENTION 04/17/2018 08/14/2018 Inactive Kenalog 40 mg/mL kat pension for injection RxNorm: 2286492 1 Milliliter(s) Inj 03/14/2018 03/14/2018 In active amitriptyline 100 mg tablet RxNorm: 537300 Tablet(s) TAKE 1 TABL ET BY MOUTH DAILY AT BEDTIME 03/14/2018 07/25/2018 Inactive Ritalin 10 mg tablet RxNorm: 3403028 1 Tablet(s) PO BID 03/14/2018 04/12/2018 Inactive [SAVINGS FOR NON-COVERED DRUGS -- BIN:00 3585, PCN: ASPROD1, Group: XXXXX, ID# [id number], Questions: . THIS IS NOT INSURANCE.] Bactrim 400 mg-80 mg tablet RxNorm: 524575 TAKE 1 TABLET BY MOUT H NEEDED FOR SEXUAL INTERCOURSE FOR UTI PREVENTION 09/28/2017 11/26/2017 Inactive amitriptyline 100 mg tablet RxNorm: 167246 TAKE 1 TABLET BY MOUT H DAILY AT BEDTIME 09/25/2017 03/13/2018 In active Diflucan 150 mg tablet RxNorm: 358437 1 Tablet(s) PO daily 05/31/2017 06/04/2017 Inactive Diflucan 150 mg tablet RxNorm: 531412 1 Tablet(s) PO daily 05/31/2017 05/30/2017 Inactive Kenalog 40 mg/mL kat pension for injection RxNorm: 0482073 Milliliter(s) Inj 05/25/2017 05/25/2017 In active prednisone 10 mg tablet RxNorm: 529388 Tablet(s) PO UD 05/25/2017 09/24/2017 Inactive 6,5,4,3,2,1 Phenergan with Codei ne Syrup RxNorm: 5-10 Milliliter(s) PO QID a s needed 05/25/2017 03/13/2018 In active Keflex 500 mg capsule RxNorm: 458868 1 Capsule(s) PO TID 05/25/2017 06/03/2017 Inactive ceftriaxone 500 mg s olution for injection RxNorm: 3158246 1 Milliliter(s) Inj 05/25/2017 05/25/2017 In active estradiol 0.5 mg tablet RxNorm: 433482 1 Tablet(s) PO daily 05/14/2017 09/05/2018 Inactive Celexa 20 mg tablet RxNorm: 670624 1.5 Tablet(s) PO daily 05/14/2017 09/05/2018 Inactive amitriptyline 100 mg tablet RxNorm: 742860 1 Tablet(s) PO QHS 05/14/2017 09/24/2017 Inactive Januvia 50 mg tablet RxNorm: 220958 1 Tablet(s) PO daily 05/14/2017 05/08/2018 Inactive pantoprazole 40 mg t ablet,delayed release RxNorm: 656838 1 Tablet(s) PO QHS 05/14/2017 02/07/2018 In active Bactrim 400 mg-80 mg tablet RxNorm: 647306 Tablet(s) TAKE ONE TA BLET BY MOUTH NEEDED FOR SEXUAL INTERCOURSE FOR UTI PREVENTION 05/14/2017 08/11/2017 Inactive Toprol XL 25 mg tabl et,extended release RxNorm: 139930 1 Tablet(s) PO daily 05/14/2017 05/08/2018 In active Aldactone 25 mg tablet RxNorm: 476563 Tablet(s) 1 TABLET(S) PO BID 05/14/2017 02/07/2018 Inactive Celexa 20 mg tablet RxNorm: 317112 TAKE ONE & ONE-HALF TABLETS BY MOUTH ONC E DAILY 04/12/2017 05/13/2017 Inactive Toprol XL 25 mg tabl et,extended release RxNorm: 567112 TAKE ONE TABLET BY MO UTH ONCE DAILY 02/06/2017 05/13/2017 Inactive Celexa 20 mg tablet RxNorm: 645107 TAKE ONE & ONE-HALF TABLETS BY MOUTH ONC E DAILY 01/03/2017 03/03/2017 Inactive amitriptyline 100 mg tablet RxNorm: 484471 TAKE ONE TABLET BY MO UTH AT BEDTIME 12/08/2016 05/13/2017 In active Toprol XL 25 mg tabl et,extended release RxNorm: 651528 TAKE ONE TABLET BY MO UTH ONCE DAILY 11/23/2016 02/06/2017 Inactive Januvia 50 mg tablet RxNorm: 626610 TAKE ONE TABLET BY MOUTH ONCE DAILY 11/09/2016 03/08/2017 In active Bactrim 400 mg-80 mg tablet RxNorm: 211491 TAKE ONE TABLET BY MO UTH NEEDED FOR SEXUAL INTERCOURSE FOR UTI PREVENTION 09/19/2016 04/24/2017 Inactive amitriptyline 100 mg tablet RxNorm: 155290 TAKE ONE TABLET BY MO UT AT BEDTIME 08/31/2016 11/28/2016 In active pantoprazole 40 mg t ablet,delayed release RxNorm: 037443 Tablet(s) TAKE 1 TABL ET BY MOUTH ONCE DAILY 08/16/2016 05/12/2017 Inactive estradiol 0.5 mg tablet RxNorm: 532364 TAKE ONE TABLET BY MOUTH ONCE DAILY 08/13/2016 05/13/2017 In active amitriptyline 100 mg tablet RxNorm: 218825 TAKE ONE TABLET BY MO UTH AT BEDTIME 07/31/2016 08/29/2016 In active ProAir HFA 90 mcg/ac tuation aerosol inhaler RxNorm: 768848 2 inhale INH PRN as n eeded 05/02/2016 No Stop Date Active ciprofloxacin 0.3 % eye drops RxNorm: 005920 Drop(s) OPH 2 drops e very 2 hours while awake for days 1-2 and 2 drops every 4 hours for days 3 - 7 05/02/2016 03/13/2018 Inactive Kenalog 40 mg/mL kat pension for injection RxNorm: 5816921 Milliliter(s) Inj 05/02/2016 05/02/2016 In active Zithromax Z-Nick 250 mg tablet RxNorm: 166741 1 Tablet(s) PO UD 05/02/2016 09/24/2017 Inactive albuterol sulfate 2. 5 mg/3 mL (0.083 %) solution for nebulization RxNorm: 969252 1 Milliliter(s) INH QID as needed 03/13/2018 Inactive prednisone 20 mg tablet RxNorm: 646872 1 Tablet(s) PO BID 05/02/2016 05/06/2016 Inactive amitriptyline 100 mg tablet RxNorm: 759261 1 TABLET(S) PO QHS 03/01/2016 07/30/2016 Inactive estradiol 0.5 mg tablet RxNorm: 641019 1 TABLET(S) PO DAILY 03/01/2016 09/24/2017 Inactive TAKE 1 TABLET BY MOUTH DAILY estradiol 0.5 mg tablet RxNorm: 196621 TAKE ONE TABLET BY MOUTH ONCE DAILY 03/01/2016 05/29/2016 In active Celexa 20 mg tablet RxNorm: 033546 TAKE ONE & ONE-HALF TABLETS BY MOUTH ONC E DAILY 12/03/2015 11/26/2016 Inactive amoxicillin 500 mg c apsule RxNorm: 653271 1 Capsule(s) PO BID 11/05/2015 11/04/2015 Inactive amoxicillin 500 mg c apsule RxNorm: 606757 1 Capsule(s) PO BID 11/05/2015 04/30/2017 Inactive Kenalog 40 mg/mL kat pension for injection RxNorm: 8090918 Milliliter(s) Inj 10/28/2015 10/28/2015 In active Januvia 50 mg tablet RxNorm: 738966 Tablet(s) 1 TABLET(S) PO DAILY 10/28/2015 10/21/2016 In active Ritalin 10 mg tablet RxNorm: 2073137 1 Tablet(s) PO BID 10/28/2015 11/26/2015 Inactive [SAVINGS FOR NON-COVERED DRUGS -- BIN:00 5313, PCN: ASPROD1, Group: XXXXX, ID# [id number], Questions: . THIS IS NOT INSURANCE.] Toprol XL 25 mg tabl et,extended release RxNorm: 066212 Tablet(s) 1 TABLET(S) PO DAILY 10/28/2015 10/21/2016 Inactive prednisone 20 mg tablet RxNorm: 830375 1 Tablet(s) PO BID 10/28/2015 11/01/2015 Inactive Lasix 40 mg tablet RxNorm: 951108 TAKE ONE TABLET BY MOUTH ONCE DAILY. MAY TAKE EXTRA TABLET NEEDED. 09/27/2015 12/25/2015 Inactive Bactrim 400 mg-80 mg tablet RxNorm: 767160 Tablet(s) 1 TABLET(S) PO PRN SEXUAL INTERCOURSE, UTI PREVENTATIVE 09/22/2015 12/20/2015 Inactive pantoprazole 40 mg t ablet,delayed release RxNorm: 266783 TAKE 1 TABLET BY MOUT H ONCE DAILY 07/29/2015 01/24/2016 Inactive amitriptyline 100 mg tablet RxNorm: 296051 Tablet(s) 1 TABLET(S) PO QHS 07/26/2015 09/24/2017 In active pantoprazole 40 mg t ablet,delayed release RxNorm: 514659 TAKE 1 TABLET BY MOUT H ONCE DAILY 07/21/2015 07/28/2015 Inactive Bactrim 400 mg-80 mg tablet RxNorm: 232506 1 TABLET(S) PO PRN SE XUAL INTERCOURSE, UTI PREVENTATIVE 06/21/2015 09/18/2015 Inactive Ritalin 10 mg tablet RxNorm: 9370054 1 Tablet(s) PO BID 04/19/2015 05/18/2015 Inactive [SAVINGS FOR NON-COVERED DRUGS -- BIN:00 5325, PCN: ASPROD1, Group: XXXXX, ID# [id number], Questions: . THIS IS NOT INSURANCE.] Keflex 500 mg capsule RxNorm: 521970 1 Capsule(s) PO TID 04/19/2015 04/28/2015 Inactive Kenalog 40 mg/mL kat pension for injection RxNorm: 1954454 Milliliter(s) Inj 04/19/2015 04/19/2015 In active ceftriaxone 500 mg s olution for injection RxNorm: 0452818 Inj 04/19/2015 04/19/2015 Inactive amitriptyline 100 mg tablet RxNorm: 398175 1 TABLET(S) PO QHS 03/26/2015 07/25/2015 Inactive Lasix 40 mg tablet RxNorm: 263582 1 Tablet(s) PO daily 03/26/2015 09/21/2015 Inactive may take an extra tablet as needed Aldactone 25 mg tablet RxNorm: 933499 1 TABLET(S) PO BID 03/26/2015 12/20/2015 Inactive Levaquin 500 mg tablet RxNorm: 991862 1 Tablet(s) PO daily 03/15/2015 03/21/2015 Inactive Levaquin 500 mg tablet RxNorm: 494288 1 Tablet(s) PO daily 03/15/2015 03/14/2015 Inactive hydrocodone 5 mg-devang taminophen 325 mg tablet RxNorm: 127011 one or two tabs po ev ey six hours prn Tablet(s) PO 02/26/2015 03/13/2018 Inactive hydrocodone 5 mg-devang taminophen 325 mg tablet RxNorm: 818651 one or two tabs po ev ey six hours prn Tablet(s) PO 02/26/2015 02/25/2015 Inactive amitriptyline 100 mg tablet RxNorm: 809705 1 TABLET(S) PO QHS 02/22/2015 01/17/2016 Inactive Keflex 500 mg capsule RxNorm: 468632 1 Capsule(s) PO TID 01/25/2015 01/24/2015 Inactive Keflex 500 mg capsule RxNorm: 235328 1 Capsule(s) PO TID 01/25/2015 01/31/2015 Inactive Bactrim 400 mg-80 mg tablet RxNorm: 793794 1 Tablet(s) PO PRN se xual intercourse, uti preventative 01/04/2015 01/03/2015 Inactive Bactrim 400 mg-80 mg tablet RxNorm: 147572 1 Tablet(s) PO PRN se xual intercourse, uti preventative 01/04/2015 06/20/2015 Inactive Ritalin 10 mg tablet RxNorm: 8311396 1 Tablet(s) PO BID 12/24/2014 01/22/2015 Inactive [SAVINGS FOR NON-COVERED DRUGS -- BIN:00 3585, PCN: ASPROD1, Group: XXXXX, ID# [id number], Questions: . THIS IS NOT INSURANCE.] Kenalog 40 mg/mL kat pension for injection RxNorm: 7998073 Milliliter(s) Inj 12/24/2014 12/24/2014 In active estradiol 0.5 mg tablet RxNorm: 947970 1 Tablet(s) PO daily 12/16/2014 02/29/2016 Inactive TAKE 1 TABLET BY MOUTH DAILY pantoprazole 40 mg t ablet,delayed release RxNorm: 402246 1 Tablet(s) daily 10/26/2014 07/20/2015 In active [SAVINGS FOR NON-COVERED DRUGS -- BIN:00 3585, PCN: ASPROD1, Group: XXXXX, ID# [id number], Questions: . THIS IS NOT INSURANCE.] Ritalin 10 mg tablet RxNorm: 3133185 1 Tablet(s) PO BID 10/23/2014 11/21/2014 Inactive [SAVINGS FOR NON-COVERED DRUGS -- BIN:00 3585, PCN: ASPROD1, Group: XXXXX, ID# [id number], Questions: . THIS IS NOT INSURANCE.] pantoprazole 40 mg t ablet,delayed release RxNorm: 130785 3/4 Tablet(s) daily 10/23/2014 10/25/2014 In active [SAVINGS FOR NON-COVERED DRUGS -- BIN:00 3585, PCN: ASPROD1, Group: XXXXX, ID# [id number], Questions: . THIS IS NOT INSURANCE.] Toprol XL 25 mg tabl et,extended release RxNorm: 238519 1 TABLET(S) PO DAILY 10/20/2014 10/14/2015 In active Januvia 50 mg tablet RxNorm: 535627 1 TABLET(S) PO DAILY 10/20/2014 10/14/2015 Inactive samples and script Celexa 20 mg tablet RxNorm: 939201 1.5 TABLET(S) PO DAILY TAKE 1 & 1/2 TABL ETS BY MOUTH DAILY 10/20/2014 10/14/2015 Inactive omeprazole 20 mg cap maco,delayed release RxNorm: 404913 1 Capsule(s) PO BID 09/25/2014 09/24/2014 In active omeprazole 20 mg cap maco,delayed release RxNorm: 861354 1 Capsule(s) PO BID 09/25/2014 10/22/2014 In active DC pantoprazole [SAVINGS FOR NON-COVERED DRUGS -- BIN:[id number], PCN: ASPROD1, Group: XXXXX, ID# [id number], Questions: . THIS IS NOT INSURANCE.] pantoprazole 40 mg t ablet,delayed release RxNorm: 864249 1 TABLET(S) PO BID 09/24/2014 09/24/2014 In active omeprazole 20 mg tab let,delayed release RxNorm: 716238 1 Tablet(s) PO BID 08/31/2014 08/30/2014 In active dc pantoprazole 40mg omeprazole 20 mg tab let,delayed release RxNorm: 996321 1 Tablet(s) PO BID 08/31/2014 08/30/2014 In active omeprazole 20 mg tab let,delayed release RxNorm: 441544 1 Tablet(s) PO daily 08/31/2014 10/27/2015 In active change to daily Ritalin 10 mg tablet RxNorm: 1492418 1 Tablet(s) PO BID 07/20/2014 08/18/2014 Inactive [SAVINGS FOR UNINSURED PATIENTS -- BIN:0 28477, PCN: ASPROD1, Group: [id number], ID# [id number], Process claim through [employer], for questions: . THIS IS NOT INSURANCE.] amitriptyline 100 mg tablet RxNorm: 442991 1 TABLET(S) PO QHS 04/27/2014 02/21/2015 Inactive Ritalin 10 mg tablet RxNorm: 5792671 1 Tablet(s) PO BID 02/09/2014 06/08/2014 Inactive [SAVINGS FOR UNINSURED PATIENTS -- BIN:0 24670, PCN: ASPROD1, Group: [id number], ID# [id number], Process claim through [employer], for questions: . THIS IS NOT INSURANCE.] ProAir HFA 90 mcg/ac tuation aerosol inhaler RxNorm: 146337 2 inhale INH PRN 11/19/2013 10/27/2015 In active amitriptyline 100 mg tablet RxNorm: 144706 Tablet(s) PO TAKE 1 T ABLET BY MOUTH AT BEDTIME 10/27/2013 04/23/2017 Inactive Ritalin 10 mg tablet RxNorm: 0943831 1 Tablet(s) PO BID 10/13/2013 02/08/2014 Inactive estradiol 0.5 mg tablet RxNorm: 819875 1 Tablet(s) PO daily 10/13/2013 12/15/2014 Inactive TAKE 1 TABLET BY MOUTH DAILY pantoprazole 40 mg t ablet,delayed release RxNorm: 955975 1 Tablet(s) PO BID 10/13/2013 08/30/2014 In active Januvia 50 mg tablet RxNorm: 488946 1 Tablet(s) PO daily 10/13/2013 10/07/2014 Inactive samples and script Toprol XL 25 mg tabl et,extended release RxNorm: 858832 1 Tablet(s) PO daily 10/13/2013 10/07/2014 In active Celexa 20 mg tablet RxNorm: 492749 1.5 Tablet(s) PO daily TAKE 1 & 1/2 TABL ETS BY MOUTH DAILY 10/13/2013 10/07/2014 Inactive Aldactone 25 mg tablet RxNorm: 224321 1 Tablet(s) PO BID 10/13/2013 10/07/2014 Inactive Januvia 50 mg tablet RxNorm: 662055 1 Tablet(s) PO daily 10/07/2013 10/12/2013 Inactive samples and script Celexa 20 mg tablet RxNorm: 927680 1 1/2 Tablet(s) PO daily TAKE 1 & 1/2 TA BLETS BY MOUTH DAILY 05/05/2013 10/12/2013 Inactive pantoprazole 40 mg t ablet,delayed release RxNorm: 397994 1 Tablet(s) PO daily 04/30/2013 10/12/2013 In active amitriptyline 100 mg tablet RxNorm: 046563 1 Tablet(s) PO QHS 04/28/2013 10/26/2013 Inactive Ritalin 10 mg tablet RxNorm: 4069303 1 Tablet(s) PO BID 04/18/2013 05/17/2013 Inactive Kenalog 40 mg/mL Kat p for Injection RxNorm: 2018495 1 Milliliter(s) Inj 03/18/2013 03/18/2013 In active amitriptyline 100 mg tablet RxNorm: 464541 1 Tablet(s) PO QHS 03/18/2013 04/27/2013 Inactive Ritalin 10 mg tablet RxNorm: 7895845 1 Tablet(s) PO BID 02/21/2013 03/17/2013 Inactive Toprol XL 25 mg tabl et,extended release RxNorm: 867579 1 Tablet(s) PO daily 01/23/2013 07/21/2013 In active amitriptyline 100 mg tablet RxNorm: 087830 1 Tablet(s) PO QHS 01/23/2013 03/17/2013 Inactive Celexa 20 mg tablet RxNorm: 201533 Tablet(s) PO TAKE 1 & 1/[facility] 12/13/2012 05/04/2013 Inactive Lasix 40 mg tablet RxNorm: 189667 1 Tablet(s) PO daily 12/13/2012 02/10/2013 Inactive and prn amitriptyline 100 mg tablet RxNorm: 359459 1 Tablet(s) PO QHS 10/21/2012 01/18/2013 Inactive Toprol XL 25 mg tabl et,extended release RxNorm: 317357 1 Tablet(s) PO daily 09/17/2012 01/14/2013 In active potassium chloride E R 10 mEq tablet,extended release RxNorm: 027694 1 Tablet(s) PO daily 08/19/2012 10/13/2013 Inactive Lasix 40 mg tablet RxNorm: 036946 1 Tablet(s) PO daily 08/19/2012 12/12/2012 Inactive and prn Ritalin 10 mg tablet RxNorm: 9444422 1 Tablet(s) PO BID 07/16/2012 10/13/2012 Inactive ciprofloxacin 500 mg tablet RxNorm: 260149 1 Tablet(s) PO BID 07/16/2012 07/22/2012 Inactive Celexa 20 mg tablet RxNorm: 741265 Tablet(s) PO TAKE 1 & 1/2 TABLETS BY [facility] DAILY 07/15/2012 12/12/2012 Inactive GE100 Blood Glucose Test Strip RxNorm: 1 Miscellaneous BID 07/11/2012 08/04/2013 Inactive and lancets Aldactone 25 mg tablet RxNorm: 904693 1 Tablet(s) PO BID 03/20/2012 03/14/2013 Inactive estradiol 0.5 mg tablet RxNorm: 922996 1 Tablet(s) PO daily 03/15/2012 06/07/2013 Inactive TAKE 1 TABLET BY MOUTH DAILY amitriptyline 100 mg tablet RxNorm: 644088 1 Tablet(s) PO QHS 03/13/2012 10/08/2012 Inactive amitriptyline 100 mg tablet RxNorm: 224061 1 Tablet(s) PO QHS 12/07/2011 01/05/2012 Inactive Kenalog 40 mg/mL Kat p for Injection RxNorm: 8615729 1 Milliliter(s) Inj 12/07/2011 12/07/2011 In active Provigil 200 mg Tab RxNorm: 776077 1 Tablet(s) PO QAM 12/07/2011 01/05/2012 Inactive Flonase Allergy Reli ef 50 mcg/actuation nasal spray,suspension RxNorm: 6681655 [place] NASAL daily as needed No Start Date Active Fish Oil 1,000 mg ca psule RxNorm: 1 Capsule(s) PO BID No Start Date 10/27/2015 Inactive Provigil 200 mg Tab RxNorm: 430533 1 Tablet(s) PO daily No Start Date 10/13/2013 Inactive Lasix 40 mg tablet RxNorm: 876931 1 Tablet(s) PO BID No Start Date 03/25/2015 Inactive Toprol XL 25 mg tabl et,extended release RxNorm: 823281 1 Tablet(s) PO daily No Start Date 09/16/2012 Inactive Prilosec 20 mg Capsu le, delayed release RxNorm: 316525 1 Capsule(s) PO daily No Start Date 10/13/2013 Inactive cyclobenzaprine 10 m g Tab RxNorm: 144433 1 Tablet(s) PO Q8 PRN No Start Date 03/17/2013 Inactive GE100 Blood Glucose Test Strip RxNorm: 1 Miscellaneous BID No Start Date 07/10/2012 Inactive pantoprazole 40 mg t ablet,delayed release RxNorm: 549134 1 Tablet(s) PO daily No Start Date 04/29/2013 Inactive Januvia 50 mg tablet RxNorm: 399945 1 Tablet(s) PO daily No Start Date 10/06/2013 Inactive samples and script Aldactone 25 mg tablet RxNorm: 029442 1 Tablet(s) PO BID No Start Date 03/19/2012 Inactive amitriptyline 100 mg Tab RxNorm: 831886 1 Tablet(s) PO QHS No Start Date 12/06/2011 Inactive Celexa 20 mg tablet RxNorm: 428059 1.5 Tablet(s) PO daily No Start Date 07/14/2012 Inactive potassium chloride E R 10 mEq tablet,extended release RxNorm: 729230 1 Tablet(s) PO BID No Start Date 08/18/2012 Inactive prednisone 20 mg Tab RxNorm: 192098 Tablet(s) PO UD 3 tabs x 2 days, 2 tabs x 2 days, 1 tab x 2 days, 1/2 tab x 2 days, 1/2 tab QOD x 2 doses then stop No Start Date 10/13/2013 Inactive estradiol 0.5 mg tablet RxNorm: 483756 1 Tablet(s) PO daily No Start Date 03/15/2012 Inactive Aldactone 25 mg tablet RxNorm: 081970 1 Tablet(s) PO BID No Start Date 10/12/2013 Inactive Lasix 40 mg tablet RxNorm: 108884 1 Tablet(s) PO BID No Start Date 08/18/2012 Inactive amitriptyline 75 mg Tab RxNorm: 222363 1 Tablet(s) PO QHS No Start Date 10/13/2013 Inactive Medication Administered Medication Codes Instruc tions Start Date Status Kenalog 40 mg/mL suspension for injection RxNorm: 4757222 Milliliter 07/05/2018 No longer Active Kenalog 40 mg/mL suspension for injection RxNorm: 7025433 1Milliliter 03/14/2018 N o longer Active ceftriaxone 500 mg solution for injection RxNorm: 3229734 1Milliliter 05/25/2017 N o longer Active Kenalog 40 mg/mL suspension for injection RxNorm: 2820153 Milliliter 05/25/2017 No longer Active Kenalog 40 mg/mL suspension for injection RxNorm: 3627822 Milliliter 05/02/2016 No longer Active Kenalog 40 mg/mL suspension for injection RxNorm: 4403515 Milliliter 10/28/2015 No longer Active ceftriaxone 500 mg solution for injection RxNorm: 3693831 04/19/2015 No longer A ctive Kenalog 40 mg/mL suspension for injection RxNorm: 7828642 Milliliter 04/19/2015 No longer Active Kenalog 40 mg/mL suspension for injection RxNorm: 4134196 Milliliter 12/24/2014 No longer Active Kenalog 40 mg/mL Susp for Injection RxNorm: 0121003 1Milliliter 03/18/2013 N o longer Active Kenalog 40 mg/mL Susp for Injection RxNorm: 2678433 1Milliliter 12/07/2011 N o longer Active Immunizations Vaccine Codes Date Status Tetanus, Diptheria, Pertussis CVX: 113 03/14/2018 completed Tetanus/Diptheria CVX: 113 03/14/2018 completed Assessments Condition Codes Effectiv e Dates Pleurodynia ICD-10: R07.81 ICD-9: 786.50 07/05/2018 Encounter for immunization ICD-10: Z 23 ICD-9: V03.9 03/14/2018 Attention-deficit hyperactivity disorder, combined typ e ICD- 10: F90.2 ICD-9: 314.01 03/14/2018 Type 2 diabetes mellitus with hyperglycemia ICD-10: E11.65 ICD-9: 250.02 03/14/2018 Other allergic rhinitis ICD-10: J30. 89 [...] disorder) ICD-9: 314.01 10/13/2013 ESSENTIAL HYPERTENSION SNOMED: 02626 000 ICD-9: 401.9 10/13/2013 Depression ICD-9: 311 DIABETES TYPE II SNOMED: 859210209 ICD-9: 250.00 10/13/2013 EDEMA ICD-9: 782.3 03/18 DM W/O COMPLICATION TYPE II, UNCONTROLLED SNOMED: 88054147 ICD-9: 250.02 03/18/2013 Uncontrolled narcolepsy ICD-9: 347.00 [...] 32.0 pg 03/26/2018 Cbc With Differential Ord2 [place]% 6.9 % 03/26/2018 Cbc With Differential Ord2 [...] 2.01 K/ul 03/26/2018 Cbc With Differential Ord2 [place] ABS# 0.6 K/ul 03/26/2018 Cbc With Differential Ord2 Eos ABS# 0.1 K/ul 03/26/2018 Cbc With Differential Ord2 Baso ABS# 0.0 K/ul 03/26/2018 Tsh Ord6 TSH (3rd IS) 1.30 uIU/mL 03/26/2018 %Hba1C [id number] % HbA1c 18156-8 6.5 % 03/26/2018 %Hba1C Rir232 Gluc Ave 140 mg/dL 03/26/2018 Comp Metabolic Nlm874 NA 141 mEq/L 03/26/2018 Comp Metabolic Htm154 K 4.5 mEq/L 03/26/2018 Comp Metabolic Csq589 CL 106 mEq/L 03/26/2018 Comp Metabolic Wxe412 CO2 30.0 mEq/L 03/26/2018 Comp Metabolic Jft649 AN ION GAP 10 03/26/2018 Comp Metabolic Fwr930 GL UCOSE 122 mg/dL 03/26/2018 Comp Metabolic Mwd423 Cr eat 1.0 mg/dL 03/26/2018 Comp Metabolic Odt026 eG FR 60 ml/min/1.73m2 03/26 Comp Metabolic Dcy706 BUN 18 mg/dL 03/26/2018 Comp Metabolic Okm859 B/ C Ratio 17.5 Ratio 03/26/2018 Comp Metabolic Ggm816 CA LCIUM 10.1 mg/dL 03/26/2018 Comp Metabolic Kzj922 AL K PHOS 67 U/L 03/26/2018 Comp Metabolic Gyd049 T(SGOT) 22 U/L 03/26/2018 Comp Metabolic Uwh922 AL T(SGPT) 26 U/L 03/26/2018 Comp Metabolic Kgq215 BI LI T 0.4 mg/dL 03/26/2018 Comp Metabolic Iju496 AL BUMIN 4.5 g/dL 03/26/2018 Comp Metabolic Qkg619 TP RO 7.0 g/dL 03/26/2018 Comp Metabolic Snl521 GL OB 2.6 g/dL 03/26/2018 Comp Metabolic Inm713 A/ G Ratio 1.7 Ratio 03/26/2018 Comp Metabolic Wfw329 Os mo 284 mOsmo 03/26/2018 Lipid Ord30 CHOL 203 mg/dL 03/26/2018 Lipid Ord30 HDL 62.0 mg/dl 03/26/2018 Lipid Ord30 TRIG 94 mg/dL 03/26/2018 Lipid Ord30 LDL 122 mg/dL 03/26/2018 Lipid Ord30 C/HDL 3.3 Ratio 03/26/2018 Prolactin 776406 PROLACT IN 5.2 ng/mL 05/15/2017 Cbc With [...] 31.9 pg 05/14/2017 Cbc With Differential Ord2 [place]% 7.6 % 05/14/2017 Cbc With Differential Ord2 [...] 2.32 K/ul 05/14/2017 Cbc With Differential Ord2 [place] ABS# 0.7 K/ul 05/14/2017 Cbc With Differential Ord2 Eos ABS# 0.1 K/ul 05/14/2017 Cbc With Differential Ord2 Baso ABS# 0.0 K/ul 05/14/2017 Tsh Ord6 hTSH II 1.69 uIU/mL 05/14/2017 %Hba1C Wsa413 % HbA1c 87776-5 6.4 % 05/14/2017 %Hba1C Dgn963 Gluc Ave 137 mg/dL 05/14/2017 Comp Metabolic Hwa708 NA 138 mEq/L 05/14/2017 Comp Metabolic Dhg427 K 4.2 mEq/L 05/14/2017 Comp Metabolic Xtb342 CL 102 mEq/L 05/14/2017 Comp Metabolic Hms258 CO2 29.0 mEq/L 05/14/2017 Comp Metabolic Ytq787 AN ION GAP 11 05/14/2017 Comp Metabolic Ibd201 GL UCOSE 114 mg/dL 05/14/2017 Comp Metabolic Xwp098 Cr eat 1.0 mg/dL 05/14/2017 Comp Metabolic Vek007 eG FR 64 ml/min/1.73m2 05/14 Comp Metabolic Dht615 BUN 22 mg/dL 05/14/2017 Comp Metabolic Zeo852 B/ C Ratio 22.7 Ratio 05/14/2017 Comp Metabolic Piu595 CA LCIUM 9.6 mg/dL 05/14/2017 Comp Metabolic Ldz533 AL K PHOS 91 U/L 05/14/2017 Comp Metabolic Aqq139 T(SGOT) 13 U/L 05/14/2017 Comp Metabolic Lcq517 AL T(SGPT) 16 U/L 05/14/2017 Comp Metabolic Ffa464 BI LI T 0.4 mg/dL 05/14/2017 Comp Metabolic Xgi327 AL BUMIN 4.2 g/dL 05/14/2017 Comp Metabolic Krx102 TP RO 6.9 g/dL 05/14/2017 Comp Metabolic Cnk297 GL OB 2.7 g/dL 05/14/2017 Comp Metabolic Ayg108 A/ G Ratio 1.6 Ratio 05/14/2017 Comp Metabolic Rty784 Os mo 280 mOsmo 05/14/2017 Lipid Ord30 CHOL 219 mg/dL 05/14/2017 Lipid Ord30 HDL 67.0 mg/dl 05/14/2017 Lipid Ord30 TRIG 157 mg/dL 05/14/2017 Lipid Ord30 LDL 121 mg/dL 05/14/2017 Lipid Ord30 C/HDL 3.3 Ratio 05/14/2017 Prolactin 635637 PROLACT IN 4.5 ng/mL 05/04/2016 %Hba1C Bbj966 % HbA1c 24000-6 5.9 % 05/03/2016 %Hba1C Ijv784 Gluc Ave 123 mg/dL 05/03/2016 Cbc With [...] 32.3 pg 05/03/2016 Cbc With Differential Ord2 [place]% 7.0 % 05/03/2016 Cbc With Differential Ord2 [...] 2.38 K/ul 05/03/2016 Cbc With Differential Ord2 [place] ABS# 0.6 K/ul 05/03/2016 Cbc With Differential Ord2 Eos ABS# 0.2 K/ul 05/03/2016 Cbc With Differential Ord2 Baso ABS# 0.1 K/ul 05/03/2016 Tsh Ord6 hTSH II 0.70 uIU/mL 05/03/2016 Comp Metabolic Hmz706 NA 137 mEq/L 05/03/2016 Comp Metabolic Cwc215 K 4.3 mEq/L 05/03/2016 Comp Metabolic Urw971 CL 102 mEq/L 05/03/2016 Comp Metabolic Sua854 CO2 25.0 mEq/L 05/03/2016 Comp Metabolic Ctu618 AN ION GAP 14 05/03/2016 Comp Metabolic Rrt662 GL UCOSE 87 mg/dL 05/03/2016 Comp Metabolic Ook679 Cr eat 0.8 mg/dL 05/03/2016 Comp Metabolic Uez587 eG FR 76 ml/min/1.73m2 05/03 Comp Metabolic Vjx764 BUN 11 mg/dL 05/03/2016 Comp Metabolic Kiq280 B/ C Ratio 13.1 Ratio 05/03/2016 Comp Metabolic Hsz140 CA LCIUM 9.3 mg/dL 05/03/2016 Comp Metabolic Jig687 AL K PHOS 76 U/L 05/03/2016 Comp Metabolic Xgt586 T(SGOT) 27 U/L 05/03/2016 Comp Metabolic Jkj142 AL T(SGPT) 25 U/L 05/03/2016 Comp Metabolic Jfk204 BI LI T 0.3 mg/dL 05/03/2016 Comp Metabolic Sjq982 AL BUMIN 4.1 g/dL 05/03/2016 Comp Metabolic Ltd889 TP RO 7.1 g/dL 05/03/2016 Comp Metabolic Bpu553 GL OB 3.0 g/dL 05/03/2016 Comp Metabolic Ylx103 A/ G Ratio 1.4 Ratio 05/03/2016 Comp Metabolic Ugi694 Os mo 273 mOsmo 05/03/2016 Urine Culture Ucult Comp lete >100,000 col/ml aerobic grow th sent to ref lab 03/17/2015 Culture Urine [id number] URI NE CULTURE SEE NOTES 01/28/2015 Culture Urine [id number] Con tinued Results 01/28/2015 Urine Culture Ucult Comp lete >100,000 col/ml aerobic grow th sent to ref lab 01/26/2015 URINALYSIS NONAUTO W/O SCOPE 00575 Specific [place] 1.005 DateTime(Free Text in ) URINALYSIS NONAUTO W/O SCOPE 73339 PH 7.5 DateTime(Free Ruben t in ) URINALYSIS NONAUTO W/O SCOPE 30213 GLUCOSE neg DateTime(Free Ruben t in ) URINALYSIS NONAUTO W/O SCOPE 91863 Protein neg DateTime(Free Ruben t in ) URINALYSIS NONAUTO W/O SCOPE 34319 Blood trace DateTime(Free T ext in ) URINALYSIS NONAUTO W/O SCOPE 30263 Bilirubin small DateTime(Free T ext in ) URINALYSIS NONAUTO W/O SCOPE 87722 Ketones neg DateTime(Free Ruben t in ) URINALYSIS NONAUTO W/O SCOPE 84891 Urobilinogen 0.2 DateTime(Free Text in [employer]) URINALYSIS NONAUTO W/O SCOPE 86004 Nitrite neg DateTime(Free Ruben t in ) URINALYSIS NONAUTO W/O SCOPE 94751 Leukocytes moderate DateTime(Free Text in ) Review [...] time 10/13/2013 None Full Exam - General 1995 Constitutional general appearance Development: well developed 03/18/2013 None Full Exam - General 1995 Constitutional general appearance Development: appears stated age [...] Procedure Codes Date THER/PROPH/DIAG INJ SC/IM CPT-4: 85086 07/05/2018 TRIAMCINOLONE ACET I [place] NOS CPT-4: J3301 07/05/2018 TRIAMCINOLONE ACET I [place] NOS CPT-4: J3301 03/14/2018 IMMUNIZATION ADMIN CPT- 4: 60077 03/14/2018 ADACEL TDAP VACCINE 7 YRS/> IM CPT-4: 40571 03/14/2018 TRIAMCINOLONE ACET I [place] NOS CPT-4: J3301 05/25/2017 ROCEPHIN, PER 250 MG CPT-4: J0696 05/25/2017 TRIAMCINOLONE ACET I [place] NOS CPT-4: J3301 05/02/2016 TRIAMCINOLONE ACET I [place] NOS CPT-4: J3301 10/28/2015 ROCEPHIN, PER 250 MG CPT-4: J0696 04/19/2015 TRIAMCINOLONE ACET I [place] NOS CPT-4: J3301 04/19/2015 URINALYSIS NONAUTO W /O SCOPE CPT-4: 73234 03/15/2015 URINALYSIS NONAUTO W /O SCOPE CPT-4: 96498 01/25/2015 TRIAMCINOLONE ACET I [place] NOS CPT-4: J3301 12/24/2014 THER/PROPH/DIAG INJ SC/IM CPT-4: 35578 12/24/2014 URINALYSIS NONAUTO W /O SCOPE CPT-4: 48038 07/16/2012 DRAIN/INJECT JOINT/B URSA CPT-4: 13887 12/07/2011 Vital Signs Date Vital 07/05/2018 Blood Pressure 1: 132/78 Code: 8480-6 BMI: 32.6 Code: 99294-1 Heart Rate 1: 75 bpm Height: 5'2" SpO2: 96% Weight: 178 lbs 03/14/2018 Blood Pressure 1: 108/74 Code: 8480-6 BMI: 33.3 Code: 32704-6 Heart Rate 1: 91 bpm Height: 5'2" SpO2: 98% Weight: 182 lbs 05/25/2017 Blood Pressure 1: 142/82 Code: 8480-6 BMI: 32.0 Code: 14586-6 Heart Rate 1: 96 bpm Height: 5'2" SpO2: 94% Temperature: 37.3 (C ) / 99.2 (F) Weight: 175 lbs 05/14/2017 Blood Pressure 1: 142/78 Code: 8480-6 BMI: 32.0 Code: 15073-0 Heart Rate 1: 111 bpm Height: 5'2" SpO2: 95% Weight: 175 lbs 05/02/2016 Blood Pressure 1: 124/74 Code: 8480-6 BMI: 32.4 Code: 71193-8 Heart Rate 1: 107 bpm Height: 5'2" SpO2: 98% Weight: 177 lbs 10/28/2015 Blood Pressure 1: 124/80 Code: 8480-6 BMI: 32.6 Code: 30745-2 Heart Rate 1: 78 bpm Height: 5'2" SpO2: 91% Weight: 178 lbs 04/19/2015 Blood Pressure 1: 110/78 Code: 8480-6 BMI: 31.5 Code: 28810-1 Heart Rate 1: 88 bpm Height: 5'2" SpO2: 96% Weight: 172 lbs 12/24/2014 Blood Pressure 1: 112/72 Code: 8480-6 BMI: 30.4 Code: 70485-9 Heart Rate 1: 88 bpm Height: 5'2" Weight: 166 lbs 10/13/2013 Blood Pressure 1: 104/78 Code: 8480-6 BMI: 30.7 Code: 51847-2 Heart Rate 1: 100 bpm Height: 5'2" [...] State s she was sitting in the coach mechanic with the dog, and was slightly twisted-sat [...] Pleurodynia[ICD10: R07.81] [facility] CPT-4: 07114 07/05/2018 ([id number]) 87642 EST. P ATIENT, LEVEL IV Diagnosis: Type 2 diabetes mellitus with hyperglycemia[ICD10: E11.65] Diagnosis: Mixed hyperlipidemia[ICD10: E78.2] Diagnosis: Other allergic rhinitis[ICD10: J30.89] Diagnosis: Attention-deficit hyperactivity disorder, combined type[ICD10: F90.2] Diagnosis: Encounter for immunization[ICD10: Z23] [facility] CPT-4: 25571 03/14/2018 [id number] EST. PATIENT, LEVEL IV Diagnosis: Other acute sinusitis[ICD10: J01.80] Diagnosis: Other allergic rhinitis[ICD10: J30.89] Michelle Martinez MD, [facility] CPT-4: 50026 05/25/2017 [id number] EST. 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 P ATIENT, LEVEL III Diagnosis: Allergic rhinitis due to pollen[ICD10: J30.1] Diagnosis: Otalgia, right ear[ICD10: H92.01] Maci Martinez MD, [facility] CPT- 4: 24352 10/28/2015 ([id number]) 97225 EST. P ATIENT, LEVEL III Diagnosis: Acute maxillary sinusitis, unspecified[ICD10: J01.00] Diagnosis: Allergic rhinitis, unspecified[ICD10: J30.9] Maci Martinez MD, [facility] CPT-4: 59798 04/19/2015 ([id number]) 24897 EST. P ATIENT, LEVEL III Diagnosis: Swelling of eyelid[ICD9: 374.82] Diagnosis: Sunburn[ICD9: 692.71] Maci Martinez MD, [facility] CPT-4: 29466 12/24/2014 ([id number]) 69947 EST. P ATIENT, LEVEL IV Diagnosis: ESSENTIAL HYPERTENSION[SNOMED: 71820129] Diagnosis: DIABETES TYPE II[SNOMED: 681287899] Diagnosis: ADHD (attention deficit hyperactivity disorder)[ICD9: 314.01] Diagnosis: Depression[ICD9: 311] Joy Martinez MD, [facility] CPT-4: 13609 10/13/2013 ([id number]) 65008 EST. P ATIENT, LEVEL IV Diagnosis: DM W/O COMPLICATION TYPE II, UNCONTROLLED[SNOMED: 07974122] Diagnosis: ESSENTIAL HYPERTENSION[SNOMED: 00289739] Diagnosis: EDEMA[ICD9: 782.3] Joy Martinez MD, [facility] CPT-4: 57268 03/18/2013 ([id number]) 17630 EST. P ATIENT, LEVEL IV Diagnosis: UTI[ICD9: 599.0] Diagnosis: DM W/O COMPLICATION TYPE II, UNCONTROLLED[SNOMED: 19306622] Joy Martinez MD, [facility] CPT-4: 47784 07/16/2012 ([id number]) 13836 EST. P ATIENT, LEVEL III Diagnosis: Uncontrolled narcolepsy[ICD9: 347.00] Diagnosis: ESSENTIAL HYPERTENSION[SNOMED: 79527338] Joy Martinez MD, C CPT-4: 43678 01/17/2012 Office outpatient ne w 30 minutes Diagnosis: Sciatica[ICD9: 724.3] Diagnosis: Chronic back pain[ICD9: 724.5] Diagnosis: ESSENTIAL HYPERTENSION[SNOMED: 08744157] Joy Martinez MD, C CPT-4: 87221 12/07/2011 Plan of Care Planned Activity Notes C odes Status Date Visit Plan: Left rib pain - the pat ient was instructed in appropriate posture - The pt is to use prn antiinflammatories to manage acute pain. The patient is to call the office if the pain is worsening or does not improve. 07/05/2018 Appointment: Michelle Mora WPtel: [address] [place], [place] [address] (15 min) Moderate 07/05/2018 Patient Education: Patient [...] office 03/14/2018 Appointment: Maci Moreno WPtel: [phone] [phone] (30 min) Complex 03/14/2018 Patient Education: Patient [...] spray. 05/25/2017 Appointment: Michelle Mora WPtel: [phone] [facility] (15 min) Moderate 05/25/2017 Patient Education: Patient [...] control. 05/14/2017 Appointment: [phone] ([facility] min) [facility] 05/14/2017 Patient Education: Patient Medication Summary Completed 05/14/2017 Patient Education: Obesity Completed 05/14/2017 Care Plan: Referral Order SNOMED-CT : 724918408 Pending 05/14/2017 Visit Plan: Allergies - chronic [...] less controlled. 05/02/2016 Appointment: Maci Moreno WPtel: [address] [place] [address] (15 min) Moderate 05/02/2016 Patient Education: Patient [...] allergy spray. 10/28/2015 Appointment: Maci Moreno WPtel: [address] [place] [address] (30 min) Complex 10/28/2015 Patient Education: Patient [...] acute symptoms. 04/19/2015 Appointment: Maci Moreno WPtel: [facility] (15 min) Moderate 04/19/2015 Patient Education: Patient [...] patient. 10/13/2013 App[facility]ment: [phone] [place] Follow up 10/13/2013 Patient Education: Patient Medication Summary Completed 10/13/2013 Patient Education: Hypertension Completed 10/13/2013 Appointment: [phone] [place] Follow up 08/29/2013 [facility]ment: [phone] [facility] 06/23/2013 Visit Plan: Diabetes Mellitus - [facility] ontrolled - per recent FSBS reports. I [...] edema. 03/18/2013 [facility]ment: [phone] [facility] 03/18/2013 Patient Education: Patient Medication Summary Completed 03/18/2013 Patient Education: Hypertension Completed 03/18/2013 App[facility]ment: [phone] [facility] 10/15/2012 Appointment: [phone] Diabetic education 07/22/2012 Visit Plan: Diabetes Mellitus - [facility] ontrolled - per recent FSBS reports. I [...] improve. 07/16/2012 Appointment: Joy Martinez WPtel: [phone] [facility] [facility] follow up 07/16/2012 Patient Education: Patient [...] at home. 01/17/2012 Appointment: Joy Martinez WPtel: [facility]5 [facility] [facility] 01/17/2012 Patient Education: Patient Medication Summary Completed [...] Q HS 12/07/2011 Appointment: Maci Moreno WPtel: [facility] [phone] New Patient 12/07/2011 Patient Education: Patient Medication [...] 40mg refill ritalin fasting labs-[place] [facility] [place] any time fasting . Diabetes [...]
--- OUTSIDE RECORDS SUMMARY | 2019-11-02 07:05 | XMS REPORT | CCD ---
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 [employer] e [id number] Unknown Family history Brother Diagnosis Age At [...] M arried 12/07/[address]: 173152021 Never smoker 12/07/2011 Alcohol history Unknown occasionally [...] Date Stop Date Sta tus Fill Instructions trimethoprim 100 mg tablet RxNorm: 886868 1 Tablet(s) PO daily 08/30/2018 08/14/2018 Inactive Keflex 500 mg capsule RxNorm: 256486 1 Capsule(s) PO QID 08/15/2018 08/28/2018 Active trimethoprim 100 mg tablet RxNorm: 109607 1 Tablet(s) PO daily 08/15/2018 03/12/2019 Active Keflex 500 mg capsule RxNorm: 537895 1 Capsule(s) PO QID 08/15/2018 08/14/2018 Inactive Toprol XL 25 mg tabl et,extended release RxNorm: 963028 1 Tablet(s) PO daily 07/26/2018 06/26/2019 Ac tive waiting on mail order amitriptyline 100 mg tablet RxNorm: 406961 Tablet(s) TAKE 1 TABL ET BY MOUTH DAILY AT BEDTIME 07/26/2018 07/20/2019 Active Januvia 50 mg tablet RxNorm: 138359 1 Tablet(s) PO daily 07/26/2018 07/20/2019 Active Toprol XL 25 mg tabl et,extended release RxNorm: 173797 1 Tablet(s) PO daily 07/26/2018 07/25/2018 In active waiting on mail order amitriptyline 100 mg tablet RxNorm: 981335 Tablet(s) TAKE 1 TABL ET BY MOUTH DAILY AT BEDTIME 07/26/2018 07/25/2018 Inactive waiting on mail order Ritalin 10 mg tablet RxNorm: 3654232 1 Tablet(s) PO BID 07/05/2018 08/03/2018 Inactive [SAVINGS FOR NON-COVERED DRUGS -- BIN:00 3585, PCN: ASPROD1, Group: XXXXX, ID# [id number], Questions: . THIS IS NOT INSURANCE.] prednisone 20 mg tablet RxNorm: 856511 3 Tablet(s) PO daily 07/05/2018 07/04/2018 Inactive Kenalog 40 mg/mL kat pension for injection RxNorm: 8145098 Milliliter(s) Inj 07/05/2018 07/05/2018 In active prednisone 20 mg tablet RxNorm: 801606 3 Tablet(s) PO daily 07/05/2018 07/09/2018 Inactive Aldactone 25 mg tablet RxNorm: 968266 Tablet(s) 1 TABLET(S) PO BID 04/17/2018 01/11/2019 Active pantoprazole 40 mg t ablet,delayed release RxNorm: 821458 1 Tablet(s) PO QHS 04/17/2018 01/11/2019 Ac tive Ritalin 10 mg tablet RxNorm: 8934594 1 Tablet(s) PO BID 04/17/2018 05/16/2018 Inactive [SAVINGS FOR NON-COVERED DRUGS -- BIN:00 3585, PCN: ASPROD1, Group: XXXXX, ID# [id number], Questions: . THIS IS NOT INSURANCE.] Bactrim 400 mg-80 mg tablet RxNorm: 779407 Tablet(s) TAKE 1 TABL ET BY MOUTH NEEDED FOR SEXUAL INTERCOURSE FOR UTI PREVENTION 04/17/2018 08/14/2018 Inactive Kenalog 40 mg/mL kat pension for injection RxNorm: 4283991 1 Milliliter(s) Inj 03/14/2018 03/14/2018 In active amitriptyline 100 mg tablet RxNorm: 412935 Tablet(s) TAKE 1 TABL ET BY MOUTH DAILY AT BEDTIME 03/14/2018 07/25/2018 Inactive Ritalin 10 mg tablet RxNorm: 0695008 1 Tablet(s) PO BID 03/14/2018 04/12/2018 Inactive [SAVINGS FOR NON-COVERED DRUGS -- BIN:00 2505, PCN: ASPROD1, Group: XXXXX, ID# [id number], Questions: . THIS IS NOT INSURANCE.] Bactrim 400 mg-80 mg tablet RxNorm: 804455 TAKE 1 TABLET BY MOUT H NEEDED FOR SEXUAL INTERCOURSE FOR UTI PREVENTION 09/28/2017 11/26/2017 Inactive amitriptyline 100 mg tablet RxNorm: 880426 TAKE 1 TABLET BY MOUT H DAILY AT BEDTIME 09/25/2017 03/13/2018 In active Diflucan 150 mg tablet RxNorm: 427604 1 Tablet(s) PO daily 05/31/2017 06/04/2017 Inactive Diflucan 150 mg tablet RxNorm: 967403 1 Tablet(s) PO daily 05/31/2017 05/30/2017 Inactive Kenalog 40 mg/mL kat pension for injection RxNorm: 2181058 Milliliter(s) Inj 05/25/2017 05/25/2017 In active prednisone 10 mg tablet RxNorm: 041150 Tablet(s) PO UD 05/25/2017 09/24/2017 Inactive 6,5,4,3,2,1 Phenergan with Codei ne Syrup RxNorm: 5-10 Milliliter(s) PO QID a s needed 05/25/2017 03/13/2018 In active Keflex 500 mg capsule RxNorm: 367834 1 Capsule(s) PO TID 05/25/2017 06/03/2017 Inactive ceftriaxone 500 mg s olution for injection RxNorm: 1747788 1 Milliliter(s) Inj 05/25/2017 05/25/2017 In active estradiol 0.5 mg tablet RxNorm: 336746 1 Tablet(s) PO daily 05/14/2017 04/27/2020 Active Celexa 20 mg tablet RxNorm: 029698 1.5 Tablet(s) PO daily 05/14/2017 04/27/2020 Active amitriptyline 100 mg tablet RxNorm: 559760 1 Tablet(s) PO QHS 05/14/2017 09/24/2017 Inactive Januvia 50 mg tablet RxNorm: 612743 1 Tablet(s) PO daily 05/14/2017 05/08/2018 Inactive pantoprazole 40 mg t ablet,delayed release RxNorm: 233203 1 Tablet(s) PO QHS 05/14/2017 02/07/2018 In active Bactrim 400 mg-80 mg tablet RxNorm: 126026 Tablet(s) TAKE ONE TA BLET BY MOUTH NEEDED FOR SEXUAL INTERCOURSE FOR UTI PREVENTION 05/14/2017 08/11/2017 Inactive Toprol XL 25 mg tabl et,extended release RxNorm: 559293 1 Tablet(s) PO daily 05/14/2017 05/08/2018 In active Aldactone 25 mg tablet RxNorm: 693014 Tablet(s) 1 TABLET(S) PO BID 05/14/2017 02/07/2018 Inactive Celexa 20 mg tablet RxNorm: 551166 TAKE ONE & ONE-HALF TABLETS BY MOUTH ONC E DAILY 04/12/2017 05/13/2017 Inactive Toprol XL 25 mg tabl et,extended release RxNorm: 386641 TAKE ONE TABLET BY MO UTH ONCE DAILY 02/06/2017 05/13/2017 Inactive Celexa 20 mg tablet RxNorm: 721573 TAKE ONE & ONE-HALF TABLETS BY MOUTH ONC E DAILY 01/03/2017 03/03/2017 Inactive amitriptyline 100 mg tablet RxNorm: 986336 TAKE ONE TABLET BY MO UTH AT BEDTIME 12/08/2016 05/13/2017 In active Toprol XL 25 mg tabl et,extended release RxNorm: 479706 TAKE ONE TABLET BY MO UTH ONCE DAILY 11/23/2016 02/06/2017 Inactive Januvia 50 mg tablet RxNorm: 416349 TAKE ONE TABLET BY MOUTH ONCE DAILY 11/09/2016 03/08/2017 In active Bactrim 400 mg-80 mg tablet RxNorm: 236242 TAKE ONE TABLET BY MO UT NEEDED FOR SEXUAL INTERCOURSE FOR UTI PREVENTION 09/19/2016 04/24/2017 Inactive amitriptyline 100 mg tablet RxNorm: 381068 TAKE ONE TABLET BY MO [facility] AT BEDTIME 08/31/2016 11/28/2016 In active pantoprazole 40 mg t ablet,delayed release RxNorm: 076809 Tablet(s) TAKE 1 TABL ET BY MOUTH ONCE DAILY 08/16/2016 05/12/2017 Inactive estradiol 0.5 mg tablet RxNorm: 593388 TAKE ONE TABLET BY MOUTH ONCE DAILY 08/13/2016 05/13/2017 In active amitriptyline 100 mg tablet RxNorm: 169421 TAKE ONE TABLET BY [facility] AT BEDTIME 07/31/2016 08/29/2016 In active ProAir HFA 90 mcg/ac tuation aerosol inhaler RxNorm: 394824 2 inhale INH PRN as n eeded 05/02/2016 No Stop Date Active ciprofloxacin 0.3 % eye drops RxNorm: 597701 Drop(s) OPH 2 drops e very 2 hours while awake for days 1-2 and 2 drops every 4 hours for days 3 - 7 05/02/2016 03/13/2018 Inactive Kenalog 40 mg/mL kat pension for injection RxNorm: 8237862 Milliliter(s) Inj 05/02/2016 05/02/2016 In active Zithromax Z-Nick 250 mg tablet RxNorm: 123294 1 Tablet(s) PO UD 05/02/2016 09/24/2017 Inactive albuterol sulfate 2. 5 mg/3 mL (0.083 %) solution for nebulization RxNorm: 159784 1 Milliliter(s) INH QID as needed 03/13/2018 Inactive prednisone 20 mg tablet RxNorm: 384711 1 Tablet(s) PO BID 05/02/2016 05/06/2016 Inactive amitriptyline 100 mg tablet RxNorm: 892297 1 TABLET(S) PO QHS 03/01/2016 07/30/2016 Inactive estradiol 0.5 mg tablet RxNorm: 619471 1 TABLET(S) PO DAILY 03/01/2016 09/24/2017 Inactive TAKE 1 TABLET BY MOUTH DAILY estradiol 0.5 mg tablet RxNorm: 097989 TAKE ONE TABLET BY MOUTH ONCE DAILY 03/01/2016 05/29/2016 In active Celexa 20 mg tablet RxNorm: 553844 TAKE ONE & ONE-HALF TABLETS BY MOUTH ONC E DAILY 12/03/2015 11/26/2016 Inactive amoxicillin 500 mg c apsule RxNorm: 025550 1 Capsule(s) PO BID 11/05/2015 11/04/2015 Inactive amoxicillin 500 mg c apsule RxNorm: 496745 1 Capsule(s) PO BID 11/05/2015 04/30/2017 Inactive Kenalog 40 mg/mL kat pension for injection RxNorm: 7014911 Milliliter(s) Inj 10/28/2015 10/28/2015 In active Januvia 50 mg tablet RxNorm: 108990 Tablet(s) 1 TABLET(S) PO DAILY 10/28/2015 10/21/2016 In active Ritalin 10 mg tablet RxNorm: 1656755 1 Tablet(s) PO BID 10/28/2015 11/26/2015 Inactive [SAVINGS FOR NON-COVERED DRUGS -- BIN:00 3585, PCN: ASPROD1, Group: XXXXX, ID# [id number], Questions: . THIS IS NOT INSURANCE.] Toprol XL 25 mg tabl et,extended release RxNorm: 844964 Tablet(s) 1 TABLET(S) PO DAILY 10/28/2015 10/21/2016 Inactive prednisone 20 mg tablet RxNorm: 350275 1 Tablet(s) PO BID 10/28/2015 11/01/2015 Inactive Lasix 40 mg tablet RxNorm: 680740 TAKE ONE TABLET BY MOUTH ONCE DAILY. MAY TAKE EXTRA TABLET NEEDED. 09/27/2015 12/25/2015 Inactive Bactrim 400 mg-80 mg tablet RxNorm: 378544 Tablet(s) 1 TABLET(S) PO PRN SEXUAL INTERCOURSE, UTI PREVENTATIVE 09/22/2015 12/20/2015 Inactive pantoprazole 40 mg t ablet,delayed release RxNorm: 990595 TAKE 1 TABLET BY MOUT H ONCE DAILY 07/29/2015 01/24/2016 Inactive amitriptyline 100 mg tablet RxNorm: 319354 Tablet(s) 1 TABLET(S) PO QHS 07/26/2015 09/24/2017 In active pantoprazole 40 mg t ablet,delayed release RxNorm: 828694 TAKE 1 TABLET BY MOUT H ONCE DAILY 07/21/2015 07/28/2015 Inactive Bactrim 400 mg-80 mg tablet RxNorm: 512727 1 TABLET(S) PO PRN SE XUAL INTERCOURSE, UTI PREVENTATIVE 06/21/2015 09/18/2015 Inactive Ritalin 10 mg tablet RxNorm: 3741210 1 Tablet(s) PO BID 04/19/2015 05/18/2015 Inactive [SAVINGS FOR NON-COVERED DRUGS -- BIN:00 2365, PCN: ASPROD1, Group: XXXXX, ID# [id number], Questions: . THIS IS NOT INSURANCE.] Keflex 500 mg capsule RxNorm: 439741 1 Capsule(s) PO TID 04/19/2015 04/28/2015 Inactive Kenalog 40 mg/mL kat pension for injection RxNorm: 6713037 Milliliter(s) Inj 04/19/2015 04/19/2015 In active ceftriaxone 500 mg s olution for injection RxNorm: 5027152 Inj 04/19/2015 04/19/2015 Inactive amitriptyline 100 mg tablet RxNorm: 753194 1 TABLET(S) PO QHS 03/26/2015 07/25/2015 Inactive Lasix 40 mg tablet RxNorm: 460440 1 Tablet(s) PO daily 03/26/2015 09/21/2015 Inactive may take an extra tablet as needed Aldactone 25 mg tablet RxNorm: 517339 1 TABLET(S) PO BID 03/26/2015 12/20/2015 Inactive Levaquin 500 mg tablet RxNorm: 179969 1 Tablet(s) PO daily 03/15/2015 03/21/2015 Inactive Levaquin 500 mg tablet RxNorm: 476902 1 Tablet(s) PO daily 03/15/2015 03/14/2015 Inactive hydrocodone 5 mg-devang taminophen 325 mg tablet RxNorm: 866646 one or two tabs po ev ey six hours prn Tablet(s) PO 02/26/2015 03/13/2018 Inactive hydrocodone 5 mg-devang taminophen 325 mg tablet RxNorm: 513037 one or two tabs po ev ey six hours prn Tablet(s) PO 02/26/2015 02/25/2015 Inactive amitriptyline 100 mg tablet RxNorm: 625699 1 TABLET(S) PO QHS 02/22/2015 01/17/2016 Inactive Keflex 500 mg capsule RxNorm: 370384 1 Capsule(s) PO TID 01/25/2015 01/24/2015 Inactive Keflex 500 mg capsule RxNorm: 391935 1 Capsule(s) PO TID 01/25/2015 01/31/2015 Inactive Bactrim 400 mg-80 mg tablet RxNorm: 441064 1 Tablet(s) PO PRN se xual intercourse, uti preventative 01/04/2015 01/03/2015 Inactive Bactrim 400 mg-80 mg tablet RxNorm: 897827 1 Tablet(s) PO PRN se xual intercourse, uti preventative 01/04/2015 06/20/2015 Inactive Ritalin 10 mg tablet RxNorm: 8633491 1 Tablet(s) PO BID 12/24/2014 01/22/2015 Inactive [SAVINGS FOR NON-COVERED DRUGS -- BIN:00 3585, PCN: ASPROD1, Group: XXXXX, ID# [id number], Questions: . THIS IS NOT INSURANCE.] Kenalog 40 mg/mL kat pension for injection RxNorm: 1723641 Milliliter(s) Inj 12/24/2014 12/24/2014 In active estradiol 0.5 mg tablet RxNorm: 299839 1 Tablet(s) PO daily 12/16/2014 02/29/2016 Inactive TAKE 1 TABLET BY MOUTH DAILY pantoprazole 40 mg t ablet,delayed release RxNorm: 165932 1 Tablet(s) daily 10/26/2014 07/20/2015 In active [SAVINGS FOR NON-COVERED DRUGS -- BIN:00 3585, PCN: ASPROD1, Group: XXXXX, ID# [id number], Questions: . THIS IS NOT INSURANCE.] Ritalin 10 mg tablet RxNorm: 5899649 1 Tablet(s) PO BID 10/23/2014 11/21/2014 Inactive [SAVINGS FOR NON-COVERED DRUGS -- BIN:00 3585, PCN: ASPROD1, Group: XXXXX, ID# [id number], Questions: . THIS IS NOT INSURANCE.] pantoprazole 40 mg t ablet,delayed release RxNorm: 690633 3/4 Tablet(s) daily 10/23/2014 10/25/2014 In active [SAVINGS FOR NON-COVERED DRUGS -- BIN:3584, PCN: ASPROD1, Group: XXXXX, ID# [id number], Questions: . THIS IS NOT INSURANCE.] Toprol XL 25 mg tabl et,extended release RxNorm: 190644 1 TABLET(S) PO DAILY 10/20/2014 10/14/2015 In active Januvia 50 mg tablet RxNorm: 915679 1 TABLET(S) PO DAILY 10/20/2014 10/14/2015 Inactive samples and script Celexa 20 mg tablet RxNorm: 300105 1.5 TABLET(S) PO DAILY TAKE 1 & 1/2 TABL ETS BY MOUTH DAILY 10/20/2014 10/14/2015 Inactive omeprazole 20 mg cap maco,delayed release RxNorm: 462617 1 Capsule(s) PO BID 09/25/2014 09/24/2014 In active omeprazole 20 mg cap maco,delayed release RxNorm: 503293 1 Capsule(s) PO BID 09/25/2014 10/22/2014 In active DC pantoprazole [SAVINGS FOR NON-COVERED DRUGS -- BIN:085564, PCN: ASPROD1, Group: XXXXX, ID# [id number], Questions: . THIS IS NOT INSURANCE.] pantoprazole 40 mg t ablet,delayed release RxNorm: 500591 1 TABLET(S) PO BID 09/24/2014 09/24/2014 In active omeprazole 20 mg tab let,delayed release RxNorm: 789812 1 Tablet(s) PO BID 08/31/2014 08/30/2014 In active dc pantoprazole 40mg omeprazole 20 mg tab let,delayed release RxNorm: 076446 1 Tablet(s) PO BID 08/31/2014 08/30/2014 In active omeprazole 20 mg tab let,delayed release RxNorm: 833912 1 Tablet(s) PO daily 08/31/2014 10/27/2015 In active change to daily Ritalin 10 mg tablet RxNorm: 1838179 1 Tablet(s) PO BID 07/20/2014 08/18/2014 Inactive [SAVINGS FOR UNINSURED PATIENTS -- BIN:0 87704, PCN: ASPROD1, Group: [id number], ID# [id number], Process claim through [employer], for questions: . THIS IS NOT INSURANCE.] amitriptyline 100 mg tablet RxNorm: 741382 1 TABLET(S) PO QHS 04/27/2014 02/21/2015 Inactive Ritalin 10 mg tablet RxNorm: 8255403 1 Tablet(s) PO BID 02/09/2014 06/08/2014 Inactive [SAVINGS FOR UNINSURED PATIENTS -- BIN:0 26589, PCN: ASPROD1, Group: [id number], ID# [id number], Process claim through [employer], for questions: . THIS IS NOT INSURANCE.] ProAir HFA 90 mcg/ac tuation aerosol inhaler RxNorm: 080993 2 inhale INH PRN 11/19/2013 10/27/2015 In active amitriptyline 100 mg tablet RxNorm: 186449 Tablet(s) PO TAKE 1 T ABLET BY MOUTH AT BEDTIME 10/27/2013 04/23/2017 Inactive Ritalin 10 mg tablet RxNorm: 9717086 1 Tablet(s) PO BID 10/13/2013 02/08/2014 Inactive estradiol 0.5 mg tablet RxNorm: 391635 1 Tablet(s) PO daily 10/13/2013 12/15/2014 Inactive TAKE 1 TABLET BY MOUTH DAILY pantoprazole 40 mg t ablet,delayed release RxNorm: 670121 1 Tablet(s) PO BID 10/13/2013 08/30/2014 In active Januvia 50 mg tablet RxNorm: 069206 1 Tablet(s) PO daily 10/13/2013 10/07/2014 Inactive samples and script Toprol XL 25 mg tabl et,extended release RxNorm: 905990 1 Tablet(s) PO daily 10/13/2013 10/07/2014 In active Celexa 20 mg tablet RxNorm: 283832 1.5 Tablet(s) PO daily TAKE 1 & 1/2 TABL ETS BY MOUTH DAILY 10/13/2013 10/07/2014 Inactive Aldactone 25 mg tablet RxNorm: 272271 1 Tablet(s) PO BID 10/13/2013 10/07/2014 Inactive Januvia 50 mg tablet RxNorm: 100796 1 Tablet(s) PO daily 10/07/2013 10/12/2013 Inactive samples and script Celexa 20 mg tablet RxNorm: 031140 1 1/2 Tablet(s) PO daily TAKE 1 & 1/2 TA BLETS BY MOUTH DAILY 05/05/2013 10/12/2013 Inactive pantoprazole 40 mg t ablet,delayed release RxNorm: 475852 1 Tablet(s) PO daily 04/30/2013 10/12/2013 In active amitriptyline 100 mg tablet RxNorm: 272979 1 Tablet(s) PO QHS 04/28/2013 10/26/2013 Inactive Ritalin 10 mg tablet RxNorm: 9120381 1 Tablet(s) PO BID 04/18/2013 05/17/2013 Inactive Kenalog 40 mg/mL Kat p for Injection RxNorm: 7852891 1 Milliliter(s) Inj 03/18/2013 03/18/2013 In active amitriptyline 100 mg tablet RxNorm: 956165 1 Tablet(s) PO QHS 03/18/2013 04/27/2013 Inactive Ritalin 10 mg tablet RxNorm: 8775695 1 Tablet(s) PO BID 02/21/2013 03/17/2013 Inactive Toprol XL 25 mg tabl et,extended release RxNorm: 982699 1 Tablet(s) PO daily 01/23/2013 07/21/2013 In active amitriptyline 100 mg tablet RxNorm: 184678 1 Tablet(s) PO QHS 01/23/2013 03/17/2013 Inactive Celexa 20 mg tablet RxNorm: 659461 Tablet(s) PO TAKE 1 & 1/2 TABLETS BY HERLINDA TH DAILY 12/13/2012 05/04/2013 Inactive Lasix 40 mg tablet RxNorm: 670891 1 Tablet(s) PO daily 12/13/2012 02/10/2013 Inactive and prn amitriptyline 100 mg tablet RxNorm: 603548 1 Tablet(s) PO QHS 10/21/2012 01/18/2013 Inactive Toprol XL 25 mg tabl et,extended release RxNorm: 219195 1 Tablet(s) PO daily 09/17/2012 01/14/2013 In active potassium chloride E R 10 mEq tablet,extended release RxNorm: 791091 1 Tablet(s) PO daily 08/19/2012 10/13/2013 Inactive Lasix 40 mg tablet RxNorm: 438478 1 Tablet(s) PO daily 08/19/2012 12/12/2012 Inactive and prn Ritalin 10 mg tablet RxNorm: 7640263 1 Tablet(s) PO BID 07/16/2012 10/13/2012 Inactive ciprofloxacin 500 mg tablet RxNorm: 506602 1 Tablet(s) PO BID 07/16/2012 07/22/2012 Inactive Celexa 20 mg tablet RxNorm: 641503 Tablet(s) PO TAKE 1 & 1/2 TABLETS BY HERLINDA TH DAILY 07/15/2012 12/12/2012 Inactive GE100 Blood Glucose Test Strip RxNorm: 1 Miscellaneous BID 07/11/2012 08/04/2013 Inactive and lancets Aldactone 25 mg tablet RxNorm: 627878 1 Tablet(s) PO BID 03/20/2012 03/14/2013 Inactive estradiol 0.5 mg tablet RxNorm: 885288 1 Tablet(s) PO daily 03/15/2012 06/07/2013 Inactive TAKE 1 TABLET BY MOUTH DAILY amitriptyline 100 mg tablet RxNorm: 785498 1 Tablet(s) PO QHS 03/13/2012 10/08/2012 Inactive amitriptyline 100 mg tablet RxNorm: 199157 1 Tablet(s) PO QHS 12/07/2011 01/05/2012 Inactive Kenalog 40 mg/mL Kat p for Injection RxNorm: 6800360 1 Milliliter(s) Inj 12/07/2011 12/07/2011 In active Provigil 200 mg Tab RxNorm: 453204 1 Tablet(s) PO QAM 12/07/2011 01/05/2012 Inactive Flonase Allergy Reli ef 50 mcg/actuation nasal spray,suspension RxNorm: 0210758 [place] NASAL daily as needed No Start Date Active Fish Oil 1,000 mg ca psule RxNorm: 1 Capsule(s) PO BID No Start Date 10/27/2015 Inactive Provigil 200 mg Tab RxNorm: 819950 1 Tablet(s) PO daily No Start Date 10/13/2013 Inactive Lasix 40 mg tablet RxNorm: 899091 1 Tablet(s) PO BID No Start Date 03/25/2015 Inactive Toprol XL 25 mg tabl et,extended release RxNorm: 728028 1 Tablet(s) PO daily No Start Date 09/16/2012 Inactive Prilosec 20 mg Capsu le, delayed release RxNorm: 338082 1 Capsule(s) PO daily No Start Date 10/13/2013 Inactive cyclobenzaprine 10 m g Tab RxNorm: 989296 1 Tablet(s) PO Q8 PRN No Start Date 03/17/2013 Inactive GE100 Blood Glucose Test Strip RxNorm: 1 Miscellaneous BID No Start Date 07/10/2012 Inactive pantoprazole 40 mg t ablet,delayed release RxNorm: 795956 1 Tablet(s) PO daily No Start Date 04/29/2013 Inactive Januvia 50 mg tablet RxNorm: 608859 1 Tablet(s) PO daily No Start Date 10/06/2013 Inactive samples and script Aldactone 25 mg tablet RxNorm: 913599 1 Tablet(s) PO BID No Start Date 03/19/2012 Inactive amitriptyline 100 mg Tab RxNorm: 604536 1 Tablet(s) PO QHS No Start Date 12/06/2011 Inactive Celexa 20 mg tablet RxNorm: 652763 1.5 Tablet(s) PO daily No Start Date 07/14/2012 Inactive potassium chloride E R 10 mEq tablet,extended release RxNorm: 273895 1 Tablet(s) PO BID No Start Date 08/18/2012 Inactive prednisone 20 mg Tab RxNorm: 866854 Tablet(s) PO UD 3 tabs x 2 days, 2 tabs x 2 days, 1 tab x 2 days, 1/2 tab x 2 days, 1/2 tab QOD x 2 doses then stop No Start Date 10/13/2013 Inactive estradiol 0.5 mg tablet RxNorm: 521548 1 Tablet(s) PO daily No Start Date 03/15/2012 Inactive Aldactone 25 mg tablet RxNorm: 042371 1 Tablet(s) PO BID No Start Date 10/12/2013 Inactive Lasix 40 mg tablet RxNorm: 154474 1 Tablet(s) PO BID No Start Date 08/18/2012 Inactive amitriptyline 75 mg Tab RxNorm: 415431 1 Tablet(s) PO QHS No Start Date 10/13/2013 Inactive Medication Administered Medication Codes Instruc tions Start Date Status Kenalog 40 mg/mL suspension for injection RxNorm: 6755359 Milliliter 07/05/2018 No longer Active Kenalog 40 mg/mL suspension for injection RxNorm: 4732146 1Milliliter 03/14/2018 N o longer Active ceftriaxone 500 mg solution for injection RxNorm: 9445154 1Milliliter 05/25/2017 N o longer Active Kenalog 40 mg/mL suspension for injection RxNorm: 8204206 Milliliter 05/25/2017 No longer Active Kenalog 40 mg/mL suspension for injection RxNorm: 9226170 Milliliter 05/02/2016 No longer Active Kenalog 40 mg/mL suspension for injection RxNorm: 1360422 Milliliter 10/28/2015 No longer Active ceftriaxone 500 mg solution for injection RxNorm: 7191863 04/19/2015 No longer A ctive Kenalog 40 mg/mL suspension for injection RxNorm: 8829347 Milliliter 04/19/2015 No longer Active Kenalog 40 mg/mL suspension for injection RxNorm: 9012011 Milliliter 12/24/2014 No longer Active Kenalog 40 mg/mL Susp for Injection RxNorm: 0391692 1Milliliter 03/18/2013 N o longer Active Kenalog 40 mg/mL Susp for Injection RxNorm: 0277695 1Milliliter 12/07/2011 N o longer Active Immunizations Vaccine Codes Date Status Tetanus, Diptheria, Pertussis CVX: 113 03/14/2018 completed Tetanus/Diptheria CVX: 113 03/14/2018 completed Assessments Condition Codes Effectiv e Dates Pleurodynia ICD-10: R07.81 ICD-9: 786.50 07/05/2018 Other allergic rhinitis ICD-10: J30. 89 ICD-9: 477.8 03/14/2018 Mixed hyperlipidemia ICD-10: E78.2 ICD-9: 272.2 03/14/2018 Type 2 diabetes mellitus with hyperglycemia ICD-10: E11.65 ICD-9: 250.02 03/14/2018 Attention-deficit hyperactivity disorder, combined typ e ICD- 10: F90.2 ICD-9: 314.01 03/14/2018 Encounter for immunization ICD-10: Z 23 ICD-9: V03.9 03/14/2018 Other acute sinusitis ICD-10: J01.80 ICD-9: 461.8 05/25/2017 Other hemorrhoids ICD-10: K64.8 ICD-9: 455.8 05/14/2017 Melena ICD-10: K92.1 ICD-9: 578.1 05/14/2017 Other disorders of pituitary gland I CD-10: E23.6 ICD-9: 253.8 05/14/2017 Acute bronchitis due to other specified organisms ICD-10: J20.8 ICD-9: 466.0 05/02/2016 Otalgia, right ear ICD-10: H92.01 ICD-9: 388.70 10/28/2015 Allergic rhinitis due to pollen ICD- 10: J30.1 ICD-9: 477.0 10/28/2015 Allergic rhinitis, unspecified ICD-1 0: J30.9 ICD-9: 477.9 04/19/2015 Acute maxillary sinusitis, unspecified ICD-10: J01.00 ICD-9: 461.0 04/19/2015 DYSURIA ICD-9: 788.1 UTI ICD-9: 599.0 015 [place] ICD-9: 692.71 Swelling of eyelid ICD-9: 374.82 12/24/2014 Depression ICD-9: 311 DIABETES TYPE II SNOMED: 528267249 ICD-9: 250.00 10/13/2013 ESSENTIAL HYPERTENSION SNOMED: 53781 000 ICD-9: 401.9 10/13/2013 ADHD (attention deficit hyperactivity disorder) ICD-9: 314.01 10/13/2013 DM W/O COMPLICATION TYPE II, UNCONTROLLED SNOMED: 55317924 ICD-9: 250.02 03/18/2013 EDEMA ICD-9: 782.3 03/18 Uncontrolled narcolepsy ICD-9: 347.00 01/17/2012 Sciatica ICD-9: 724.3 Chronic back pain ICD-9: 724.5 12/07/2011 Sacroiliitis ICD-9: 720.2 12/07/2011 Reason For Visit Reason For Visit Effective [...] 67.6 % 03/26/2018 Cbc With Differential Ord2 Lymph% 23.5 % 03/26/2018 Cbc With Differential Ord2 MCV 97.2 fl 03/26/2018 Cbc With Differential Ord2 MCH 32.0 pg 03/26/2018 Cbc With Differential Ord2 [place]% 6.9 % 03/26/2018 Cbc With Differential Ord2 MCHC 32.9 pg 03/26/2018 Cbc With Differential Ord2 Eos% 1.5 % 03/26/2018 Cbc With Differential Ord2 Baso% 0.5 % 03/26/2018 Cbc With Differential Ord2 PLT 351 K/ul 03/26/2018 Cbc With Differential Ord2 RDW 13.1 % 03/26/2018 Cbc With Differential Ord2 Neut ABS# 5.78 K/ul 03/26/2018 Cbc With Differential Ord2 Lymph ABS# 2.01 K/ul 03/26/2018 Cbc With Differential Ord2 [place] ABS# 0.6 K/ul 03/26/2018 Cbc With Differential Ord2 Eos ABS# 0.1 K/ul 03/26/2018 Cbc With Differential Ord2 Baso ABS# 0.0 K/ul 03/26/2018 Tsh Ord6 TSH (3rd IS) 1.30 uIU/mL 03/26/2018 %Hba1C Nho082 % HbA1c 08450-0 6.5 % 03/26/2018 %Hba1C Xdy604 Gluc Ave 140 mg/dL 03/26/2018 Comp Metabolic Olc662 NA 141 mEq/L 03/26/2018 Comp Metabolic Bmh634 K 4.5 mEq/L 03/26/2018 Comp Metabolic Zcc945 CL 106 mEq/L 03/26/2018 Comp Metabolic Xch280 CO2 30.0 mEq/L 03/26/2018 Comp Metabolic Hjp439 AN ION GAP 10 03/26/2018 Comp Metabolic Vme698 GL UCOSE 122 mg/dL 03/26/2018 Comp Metabolic Bai095 Cr eat 1.0 mg/dL 03/26/2018 Comp Metabolic Esh275 eG FR 60 ml/min/1.73m2 03/26 Comp Metabolic Xzq197 BUN 18 mg/dL 03/26/2018 Comp Metabolic Ziu783 B/ C Ratio 17.5 Ratio 03/26/2018 Comp Metabolic Ols052 CA LCIUM 10.1 mg/dL 03/26/2018 Comp Metabolic Iih554 AL K PHOS 67 U/L 03/26/2018 Comp Metabolic Dgq124 T(SGOT) 22 U/L 03/26/2018 Comp Metabolic Vic131 AL T(SGPT) 26 U/L 03/26/2018 Comp Metabolic Tkt780 BI LI T 0.4 mg/dL 03/26/2018 Comp Metabolic Yul256 AL BUMIN 4.5 g/dL 03/26/2018 Comp Metabolic Uus562 TP RO 7.0 g/dL 03/26/2018 Comp Metabolic Kqt382 GL OB 2.6 g/dL 03/26/2018 Comp Metabolic Zvm417 A/ G Ratio 1.7 Ratio 03/26/2018 Comp Metabolic Pjj790 Os mo 284 mOsmo 03/26/2018 Lipid Ord30 CHOL 203 mg/dL 03/26/2018 Lipid Ord30 HDL 62.0 mg/dl 03/26/2018 Lipid Ord30 TRIG 94 mg/dL 03/26/2018 Lipid Ord30 LDL 122 mg/dL 03/26/2018 Lipid Ord30 C/HDL 3.3 Ratio 03/26/2018 Prolactin 032211 PROLACT IN 5.2 ng/mL 05/15/2017 Cbc With Differential Ord2 WBC 9.75 K/ul 05/14/2017 Cbc With Differential Ord2 RBC 4.80 M/ul 05/14/2017 Cbc With Differential Ord2 HGB 15.3 g/dl 05/14/2017 Cbc With Differential Ord2 Neut% 67.1 % 05/14/2017 Cbc With Differential Ord2 HCT 46.4 % 05/14/2017 Cbc With Differential Ord2 MCV 96.7 fl 05/14/2017 Cbc With Differential Ord2 Lymph% 23.8 % 05/14/2017 Cbc With Differential Ord2 [place]% 7.6 % 05/14/2017 Cbc With Differential Ord2 MCH 31.9 pg 05/14/2017 Cbc With Differential Ord2 Eos% 1.2 % 05/14/2017 Cbc With Differential Ord2 MCHC 33.0 pg 05/14/2017 Cbc With Differential Ord2 Baso% 0.3 % 05/14/2017 Cbc With Differential Ord2 PLT 369 K/ul 05/14/2017 Cbc With Differential Ord2 Neut ABS# 6.54 K/ul 05/14/2017 Cbc With Differential Ord2 RDW 13.2 % 05/14/2017 Cbc With Differential Ord2 Lymph ABS# 2.32 K/ul 05/14/2017 Cbc With Differential Ord2 [place] ABS# 0.7 K/ul 05/14/2017 Cbc With Differential Ord2 Eos ABS# 0.1 K/ul 05/14/2017 Cbc With Differential Ord2 Baso ABS# 0.0 K/ul 05/14/2017 Tsh Ord6 hTSH II 1.69 uIU/mL 05/14/2017 %Hba1C Eeh127 % HbA1c 00572-6 6.4 % 05/14/2017 %Hba1C Xah855 Gluc Ave 137 mg/dL 05/14/2017 Comp Metabolic Adc943 NA 138 mEq/L 05/14/2017 Comp Metabolic Nhf908 K 4.2 mEq/L 05/14/2017 Comp Metabolic Jut893 CL 102 mEq/L 05/14/2017 Comp Metabolic Qvd760 CO2 29.0 mEq/L 05/14/2017 Comp Metabolic Orr511 AN ION GAP 11 05/14/2017 Comp Metabolic Mta275 GL UCOSE 114 mg/dL 05/14/2017 Comp Metabolic Tdh405 Cr eat 1.0 mg/dL 05/14/2017 Comp Metabolic Qjw842 eG FR 64 ml/min/1.73m2 05/14 Comp Metabolic Uan946 BUN 22 mg/dL 05/14/2017 Comp Metabolic Elm948 B/ C Ratio 22.7 Ratio 05/14/2017 Comp Metabolic Wgs930 CA LCIUM 9.6 mg/dL 05/14/2017 Comp Metabolic Eao681 AL K PHOS 91 U/L 05/14/2017 Comp Metabolic Dsw018 T(SGOT) 13 U/L 05/14/2017 Comp Metabolic Obv735 AL T(SGPT) 16 U/L 05/14/2017 Comp Metabolic Npx006 BI LI T 0.4 mg/dL 05/14/2017 Comp Metabolic Jre223 AL BUMIN 4.2 g/dL 05/14/2017 Comp Metabolic Zoo588 TP RO 6.9 g/dL 05/14/2017 Comp Metabolic Sfq088 GL OB 2.7 g/dL 05/14/2017 Comp Metabolic Ivu383 A/ G Ratio 1.6 Ratio 05/14/2017 Comp Metabolic Eik702 Os mo 280 mOsmo 05/14/2017 Lipid Ord30 CHOL 219 mg/dL 05/14/2017 Lipid Ord30 HDL 67.0 mg/dl 05/14/2017 Lipid Ord30 TRIG 157 mg/dL 05/14/2017 Lipid Ord30 LDL 121 mg/dL 05/14/2017 Lipid Ord30 C/HDL 3.3 Ratio 05/14/2017 Prolactin 824965 PROLACT IN 4.5 ng/mL 05/04/2016 %Hba1C Vlk086 % HbA1c 70780-3 5.9 % 05/03/2016 %Hba1C Etd052 Gluc Ave 123 mg/dL 05/03/2016 Cbc With [...] 27.6 % 05/03/2016 Cbc With Differential Ord2 [place]% 7.0 % 05/03/2016 Cbc With Differential Ord2 MCH 32.3 pg 05/03/2016 Cbc With Differential Ord2 MCHC 33.0 pg 05/03/2016 Cbc With Differential Ord2 Eos% 2.0 % 05/03/2016 Cbc With Differential Ord2 PLT 344 K/ul 05/03/2016 Cbc With Differential Ord2 Baso% 0.6 % 05/03/2016 Cbc With Differential Ord2 Neut ABS# 5.43 K/ul 05/03/2016 Cbc With Differential Ord2 RDW 12.7 % 05/03/2016 Cbc With Differential Ord2 Lymph ABS# 2.38 K/ul 05/03/2016 Cbc With Differential Ord2 [place] ABS# 0.6 K/ul 05/03/2016 Cbc With Differential Ord2 Eos ABS# 0.2 K/ul 05/03/2016 Cbc With Differential Ord2 Baso ABS# 0.1 K/ul 05/03/2016 Tsh Ord6 hTSH II 0.70 uIU/mL 05/03/2016 Comp Metabolic Seo902 NA 137 mEq/L 05/03/2016 Comp Metabolic Kfx893 K 4.3 mEq/L 05/03/2016 Comp Metabolic Isy804 CL 102 mEq/L 05/03/2016 Comp Metabolic Nps115 CO2 25.0 mEq/L 05/03/2016 Comp Metabolic Gov248 AN ION GAP 14 05/03/2016 Comp Metabolic Cox826 GL UCOSE 87 mg/dL 05/03/2016 Comp Metabolic Ihh798 Cr eat 0.8 mg/dL 05/03/2016 Comp Metabolic Clz736 eG FR 76 ml/min/1.73m2 05/03 Comp Metabolic Bkk622 BUN 11 mg/dL 05/03/2016 Comp Metabolic Fdz130 B/ C Ratio 13.1 Ratio 05/03/2016 Comp Metabolic Dfp723 CA LCIUM 9.3 mg/dL 05/03/2016 Comp Metabolic Fgy110 AL K PHOS 76 U/L 05/03/2016 Comp Metabolic Swg707 T(SGOT) 27 U/L 05/03/2016 Comp Metabolic Vpx914 AL T(SGPT) 25 U/L 05/03/2016 Comp Metabolic Ujd014 BI LI T 0.3 mg/dL 05/03/2016 Comp Metabolic Yvc983 AL BUMIN 4.1 g/dL 05/03/2016 Comp Metabolic Hps836 TP RO 7.1 g/dL 05/03/2016 Comp Metabolic Uvv171 GL OB 3.0 g/dL 05/03/2016 Comp Metabolic Nkx554 A/ G Ratio 1.4 Ratio 05/03/2016 Comp Metabolic Qcv017 Os mo 273 mOsmo 05/03/2016 Urine Culture Ucult Comp lete >100,000 col/ml aerobic grow th sent to ref lab 03/17/2015 Culture Urine [id number] URI NE CULTURE SEE NOTES 01/28/2015 Culture Urine [id number] Con tinued Results 01/28/2015 Urine Culture Ucult Comp lete >100,000 col/ml aerobic grow th sent to ref lab 01/26/2015 URINALYSIS NONAUTO W/O SCOPE 00998 Specific [place] 1.005 DateTime(Free Text in Aprima) URINALYSIS NONAUTO W/O SCOPE 05357 PH 7.5 DateTime(Free Ruben t in Aprima) URINALYSIS NONAUTO W/O SCOPE 26146 GLUCOSE neg DateTime(Free Ruben t in Aprima) URINALYSIS NONAUTO W/O SCOPE 83512 Protein neg DateTime(Free Ruben t in Aprima) URINALYSIS NONAUTO W/O SCOPE 76914 Blood trace DateTime(Free T ext in Aprima) URINALYSIS NONAUTO W/O SCOPE 22282 Bilirubin small DateTime(Free T ext in Aprima) URINALYSIS NONAUTO W/O SCOPE 15301 Ketones neg DateTime(Free Ruben t in Apr) URINALYSIS NONAUTO W/O SCOPE 64903 Urobilinogen 0.2 DateTime(Free Text in ) URINALYSIS NONAUTO W/O SCOPE 00811 Nitrite neg DateTime(Free Ruben t in ) URINALYSIS NONAUTO W/O SCOPE 75854 Leukocytes moderate DateTime(Free Text in ) Review [...] masses 07/16/2012 None Full Exam - General 1995 Respiratory auscultation Overall: breath sounds clear bilaterally 07/16/2012 None Full Exam - General 1995 Respiratory respiratory effort/rhythm Overall: no retractions 07/16/2012 None Full Exam - General 1995 Respiratory respiratory effort/rhythm Overall: normal rate 07/16/2012 None Full Exam - General 1995 Cardiovascular extremities Overall: no clubbing 07/16/2012 None [...] Procedure Codes Date THER/PROPH/DIAG INJ SC/IM CPT-4: 25796 07/05/2018 TRIAMCINOLONE ACET I [place] NOS CPT-4: J3301 07/05/2018 TRIAMCINOLONE ACET I [place] NOS CPT-4: J3301 03/14/2018 IMMUNIZATION ADMIN CPT- 4: 19732 03/14/2018 ADACEL TDAP VACCINE 7 YRS/> IM CPT-4: 44224 03/14/2018 TRIAMCINOLONE ACET I [place] NOS CPT-4: J3301 05/25/2017 ROCEPHIN, PER 250 MG CPT-4: J0696 05/25/2017 TRIAMCINOLONE ACET I [place] NOS CPT-4: J3301 05/02/2016 TRIAMCINOLONE ACET I [place] NOS CPT-4: J3301 10/28/2015 ROCEPHIN, PER 250 MG CPT-4: J0696 04/19/2015 TRIAMCINOLONE ACET I [place] NOS CPT-4: J3301 04/19/2015 URINALYSIS NONAUTO W /O SCOPE CPT-4: 82513 03/15/2015 URINALYSIS NONAUTO W /O SCOPE CPT-4: 99840 01/25/2015 TRIAMCINOLONE ACET I [place] NOS CPT-4: J3301 12/24/2014 THER/PROPH/DIAG INJ SC/IM CPT-4: 19615 12/24/2014 URINALYSIS NONAUTO W /O SCOPE CPT-4: 78257 07/16/2012 DRAIN/INJECT JOINT/B URSA CPT-4: 55695 12/07/2011 Vital Signs Date Vital 07/05/2018 Blood Pressure 1: 132/78 Code: 8480-6 BMI: 32.6 Code: 47405-4 Heart Rate 1: 75 bpm Height: 5'2" SpO2: 96% Weight: 178 lbs 03/14/2018 Blood Pressure 1: 108/74 Code: 8480-6 BMI: 33.3 Code: 77408-7 Heart Rate 1: 91 bpm Height: 5'2" SpO2: 98% Weight: 182 lbs 05/25/2017 Blood Pressure 1: 142/82 Code: 8480-6 BMI: 32.0 Code: 61749-9 Heart Rate 1: 96 bpm Height: 5'2" SpO2: 94% Temperature: 37.3 (C ) / 99.2 (F) Weight: 175 lbs 05/14/2017 Blood Pressure 1: 142/78 Code: 8480-6 BMI: 32.0 Code: 80866-7 Heart Rate 1: 111 bpm Height: 5'2" SpO2: 95% Weight: 175 lbs 05/02/2016 Blood Pressure 1: 124/74 Code: 8480-6 BMI: 32.4 Code: 31128-0 Heart Rate 1: 107 bpm Height: 5'2" SpO2: 98% Weight: 177 lbs 10/28/2015 Blood Pressure 1: 124/80 Code: 8480-6 BMI: 32.6 Code: 58455-3 Heart Rate 1: 78 bpm Height: 5'2" SpO2: 91% Weight: 178 lbs 04/19/2015 Blood Pressure 1: 110/78 Code: 8480-6 BMI: 31.5 Code: 13437-2 Heart Rate 1: 88 bpm Height: 5'2" SpO2: 96% Weight: 172 lbs 12/24/2014 Blood Pressure 1: 112/72 Code: 8480-6 BMI: 30.4 Code: 33680-2 Heart Rate 1: 88 bpm Height: 5'2" Weight: 166 lbs 10/13/2013 Blood Pressure 1: 104/78 Code: 8480-6 BMI: 30.7 Code: 53621-5 Heart Rate 1: 100 bpm Height: 5'2" [...] State s she was sitting in 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 P ATIENT, LEVEL IV Diagnosis: Type 2 diabetes mellitus with hyperglycemia[ICD10: E11.65] Diagnosis: Mixed hyperlipidemia[ICD10: E78.2] Diagnosis: Other allergic rhinitis[ICD10: J30.89] Diagnosis: Attention-deficit hyperactivity disorder, combined type[ICD10: F90.2] Diagnosis: Encounter for immunization[ICD10: Z23] Maci Martinez MD, [facility] CPT-4: 68501 03/14/2018 [id number] EST. PATIENT, LEVEL IV Diagnosis: Other acute sinusitis[ICD10: J01.80] Diagnosis: Other allergic rhinitis[ICD10: J30.89] Michelle Martinez MD, [facility] CPT-4: 27487 05/25/2017 [id number] EST. 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 P ATIENT, LEVEL III Diagnosis: Allergic rhinitis due to pollen[ICD10: J30.1] Diagnosis: Otalgia, right ear[ICD10: H92.01] Maci Martinez MD, [facility] CPT- 4: 99859 10/28/2015 ([id number]) 12335 EST. P ATIENT, LEVEL III Diagnosis: Acute maxillary sinusitis, unspecified[ICD10: J01.00] Diagnosis: Allergic rhinitis, unspecified[ICD10: J30.9] Maci Martinez MD, [facility] CPT-4: 81306 04/19/2015 ([id number]) 91407 EST. P ATIENT, LEVEL III Diagnosis: Swelling of eyelid[ICD9: 374.82] Diagnosis: Sunburn[ICD9: 692.71] Maci Martinez MD, [facility] CPT-4: 07620 12/24/2014 ([id number]) 49254 EST. P ATIENT, LEVEL IV Diagnosis: ESSENTIAL HYPERTENSION[SNOMED: 39816063] Diagnosis: DIABETES TYPE II[SNOMED: 018715291] Diagnosis: ADHD (attention deficit hyperactivity disorder)[ICD9: 314.01] Diagnosis: Depression[ICD9: 311] Joy Martinez MD, [facility] CPT-4: 99376 10/13/2013 ([id number]) 34537 EST. P ATIENT, LEVEL IV Diagnosis: DM W/O COMPLICATION TYPE II, UNCONTROLLED[SNOMED: 62153982] Diagnosis: ESSENTIAL HYPERTENSION[SNOMED: 13621363] Diagnosis: EDEMA[ICD9: 782.3] Joy Martinez MD, [facility] CPT-4: 98842 03/18/2013 ([id number]) 71566 EST. P ATIENT, LEVEL IV Diagnosis: UTI[ICD9: 599.0] Diagnosis: DM W/O COMPLICATION TYPE II, UNCONTROLLED[SNOMED: 69812678] Joy Martinez MD, [facility] CPT-4: 40489 07/16/2012 ([id number]) 40702 EST. P ATIENT, LEVEL III Diagnosis: Uncontrolled narcolepsy[ICD9: 347.00] Diagnosis: ESSENTIAL HYPERTENSION[SNOMED: 67860417] Joy Martinez MD, C CPT-4: 27306 01/17/2012 Office outpatient ne w 30 minutes Diagnosis: Sciatica[ICD9: 724.3] Diagnosis: Chronic back pain[ICD9: 724.5] Diagnosis: ESSENTIAL HYPERTENSION[SNOMED: 14463610] Joy Maritnez MD, C CPT-4: 20614 12/07/2011 Plan of Care Planned Activity Notes C odes Status Date Visit Plan: Left rib pain - the pat ient was instructed in appropriate posture - The pt is to use prn antiinflammatories to manage acute pain. The patient is to call the office if the pain is worsening or does not improve. 07/05/2018 Appointment: Michelle Mora WPtel: [address] [place], [place] [phone] (15 min) Moderate 07/05/2018 Patient Education: Patient [...] office 03/14/2018 Appointment: Maci Moreno WPtel: [phone] [phone] (30 min) Complex 03/14/2018 Patient Education: [...] spray. 05/25/2017 Appointment: Michelle Mora WPtel: [phone] [facility] (15 min) Moderate 05/25/2017 Patient Education: [...] glucose control. 05/14/2017 [phone] ([facility] Complex 05/14/2017 Patient Education: Patient Medication Summary Completed 05/14/2017 Patient Education: Obesity Completed 05/14/2017 Care Plan: Referral Order SNOMED-CT : 261350605 Pending 05/14/2017 Visit Plan: Allergies - chronic [...] less controlled. 05/02/2016 Appointment: Maci Moreno WPtel: [address] [place], [place] [phone] (15 min) Moderate 05/02/2016 Patient Education: Patient [...] spray. 10/28/2015 Appointment: Maci Moreno WPtel: [phone] [phone] (30 min) Complex 10/28/2015 Patient Education: [...] symptoms. 04/19/2015 [phone] (15 min) Moderate 04/19/2015 Patient Education: Patient [...] patient. 10/13/2013 Appointment: Joy Martinez WPtel: [phone] Follow up 10/13/2013 Patient Education: Patient Medication Summary Completed 10/13/2013 Patient Education: Hypertension Completed 10/13/2013 Appointment: Maci Moreno WPtel: [phone] Follow up 08/29/2013 Appointment: Joy Martinez WPtel: [phone] Follow up 06/23/2013 Visit Plan: Diabetes [...] edema. 03/18/2013 Appointment: Joy Martinez WPtel: [facility] Follow up 03/18/2013 Patient Education: Patient Medication Summary Completed 03/18/2013 Patient Education: Hypertension Completed 03/18/2013 Appointment: Joy Martinez WPtel: [facility] Follow up 10/15/2012 Appointment: Maci Moreno WPtel: [phone] [phone] Diabetic education 07/22/2012 Visit Plan: Diabetes [...] not improve. 07/16/2012 Appointment: Joy Martinez WPtel: [phone] [facility] [facility] follow up 07/16/2012 Patient Education: Patient Medication [...] at home. 01/17/2012 Appointment: Joy Martinez WPtel: [phone] [facility] [facility] 01/17/2012 Patient Education: Patient Medication Summary Completed [...] HS 12/07/2011 Appointment: Maci Moreno WPtel: [phone] [phone] New Patient 12/07/2011 Patient Education: Patient Medication [...] 40mg refill ritalin fasting labs-orders sent to [facility] -go any time fasting . Diabetes [...]
--- OUTSIDE RECORDS SUMMARY | 2019-11-02 07:07 | XMS REPORT | CCD ---
Author Author Lianne Martinez Organization [facility] Address [address] [place] [address] Phone Care Team Providers Care Office Spec Name Role Phone PP Unavailable CCM Unavailable Summary Purpose Interface Exchange Insurance Providers Payer name Policy type / Coverage type Covered libertarian ID Effective Begin Date Effective End Date [employer] [id number] Unknown Family history Brother Diagnosis Age At [...] M arried 12/07/[address]: 983459789 Never smoker 12/07/2011 Alcohol history Unknown occasionally [...] XL 25 mg tabl et,extended release RxNorm: 823646 1 Tablet(s) PO daily 07/26/2018 06/26/2019 Ac tive waiting on mail order amitriptyline 100 mg tablet RxNorm: 905372 Tablet(s) TAKE 1 TABL ET BY MOUTH DAILY AT BEDTIME 07/26/2018 07/20/2019 Active Januvia 50 mg tablet RxNorm: 851138 1 Tablet(s) PO daily 07/26/2018 07/20/2019 Active Toprol XL 25 mg tabl et,extended release RxNorm: 538501 1 Tablet(s) PO daily 07/26/2018 07/25/2018 In active waiting on mail order amitriptyline 100 mg tablet RxNorm: 388596 Tablet(s) TAKE 1 TABL ET BY MOUTH DAILY AT BEDTIME 07/26/2018 07/25/2018 Inactive waiting on mail order Ritalin 10 mg tablet RxNorm: 2528255 1 Tablet(s) PO BID 07/05/2018 08/03/2018 Active [SAVINGS FOR NON-COVERED DRUGS -- BIN:00 3585, PCN: ASPROD1, Group: XXXXX, ID# [id number], Questions: . THIS IS NOT INSURANCE.] prednisone 20 mg tablet RxNorm: 048254 3 Tablet(s) PO daily 07/05/2018 07/04/2018 Inactive Kenalog 40 mg/mL kat pension for injection RxNorm: 5264544 Milliliter(s) Inj 07/05/2018 07/05/2018 In active prednisone 20 mg tablet RxNorm: 544053 3 Tablet(s) PO daily 07/05/2018 07/09/2018 Inactive Aldactone 25 mg tablet RxNorm: 166584 Tablet(s) 1 TABLET(S) PO BID 04/17/2018 01/11/2019 Active pantoprazole 40 mg t ablet,delayed release RxNorm: 602094 1 Tablet(s) PO QHS 04/17/2018 01/11/2019 Ac tive Bactrim 400 mg-80 mg tablet RxNorm: 715734 Tablet(s) TAKE 1 TABL ET BY MOUTH NEEDED FOR SEXUAL INTERCOURSE FOR UTI PREVENTION 04/17/2018 06/15/2018 Inactive Ritalin 10 mg tablet RxNorm: 8948408 1 Tablet(s) PO BID 04/17/2018 05/16/2018 Inactive [SAVINGS FOR NON-COVERED DRUGS -- BIN:00 3585, PCN: ASPROD1, Group: XXXXX, ID# [id number], Questions: . THIS IS NOT INSURANCE.] Kenalog 40 mg/mL kat pension for injection RxNorm: 4070410 1 Milliliter(s) Inj 03/14/2018 03/14/2018 In active amitriptyline 100 mg tablet RxNorm: 027901 Tablet(s) TAKE 1 TABL ET BY MOUTH DAILY AT BEDTIME 03/14/2018 07/25/2018 Inactive Ritalin 10 mg tablet RxNorm: 0055113 1 Tablet(s) PO BID 03/14/2018 04/12/2018 Inactive [SAVINGS FOR NON-COVERED DRUGS -- BIN:00 3585, PCN: ASPROD1, Group: XXXXX, ID# [id number], Questions: . THIS IS NOT INSURANCE.] Bactrim 400 mg-80 mg tablet RxNorm: 107373 TAKE 1 TABLET BY MOUT H NEEDED FOR SEXUAL INTERCOURSE FOR UTI PREVENTION 09/28/2017 11/26/2017 Inactive amitriptyline 100 mg tablet RxNorm: 928711 TAKE 1 TABLET BY MOUT H DAILY AT BEDTIME 09/25/2017 03/13/2018 In active Diflucan 150 mg tablet RxNorm: 110887 1 Tablet(s) PO daily 05/31/2017 06/04/2017 Inactive Diflucan 150 mg tablet RxNorm: 783087 1 Tablet(s) PO daily 05/31/2017 05/30/2017 Inactive Kenalog 40 mg/mL kat pension for injection RxNorm: 2262911 Milliliter(s) Inj 05/25/2017 05/25/2017 In active prednisone 10 mg tablet RxNorm: 745558 Tablet(s) PO UD 05/25/2017 09/24/2017 Inactive 6,5,4,3,2,1 Phenergan with Codei ne Syrup RxNorm: 5-10 Milliliter(s) PO QID a s needed 05/25/2017 03/13/2018 In active Keflex 500 mg capsule RxNorm: 853204 1 Capsule(s) PO TID 05/25/2017 06/03/2017 Inactive ceftriaxone 500 mg s olution for injection RxNorm: 2380698 1 Milliliter(s) Inj 05/25/2017 05/25/2017 In active estradiol 0.5 mg tablet RxNorm: 791082 1 Tablet(s) PO daily 05/14/2017 04/27/2020 Active Celexa 20 mg tablet RxNorm: 351226 1.5 Tablet(s) PO daily 05/14/2017 04/27/2020 Active amitriptyline 100 mg tablet RxNorm: 152973 1 Tablet(s) PO QHS 05/14/2017 09/24/2017 Inactive Januvia 50 mg tablet RxNorm: 130712 1 Tablet(s) PO daily 05/14/2017 05/08/2018 Inactive pantoprazole 40 mg t ablet,delayed release RxNorm: 186126 1 Tablet(s) PO QHS 05/14/2017 02/07/2018 In active Bactrim 400 mg-80 mg tablet RxNorm: 260034 Tablet(s) TAKE ONE TA BLET BY MOUTH NEEDED FOR SEXUAL INTERCOURSE FOR UTI PREVENTION 05/14/2017 08/11/2017 Inactive Toprol XL 25 mg tabl et,extended release RxNorm: 281662 1 Tablet(s) PO daily 05/14/2017 05/08/2018 In active Aldactone 25 mg tablet RxNorm: 869961 Tablet(s) 1 TABLET(S) PO BID 05/14/2017 02/07/2018 Inactive Celexa 20 mg tablet RxNorm: 629666 TAKE ONE & ONE-HALF TABLETS BY MOUTH ONC E DAILY 04/12/2017 05/13/2017 Inactive Toprol XL 25 mg tabl et,extended release RxNorm: 790155 TAKE ONE TABLET BY MO UTH ONCE DAILY 02/06/2017 05/13/2017 Inactive Celexa 20 mg tablet RxNorm: 771355 TAKE ONE & ONE-HALF TABLETS BY MOUTH ONC E DAILY 01/03/2017 03/03/2017 Inactive amitriptyline 100 mg tablet RxNorm: 299960 TAKE ONE TABLET BY MO UTH AT BEDTIME 12/08/2016 05/13/2017 In active Toprol XL 25 mg tabl et,extended release RxNorm: 252238 TAKE ONE TABLET BY MO UTH ONCE DAILY 11/23/2016 02/06/2017 Inactive Januvia 50 mg tablet RxNorm: 684412 TAKE ONE TABLET BY MOUTH ONCE DAILY 11/09/2016 03/08/2017 In active Bactrim 400 mg-80 mg tablet RxNorm: 493155 TAKE ONE TABLET BY MO UTH NEEDED FOR SEXUAL INTERCOURSE FOR UTI PREVENTION 09/19/2016 04/24/2017 Inactive amitriptyline 100 mg tablet RxNorm: 847111 TAKE ONE TABLET BY MO UTH AT BEDTIME 08/31/2016 11/28/2016 In active pantoprazole 40 mg t ablet,delayed release RxNorm: 401610 Tablet(s) TAKE 1 TABL ET BY MOUTH ONCE DAILY 08/16/2016 05/12/2017 Inactive estradiol 0.5 mg tablet RxNorm: 832762 TAKE ONE TABLET BY MOUTH ONCE DAILY 08/13/2016 05/13/2017 In active amitriptyline 100 mg tablet RxNorm: 700019 TAKE ONE TABLET BY MO RUST AT BEDTIME 07/31/2016 08/29/2016 In active ProAir HFA 90 mcg/ac tuation aerosol inhaler RxNorm: 923546 2 inhale INH PRN as n eeded 05/02/2016 No Stop Date Active ciprofloxacin 0.3 % eye drops RxNorm: 955617 Drop(s) OPH 2 drops e very 2 hours while awake for days 1-2 and 2 drops every 4 hours for days 3 - 7 05/02/2016 03/13/2018 Inactive Kenalog 40 mg/mL kat pension for injection RxNorm: 5821789 Milliliter(s) Inj 05/02/2016 05/02/2016 In active Zithromax Z-Nick 250 mg tablet RxNorm: 945490 1 Tablet(s) PO UD 05/02/2016 09/24/2017 Inactive albuterol sulfate 2. 5 mg/3 mL (0.083 %) solution for nebulization RxNorm: 173434 1 Milliliter(s) INH QID as needed 03/13/2018 Inactive prednisone 20 mg tablet RxNorm: 637964 1 Tablet(s) PO BID 05/02/2016 05/06/2016 Inactive amitriptyline 100 mg tablet RxNorm: 935913 1 TABLET(S) PO QHS 03/01/2016 07/30/2016 Inactive estradiol 0.5 mg tablet RxNorm: 587680 1 TABLET(S) PO DAILY 03/01/2016 09/24/2017 Inactive TAKE 1 TABLET BY MOUTH DAILY estradiol 0.5 mg tablet RxNorm: 409276 TAKE ONE TABLET BY MOUTH ONCE DAILY 03/01/2016 05/29/2016 In active Celexa 20 mg tablet RxNorm: 077621 TAKE ONE & ONE-HALF TABLETS BY MOUTH ONC E DAILY 12/03/2015 11/26/2016 Inactive amoxicillin 500 mg c apsule RxNorm: 146476 1 Capsule(s) PO BID 11/05/2015 11/04/2015 Inactive amoxicillin 500 mg c apsule RxNorm: 911133 1 Capsule(s) PO BID 11/05/2015 04/30/2017 Inactive Kenalog 40 mg/mL kat pension for injection RxNorm: 0966941 Milliliter(s) Inj 10/28/2015 10/28/2015 In active Januvia 50 mg tablet RxNorm: 277235 Tablet(s) 1 TABLET(S) PO DAILY 10/28/2015 10/21/2016 In active Ritalin 10 mg tablet RxNorm: 3197157 1 Tablet(s) PO BID 10/28/2015 11/26/2015 Inactive [SAVINGS FOR NON-COVERED DRUGS -- BIN:00 3585, PCN: ASPROD1, Group: XXXXX, ID# [id number], Questions: . THIS IS NOT INSURANCE.] Toprol XL 25 mg tabl et,extended release RxNorm: 717228 Tablet(s) 1 TABLET(S) PO DAILY 10/28/2015 10/21/2016 Inactive prednisone 20 mg tablet RxNorm: 459484 1 Tablet(s) PO BID 10/28/2015 11/01/2015 Inactive Lasix 40 mg tablet RxNorm: 048251 TAKE ONE TABLET BY MOUTH ONCE DAILY. MAY TAKE EXTRA TABLET NEEDED. 09/27/2015 12/25/2015 Inactive Bactrim 400 mg-80 mg tablet RxNorm: 643804 Tablet(s) 1 TABLET(S) PO PRN SEXUAL INTERCOURSE, UTI PREVENTATIVE 09/22/2015 12/20/2015 Inactive pantoprazole 40 mg t ablet,delayed release RxNorm: 423040 TAKE 1 TABLET BY MOUT H ONCE DAILY 07/29/2015 01/24/2016 Inactive amitriptyline 100 mg tablet RxNorm: 527359 Tablet(s) 1 TABLET(S) PO QHS 07/26/2015 09/24/2017 In active pantoprazole 40 mg t ablet,delayed release RxNorm: 709614 TAKE 1 TABLET BY MOUT H ONCE DAILY 07/21/2015 07/28/2015 Inactive Bactrim 400 mg-80 mg tablet RxNorm: 575466 1 TABLET(S) PO PRN SE XUAL INTERCOURSE, UTI PREVENTATIVE 06/21/2015 09/18/2015 Inactive Ritalin 10 mg tablet RxNorm: 1738734 1 Tablet(s) PO BID 04/19/2015 05/18/2015 Inactive [SAVINGS FOR NON-COVERED DRUGS -- BIN:00 3585, PCN: ASPROD1, Group: XXXXX, ID# [id number], Questions: . THIS IS NOT INSURANCE.] Keflex 500 mg capsule RxNorm: 015784 1 Capsule(s) PO TID 04/19/2015 04/28/2015 Inactive Kenalog 40 mg/mL kat pension for injection RxNorm: 6519318 Milliliter(s) Inj 04/19/2015 04/19/2015 In active ceftriaxone 500 mg s olution for injection RxNorm: 3612758 Inj 04/19/2015 04/19/2015 Inactive amitriptyline 100 mg tablet RxNorm: 232926 1 TABLET(S) PO QHS 03/26/2015 07/25/2015 Inactive Lasix 40 mg tablet RxNorm: 563104 1 Tablet(s) PO daily 03/26/2015 09/21/2015 Inactive may take an extra tablet as needed Aldactone 25 mg tablet RxNorm: 268900 1 TABLET(S) PO BID 03/26/2015 12/20/2015 Inactive Levaquin 500 mg tablet RxNorm: 322070 1 Tablet(s) PO daily 03/15/2015 03/21/2015 Inactive Levaquin 500 mg tablet RxNorm: 147135 1 Tablet(s) PO daily 03/15/2015 03/14/2015 Inactive hydrocodone 5 mg-devang taminophen 325 mg tablet RxNorm: 759391 one or two tabs po ev ey six hours prn Tablet(s) PO 02/26/2015 03/13/2018 Inactive hydrocodone 5 mg-devang taminophen 325 mg tablet RxNorm: 374697 one or two tabs po ev ey six hours prn Tablet(s) PO 02/26/2015 02/25/2015 Inactive amitriptyline 100 mg tablet RxNorm: 634817 1 TABLET(S) PO QHS 02/22/2015 01/17/2016 Inactive Keflex 500 mg capsule RxNorm: 238545 1 Capsule(s) PO TID 01/25/2015 01/24/2015 Inactive Keflex 500 mg capsule RxNorm: 017552 1 Capsule(s) PO TID 01/25/2015 01/31/2015 Inactive Bactrim 400 mg-80 mg tablet RxNorm: 527130 1 Tablet(s) PO PRN se xual intercourse, uti preventative 01/04/2015 01/03/2015 Inactive Bactrim 400 mg-80 mg tablet RxNorm: 821129 1 Tablet(s) PO PRN se xual intercourse, uti preventative 01/04/2015 06/20/2015 Inactive Ritalin 10 mg tablet RxNorm: 1911874 1 Tablet(s) PO BID 12/24/2014 01/22/2015 Inactive [SAVINGS FOR NON-COVERED DRUGS -- BIN:00 3585, PCN: ASPROD1, Group: XXXXX, ID# [id number], Questions: . THIS IS NOT INSURANCE.] Kenalog 40 mg/mL kat pension for injection RxNorm: 9967859 Milliliter(s) Inj 12/24/2014 12/24/2014 In active estradiol 0.5 mg tablet RxNorm: 771468 1 Tablet(s) PO daily 12/16/2014 02/29/2016 Inactive TAKE 1 TABLET BY MOUTH DAILY pantoprazole 40 mg t ablet,delayed release RxNorm: 450745 1 Tablet(s) daily 10/26/2014 07/20/2015 In active [SAVINGS FOR NON-COVERED DRUGS -- BIN:00 3585, PCN: ASPROD1, Group: XXXXX, ID# [id number], Questions: . THIS IS NOT INSURANCE.] Ritalin 10 mg tablet RxNorm: 9179744 1 Tablet(s) PO BID 10/23/2014 11/21/2014 Inactive [SAVINGS FOR NON-COVERED DRUGS -- BIN:00 3585, PCN: ASPROD1, Group: XXXXX, ID# [id number], Questions: . THIS IS NOT INSURANCE.] pantoprazole 40 mg t ablet,delayed release RxNorm: 615809 3/4 Tablet(s) daily 10/23/2014 10/25/2014 In active [SAVINGS FOR NON-COVERED DRUGS -- BIN:00 3585, PCN: ASPROD1, Group: XXXXX, ID# [id number], Questions: . THIS IS NOT INSURANCE.] Toprol XL 25 mg tabl et,extended release RxNorm: 601390 1 TABLET(S) PO DAILY 10/20/2014 10/14/2015 In active Januvia 50 mg tablet RxNorm: 364674 1 TABLET(S) PO DAILY 10/20/2014 10/14/2015 Inactive samples and script Celexa 20 mg tablet RxNorm: 791146 1.5 TABLET(S) PO DAILY TAKE 1 & 1/2 TABL ETS BY MOUTH DAILY 10/20/2014 10/14/2015 Inactive omeprazole 20 mg cap maco,delayed release RxNorm: 946682 1 Capsule(s) PO BID 09/25/2014 09/24/2014 In active omeprazole 20 mg cap maco,delayed release RxNorm: 141951 1 Capsule(s) PO BID 09/25/2014 10/22/2014 In active DC pantoprazole [SAVINGS FOR NON-COVERED DRUGS -- BIN:175876, PCN: ASPROD1, Group: XXXXX, ID# [id number], Questions: . THIS IS NOT INSURANCE.] pantoprazole 40 mg t ablet,delayed release RxNorm: 510167 1 TABLET(S) PO BID 09/24/2014 09/24/2014 In active omeprazole 20 mg tab let,delayed release RxNorm: 989454 1 Tablet(s) PO BID 08/31/2014 08/30/2014 In active dc pantoprazole 40mg omeprazole 20 mg tab let,delayed release RxNorm: 848854 1 Tablet(s) PO BID 08/31/2014 08/30/2014 In active omeprazole 20 mg tab let,delayed release RxNorm: 120555 1 Tablet(s) PO daily 08/31/2014 10/27/2015 In active change to daily Ritalin 10 mg tablet RxNorm: 5676264 1 Tablet(s) PO BID 07/20/2014 08/18/2014 Inactive [SAVINGS FOR UNINSURED PATIENTS -- BIN:0 57300, PCN: ASPROD1, Group: [id number], ID# [id number], Process claim through [employer], for questions: . THIS IS NOT INSURANCE.] amitriptyline 100 mg tablet RxNorm: 467454 1 TABLET(S) PO QHS 04/27/2014 02/21/2015 Inactive Ritalin 10 mg tablet RxNorm: 0066912 1 Tablet(s) PO BID 02/09/2014 06/08/2014 Inactive [SAVINGS FOR UNINSURED PATIENTS -- BIN:0 62199, PCN: ASPROD1, Group: [id number], ID# [id number], Process claim through [employer], for questions: . THIS IS NOT INSURANCE.] ProAir HFA 90 mcg/ac tuation aerosol inhaler RxNorm: 202545 2 inhale INH PRN 11/19/2013 10/27/2015 In active amitriptyline 100 mg tablet RxNorm: 319374 Tablet(s) PO TAKE 1 T ABLET BY MOUTH AT BEDTIME 10/27/2013 04/23/2017 Inactive Ritalin 10 mg tablet RxNorm: 1371018 1 Tablet(s) PO BID 10/13/2013 02/08/2014 Inactive estradiol 0.5 mg tablet RxNorm: 982716 1 Tablet(s) PO daily 10/13/2013 12/15/2014 Inactive TAKE 1 TABLET BY MOUTH DAILY pantoprazole 40 mg t ablet,delayed release RxNorm: 448770 1 Tablet(s) PO BID 10/13/2013 08/30/2014 In active Januvia 50 mg tablet RxNorm: 902256 1 Tablet(s) PO daily 10/13/2013 10/07/2014 Inactive samples and script Toprol XL 25 mg tabl et,extended release RxNorm: 947206 1 Tablet(s) PO daily 10/13/2013 10/07/2014 In active Celexa 20 mg tablet RxNorm: 252180 1.5 Tablet(s) PO daily TAKE 1 & 1/2 TABL ETS BY MOUTH DAILY 10/13/2013 10/07/2014 Inactive Aldactone 25 mg tablet RxNorm: 025146 1 Tablet(s) PO BID 10/13/2013 10/07/2014 Inactive Januvia 50 mg tablet RxNorm: 503263 1 Tablet(s) PO daily 10/07/2013 10/12/2013 Inactive samples and script Celexa 20 mg tablet RxNorm: 072266 1 1/2 Tablet(s) PO daily TAKE 1 & 1/2 TA BLETS BY MOUTH DAILY 05/05/2013 10/12/2013 Inactive pantoprazole 40 mg t ablet,delayed release RxNorm: 243824 1 Tablet(s) PO daily 04/30/2013 10/12/2013 In active amitriptyline 100 mg tablet RxNorm: 774023 1 Tablet(s) PO QHS 04/28/2013 10/26/2013 Inactive Ritalin 10 mg tablet RxNorm: 5042655 1 Tablet(s) PO BID 04/18/2013 05/17/2013 Inactive Kenalog 40 mg/mL Kat p for Injection RxNorm: 5281161 1 Milliliter(s) Inj 03/18/2013 03/18/2013 In active amitriptyline 100 mg tablet RxNorm: 032340 1 Tablet(s) PO QHS 03/18/2013 04/27/2013 Inactive Ritalin 10 mg tablet RxNorm: 0435763 1 Tablet(s) PO BID 02/21/2013 03/17/2013 Inactive Toprol XL 25 mg tabl et,extended release RxNorm: 934473 1 Tablet(s) PO daily 01/23/2013 07/21/2013 In active amitriptyline 100 mg tablet RxNorm: 764969 1 Tablet(s) PO QHS 01/23/2013 03/17/2013 Inactive Celexa 20 mg tablet RxNorm: 505297 Tablet(s) PO TAKE 1 & 1/2 TABLETS BY HERLINDA TH DAILY 12/13/2012 05/04/2013 Inactive Lasix 40 mg tablet RxNorm: 248136 1 Tablet(s) PO daily 12/13/2012 02/10/2013 Inactive and prn amitriptyline 100 mg tablet RxNorm: 705648 1 Tablet(s) PO QHS 10/21/2012 01/18/2013 Inactive Toprol XL 25 mg tabl et,extended release RxNorm: 679066 1 Tablet(s) PO daily 09/17/2012 01/14/2013 In active potassium chloride E R 10 mEq tablet,extended release RxNorm: 953859 1 Tablet(s) PO daily 08/19/2012 10/13/2013 Inactive Lasix 40 mg tablet RxNorm: 751113 1 Tablet(s) PO daily 08/19/2012 12/12/2012 Inactive and prn Ritalin 10 mg tablet RxNorm: 1164240 1 Tablet(s) PO BID 07/16/2012 10/13/2012 Inactive ciprofloxacin 500 mg tablet RxNorm: 256280 1 Tablet(s) PO BID 07/16/2012 07/22/2012 Inactive Celexa 20 mg tablet RxNorm: 729351 Tablet(s) PO TAKE 1 & 1/2 TABLETS BY HERLINDA TH DAILY 07/15/2012 12/12/2012 Inactive GE100 Blood Glucose Test Strip RxNorm: 1 Miscellaneous BID 07/11/2012 08/04/2013 Inactive and lancets Aldactone 25 mg tablet RxNorm: 066241 1 Tablet(s) PO BID 03/20/2012 03/14/2013 Inactive estradiol 0.5 mg tablet RxNorm: 283362 1 Tablet(s) PO daily 03/15/2012 06/07/2013 Inactive TAKE 1 TABLET BY MOUTH DAILY amitriptyline 100 mg tablet RxNorm: 863970 1 Tablet(s) PO QHS 03/13/2012 10/08/2012 Inactive amitriptyline 100 mg tablet RxNorm: 953184 1 Tablet(s) PO QHS 12/07/2011 01/05/2012 Inactive Kenalog 40 mg/mL Kat p for Injection RxNorm: 2058216 1 Milliliter(s) Inj 12/07/2011 12/07/2011 In active Provigil 200 mg Tab RxNorm: 560969 1 Tablet(s) PO QAM 12/07/2011 01/05/2012 Inactive Flonase Allergy Reli ef 50 mcg/actuation nasal spray,suspension RxNorm: 1220002 [place] NASAL daily as needed No Start Date Active Fish Oil 1,000 mg ca psule RxNorm: 1 Capsule(s) PO BID No Start Date 10/27/2015 Inactive Provigil 200 mg Tab RxNorm: 885160 1 Tablet(s) PO daily No Start Date 10/13/2013 Inactive Lasix 40 mg tablet RxNorm: 790396 1 Tablet(s) PO BID No Start Date 03/25/2015 Inactive Toprol XL 25 mg tabl et,extended release RxNorm: 208208 1 Tablet(s) PO daily No Start Date 09/16/2012 Inactive Prilosec 20 mg Capsu le, delayed release RxNorm: 130014 1 Capsule(s) PO daily No Start Date 10/13/2013 Inactive cyclobenzaprine 10 m g Tab RxNorm: 731317 1 Tablet(s) PO Q8 PRN No Start Date 03/17/2013 Inactive GE100 Blood Glucose Test Strip RxNorm: 1 Miscellaneous BID No Start Date 07/10/2012 Inactive pantoprazole 40 mg t ablet,delayed release RxNorm: 332018 1 Tablet(s) PO daily No Start Date 04/29/2013 Inactive Januvia 50 mg tablet RxNorm: 602960 1 Tablet(s) PO daily No Start Date 10/06/2013 Inactive samples and script Aldactone 25 mg tablet RxNorm: 971370 1 Tablet(s) PO BID No Start Date 03/19/2012 Inactive amitriptyline 100 mg Tab RxNorm: 743861 1 Tablet(s) PO QHS No Start Date 12/06/2011 Inactive Celexa 20 mg tablet RxNorm: 350584 1.5 Tablet(s) PO daily No Start Date 07/14/2012 Inactive potassium chloride E R 10 mEq tablet,extended release RxNorm: 177957 1 Tablet(s) PO BID No Start Date 08/18/2012 Inactive prednisone 20 mg Tab RxNorm: 584944 Tablet(s) PO UD 3 tabs x 2 days, 2 tabs x 2 days, 1 tab x 2 days, 1/2 tab x 2 days, 1/2 tab QOD x 2 doses then stop No Start Date 10/13/2013 Inactive estradiol 0.5 mg tablet RxNorm: 247700 1 Tablet(s) PO daily No Start Date 03/15/2012 Inactive Aldactone 25 mg tablet RxNorm: 746211 1 Tablet(s) PO BID No Start Date 10/12/2013 Inactive Lasix 40 mg tablet RxNorm: 325691 1 Tablet(s) PO BID No Start Date 08/18/2012 Inactive amitriptyline 75 mg Tab RxNorm: 418468 1 Tablet(s) PO QHS No Start Date 10/13/2013 Inactive Medication Administered Medication Codes Instruc tions Start Date Status Kenalog 40 mg/mL suspension for injection RxNorm: 6097340 Milliliter 07/05/2018 No longer Active Kenalog 40 mg/mL suspension for injection RxNorm: 8537013 1Milliliter 03/14/2018 N o longer Active ceftriaxone 500 mg solution for injection RxNorm: 1102344 1Milliliter 05/25/2017 N o longer Active Kenalog 40 mg/mL suspension for injection RxNorm: 5330600 Milliliter 05/25/2017 No longer Active Kenalog 40 mg/mL suspension for injection RxNorm: 1668929 Milliliter 05/02/2016 No longer Active Kenalog 40 mg/mL suspension for injection RxNorm: 1920991 Milliliter 10/28/2015 No longer Active ceftriaxone 500 mg solution for injection RxNorm: 3386406 04/19/2015 No longer A ctive Kenalog 40 mg/mL suspension for injection RxNorm: 5732428 Milliliter 04/19/2015 No longer Active Kenalog 40 mg/mL suspension for injection RxNorm: 2115937 Milliliter 12/24/2014 No longer Active Kenalog 40 mg/mL Susp for Injection RxNorm: 8668208 1Milliliter 03/18/2013 N o longer Active Kenalog 40 mg/mL Susp for Injection RxNorm: 5912305 1Milliliter 12/07/2011 N o longer Active Immunizations [...] disorder) ICD-9: 314.01 10/13/2013 ESSENTIAL HYPERTENSION SNOMED: 97263 000 ICD-9: 401.9 10/13/2013 Depression ICD-9: 311 DIABETES TYPE II SNOMED: 936348220 ICD-9: 250.00 10/13/2013 EDEMA ICD-9: 782.3 03/18 DM W/O COMPLICATION TYPE II, UNCONTROLLED SNOMED: 61075446 ICD-9: 250.02 03/18/2013 Uncontrolled narcolepsy ICD-9: 347.00 [...] 15.0 g/dl 03/26/2018 Cbc With Differential Ord2 Neut% 67.6 % 03/26/2018 Cbc With Differential Ord2 HCT 45.6 % 03/26/2018 Cbc With Differential Ord2 Lymph% 23.5 % 03/26/2018 Cbc With Differential Ord2 MCV 97.2 fl 03/26/2018 Cbc With Differential Ord2 [place]% 6.9 % 03/26/2018 Cbc With Differential Ord2 MCH 32.0 pg 03/26/2018 Cbc With Differential Ord2 MCHC 32.9 pg 03/26/2018 Cbc With Differential Ord2 Eos% 1.5 % 03/26/2018 Cbc With Differential Ord2 Baso% 0.5 % 03/26/2018 Cbc With Differential Ord2 PLT 351 K/ul 03/26/2018 Cbc With Differential Ord2 RDW 13.1 % 03/26/2018 Cbc With Differential Ord2 Neut ABS# 5.78 K/ul 03/26/2018 Cbc With Differential Ord2 Lymph ABS# 2.01 K/ul 03/26/2018 Cbc With Differential Ord2 [place] ABS# 0.6 K/ul 03/26/2018 Cbc With Differential Ord2 Eos ABS# 0.1 K/ul 03/26/2018 Cbc With Differential Ord2 Baso ABS# 0.0 K/ul 03/26/2018 Tsh Ord6 TSH (3rd IS) 1.30 uIU/mL 03/26/2018 %Hba1C Qpo480 % HbA1c 75314-1 6.5 % 03/26/2018 %Hba1C Rac769 Gluc Ave 140 mg/dL 03/26/2018 Comp Metabolic Iya013 NA 141 mEq/L 03/26/2018 Comp Metabolic Ihm843 K 4.5 mEq/L 03/26/2018 Comp Metabolic Edr872 CL 106 mEq/L 03/26/2018 Comp Metabolic Vqx655 CO2 30.0 mEq/L 03/26/2018 Comp Metabolic Xru811 AN ION GAP 10 03/26/2018 Comp Metabolic Jqe147 GL UCOSE 122 mg/dL 03/26/2018 Comp Metabolic Mou934 Cr eat 1.0 mg/dL 03/26/2018 Comp Metabolic Ckd777 eG FR 60 ml/min/1.73m2 03/26 Comp Metabolic Aka527 BUN 18 mg/dL 03/26/2018 Comp Metabolic Bli282 B/ C Ratio 17.5 Ratio 03/26/2018 Comp Metabolic Ycl926 CA LCIUM 10.1 mg/dL 03/26/2018 Comp Metabolic Yhw759 AL K PHOS 67 U/L 03/26/2018 Comp Metabolic Eor202 T(SGOT) 22 U/L 03/26/2018 Comp Metabolic Gol609 AL T(SGPT) 26 U/L 03/26/2018 Comp Metabolic Ehs983 BI LI T 0.4 mg/dL 03/26/2018 Comp Metabolic Fze038 AL BUMIN 4.5 g/dL 03/26/2018 Comp Metabolic Igz349 TP RO 7.0 g/dL 03/26/2018 Comp Metabolic Cbt639 GL OB 2.6 g/dL 03/26/2018 Comp Metabolic Waa408 A/ G Ratio 1.7 Ratio 03/26/2018 Comp Metabolic Sao228 Os mo 284 mOsmo 03/26/2018 Lipid Ord30 CHOL 203 mg/dL 03/26/2018 Lipid Ord30 HDL 62.0 mg/dl 03/26/2018 Lipid Ord30 TRIG 94 mg/dL 03/26/2018 Lipid Ord30 LDL 122 mg/dL 03/26/2018 Lipid Ord30 C/HDL 3.3 Ratio 03/26/2018 Prolactin 861263 PROLACT IN 5.2 ng/mL 05/15/2017 Cbc With [...] 31.9 pg 05/14/2017 Cbc With Differential Ord2 [place]% 7.6 % 05/14/2017 Cbc With Differential Ord2 [...] 2.32 K/ul 05/14/2017 Cbc With Differential Ord2 [place] ABS# 0.7 K/ul 05/14/2017 Cbc With Differential Ord2 Eos ABS# 0.1 K/ul 05/14/2017 Cbc With Differential Ord2 Baso ABS# 0.0 K/ul 05/14/2017 Tsh Ord6 hTSH II 1.69 uIU/mL 05/14/2017 %Hba1C Buc090 % HbA1c 01981-1 6.4 % 05/14/2017 %Hba1C Sli463 Gluc Ave 137 mg/dL 05/14/2017 Comp Metabolic Nzm544 NA 138 mEq/L 05/14/2017 Comp Metabolic Ixo904 K 4.2 mEq/L 05/14/2017 Comp Metabolic Kuq167 CL 102 mEq/L 05/14/2017 Comp Metabolic Oiy091 CO2 29.0 mEq/L 05/14/2017 Comp Metabolic Aag642 AN ION GAP 11 05/14/2017 Comp Metabolic Zha712 GL UCOSE 114 mg/dL 05/14/2017 Comp Metabolic Njw278 Cr eat 1.0 mg/dL 05/14/2017 Comp Metabolic Fxd685 eG FR 64 ml/min/1.73m2 05/14 Comp Metabolic Opf608 BUN 22 mg/dL 05/14/2017 Comp Metabolic Mzy165 B/ C Ratio 22.7 Ratio 05/14/2017 Comp Metabolic Jsv949 CA LCIUM 9.6 mg/dL 05/14/2017 Comp Metabolic Zjd627 AL K PHOS 91 U/L 05/14/2017 Comp Metabolic Lxu517 T(SGOT) 13 U/L 05/14/2017 Comp Metabolic Lug322 AL T(SGPT) 16 U/L 05/14/2017 Comp Metabolic Cjb398 BI LI T 0.4 mg/dL 05/14/2017 Comp Metabolic Qrw215 AL BUMIN 4.2 g/dL 05/14/2017 Comp Metabolic Aia634 TP RO 6.9 g/dL 05/14/2017 Comp Metabolic Ajc158 GL OB 2.7 g/dL 05/14/2017 Comp Metabolic Ywb057 A/ G Ratio 1.6 Ratio 05/14/2017 Comp Metabolic Wmp717 Os mo 280 mOsmo 05/14/2017 Lipid Ord30 CHOL 219 mg/dL 05/14/2017 Lipid Ord30 HDL 67.0 mg/dl 05/14/2017 Lipid Ord30 TRIG 157 mg/dL 05/14/2017 Lipid Ord30 LDL 121 mg/dL 05/14/2017 Lipid Ord30 C/HDL 3.3 Ratio 05/14/2017 Prolactin 047207 PROLACT IN 4.5 ng/mL 05/04/2016 %Hba1C Vap675 % HbA1c 30699-6 5.9 % 05/03/2016 %Hba1C Bhj118 Gluc Ave 123 mg/dL 05/03/2016 Cbc With [...] 27.6 % 05/03/2016 Cbc With Differential Ord2 [place]% 7.0 % 05/03/2016 Cbc With Differential Ord2 [...] 2.38 K/ul 05/03/2016 Cbc With Differential Ord2 [place] ABS# 0.6 K/ul 05/03/2016 Cbc With Differential Ord2 Eos ABS# 0.2 K/ul 05/03/2016 Cbc With Differential Ord2 Baso ABS# 0.1 K/ul 05/03/2016 Tsh Ord6 hTSH II 0.70 uIU/mL 05/03/2016 Comp Metabolic Zaf559 NA 137 mEq/L 05/03/2016 Comp Metabolic Dnv696 K 4.3 mEq/L 05/03/2016 Comp Metabolic Wtq912 CL 102 mEq/L 05/03/2016 Comp Metabolic Txp149 CO2 25.0 mEq/L 05/03/2016 Comp Metabolic Cqb595 AN ION GAP 14 05/03/2016 Comp Metabolic Fby168 GL UCOSE 87 mg/dL 05/03/2016 Comp Metabolic Omb286 Cr eat 0.8 mg/dL 05/03/2016 Comp Metabolic Tqr281 eG FR 76 ml/min/1.73m2 05/03 Comp Metabolic Hql706 BUN 11 mg/dL 05/03/2016 Comp Metabolic Jpg611 B/ C Ratio 13.1 Ratio 05/03/2016 Comp Metabolic Hke153 CA LCIUM 9.3 mg/dL 05/03/2016 Comp Metabolic Etf252 AL K PHOS 76 U/L 05/03/2016 Comp Metabolic Oqq778 T(SGOT) 27 U/L 05/03/2016 Comp Metabolic Evt759 AL T(SGPT) 25 U/L 05/03/2016 Comp Metabolic Iwh859 BI LI T 0.3 mg/dL 05/03/2016 Comp Metabolic Gxx154 AL BUMIN 4.1 g/dL 05/03/2016 Comp Metabolic Vmr016 TP RO 7.1 g/dL 05/03/2016 Comp Metabolic Txj147 GL OB 3.0 g/dL 05/03/2016 Comp Metabolic Hhy457 A/ G Ratio 1.4 Ratio 05/03/2016 Comp Metabolic Ynr284 Os mo 273 mOsmo 05/03/2016 Urine Culture Ucult Comp lete >100,000 col/ml aerobic grow th sent to ref lab 03/17/2015 Culture Urine [id number] URI NE CULTURE SEE NOTES 01/28/2015 Culture Urine [id number] Con tinued Results 01/28/2015 Urine Culture Ucult Comp lete >100,000 col/ml aerobic grow th sent to ref lab 01/26/2015 URINALYSIS NONAUTO W/O SCOPE 71671 Specific Curtis 1.005 DateTime(Free Text in ) URINALYSIS NONAUTO W/O SCOPE 54222 PH 7.5 DateTime(Free Ruben t in ) URINALYSIS NONAUTO W/O SCOPE 83056 GLUCOSE neg DateTime(Free Ruben t in Apr) URINALYSIS NONAUTO W/O SCOPE 27302 Protein neg DateTime(Free Ruben t in Apr) URINALYSIS NONAUTO W/O SCOPE 01529 Blood trace DateTime(Free T ext in ) URINALYSIS NONAUTO W/O SCOPE 98889 Bilirubin small DateTime(Free T ext in ) URINALYSIS NONAUTO W/O SCOPE 90120 Ketones neg DateTime(Free Ruben t in ) URINALYSIS NONAUTO W/O SCOPE 68132 Urobilinogen 0.2 DateTime(Free Text in ) URINALYSIS NONAUTO W/O SCOPE 01041 Nitrite neg DateTime(Free Ruben t in ) URINALYSIS NONAUTO W/O SCOPE 96566 Leukocytes moderate DateTime(Free Text in ) Review [...] rate 03/18/2013 None Full Exam - General 1995 Cardiovascular extremities Overall: no clubbing 03/18/2013 None [...] clubbing 07/16/2012 None Full Exam - General 1995 Cardiovascular auscultation of heart Overall: regular rate 07/16/2012 None Full Exam - General 1995 Cardiovascular auscultation of heart Overall: normal heart sounds 07/16/2012 None Full Exam - General 1995 Cardiovascular auscultation of heart Overall: no murmurs 07/16/2012 None Full Exam - General 1995 Constitutional general appearance Development: well developed 07/16/2012 None Full Exam - General 1995 Constitutional general appearance Development: appears stated age 0107/16/2012 None Full Exam - General 1995 Eyes conjunctiva/eyelids Overall: conjunctiva clear 07/16/2012 None Full Exam - General 1994 Abdomen abdominal exam Overall: no tenderness 07/16/2012 None Full Exam - General 1995 Abdomen abdominal exam Overall: normal bowel sounds [...] Procedure Codes Date THER/PROPH/DIAG INJ SC/IM CPT-4: 62513 07/05/2018 TRIAMCINOLONE ACET I [place] NOS CPT-4: J3301 07/05/2018 TRIAMCINOLONE ACET I [place] NOS CPT-4: J3301 03/14/2018 IMMUNIZATION ADMIN CPT- 4: 51794 03/14/2018 ADACEL TDAP VACCINE 7 YRS/> IM CPT-4: 46961 03/14/2018 TRIAMCINOLONE ACET I [place] NOS CPT-4: J3301 05/25/2017 ROCEPHIN, PER 250 MG CPT-4: J0696 05/25/2017 TRIAMCINOLONE ACET I [place] NOS CPT-4: J3301 05/02/2016 TRIAMCINOLONE ACET I [place] NOS CPT-4: J3301 10/28/2015 ROCEPHIN, PER 250 MG CPT-4: J0696 04/19/2015 TRIAMCINOLONE ACET I [place] NOS CPT-4: J3301 04/19/2015 URINALYSIS NONAUTO W /O SCOPE CPT-4: 85073 03/15/2015 URINALYSIS NONAUTO W /O SCOPE CPT-4: 32735 01/25/2015 TRIAMCINOLONE ACET I [place] NOS CPT-4: J3301 12/24/2014 THER/PROPH/DIAG INJ SC/IM CPT-4: 34933 12/24/2014 URINALYSIS NONAUTO W /O SCOPE CPT-4: 96902 07/16/2012 DRAIN/INJECT JOINT/B URSA CPT-4: 49876 12/07/2011 Vital Signs Date Vital 07/05/2018 Blood Pressure 1: 132/78 Code: 8480-6 BMI: 32.6 Code: 60849-5 Heart Rate 1: 75 bpm Height: 5'2" SpO2: 96% Weight: 178 lbs 03/14/2018 Blood Pressure 1: 108/74 Code: 8480-6 BMI: 33.3 Code: 96908-5 Heart Rate 1: 91 bpm Height: 5'2" SpO2: 98% Weight: 182 lbs 05/25/2017 Blood Pressure 1: 142/82 Code: 8480-6 BMI: 32.0 Code: 46953-9 Heart Rate 1: 96 bpm Height: 5'2" SpO2: 94% Temperature: 37.3 (C ) / 99.2 (F) Weight: 175 lbs 05/14/2017 Blood Pressure 1: 142/78 Code: 8480-6 BMI: 32.0 Code: 29414-8 Heart Rate 1: 111 bpm Height: 5'2" SpO2: 95% Weight: 175 lbs 05/02/2016 Blood Pressure 1: 124/74 Code: 8480-6 BMI: 32.4 Code: 76278-0 Heart Rate 1: 107 bpm Height: 5'2" SpO2: 98% Weight: 177 lbs 10/28/2015 Blood Pressure 1: 124/80 Code: 8480-6 BMI: 32.6 Code: 40617-9 Heart Rate 1: 78 bpm Height: 5'2" SpO2: 91% Weight: 178 lbs 04/19/2015 Blood Pressure 1: 110/78 Code: 8480-6 BMI: 31.5 Code: 83855-6 Heart Rate 1: 88 bpm Height: 5'2" SpO2: 96% Weight: 172 lbs 12/24/2014 Blood Pressure 1: 112/72 Code: 8480-6 BMI: 30.4 Code: 44022-0 Heart Rate 1: 88 bpm Height: 5'2" Weight: 166 lbs 10/13/2013 Blood Pressure 1: 104/78 Code: 8480-6 BMI: 30.7 Code: 98486-2 Heart Rate 1: 100 bpm Height: 5'2" [...] State s she was 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 P ATIENT, LEVEL IV Diagnosis: Type 2 diabetes mellitus with hyperglycemia[ICD10: E11.65] Diagnosis: Mixed hyperlipidemia[ICD10: E78.2] Diagnosis: Other allergic rhinitis[ICD10: J30.89] Diagnosis: Attention-deficit hyperactivity disorder, combined type[ICD10: F90.2] Diagnosis: Encounter for immunization[ICD10: Z23] Maci Martinez MD, [facility] CPT-4: 80233 03/14/2018 92016 EST. PATIENT, LEVEL IV Diagnosis: Other acute sinusitis[ICD10: J01.80] Diagnosis: Other allergic rhinitis[ICD10: J30.89] Michelle Martinez MD, [facility] CPT-4: 23076 05/25/2017 13553 EST. 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 P ATIENT, LEVEL III Diagnosis: Allergic rhinitis due to pollen[ICD10: J30.1] Diagnosis: Otalgia, right ear[ICD10: H92.01] Maci Martinez MD, [facility] CPT- 4: 41143 10/28/2015 ([id number]) 60502 EST. P ATIENT, LEVEL III Diagnosis: Acute maxillary sinusitis, unspecified[ICD10: J01.00] Diagnosis: Allergic rhinitis, unspecified[ICD10: J30.9] Maci Martinez MD, [facility] CPT-4: 30727 04/19/2015 ([id number]) 05063 EST. P ATIENT, LEVEL III Diagnosis: Swelling of eyelid[ICD9: 374.82] Diagnosis: Sunburn[ICD9: 692.71] Maci Martinez MD, [facility] CPT-4: 26392 12/24/2014 ([id number]) 40801 EST. P ATIENT, LEVEL IV Diagnosis: ESSENTIAL HYPERTENSION[SNOMED: 15445646] Diagnosis: DIABETES TYPE II[SNOMED: 018374304] Diagnosis: ADHD (attention deficit hyperactivity disorder)[ICD9: 314.01] Diagnosis: Depression[ICD9: 311] Joy Martinez MD, [facility] CPT-4: 43159 10/13/2013 ([id number]) 16667 EST. P ATIENT, LEVEL IV Diagnosis: DM W/O COMPLICATION TYPE II, UNCONTROLLED[SNOMED: 93603965] Diagnosis: ESSENTIAL HYPERTENSION[SNOMED: 23098237] Diagnosis: EDEMA[ICD9: 782.3] Joy Martinez MD, [facility] CPT-4: 43275 03/18/2013 ([id number] 69562 EST. P ATIENT, LEVEL IV Diagnosis: UTI[ICD9: 599.0] Diagnosis: DM W/O COMPLICATION TYPE II, UNCONTROLLED[SNOMED: 51755352] Joy Martinez MD, [facility] CPT-4: 10493 07/16/2012 ([id number]) 81668 EST. P ATIENT, LEVEL III Diagnosis: Uncontrolled narcolepsy[ICD9: 347.00] Diagnosis: ESSENTIAL HYPERTENSION[SNOMED: 18310131] Joy Martinez MD, [facility] CPT-4: 67726 01/17/2012 Office outpatient ne w 30 minutes Diagnosis: Sciatica[ICD9: 724.3] Diagnosis: Chronic back pain[ICD9: 724.5] Diagnosis: ESSENTIAL HYPERTENSION[SNOMED: 84158065] Joy Martinez MD, LL C CPT-4: 58027 12/07/2011 Plan of Care Planned Activity Notes C odes Status Date Visit Plan: Left rib pain - the pat ient was instructed in appropriate posture - The pt is to use prn antiinflammatories to manage acute pain. The patient is to call the office if the pain is worsening or does not improve. 07/05/2018 [facility]ment[phone] (15 min) Moderate 07/05/2018 Patient Education: Patient [...] office 03/14/2018 Appointment: [phone] [phone] [place] (30 min) Complex 03/14/2018 Patient Education: Patient [...] spray. 05/25/2017 Appointment: Michelle Mora WPtel: [phone] [facility] (15 min) Moderate 05/25/2017 Patient Education: [...] control. 05/14/2017 Appointment: [phone] [phone] (30 min) Complex 05/14/2017 Patient Education: Patient Medication Summary Completed 05/14/2017 Patient Education: Obesity Completed 05/14/2017 Care Plan: Referral Order SNOMED-CT : [id number] Pending 05/14/2017 Visit Plan: Allergies - chronic [...] less controlled. 05/02/2016 Appointment: [phone] [phone] (15 min) Moderate 05/02/2016 Patient Education: Patient [...] allergy spray. 10/28/2015 Appointment: [phone] [phone] (30 min) Complex 10/28/2015 Patient Education: Patient [...] the office for acute symptoms. 04/19/2015 Appointment[facility] aMci [phone] [phone] (15 min) Moderate 04/19/2015 Patient Education: Patient [...] the patient. 10/13/2013 Appointment: Joy Martinez WPtel: [phone] [facility] [place] Follow up 10/13/2013 Patient Education: Patient Medication Summary Completed 10/13/2013 Patient Education: Hypertension Completed 10/13/2013 Appointment: Maci Moreno WPtel: [phone] [phone] Follow up 08/29/2013 Appointment: Joy Martinez WPtel: [phone] [facility] Follow up 06/23/2013 Visit Plan: Diabetes Mellitus [...] edema. 03/18/2013 Appointment: Joy Martinez WPtel: [phone] [facility] [place] Follow up 03/18/2013 Patient Education: Patient Medication Summary Completed 03/18/2013 Patient Education: Hypertension Completed 03/18/2013 Appointment: Joy Martinez WPtel: [facility] Follow up 10/15/2012 Appointment: [phone] [phone] Diabetic education 07/22/2012 Visit Plan: Diabetes Mellitus [...] improve. 07/16/2012 Appointment: Joy Martinez WPtel: [facility] Hospital follow up 07/16/2012 Patient Education: Patient [...] at home. 01/17/2012 Appointment: Joy Martinez WPtel: [facility] [facility] 01/17/2012 Patient Education: Patient Medication Summary Completed [...] HS 12/07/2011 Appointment: [phone] [phone] New Patient 12/07/2011 Patient Education: Patient Medication [...] 40mg refill ritalin fasting labs-orders sent to [facility] -go any time fasting . Diabetes [...]
--- OUTSIDE RECORDS SUMMARY | 2019-11-02 07:08 | XMS REPORT | CCD ---
Author Author Lianne Martinez Organization [facility] Address [address] [place] [address] Phone Care Team Providers Care Retail Advisor Name Role Phone PP Unavailable CCM Unavailable Summary Purpose Interface Exchange Insurance Providers Payer name Policy type / Coverage type Covered alliance party ID Effective Begin Date Effective End Date [employer] e [id number] Unknown Family history Brother Diagnosis Age At [...] M arried 12/07/[address]: 390038957 Never smoker 12/07/2011 Alcohol history Unknown occasionally [...] Fill Instructions Ritalin 10 mg tablet RxNorm: 6845608 1 Tablet(s) PO BID 07/05/2018 08/03/2018 Active [SAVINGS FOR NON-COVERED DRUGS -- BIN:00 3585, PCN: ASPROD1, Group: XXXXX, ID# [id number], Questions: . THIS IS NOT INSURANCE.] prednisone 20 mg tablet RxNorm: 317849 3 Tablet(s) PO daily 07/05/2018 07/09/2018 Inactive prednisone 20 mg tablet RxNorm: 877955 3 Tablet(s) PO daily 07/05/2018 07/04/2018 Inactive Kenalog 40 mg/mL kat pension for injection RxNorm: 1253530 Milliliter(s) Inj 07/05/2018 07/05/2018 In active Aldactone 25 mg tablet RxNorm: 040540 Tablet(s) 1 TABLET(S) PO BID 04/17/2018 01/11/2019 Active pantoprazole 40 mg t ablet,delayed release RxNorm: 843716 1 Tablet(s) PO QHS 04/17/2018 01/11/2019 Ac tive Bactrim 400 mg-80 mg tablet RxNorm: 759207 Tablet(s) TAKE 1 TABL ET BY MOUTH NEEDED FOR SEXUAL INTERCOURSE FOR UTI PREVENTION 04/17/2018 06/15/2018 Inactive Ritalin 10 mg tablet RxNorm: 5819308 1 Tablet(s) PO BID 04/17/2018 05/16/2018 Inactive [SAVINGS FOR NON-COVERED DRUGS -- BIN:00 3585, PCN: ASPROD1, Group: XXXXX, ID# [id number], Questions: . THIS IS NOT INSURANCE.] amitriptyline 100 mg tablet RxNorm: 459213 Tablet(s) TAKE 1 TABL ET BY MOUTH DAILY AT BEDTIME 03/14/2018 03/08/2019 Active Kenalog 40 mg/mL kat pension for injection RxNorm: 9915931 1 Milliliter(s) Inj 03/14/2018 03/14/2018 In active Ritalin 10 mg tablet RxNorm: 1732874 1 Tablet(s) PO BID 03/14/2018 04/12/2018 Inactive [SAVINGS FOR NON-COVERED DRUGS -- BIN:00 3585, PCN: ASPROD1, Group: XXXXX, ID# [id number], Questions: . THIS IS NOT INSURANCE.] Bactrim 400 mg-80 mg tablet RxNorm: 095267 TAKE 1 TABLET BY MOUT H NEEDED FOR SEXUAL INTERCOURSE FOR UTI PREVENTION 09/28/2017 11/26/2017 Inactive amitriptyline 100 mg tablet RxNorm: 813937 TAKE 1 TABLET BY MOUT H DAILY AT BEDTIME 09/25/2017 03/13/2018 In active Diflucan 150 mg tablet RxNorm: 065269 1 Tablet(s) PO daily 05/31/2017 06/04/2017 Inactive Diflucan 150 mg tablet RxNorm: 710837 1 Tablet(s) PO daily 05/31/2017 05/30/2017 Inactive Kenalog 40 mg/mL kat pension for injection RxNorm: 3271738 Milliliter(s) Inj 05/25/2017 05/25/2017 In active prednisone 10 mg tablet RxNorm: 884842 Tablet(s) PO UD 05/25/2017 09/24/2017 Inactive 6,5,4,3,2,1 Phenergan with Codei ne Syrup RxNorm: 5-10 Milliliter(s) PO QID a s needed 05/25/2017 03/13/2018 In active Keflex 500 mg capsule RxNorm: 080624 1 Capsule(s) PO TID 05/25/2017 06/03/2017 Inactive ceftriaxone 500 mg s olution for injection RxNorm: 1959779 1 Milliliter(s) Inj 05/25/2017 05/25/2017 In active estradiol 0.5 mg tablet RxNorm: 989229 1 Tablet(s) PO daily 05/14/2017 04/27/2020 Active Celexa 20 mg tablet RxNorm: 136290 1.5 Tablet(s) PO daily 05/14/2017 04/27/2020 Active Januvia 50 mg tablet RxNorm: 928679 1 Tablet(s) PO daily 05/14/2017 05/08/2018 Inactive Toprol XL 25 mg tabl et,extended release RxNorm: 634210 1 Tablet(s) PO daily 05/14/2017 05/08/2018 In active amitriptyline 100 mg tablet RxNorm: 690079 1 Tablet(s) PO QHS 05/14/2017 09/24/2017 Inactive pantoprazole 40 mg t ablet,delayed release RxNorm: 683361 1 Tablet(s) PO QHS 05/14/2017 02/07/2018 In active Bactrim 400 mg-80 mg tablet RxNorm: 823400 Tablet(s) TAKE ONE TA BLET BY MOUTH NEEDED FOR SEXUAL INTERCOURSE FOR UTI PREVENTION 05/14/2017 08/11/2017 Inactive Aldactone 25 mg tablet RxNorm: 293416 Tablet(s) 1 TABLET(S) PO BID 05/14/2017 02/07/2018 Inactive Celexa 20 mg tablet RxNorm: 460656 TAKE ONE & ONE-HALF TABLETS BY MOUTH ONC E DAILY 04/12/2017 05/13/2017 Inactive Toprol XL 25 mg tabl et,extended release RxNorm: 527199 TAKE ONE TABLET BY MO UTH ONCE DAILY 02/06/2017 05/13/2017 Inactive Celexa 20 mg tablet RxNorm: 151738 TAKE ONE & ONE-HALF TABLETS BY MOUTH ONC E DAILY 01/03/2017 03/03/2017 Inactive amitriptyline 100 mg tablet RxNorm: 464980 TAKE ONE TABLET BY MO UTH AT BEDTIME 12/08/2016 05/13/2017 In active Toprol XL 25 mg tabl et,extended release RxNorm: 920708 TAKE ONE TABLET BY MO UTH ONCE DAILY 11/23/2016 02/06/2017 Inactive Januvia 50 mg tablet RxNorm: 957235 TAKE ONE TABLET BY MOUTH ONCE DAILY 11/09/2016 03/08/2017 In active Bactrim 400 mg-80 mg tablet RxNorm: 241356 TAKE ONE TABLET BY MO UT NEEDED FOR SEXUAL INTERCOURSE FOR UTI PREVENTION 09/19/2016 04/24/2017 Inactive amitriptyline 100 mg tablet RxNorm: 146439 TAKE ONE TABLET BY MO UT AT BEDTIME 08/31/2016 11/28/2016 In active pantoprazole 40 mg t ablet,delayed release RxNorm: 369194 Tablet(s) TAKE 1 TABL ET BY MOUTH ONCE DAILY 08/16/2016 05/12/2017 Inactive estradiol 0.5 mg tablet RxNorm: 162736 TAKE ONE TABLET BY MOUTH ONCE DAILY 08/13/2016 05/13/2017 In active amitriptyline 100 mg tablet RxNorm: 250846 TAKE ONE TABLET BY MO UT AT BEDTIME 07/31/2016 08/29/2016 In active ProAir HFA 90 mcg/ac tuation aerosol inhaler RxNorm: 961454 2 inhale INH PRN as n eeded 05/02/2016 No Stop Date Active ciprofloxacin 0.3 % eye drops RxNorm: 846266 Drop(s) OPH 2 drops e very 2 hours while awake for days 1-2 and 2 drops every 4 hours for days 3 - 7 05/02/2016 03/13/2018 Inactive Kenalog 40 mg/mL kat pension for injection RxNorm: 1400160 Milliliter(s) Inj 05/02/2016 05/02/2016 In active Zithromax Z-Nick 250 mg tablet RxNorm: 423458 1 Tablet(s) PO UD 05/02/2016 09/24/2017 Inactive albuterol sulfate 2. 5 mg/3 mL (0.083 %) solution for nebulization RxNorm: 441860 1 Milliliter(s) INH QID as needed 03/13/2018 Inactive prednisone 20 mg tablet RxNorm: 536574 1 Tablet(s) PO BID 05/02/2016 05/06/2016 Inactive amitriptyline 100 mg tablet RxNorm: 379607 1 TABLET(S) PO QHS 03/01/2016 07/30/2016 Inactive estradiol 0.5 mg tablet RxNorm: 840254 1 TABLET(S) PO DAILY 03/01/2016 09/24/2017 Inactive TAKE 1 TABLET BY MOUTH DAILY estradiol 0.5 mg tablet RxNorm: 857303 TAKE ONE TABLET BY MOUTH ONCE DAILY 03/01/2016 05/29/2016 In active Celexa 20 mg tablet RxNorm: 215160 TAKE ONE & ONE-HALF TABLETS BY MOUTH ONC E DAILY 12/03/2015 11/26/2016 Inactive amoxicillin 500 mg c apsule RxNorm: 241296 1 Capsule(s) PO BID 11/05/2015 11/04/2015 Inactive amoxicillin 500 mg c apsule RxNorm: 287557 1 Capsule(s) PO BID 11/05/2015 04/30/2017 Inactive Kenalog 40 mg/mL kat pension for injection RxNorm: 8371945 Milliliter(s) Inj 10/28/2015 10/28/2015 In active Januvia 50 mg tablet RxNorm: 555346 Tablet(s) 1 TABLET(S) PO DAILY 10/28/2015 10/21/2016 In active Ritalin 10 mg tablet RxNorm: 0677689 1 Tablet(s) PO BID 10/28/2015 11/26/2015 Inactive [SAVINGS FOR NON-COVERED DRUGS -- BIN:00 0317, PCN: ASPROD1, Group: XXXXX, ID# [id number], Questions: . THIS IS NOT INSURANCE.] Toprol XL 25 mg tabl et,extended release RxNorm: 829048 Tablet(s) 1 TABLET(S) PO DAILY 10/28/2015 10/21/2016 Inactive prednisone 20 mg tablet RxNorm: 905537 1 Tablet(s) PO BID 10/28/2015 11/01/2015 Inactive Lasix 40 mg tablet RxNorm: 589983 TAKE ONE TABLET BY MOUTH ONCE DAILY. MAY TAKE EXTRA TABLET NEEDED. 09/27/2015 12/25/2015 Inactive Bactrim 400 mg-80 mg tablet RxNorm: 546847 Tablet(s) 1 TABLET(S) PO PRN SEXUAL INTERCOURSE, UTI PREVENTATIVE 09/22/2015 12/20/2015 Inactive pantoprazole 40 mg t ablet,delayed release RxNorm: 005732 TAKE 1 TABLET BY MOUT H ONCE DAILY 07/29/2015 01/24/2016 Inactive amitriptyline 100 mg tablet RxNorm: 173518 Tablet(s) 1 TABLET(S) PO QHS 07/26/2015 09/24/2017 In active pantoprazole 40 mg t ablet,delayed release RxNorm: 236325 TAKE 1 TABLET BY MOUT H ONCE DAILY 07/21/2015 07/28/2015 Inactive Bactrim 400 mg-80 mg tablet RxNorm: 676957 1 TABLET(S) PO PRN SE XUAL INTERCOURSE, UTI PREVENTATIVE 06/21/2015 09/18/2015 Inactive Ritalin 10 mg tablet RxNorm: 6399899 1 Tablet(s) PO BID 04/19/2015 05/18/2015 Inactive [SAVINGS FOR NON-COVERED DRUGS -- BIN:00 5355, PCN: ASPROD1, Group: XXXXX, ID# [id number], Questions: . THIS IS NOT INSURANCE.] Keflex 500 mg capsule RxNorm: 285721 1 Capsule(s) PO TID 04/19/2015 04/28/2015 Inactive Kenalog 40 mg/mL kat pension for injection RxNorm: 4546345 Milliliter(s) Inj 04/19/2015 04/19/2015 In active ceftriaxone 500 mg s olution for injection RxNorm: 5969495 Inj 04/19/2015 04/19/2015 Inactive amitriptyline 100 mg tablet RxNorm: 265762 1 TABLET(S) PO QHS 03/26/2015 07/25/2015 Inactive Lasix 40 mg tablet RxNorm: 439815 1 Tablet(s) PO daily 03/26/2015 09/21/2015 Inactive may take an extra tablet as needed Aldactone 25 mg tablet RxNorm: 051612 1 TABLET(S) PO BID 03/26/2015 12/20/2015 Inactive Levaquin 500 mg tablet RxNorm: 657808 1 Tablet(s) PO daily 03/15/2015 03/21/2015 Inactive Levaquin 500 mg tablet RxNorm: 703146 1 Tablet(s) PO daily 03/15/2015 03/14/2015 Inactive hydrocodone 5 mg-devang taminophen 325 mg tablet RxNorm: 652160 one or two tabs po ev ey six hours prn Tablet(s) PO 02/26/2015 03/13/2018 Inactive hydrocodone 5 mg-devang taminophen 325 mg tablet RxNorm: 497757 one or two tabs po ev ey six hours prn Tablet(s) PO 02/26/2015 02/25/2015 Inactive amitriptyline 100 mg tablet RxNorm: 304972 1 TABLET(S) PO QHS 02/22/2015 01/17/2016 Inactive Keflex 500 mg capsule RxNorm: 620158 1 Capsule(s) PO TID 01/25/2015 01/24/2015 Inactive Keflex 500 mg capsule RxNorm: 819193 1 Capsule(s) PO TID 01/25/2015 01/31/2015 Inactive Bactrim 400 mg-80 mg tablet RxNorm: 632940 1 Tablet(s) PO PRN se xual intercourse, uti preventative 01/04/2015 01/03/2015 Inactive Bactrim 400 mg-80 mg tablet RxNorm: 739645 1 Tablet(s) PO PRN se xual intercourse, uti preventative 01/04/2015 06/20/2015 Inactive Ritalin 10 mg tablet RxNorm: 7073103 1 Tablet(s) PO BID 12/24/2014 01/22/2015 Inactive [SAVINGS FOR NON-COVERED DRUGS -- BIN:00 3585, PCN: ASPROD1, Group: XXXXX, ID# [id number], Questions: . THIS IS NOT INSURANCE.] Kenalog 40 mg/mL kat pension for injection RxNorm: 2737105 Milliliter(s) Inj 12/24/2014 12/24/2014 In active estradiol 0.5 mg tablet RxNorm: 346346 1 Tablet(s) PO daily 12/16/2014 02/29/2016 Inactive TAKE 1 TABLET BY MOUTH DAILY pantoprazole 40 mg t ablet,delayed release RxNorm: 783217 1 Tablet(s) daily 10/26/2014 07/20/2015 In active [SAVINGS FOR NON-COVERED DRUGS -- BIN:00 3585, PCN: ASPROD1, Group: XXXXX, ID# [id number], Questions: . THIS IS NOT INSURANCE.] Ritalin 10 mg tablet RxNorm: 4404234 1 Tablet(s) PO BID 10/23/2014 11/21/2014 Inactive [SAVINGS FOR NON-COVERED DRUGS -- BIN:00 3585, PCN: ASPROD1, Group: XXXXX, ID# [id number], Questions: . THIS IS NOT INSURANCE.] pantoprazole 40 mg t ablet,delayed release RxNorm: 334649 3/4 Tablet(s) daily 10/23/2014 10/25/2014 In active [SAVINGS FOR NON-COVERED DRUGS -- BIN:00 3585, PCN: ASPROD1, Group: XXXXX, ID# [id number], Questions: . THIS IS NOT INSURANCE.] Toprol XL 25 mg tabl et,extended release RxNorm: 278958 1 TABLET(S) PO DAILY 10/20/2014 10/14/2015 In active Januvia 50 mg tablet RxNorm: 076688 1 TABLET(S) PO DAILY 10/20/2014 10/14/2015 Inactive samples and script Celexa 20 mg tablet RxNorm: 708164 1.5 TABLET(S) PO DAILY TAKE 1 & 1/2 TABL ETS BY MOUTH DAILY 10/20/2014 10/14/2015 Inactive omeprazole 20 mg cap maco,delayed release RxNorm: 010621 1 Capsule(s) PO BID 09/25/2014 09/24/2014 In active omeprazole 20 mg cap maco,delayed release RxNorm: 370607 1 Capsule(s) PO BID 09/25/2014 10/22/2014 In active DC pantoprazole [SAVINGS FOR NON-COVERED DRUGS -- BIN:085221, PCN: ASPROD1, Group: XXXXX, ID# [id number], Questions: . THIS IS NOT INSURANCE.] pantoprazole 40 mg t ablet,delayed release RxNorm: 384983 1 TABLET(S) PO BID 09/24/2014 09/24/2014 In active omeprazole 20 mg tab let,delayed release RxNorm: 296962 1 Tablet(s) PO BID 08/31/2014 08/30/2014 In active dc pantoprazole 40mg omeprazole 20 mg tab let,delayed release RxNorm: 408840 1 Tablet(s) PO BID 08/31/2014 08/30/2014 In active omeprazole 20 mg tab let,delayed release RxNorm: 700213 1 Tablet(s) PO daily 08/31/2014 10/27/2015 In active change to daily Ritalin 10 mg tablet RxNorm: 5780667 1 Tablet(s) PO BID 07/20/2014 08/18/2014 Inactive [SAVINGS FOR UNINSURED PATIENTS -- BIN:0 78780, PCN: ASPROD1, Group: [id number], ID# [id number], Process claim through [employer], for questions: . THIS IS NOT INSURANCE.] amitriptyline 100 mg tablet RxNorm: 018915 1 TABLET(S) PO QHS 04/27/2014 02/21/2015 Inactive Ritalin 10 mg tablet RxNorm: 5643816 1 Tablet(s) PO BID 02/09/2014 06/08/2014 Inactive [SAVINGS FOR UNINSURED PATIENTS -- BIN:0 95515, PCN: ASPROD1, Group: [id number], ID# [id number], Process claim through [employer], for questions: . THIS IS NOT INSURANCE.] ProAir HFA 90 mcg/ac tuation aerosol inhaler RxNorm: 554950 2 inhale INH PRN 11/19/2013 10/27/2015 In active amitriptyline 100 mg tablet RxNorm: 891050 Tablet(s) PO TAKE 1 T ABLET BY MOUTH AT BEDTIME 10/27/2013 04/23/2017 Inactive Ritalin 10 mg tablet RxNorm: 5420276 1 Tablet(s) PO BID 10/13/2013 02/08/2014 Inactive estradiol 0.5 mg tablet RxNorm: 910468 1 Tablet(s) PO daily 10/13/2013 12/15/2014 Inactive TAKE 1 TABLET BY MOUTH DAILY pantoprazole 40 mg t ablet,delayed release RxNorm: 028158 1 Tablet(s) PO BID 10/13/2013 08/30/2014 In active Januvia 50 mg tablet RxNorm: 965609 1 Tablet(s) PO daily 10/13/2013 10/07/2014 Inactive samples and script Toprol XL 25 mg tabl et,extended release RxNorm: 829566 1 Tablet(s) PO daily 10/13/2013 10/07/2014 In active Celexa 20 mg tablet RxNorm: 399617 1.5 Tablet(s) PO daily TAKE 1 & 1/2 TABL ETS BY MOUTH DAILY 10/13/2013 10/07/2014 Inactive Aldactone 25 mg tablet RxNorm: 473480 1 Tablet(s) PO BID 10/13/2013 10/07/2014 Inactive Januvia 50 mg tablet RxNorm: 006423 1 Tablet(s) PO daily 10/07/2013 10/12/2013 Inactive samples and script Celexa 20 mg tablet RxNorm: 715214 1 1/2 Tablet(s) PO daily TAKE 1 & 1/2 TA BLETS BY MOUTH DAILY 05/05/2013 10/12/2013 Inactive pantoprazole 40 mg t ablet,delayed release RxNorm: 464268 1 Tablet(s) PO daily 04/30/2013 10/12/2013 In active amitriptyline 100 mg tablet RxNorm: 565032 1 Tablet(s) PO QHS 04/28/2013 10/26/2013 Inactive Ritalin 10 mg tablet RxNorm: 5544418 1 Tablet(s) PO BID 04/18/2013 05/17/2013 Inactive Kenalog 40 mg/mL Kat p for Injection RxNorm: 4410913 1 Milliliter(s) Inj 03/18/2013 03/18/2013 In active amitriptyline 100 mg tablet RxNorm: 407260 1 Tablet(s) PO QHS 03/18/2013 04/27/2013 Inactive Ritalin 10 mg tablet RxNorm: 0604934 1 Tablet(s) PO BID 02/21/2013 03/17/2013 Inactive Toprol XL 25 mg tabl et,extended release RxNorm: 695821 1 Tablet(s) PO daily 01/23/2013 07/21/2013 In active amitriptyline 100 mg tablet RxNorm: 871020 1 Tablet(s) PO QHS 01/23/2013 03/17/2013 Inactive Celexa 20 mg tablet RxNorm: 338444 Tablet(s) PO TAKE 1 & 1/2 TABLETS BY HERLINDA DAILY 12/13/2012 05/04/2013 Inactive Lasix 40 mg tablet RxNorm: 525018 1 Tablet(s) PO daily 12/13/2012 02/10/2013 Inactive and prn amitriptyline 100 mg tablet RxNorm: 125379 1 Tablet(s) PO QHS 10/21/2012 01/18/2013 Inactive Toprol XL 25 mg tabl et,extended release RxNorm: 243739 1 Tablet(s) PO daily 09/17/2012 01/14/2013 In active potassium chloride E R 10 mEq tablet,extended release RxNorm: 585367 1 Tablet(s) PO daily 08/19/2012 10/13/2013 Inactive Lasix 40 mg tablet RxNorm: 829603 1 Tablet(s) PO daily 08/19/2012 12/12/2012 Inactive and prn Ritalin 10 mg tablet RxNorm: 0922079 1 Tablet(s) PO BID 07/16/2012 10/13/2012 Inactive ciprofloxacin 500 mg tablet RxNorm: 876535 1 Tablet(s) PO BID 07/16/2012 07/22/2012 Inactive Celexa 20 mg tablet RxNorm: 107776 Tablet(s) PO TAKE 1 & 1/2 TABLETS BY HERLINDA DAILY 07/15/2012 12/12/2012 Inactive GE100 Blood Glucose Test Strip RxNorm: 1 Miscellaneous BID 07/11/2012 08/04/2013 Inactive and lancets Aldactone 25 mg tablet RxNorm: 129287 1 Tablet(s) PO BID 03/20/2012 03/14/2013 Inactive estradiol 0.5 mg tablet RxNorm: 177773 1 Tablet(s) PO daily 03/15/2012 06/07/2013 Inactive TAKE 1 TABLET BY MOUTH DAILY amitriptyline 100 mg tablet RxNorm: 816409 1 Tablet(s) PO QHS 03/13/2012 10/08/2012 Inactive amitriptyline 100 mg tablet RxNorm: 102435 1 Tablet(s) PO QHS 12/07/2011 01/05/2012 Inactive Kenalog 40 mg/mL Kat p for Injection RxNorm: 7945306 1 Milliliter(s) Inj 12/07/2011 12/07/2011 In active Provigil 200 mg Tab RxNorm: 124445 1 Tablet(s) PO QAM 12/07/2011 01/05/2012 Inactive Flonase Allergy Reli ef 50 mcg/actuation nasal spray,suspension RxNorm: 1579280 [place] NASAL daily as needed No Start Date Active Fish Oil 1,000 mg ca psule RxNorm: 1 Capsule(s) PO BID No Start Date 10/27/2015 Inactive Provigil 200 mg Tab RxNorm: 636932 1 Tablet(s) PO daily No Start Date 10/13/2013 Inactive Lasix 40 mg tablet RxNorm: 627727 1 Tablet(s) PO BID No Start Date 03/25/2015 Inactive Toprol XL 25 mg tabl et,extended release RxNorm: 113821 1 Tablet(s) PO daily No Start Date 09/16/2012 Inactive Prilosec 20 mg Capsu le, delayed release RxNorm: 914604 1 Capsule(s) PO daily No Start Date 10/13/2013 Inactive cyclobenzaprine 10 m g Tab RxNorm: 038020 1 Tablet(s) PO Q8 PRN No Start Date 03/17/2013 Inactive GE100 Blood Glucose Test Strip RxNorm: 1 Miscellaneous BID No Start Date 07/10/2012 Inactive pantoprazole 40 mg t ablet,delayed release RxNorm: 323883 1 Tablet(s) PO daily No Start Date 04/29/2013 Inactive Januvia 50 mg tablet RxNorm: 792111 1 Tablet(s) PO daily No Start Date 10/06/2013 Inactive samples and script Aldactone 25 mg tablet RxNorm: 820527 1 Tablet(s) PO BID No Start Date 03/19/2012 Inactive amitriptyline 100 mg Tab RxNorm: 580537 1 Tablet(s) PO QHS No Start Date 12/06/2011 Inactive Celexa 20 mg tablet RxNorm: 446129 1.5 Tablet(s) PO daily No Start Date 07/14/2012 Inactive potassium chloride E R 10 mEq tablet,extended release RxNorm: 528931 1 Tablet(s) PO BID No Start Date 08/18/2012 Inactive prednisone 20 mg Tab RxNorm: 625291 Tablet(s) PO UD 3 tabs x 2 days, 2 tabs x 2 days, 1 tab x 2 days, 1/2 tab x 2 days, 1/2 tab QOD x 2 doses then stop No Start Date 10/13/2013 Inactive estradiol 0.5 mg tablet RxNorm: 991788 1 Tablet(s) PO daily No Start Date 03/15/2012 Inactive Aldactone 25 mg tablet RxNorm: 339590 1 Tablet(s) PO BID No Start Date 10/12/2013 Inactive Lasix 40 mg tablet RxNorm: 652042 1 Tablet(s) PO BID No Start Date 08/18/2012 Inactive amitriptyline 75 mg Tab RxNorm: 126669 1 Tablet(s) PO QHS No Start Date 10/13/2013 Inactive Medication Administered Medication Codes Instruc tions Start Date Status Kenalog 40 mg/mL suspension for injection RxNorm: 2220391 Milliliter 07/05/2018 No longer Active Kenalog 40 mg/mL suspension for injection RxNorm: 7538629 1Milliliter 03/14/2018 N o longer Active ceftriaxone 500 mg solution for injection RxNorm: 1234342 1Milliliter 05/25/2017 N o longer Active Kenalog 40 mg/mL suspension for injection RxNorm: 7145367 Milliliter 05/25/2017 No longer Active Kenalog 40 mg/mL suspension for injection RxNorm: 3880891 Milliliter 05/02/2016 No longer Active Kenalog 40 mg/mL suspension for injection RxNorm: 7811378 Milliliter 10/28/2015 No longer Active ceftriaxone 500 mg solution for injection RxNorm: 4984595 04/19/2015 No longer A ctive Kenalog 40 mg/mL suspension for injection RxNorm: 0033865 Milliliter 04/19/2015 No longer Active Kenalog 40 mg/mL suspension for injection RxNorm: 0422632 Milliliter 12/24/2014 No longer Active Kenalog 40 mg/mL Susp for Injection RxNorm: 3274605 1Milliliter 03/18/2013 N o longer Active Kenalog 40 mg/mL Susp for Injection RxNorm: 8426180 1Milliliter 12/07/2011 N o longer Active Immunizations [...] with hyperglycemia ICD-10: E11.65 ICD-9: 250.02 03/14/2018 Mixed hyperlipidemia ICD-10: E78.2 ICD-9: 272.2 03/14/2018 Other allergic rhinitis ICD-10: J30. 89 ICD-9: 477.8 03/14/2018 Other acute sinusitis ICD-10: J01.80 ICD-9: 461.8 05/25/2017 Melena ICD-10: K92.1 ICD-9: 578.1 05/14/2017 Other hemorrhoids ICD-10: K64.8 ICD-9: 455.8 05/14/2017 Other disorders of pituitary gland I [...] (attention deficit hyperactivity disorder) ICD-9: 314.01 10/13/2013 Depression ICD-9: 311 DIABETES TYPE II SNOMED: 191443074 ICD-9: 250.00 10/13/2013 ESSENTIAL HYPERTENSION SNOMED: 96911 000 ICD-9: 401.9 10/13/2013 EDEMA ICD-9: 782.3 03/18 DM W/O COMPLICATION TYPE II, UNCONTROLLED SNOMED: 63383593 ICD-9: 250.02 03/18/2013 Uncontrolled narcolepsy ICD-9: 347.00 01/17/2012 Chronic back pain ICD-9: 724.5 12/07/2011 Sciatica ICD-9: 724.3 Sacroiliitis ICD-9: 720.2 12/07/2011 Reason For Visit [...] 32.0 pg 03/26/2018 Cbc With Differential Ord2 Powell% 6.9 % 03/26/2018 Cbc With Differential Ord2 [...] 2.01 K/ul 03/26/2018 Cbc With Differential Ord2 Powell ABS# 0.6 K/ul 03/26/2018 Cbc With Differential Ord2 Eos ABS# 0.1 K/ul 03/26/2018 Cbc With Differential Ord2 Baso ABS# 0.0 K/ul 03/26/2018 Tsh Ord6 TSH (3rd IS) 1.30 uIU/mL 03/26/2018 %Hba1C Yuw043 % HbA1c 62066-4 6.5 % 03/26/2018 %Hba1C Nec475 Gluc Ave 140 mg/dL 03/26/2018 Comp Metabolic Oxg243 NA 141 mEq/L 03/26/2018 Comp Metabolic Vtn355 K 4.5 mEq/L 03/26/2018 Comp Metabolic Elc982 CL 106 mEq/L 03/26/2018 Comp Metabolic Tkd039 CO2 30.0 mEq/L 03/26/2018 Comp Metabolic Kna410 AN ION GAP 10 03/26/2018 Comp Metabolic Mrf849 GL UCOSE 122 mg/dL 03/26/2018 Comp Metabolic Zqq505 Cr eat 1.0 mg/dL 03/26/2018 Comp Metabolic Etn567 eG FR 60 ml/min/1.73m2 03/26 Comp Metabolic Vep198 BUN 18 mg/dL 03/26/2018 Comp Metabolic Nof872 B/ C Ratio 17.5 Ratio 03/26/2018 Comp Metabolic Qbz575 CA LCIUM 10.1 mg/dL 03/26/2018 Comp Metabolic Vbn388 AL K PHOS 67 U/L 03/26/2018 Comp Metabolic Wca789 T(SGOT) 22 U/L 03/26/2018 Comp Metabolic Djs852 AL T(SGPT) 26 U/L 03/26/2018 Comp Metabolic Icy122 BI LI T 0.4 mg/dL 03/26/2018 Comp Metabolic Ufd370 AL BUMIN 4.5 g/dL 03/26/2018 Comp Metabolic Wdi155 TP RO 7.0 g/dL 03/26/2018 Comp Metabolic Gmk923 GL OB 2.6 g/dL 03/26/2018 Comp Metabolic Rpu196 A/ G Ratio 1.7 Ratio 03/26/2018 Comp Metabolic Are425 Os mo 284 mOsmo 03/26/2018 Lipid Ord30 CHOL 203 mg/dL 03/26/2018 Lipid Ord30 HDL 62.0 mg/dl 03/26/2018 Lipid Ord30 TRIG 94 mg/dL 03/26/2018 Lipid Ord30 LDL 122 mg/dL 03/26/2018 Lipid Ord30 C/HDL 3.3 Ratio 03/26/2018 Prolactin 890790 PROLACT IN 5.2 ng/mL 05/15/2017 Cbc With [...] 23.8 % 05/14/2017 Cbc With Differential Ord2 Powell% 7.6 % 05/14/2017 Cbc With Differential Ord2 MCH 31.9 pg 05/14/2017 Cbc With Differential Ord2 Eos% 1.2 % 05/14/2017 Cbc With Differential Ord2 MCHC 33.0 pg 05/14/2017 Cbc With Differential Ord2 PLT 369 K/ul 05/14/2017 Cbc With Differential Ord2 Baso% 0.3 % 05/14/2017 Cbc With Differential Ord2 Neut ABS# 6.54 K/ul 05/14/2017 Cbc With Differential Ord2 RDW 13.2 % 05/14/2017 Cbc With Differential Ord2 Lymph ABS# 2.32 K/ul 05/14/2017 Cbc With Differential Ord2 Powell ABS# 0.7 K/ul 05/14/2017 Cbc With Differential Ord2 Eos ABS# 0.1 K/ul 05/14/2017 Cbc With Differential Ord2 Baso ABS# 0.0 K/ul 05/14/2017 Tsh Ord6 hTSH II 1.69 uIU/mL 05/14/2017 %Hba1C Rtl498 % HbA1c 00908-4 6.4 % 05/14/2017 %Hba1C Fzv319 Gluc Ave 137 mg/dL 05/14/2017 Comp Metabolic Nzd137 NA 138 mEq/L 05/14/2017 Comp Metabolic Ttt261 K 4.2 mEq/L 05/14/2017 Comp Metabolic Nvf996 CL 102 mEq/L 05/14/2017 Comp Metabolic Rcz659 CO2 29.0 mEq/L 05/14/2017 Comp Metabolic Zrp661 AN ION GAP 11 05/14/2017 Comp Metabolic Soy797 GL UCOSE 114 mg/dL 05/14/2017 Comp Metabolic Hlh450 Cr eat 1.0 mg/dL 05/14/2017 Comp Metabolic Rep082 eG FR 64 ml/min/1.73m2 05/14 Comp Metabolic Twm405 BUN 22 mg/dL 05/14/2017 Comp Metabolic Nfr578 B/ C Ratio 22.7 Ratio 05/14/2017 Comp Metabolic Icx819 CA LCIUM 9.6 mg/dL 05/14/2017 Comp Metabolic Wjn214 AL K PHOS 91 U/L 05/14/2017 Comp Metabolic Cvw204 T(SGOT) 13 U/L 05/14/2017 Comp Metabolic Smk449 AL T(SGPT) 16 U/L 05/14/2017 Comp Metabolic Upq116 BI LI T 0.4 mg/dL 05/14/2017 Comp Metabolic Pdk529 AL BUMIN 4.2 g/dL 05/14/2017 Comp Metabolic Xww452 TP RO 6.9 g/dL 05/14/2017 Comp Metabolic Udb834 GL OB 2.7 g/dL 05/14/2017 Comp Metabolic Bjk146 A/ G Ratio 1.6 Ratio 05/14/2017 Comp Metabolic Gul003 Os mo 280 mOsmo 05/14/2017 Lipid Ord30 CHOL 219 mg/dL 05/14/2017 Lipid Ord30 HDL 67.0 mg/dl 05/14/2017 Lipid Ord30 TRIG 157 mg/dL 05/14/2017 Lipid Ord30 LDL 121 mg/dL 05/14/2017 Lipid Ord30 C/HDL 3.3 Ratio 05/14/2017 Prolactin [id number] PROLACT IN 4.5 ng/mL 05/04/2016 %Hba1C Cgz764 % HbA1c 04707-1 5.9 % 05/03/2016 %Hba1C Rrf438 Gluc Ave 123 mg/dL 05/03/2016 Cbc With Differential Ord2 WBC 8.63 K/ul 05/03/2016 Cbc With Differential Ord2 RBC 4.61 M/ul 05/03/2016 Cbc With Differential Ord2 HGB 14.9 g/dl 05/03/2016 Cbc With Differential Ord2 HCT 45.1 % 05/03/2016 Cbc With Differential Ord2 Neut% 62.8 % 05/03/2016 Cbc With Differential Ord2 Lymph% 27.6 % 05/03/2016 Cbc With Differential Ord2 MCV 97.8 fl 05/03/2016 Cbc With Differential Ord2 Powell% 7.0 % 05/03/2016 Cbc With Differential Ord2 MCH 32.3 pg 05/03/2016 Cbc With Differential Ord2 Eos% 2.0 % 05/03/2016 Cbc With Differential Ord2 MCHC 33.0 pg 05/03/2016 Cbc With Differential Ord2 Baso% 0.6 % 05/03/2016 Cbc With Differential Ord2 PLT 344 K/ul 05/03/2016 Cbc With Differential Ord2 RDW 12.7 % 05/03/2016 Cbc With Differential Ord2 Neut ABS# 5.43 K/ul 05/03/2016 Cbc With Differential Ord2 Lymph ABS# 2.38 K/ul 05/03/2016 Cbc With Differential Ord2 Powell ABS# 0.6 K/ul 05/03/2016 Cbc With Differential Ord2 Eos ABS# 0.2 K/ul 05/03/2016 Cbc With Differential Ord2 Baso ABS# 0.1 K/ul 05/03/2016 Tsh Ord6 hTSH II 0.70 uIU/mL 05/03/2016 Comp Metabolic Gik096 NA 137 mEq/L 05/03/2016 Comp Metabolic Brg549 K 4.3 mEq/L 05/03/2016 Comp Metabolic Ekw971 CL 102 mEq/L 05/03/2016 Comp Metabolic Tsp747 CO2 25.0 mEq/L 05/03/2016 Comp Metabolic Wpt630 AN ION GAP 14 05/03/2016 Comp Metabolic Niu055 GL UCOSE 87 mg/dL 05/03/2016 Comp Metabolic Cen930 Cr eat 0.8 mg/dL 05/03/2016 Comp Metabolic Vmn274 eG FR 76 ml/min/1.73m2 05/03 Comp Metabolic Xdy113 BUN 11 mg/dL 05/03/2016 Comp Metabolic Mqm642 B/ C Ratio 13.1 Ratio 05/03/2016 Comp Metabolic Prm767 CA LCIUM 9.3 mg/dL 05/03/2016 Comp Metabolic Urw306 AL K PHOS 76 U/L 05/03/2016 Comp Metabolic Aox755 T(SGOT) 27 U/L 05/03/2016 Comp Metabolic Bxl383 AL T(SGPT) 25 U/L 05/03/2016 Comp Metabolic Yih769 BI LI T 0.3 mg/dL 05/03/2016 Comp Metabolic Cfk251 AL BUMIN 4.1 g/dL 05/03/2016 Comp Metabolic Nem788 TP RO 7.1 g/dL 05/03/2016 Comp Metabolic Ssg982 GL OB 3.0 g/dL 05/03/2016 Comp Metabolic Myw661 A/ G Ratio 1.4 Ratio 05/03/2016 Comp Metabolic Fcj268 Os mo 273 mOsmo 05/03/2016 Urine Culture Ucult Comp lete >100,000 col/ml aerobic grow th sent to ref lab 03/17/2015 Culture Urine [id number] URI NE CULTURE SEE NOTES 01/28/2015 Culture Urine [id number] Con tinued Results 01/28/2015 Urine Culture Ucult Comp lete >100,000 col/ml aerobic grow th sent to ref lab 01/26/2015 URINALYSIS NONAUTO W/O SCOPE 17617 Specific Lyman 1.005 DateTime(Free Text in ) URINALYSIS NONAUTO W/O SCOPE 72803 PH 7.5 DateTime(Free Ruben t in ) URINALYSIS NONAUTO W/O SCOPE 00851 GLUCOSE neg DateTime(Free Ruben t in ) URINALYSIS NONAUTO W/O SCOPE 27633 Protein neg DateTime(Free Ruben t in ) URINALYSIS NONAUTO W/O SCOPE 59229 Blood trace DateTime(Free T ext in ) URINALYSIS NONAUTO W/O SCOPE 51463 Bilirubin small DateTime(Free T ext in ) URINALYSIS NONAUTO W/O SCOPE 91483 Ketones neg DateTime(Free Ruben t in ) URINALYSIS NONAUTO W/O SCOPE 54039 Urobilinogen 0.2 DateTime(Free Text in Aprima) URINALYSIS NONAUTO W/O SCOPE 83305 Nitrite neg DateTime(Free Ruben t in ) URINALYSIS NONAUTO W/O SCOPE 16674 Leukocytes moderate DateTime(Free Text in ) Review [...] Procedure Codes Date THER/PROPH/DIAG INJ SC/IM CPT-4: 53977 07/05/2018 TRIAMCINOLONE ACET I [place] NOS CPT-4: J3301 07/05/2018 TRIAMCINOLONE ACET I [place] NOS CPT-4: J3301 03/14/2018 IMMUNIZATION ADMIN CPT- 4: 46560 03/14/2018 ADACEL TDAP VACCINE 7 YRS/> IM CPT-4: 89927 03/14/2018 TRIAMCINOLONE ACET I [place] NOS CPT-4: J3301 05/25/2017 ROCEPHIN, PER 250 MG CPT-4: J0696 05/25/2017 TRIAMCINOLONE ACET I [place] NOS CPT-4: J3301 05/02/2016 TRIAMCINOLONE ACET I [place] NOS CPT-4: J3301 10/28/2015 ROCEPHIN, PER 250 MG CPT-4: J0696 04/19/2015 TRIAMCINOLONE ACET I [place] NOS CPT-4: J3301 04/19/2015 URINALYSIS NONAUTO W /O SCOPE CPT-4: 47255 03/15/2015 URINALYSIS NONAUTO W /O SCOPE CPT-4: 50595 01/25/2015 TRIAMCINOLONE ACET I [place] NOS CPT-4: J3301 12/24/2014 THER/PROPH/DIAG INJ SC/IM CPT-4: 05319 12/24/2014 URINALYSIS NONAUTO W /O SCOPE CPT-4: 20187 07/16/2012 DRAIN/INJECT JOINT/B URSA CPT-4: 24512 12/07/2011 Vital Signs Date Vital 07/05/2018 Blood Pressure 1: 132/78 Code: 8480-6 BMI: 32.6 Code: 06750-9 Heart Rate 1: 75 bpm Height: 5'2" SpO2: 96% Weight: 178 lbs 03/14/2018 Blood Pressure 1: 108/74 Code: 8480-6 BMI: 33.3 Code: 71487-2 Heart Rate 1: 91 bpm Height: 5'2" SpO2: 98% Weight: 182 lbs 05/25/2017 Blood Pressure 1: 142/82 Code: 8480-6 BMI: 32.0 Code: 57846-5 Heart Rate 1: 96 bpm Height: 5'2" SpO2: 94% Temperature: 37.3 (C ) / 99.2 (F) Weight: 175 lbs 05/14/2017 Blood Pressure 1: 142/78 Code: 8480-6 BMI: 32.0 Code: 76816-8 Heart Rate 1: 111 bpm Height: 5'2" SpO2: 95% Weight: 175 lbs 05/02/2016 Blood Pressure 1: 124/74 Code: 8480-6 BMI: 32.4 Code: 33120-2 Heart Rate 1: 107 bpm Height: 5'2" SpO2: 98% Weight: 177 lbs 10/28/2015 Blood Pressure 1: 124/80 Code: 8480-6 BMI: 32.6 Code: 91793-1 Heart Rate 1: 78 bpm Height: 5'2" SpO2: 91% Weight: 178 lbs 04/19/2015 Blood Pressure 1: 110/78 Code: 8480-6 BMI: 31.5 Code: 26727-9 Heart Rate 1: 88 bpm Height: 5'2" SpO2: 96% Weight: 172 lbs 12/24/2014 Blood Pressure 1: 112/72 Code: 8480-6 BMI: 30.4 Code: 24884-2 Heart Rate 1: 88 bpm Height: 5'2" Weight: 166 lbs 10/13/2013 Blood Pressure 1: 104/78 Code: 8480-6 BMI: 30.7 Code: 64988-1 Heart Rate 1: 100 bpm Height: 5'2" [...] State s she was sitting in 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 P ATIENT, LEVEL IV Diagnosis: Type 2 diabetes mellitus with hyperglycemia[ICD10: E11.65] Diagnosis: Mixed hyperlipidemia[ICD10: E78.2] Diagnosis: Other allergic rhinitis[ICD10: J30.89] Diagnosis: Attention-deficit hyperactivity disorder, combined type[ICD10: F90.2] Diagnosis: Encounter for immunization[ICD10: Z23] [facility] CPT-4: 83816 03/14/2018 [id number] EST. PATIENT, LEVEL IV Diagnosis: Other acute sinusitis[ICD10: J01.80] Diagnosis: Other allergic rhinitis[ICD10: J30.89] Michelle Martinez MD, [facility] CPT-4: 64351 05/25/2017 [id number] EST. 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 P ATIENT, LEVEL III Diagnosis: Allergic rhinitis due to pollen[ICD10: J30.1] Diagnosis: Otalgia, right ear[ICD10: H92.01] Maci Martinez MD, [facility] CPT- 4: 21765 10/28/2015 ([id number]) 66596 EST. P ATIENT, LEVEL III Diagnosis: Acute maxillary sinusitis, unspecified[ICD10: J01.00] Diagnosis: Allergic rhinitis, unspecified[ICD10: J30.9] Maci Martinez MD, [facility] CPT-4: 31378 04/19/2015 ([id number]) 74094 EST. P ATIENT, LEVEL III Diagnosis: Swelling of eyelid[ICD9: 374.82] Diagnosis: Sunburn[ICD9: 692.71] Maci Martinez MD, [facility] CPT-4: 28196 12/24/2014 ([id number]) 24343 EST. P ATIENT, LEVEL IV Diagnosis: ESSENTIAL HYPERTENSION[SNOMED: 25277339] Diagnosis: DIABETES TYPE II[SNOMED: 155561910] Diagnosis: ADHD (attention deficit hyperactivity disorder)[ICD9: 314.01] Diagnosis: Depression[ICD9: 311] Joy Martinez MD, [facility] CPT-4: 53248 10/13/2013 ([id number]) 45916 EST. P ATIENT, LEVEL IV Diagnosis: DM W/O COMPLICATION TYPE II, UNCONTROLLED[SNOMED: 70444720] Diagnosis: ESSENTIAL HYPERTENSION[SNOMED: 07063261] Diagnosis: EDEMA[ICD9: 782.3] Joy Martinez MD, [facility] CPT-4: 95450 03/18/2013 ([id number]) 54621 EST. P ATIENT, LEVEL IV Diagnosis: UTI[ICD9: 599.0] Diagnosis: DM W/O COMPLICATION TYPE II, UNCONTROLLED[SNOMED: 79614728] Joy Martinez MD, [facility] CPT-4: 18368 07/16/2012 ([id number]) 29212 EST. P ATIENT, LEVEL III Diagnosis: Uncontrolled narcolepsy[ICD9: 347.00] Diagnosis: ESSENTIAL HYPERTENSION[SNOMED: 28513933] Joy Martinez MD, C CPT-4: 62885 01/17/2012 Office outpatient ne w 30 minutes Diagnosis: Sciatica[ICD9: 724.3] Diagnosis: Chronic back pain[ICD9: 724.5] Diagnosis: ESSENTIAL HYPERTENSION[SNOMED: 86335471] Joy Martinez MD, C CPT-4: 10446 12/07/2011 Plan of Care Planned Activity Notes C odes Status Date Visit Plan: Left rib pain - the pat ient was instructed in appropriate posture - The pt is to use prn antiinflammatories to manage acute pain. The patient is to call the office if the pain is worsening or does not improve. 07/05/2018 Appointment: Michelle Mora WPtel: [address] [place], [place] [address] (15 min) Moderate 07/05/2018 Patient Education: Patient [...] office 03/14/2018 Appointment: Maci Moreno WPtel: [phone] [phone] (30 min) Complex 03/14/2018 Patient Education: [...] spray. 05/25/2017 Appointment: Michelle Mora WPtel: [phone] [facility] (15 min) Moderate 05/25/2017 Patient Education: [...] glucose control. 05/14/2017 Appointment: [facility]el[facility] ([facility] 05/14/2017 Patient Education: Patient Medication Summary Completed 05/14/2017 Patient Education: Obesity Completed 05/14/2017 Care Plan: Referral Order SNOMED-CT : 508405587 Pending 05/14/2017 Visit Plan: Allergies - chronic [...] less controlled. 05/02/2016 Appointment: Maci Moreno WPtel: [address] [place] [address] (15 min) Moderate 05/02/2016 Patient Education: Patient [...] allergy spray. 10/28/2015 Appointment: Maci Moreno WPtel: [address] [place] [address] (30 min) Complex 10/28/2015 Patient Education: Patient [...] acute symptoms. 04/19/2015 Appointment: Maci Moreno WPtel: [address] [place] [address] (15 min) Moderate 04/19/2015 Patient Education: Patient [...] patient. 10/13/2013 [facility] [phone] [facility] [place] Follow up 10/13/2013 Patient Education: Patient Medication Summary Completed 10/13/2013 Patient Education: Hypertension Completed 10/13/2013 [facility] [phone] [phone] [place] Follow up 08/29/2013 [facility]ment: [facility] [phone] [facility] Follow [facility] 06/23/2013 Visit Plan: [...] edema. 03/18/2013 [facility]ment: [facility] [phone] [facility] Follow [facility] 03/18/2013 Patient Education: Patient Medication Summary Completed 03/18/2013 Patient Education: Hypertension Completed 03/18/2013 [facility]ment: [facility] [phone] [facility] Follow up 10/15/2012 [facility] [phone] [phone] Diabetic education 07/22/2012 Visit Plan: Diabetes Mellitus [...] improve. 07/16/2012 [facility]ment: [facility] [phone] [facility] [facility] 07/16/2012 Patient Education: Patient [...] 01/17/2012 Appointment: Joy Martinez WPtel[facility] [facility] 01/17/2012 Patient Education: Patient Medication Summary Completed [...] Q HS 12/07/2011 Appointment: Maci Moreno WPtel[phone] New Patient 12/07/2011 Patient Education: Patient Medication [...] 40mg refill ritalin fasting labs-orders sent to [facility] lab -go any time fasting . Diabetes [...]
--- OUTSIDE RECORDS SUMMARY | 2019-11-02 07:09 | XMS REPORT | CCD ---
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 THIS IS NOT INSURANCE.] prednisone 20 mg tablet RxNorm: 908652 3 Tablet(s) PO daily 07/05/2018 07/09/2018 Active prednisone 20 mg tablet RxNorm: 655358 3 Tablet(s) PO daily 07/05/2018 07/04/2018 Inactive Aldactone 25 mg tablet RxNorm: 480912 Tablet(s) 1 TABLET(S) PO BID 04/17/2018 01/11/2019 Active pantoprazole 40 mg t ablet,delayed release RxNorm: 161400 1 Tablet(s) PO QHS 04/17/2018 01/11/2019 Ac tive Bactrim 400 mg-80 mg tablet RxNorm: 008388 Tablet(s) TAKE 1 TABL ET BY MOUTH NEEDED FOR SEXUAL INTERCOURSE FOR UTI PREVENTION 04/17/2018 06/15/2018 Inactive Ritalin 10 mg tablet RxNorm: 9030984 1 Tablet(s) PO BID 04/17/2018 05/16/2018 Inactive [SAVINGS FOR NON-COVERED DRUGS -- BIN:00 3585, PCN: ASPROD1, Group: XXXXX, ID# [id number], Questions: . THIS IS NOT INSURANCE.] amitriptyline 100 mg tablet RxNorm: 910397 Tablet(s) TAKE 1 TABL ET BY MOUTH DAILY AT BEDTIME 03/14/2018 03/08/2019 Active Kenalog 40 mg/mL kat pension for injection RxNorm: 7082393 1 Milliliter(s) Inj 03/14/2018 03/14/2018 In active Ritalin 10 mg tablet RxNorm: 1897970 1 Tablet(s) PO BID 03/14/2018 04/12/2018 Inactive [SAVINGS FOR NON-COVERED DRUGS -- BIN:00 3585, PCN: ASPROD1, Group: XXXXX, ID# [id number], Questions: . THIS IS NOT INSURANCE.] Bactrim 400 mg-80 mg tablet RxNorm: 427257 TAKE 1 TABLET BY MOUT H NEEDED FOR SEXUAL INTERCOURSE FOR UTI PREVENTION 09/28/2017 11/26/2017 Inactive amitriptyline 100 mg tablet RxNorm: 817945 TAKE 1 TABLET BY MOUT H DAILY AT BEDTIME 09/25/2017 03/13/2018 In active Diflucan 150 mg tablet RxNorm: 261130 1 Tablet(s) PO daily 05/31/2017 06/04/2017 Inactive Diflucan 150 mg tablet RxNorm: 711398 1 Tablet(s) PO daily 05/31/2017 05/30/2017 Inactive Kenalog 40 mg/mL kat pension for injection RxNorm: 4915798 Milliliter(s) Inj 05/25/2017 05/25/2017 In active prednisone 10 mg tablet RxNorm: 114697 Tablet(s) PO UD 05/25/2017 09/24/2017 Inactive 6,5,4,3,2,1 Phenergan with Codei ne Syrup RxNorm: 5-10 Milliliter(s) PO QID a s needed 05/25/2017 03/13/2018 In active Keflex 500 mg capsule RxNorm: 168372 1 Capsule(s) PO TID 05/25/2017 06/03/2017 Inactive ceftriaxone 500 mg s olution for injection RxNorm: 6654806 1 Milliliter(s) Inj 05/25/2017 05/25/2017 In active estradiol 0.5 mg tablet RxNorm: 897953 1 Tablet(s) PO daily 05/14/2017 04/27/2020 Active Celexa 20 mg tablet RxNorm: 102645 1.5 Tablet(s) PO daily 05/14/2017 04/27/2020 Active Januvia 50 mg tablet RxNorm: 419850 1 Tablet(s) PO daily 05/14/2017 05/08/2018 Inactive Toprol XL 25 mg tabl et,extended release RxNorm: 066306 1 Tablet(s) PO daily 05/14/2017 05/08/2018 In active amitriptyline 100 mg tablet RxNorm: 465132 1 Tablet(s) PO QHS 05/14/2017 09/24/2017 Inactive pantoprazole 40 mg t ablet,delayed release RxNorm: 242766 1 Tablet(s) PO QHS 05/14/2017 02/07/2018 In active Bactrim 400 mg-80 mg tablet RxNorm: 240068 Tablet(s) TAKE ONE TA BLET BY MOUTH NEEDED FOR SEXUAL INTERCOURSE FOR UTI PREVENTION 05/14/2017 08/11/2017 Inactive Aldactone 25 mg tablet RxNorm: 032082 Tablet(s) 1 TABLET(S) PO BID 05/14/2017 02/07/2018 Inactive Celexa 20 mg tablet RxNorm: 483373 TAKE ONE & ONE-HALF TABLETS BY MOUTH ONC E DAILY 04/12/2017 05/13/2017 Inactive Toprol XL 25 mg tabl et,extended release RxNorm: 127469 TAKE ONE TABLET BY MO UTH ONCE DAILY 02/06/2017 05/13/2017 Inactive Celexa 20 mg tablet RxNorm: 729950 TAKE ONE & ONE-HALF TABLETS BY MOUTH ONC E DAILY 01/03/2017 03/03/2017 Inactive amitriptyline 100 mg tablet RxNorm: 017428 TAKE ONE TABLET BY MO UTH AT BEDTIME 12/08/2016 05/13/2017 In active Toprol XL 25 mg tabl et,extended release RxNorm: 413576 TAKE ONE TABLET BY MO UTH ONCE DAILY 11/23/2016 02/06/2017 Inactive Januvia 50 mg tablet RxNorm: 002348 TAKE ONE TABLET BY MOUTH ONCE DAILY 11/09/2016 03/08/2017 In active Bactrim 400 mg-80 mg tablet RxNorm: 117362 TAKE ONE TABLET BY MO UT NEEDED FOR SEXUAL INTERCOURSE FOR UTI PREVENTION 09/19/2016 04/24/2017 Inactive amitriptyline 100 mg tablet RxNorm: 400862 TAKE ONE TABLET BY MO UT AT BEDTIME 08/31/2016 11/28/2016 In active pantoprazole 40 mg t ablet,delayed release RxNorm: 637833 Tablet(s) TAKE 1 TABL ET BY MOUTH ONCE DAILY 08/16/2016 05/12/2017 Inactive estradiol 0.5 mg tablet RxNorm: 600059 TAKE ONE TABLET BY MOUTH ONCE DAILY 08/13/2016 05/13/2017 In active amitriptyline 100 mg tablet RxNorm: 602223 TAKE ONE TABLET BY MO UT AT BEDTIME 07/31/2016 08/29/2016 In active ProAir HFA 90 mcg/ac tuation aerosol inhaler RxNorm: 166974 2 inhale INH PRN as n eeded 05/02/2016 No Stop Date Active ciprofloxacin 0.3 % eye drops RxNorm: 791260 Drop(s) OPH 2 drops e very 2 hours while awake for days 1-2 and 2 drops every 4 hours for days 3 - 7 05/02/2016 03/13/2018 Inactive Kenalog 40 mg/mL kat pension for injection RxNorm: 5592077 Milliliter(s) Inj 05/02/2016 05/02/2016 In active Zithromax Z-Nick 250 mg tablet RxNorm: 133187 1 Tablet(s) PO UD 05/02/2016 09/24/2017 Inactive albuterol sulfate 2. 5 mg/3 mL (0.083 %) solution for nebulization RxNorm: 562393 1 Milliliter(s) INH QID as needed 03/13/2018 Inactive prednisone 20 mg tablet RxNorm: 460014 1 Tablet(s) PO BID 05/02/2016 05/06/2016 Inactive amitriptyline 100 mg tablet RxNorm: 698318 1 TABLET(S) PO QHS 03/01/2016 07/30/2016 Inactive estradiol 0.5 mg tablet RxNorm: 963768 1 TABLET(S) PO DAILY 03/01/2016 09/24/2017 Inactive TAKE 1 TABLET BY MOUTH DAILY estradiol 0.5 mg tablet RxNorm: 944206 TAKE ONE TABLET BY MOUTH ONCE DAILY 03/01/2016 05/29/2016 In active Celexa 20 mg tablet RxNorm: 505761 TAKE ONE & ONE-HALF TABLETS BY MOUTH ONC E DAILY 12/03/2015 11/26/2016 Inactive amoxicillin 500 mg c apsule RxNorm: 275197 1 Capsule(s) PO BID 11/05/2015 11/04/2015 Inactive amoxicillin 500 mg c apsule RxNorm: 842089 1 Capsule(s) PO BID 11/05/2015 04/30/2017 Inactive Kenalog 40 mg/mL kat pension for injection RxNorm: 1613464 Milliliter(s) Inj 10/28/2015 10/28/2015 In active Januvia 50 mg tablet RxNorm: 797024 Tablet(s) 1 TABLET(S) PO DAILY 10/28/2015 10/21/2016 In active Ritalin 10 mg tablet RxNorm: 8486212 1 Tablet(s) PO BID 10/28/2015 11/26/2015 Inactive [SAVINGS FOR NON-COVERED DRUGS -- BIN:00 8384, PCN: ASPROD1, Group: XXXXX, ID# [id number], Questions: . THIS IS NOT INSURANCE.] Toprol XL 25 mg tabl et,extended release RxNorm: 625835 Tablet(s) 1 TABLET(S) PO DAILY 10/28/2015 10/21/2016 Inactive prednisone 20 mg tablet RxNorm: 097610 1 Tablet(s) PO BID 10/28/2015 11/01/2015 Inactive Lasix 40 mg tablet RxNorm: 874866 TAKE ONE TABLET BY MOUTH ONCE DAILY. MAY TAKE EXTRA TABLET NEEDED. 09/27/2015 12/25/2015 Inactive Bactrim 400 mg-80 mg tablet RxNorm: 667652 Tablet(s) 1 TABLET(S) PO PRN SEXUAL INTERCOURSE, UTI PREVENTATIVE 09/22/2015 12/20/2015 Inactive pantoprazole 40 mg t ablet,delayed release RxNorm: 843698 TAKE 1 TABLET BY MOUT H ONCE DAILY 07/29/2015 01/24/2016 Inactive amitriptyline 100 mg tablet RxNorm: 346585 Tablet(s) 1 TABLET(S) PO QHS 07/26/2015 09/24/2017 In active pantoprazole 40 mg t ablet,delayed release RxNorm: 177161 TAKE 1 TABLET BY MOUT H ONCE DAILY 07/21/2015 07/28/2015 Inactive Bactrim 400 mg-80 mg tablet RxNorm: 084860 1 TABLET(S) PO PRN SE XUAL INTERCOURSE, UTI PREVENTATIVE 06/21/2015 09/18/2015 Inactive Ritalin 10 mg tablet RxNorm: 4628025 1 Tablet(s) PO BID 04/19/2015 05/18/2015 Inactive [SAVINGS FOR NON-COVERED DRUGS -- BIN:00 1905, PCN: ASPROD1, Group: XXXXX, ID# [id number], Questions: . THIS IS NOT INSURANCE.] Keflex 500 mg capsule RxNorm: 856193 1 Capsule(s) PO TID 04/19/2015 04/28/2015 Inactive Kenalog 40 mg/mL kat pension for injection RxNorm: 3916598 Milliliter(s) Inj 04/19/2015 04/19/2015 In active ceftriaxone 500 mg s olution for injection RxNorm: 9903307 Inj 04/19/2015 04/19/2015 Inactive amitriptyline 100 mg tablet RxNorm: 396498 1 TABLET(S) PO QHS 03/26/2015 07/25/2015 Inactive Lasix 40 mg tablet RxNorm: 499796 1 Tablet(s) PO daily 03/26/2015 09/21/2015 Inactive may take an extra tablet as needed Aldactone 25 mg tablet RxNorm: 204106 1 TABLET(S) PO BID 03/26/2015 12/20/2015 Inactive Levaquin 500 mg tablet RxNorm: 676989 1 Tablet(s) PO daily 03/15/2015 03/21/2015 Inactive Levaquin 500 mg tablet RxNorm: 808028 1 Tablet(s) PO daily 03/15/2015 03/14/2015 Inactive hydrocodone 5 mg-devang taminophen 325 mg tablet RxNorm: 744860 one or two tabs po ev ey six hours prn Tablet(s) PO 02/26/2015 03/13/2018 Inactive hydrocodone 5 mg-devang taminophen 325 mg tablet RxNorm: 157976 one or two tabs po ev ey six hours prn Tablet(s) PO 02/26/2015 02/25/2015 Inactive amitriptyline 100 mg tablet RxNorm: 405731 1 TABLET(S) PO QHS 02/22/2015 01/17/2016 Inactive Keflex 500 mg capsule RxNorm: 624679 1 Capsule(s) PO TID 01/25/2015 01/24/2015 Inactive Keflex 500 mg capsule RxNorm: 790113 1 Capsule(s) PO TID 01/25/2015 01/31/2015 Inactive Bactrim 400 mg-80 mg tablet RxNorm: 295789 1 Tablet(s) PO PRN se xual intercourse, uti preventative 01/04/2015 01/03/2015 Inactive Bactrim 400 mg-80 mg tablet RxNorm: 838881 1 Tablet(s) PO PRN se xual intercourse, uti preventative 01/04/2015 06/20/2015 Inactive Ritalin 10 mg tablet RxNorm: 1862946 1 Tablet(s) PO BID 12/24/2014 01/22/2015 Inactive [SAVINGS FOR NON-COVERED DRUGS -- BIN:00 3585, PCN: ASPROD1, Group: XXXXX, ID# [id number], Questions: . THIS IS NOT INSURANCE.] Kenalog 40 mg/mL kat pension for injection RxNorm: 4034171 Milliliter(s) Inj 12/24/2014 12/24/2014 In active estradiol 0.5 mg tablet RxNorm: 241086 1 Tablet(s) PO daily 12/16/2014 02/29/2016 Inactive TAKE 1 TABLET BY MOUTH DAILY pantoprazole 40 mg t ablet,delayed release RxNorm: 349579 1 Tablet(s) daily 10/26/2014 07/20/2015 In active [SAVINGS FOR NON-COVERED DRUGS -- BIN:00 3585, PCN: ASPROD1, Group: XXXXX, ID# [id number], Questions: . THIS IS NOT INSURANCE.] Ritalin 10 mg tablet RxNorm: 0067403 1 Tablet(s) PO BID 10/23/2014 11/21/2014 Inactive [SAVINGS FOR NON-COVERED DRUGS -- BIN:00 3585, PCN: ASPROD1, Group: XXXXX, ID# [id number], Questions: . THIS IS NOT INSURANCE.] pantoprazole 40 mg t ablet,delayed release RxNorm: 393525 3/4 Tablet(s) daily 10/23/2014 10/25/2014 In active [SAVINGS FOR NON-COVERED DRUGS -- BIN:00 3585, PCN: ASPROD1, Group: XXXXX, ID# [id number], Questions: . THIS IS NOT INSURANCE.] Toprol XL 25 mg tabl et,extended release RxNorm: 173833 1 TABLET(S) PO DAILY 10/20/2014 10/14/2015 In active Januvia 50 mg tablet RxNorm: 357046 1 TABLET(S) PO DAILY 10/20/2014 10/14/2015 Inactive samples and script Celexa 20 mg tablet RxNorm: 338595 1.5 TABLET(S) PO DAILY TAKE 1 & 1/2 TABL ETS BY MOUTH DAILY 10/20/2014 10/14/2015 Inactive omeprazole 20 mg cap maco,delayed release RxNorm: 024219 1 Capsule(s) PO BID 09/25/2014 09/24/2014 In active omeprazole 20 mg cap maco,delayed release RxNorm: 482569 1 Capsule(s) PO BID 09/25/2014 10/22/2014 In active DC pantoprazole [SAVINGS FOR NON-COVERED DRUGS -- BIN:071188, PCN: ASPROD1, Group: XXXXX, ID# [id number], Questions: . THIS IS NOT INSURANCE.] pantoprazole 40 mg t ablet,delayed release RxNorm: 729369 1 TABLET(S) PO BID 09/24/2014 09/24/2014 In active omeprazole 20 mg tab let,delayed release RxNorm: 368752 1 Tablet(s) PO BID 08/31/2014 08/30/2014 In active dc pantoprazole 40mg omeprazole 20 mg tab let,delayed release RxNorm: 930346 1 Tablet(s) PO BID 08/31/2014 08/30/2014 In active omeprazole 20 mg tab let,delayed release RxNorm: 073324 1 Tablet(s) PO daily 08/31/2014 10/27/2015 In active change to daily Ritalin 10 mg tablet RxNorm: 5076319 1 Tablet(s) PO BID 07/20/2014 08/18/2014 Inactive [SAVINGS FOR UNINSURED PATIENTS -- BIN:0 74280, PCN: ASPROD1, Group: [id number], ID# [id number], Process claim through [employer], for questions: . THIS IS NOT INSURANCE.] amitriptyline 100 mg tablet RxNorm: 694031 1 TABLET(S) PO QHS 04/27/2014 02/21/2015 Inactive Ritalin 10 mg tablet RxNorm: 2713733 1 Tablet(s) PO BID 02/09/2014 06/08/2014 Inactive [SAVINGS FOR UNINSURED PATIENTS -- BIN:0 73780, PCN: ASPROD1, Group: [id number], ID# [id number], Process claim through [employer], for questions: . THIS IS NOT INSURANCE.] ProAir HFA 90 mcg/ac tuation aerosol inhaler RxNorm: 103583 2 inhale INH PRN 11/19/2013 10/27/2015 In active amitriptyline 100 mg tablet RxNorm: 567266 Tablet(s) PO TAKE 1 T ABLET BY MOUTH AT BEDTIME 10/27/2013 04/23/2017 Inactive Ritalin 10 mg tablet RxNorm: 9529706 1 Tablet(s) PO BID 10/13/2013 02/08/2014 Inactive estradiol 0.5 mg tablet RxNorm: 944031 1 Tablet(s) PO daily 10/13/2013 12/15/2014 Inactive TAKE 1 TABLET BY MOUTH DAILY pantoprazole 40 mg t ablet,delayed release RxNorm: 924690 1 Tablet(s) PO BID 10/13/2013 08/30/2014 In active Januvia 50 mg tablet RxNorm: 183612 1 Tablet(s) PO daily 10/13/2013 10/07/2014 Inactive samples and script Toprol XL 25 mg tabl et,extended release RxNorm: 400182 1 Tablet(s) PO daily 10/13/2013 10/07/2014 In active Celexa 20 mg tablet RxNorm: 930779 1.5 Tablet(s) PO daily TAKE 1 & 1/2 TABL ETS BY MOUTH DAILY 10/13/2013 10/07/2014 Inactive Aldactone 25 mg tablet RxNorm: 321966 1 Tablet(s) PO BID 10/13/2013 10/07/2014 Inactive Januvia 50 mg tablet RxNorm: 938622 1 Tablet(s) PO daily 10/07/2013 10/12/2013 Inactive samples and script Celexa 20 mg tablet RxNorm: 560393 1 1/2 Tablet(s) PO daily TAKE 1 & 1/2 TA BLETS BY MOUTH DAILY 05/05/2013 10/12/2013 Inactive pantoprazole 40 mg t ablet,delayed release RxNorm: 032399 1 Tablet(s) PO daily 04/30/2013 10/12/2013 In active amitriptyline 100 mg tablet RxNorm: 710439 1 Tablet(s) PO QHS 04/28/2013 10/26/2013 Inactive Ritalin 10 mg tablet RxNorm: 1764408 1 Tablet(s) PO BID 04/18/2013 05/17/2013 Inactive Kenalog 40 mg/mL Kat p for Injection RxNorm: 3877723 1 Milliliter(s) Inj 03/18/2013 03/18/2013 In active amitriptyline 100 mg tablet RxNorm: 086928 1 Tablet(s) PO QHS 03/18/2013 04/27/2013 Inactive Ritalin 10 mg tablet RxNorm: 2739646 1 Tablet(s) PO BID 02/21/2013 03/17/2013 Inactive Toprol XL 25 mg tabl et,extended release RxNorm: 469551 1 Tablet(s) PO daily 01/23/2013 07/21/2013 In active amitriptyline 100 mg tablet RxNorm: 791509 1 Tablet(s) PO QHS 01/23/2013 03/17/2013 Inactive Celexa 20 mg tablet RxNorm: 120177 Tablet(s) PO TAKE 1 & 1/2 TABLETS BY HERLINDA DAILY 12/13/2012 05/04/2013 Inactive Lasix 40 mg tablet RxNorm: 454042 1 Tablet(s) PO daily 12/13/2012 02/10/2013 Inactive and prn amitriptyline 100 mg tablet RxNorm: 239081 1 Tablet(s) PO QHS 10/21/2012 01/18/2013 Inactive Toprol XL 25 mg tabl et,extended release RxNorm: 125303 1 Tablet(s) PO daily 09/17/2012 01/14/2013 In active potassium chloride E R 10 mEq tablet,extended release RxNorm: 896243 1 Tablet(s) PO daily 08/19/2012 10/13/2013 Inactive Lasix 40 mg tablet RxNorm: 723277 1 Tablet(s) PO daily 08/19/2012 12/12/2012 Inactive and prn Ritalin 10 mg tablet RxNorm: 2267535 1 Tablet(s) PO BID 07/16/2012 10/13/2012 Inactive ciprofloxacin 500 mg tablet RxNorm: 553346 1 Tablet(s) PO BID 07/16/2012 07/22/2012 Inactive Celexa 20 mg tablet RxNorm: 301400 Tablet(s) PO TAKE 1 & 1/2 TABLETS BY HERLINDA DAILY 07/15/2012 12/12/2012 Inactive GE100 Blood Glucose Test Strip RxNorm: 1 Miscellaneous BID 07/11/2012 08/04/2013 Inactive and lancets Aldactone 25 mg tablet RxNorm: 246345 1 Tablet(s) PO BID 03/20/2012 03/14/2013 Inactive estradiol 0.5 mg tablet RxNorm: 610891 1 Tablet(s) PO daily 03/15/2012 06/07/2013 Inactive TAKE 1 TABLET BY MOUTH DAILY amitriptyline 100 mg tablet RxNorm: 551865 1 Tablet(s) PO QHS 03/13/2012 10/08/2012 Inactive amitriptyline 100 mg tablet RxNorm: 664105 1 Tablet(s) PO QHS 12/07/2011 01/05/2012 Inactive Kenalog 40 mg/mL Kat p for Injection RxNorm: 3920440 1 Milliliter(s) Inj 12/07/2011 12/07/2011 In active Provigil 200 mg Tab RxNorm: 211631 1 Tablet(s) PO QAM 12/07/2011 01/05/2012 Inactive Flonase Allergy Reli ef 50 mcg/actuation nasal spray,suspension RxNorm: 7546328 [place] NASAL daily as needed No Start Date Active Fish Oil 1,000 mg ca psule RxNorm: 1 Capsule(s) PO BID No Start Date 10/27/2015 Inactive Provigil 200 mg Tab RxNorm: 514874 1 Tablet(s) PO daily No Start Date 10/13/2013 Inactive Lasix 40 mg tablet RxNorm: 569290 1 Tablet(s) PO BID No Start Date 03/25/2015 Inactive Toprol XL 25 mg tabl et,extended release RxNorm: 888155 1 Tablet(s) PO daily No Start Date 09/16/2012 Inactive Prilosec 20 mg Capsu le, delayed release RxNorm: 224621 1 Capsule(s) PO daily No Start Date 10/13/2013 Inactive cyclobenzaprine 10 m g Tab RxNorm: 755745 1 Tablet(s) PO Q8 PRN No Start Date 03/17/2013 Inactive GE100 Blood Glucose Test Strip RxNorm: 1 Miscellaneous BID No Start Date 07/10/2012 Inactive pantoprazole 40 mg t ablet,delayed release RxNorm: 629933 1 Tablet(s) PO daily No Start Date 04/29/2013 Inactive Januvia 50 mg tablet RxNorm: 139487 1 Tablet(s) PO daily No Start Date 10/06/2013 Inactive samples and script Aldactone 25 mg tablet RxNorm: 835869 1 Tablet(s) PO BID No Start Date 03/19/2012 Inactive amitriptyline 100 mg Tab RxNorm: 665033 1 Tablet(s) PO QHS No Start Date 12/06/2011 Inactive Celexa 20 mg tablet RxNorm: 686585 1.5 Tablet(s) PO daily No Start Date 07/14/2012 Inactive potassium chloride E R 10 mEq tablet,extended release RxNorm: 519841 1 Tablet(s) PO BID No Start Date 08/18/2012 Inactive prednisone 20 mg Tab RxNorm: 591276 Tablet(s) PO UD 3 tabs x 2 days, 2 tabs x 2 days, 1 tab x 2 days, 1/2 tab x 2 days, 1/2 tab QOD x 2 doses then stop No Start Date 10/13/2013 Inactive estradiol 0.5 mg tablet RxNorm: 253779 1 Tablet(s) PO daily No Start Date 03/15/2012 Inactive Aldactone 25 mg tablet RxNorm: 446357 1 Tablet(s) PO BID No Start Date 10/12/2013 Inactive Lasix 40 mg tablet RxNorm: 644437 1 Tablet(s) PO BID No Start Date 08/18/2012 Inactive amitriptyline 75 mg Tab RxNorm: 739652 1 Tablet(s) PO QHS No Start Date 10/13/2013 Inactive Medication Administered Medication Codes Instruc tions Start Date Status Kenalog 40 mg/mL suspension for injection RxNorm: 4952885 Milliliter 07/05/2018 Ac tive Kenalog 40 mg/mL suspension for injection RxNorm: 5937267 1Milliliter 03/14/2018 N o longer Active ceftriaxone 500 mg solution for injection RxNorm: 7123663 1Milliliter 05/25/2017 N o longer Active Kenalog 40 mg/mL suspension for injection RxNorm: 9930658 Milliliter 05/25/2017 No longer Active Kenalog 40 mg/mL suspension for injection RxNorm: 1758359 Milliliter 05/02/2016 No longer Active Kenalog 40 mg/mL suspension for injection RxNorm: 4852876 Milliliter 10/28/2015 No longer Active ceftriaxone 500 mg solution for injection RxNorm: 3906391 04/19/2015 No longer A ctive Kenalog 40 mg/mL suspension for injection RxNorm: 1405544 Milliliter 04/19/2015 No longer Active Kenalog 40 mg/mL suspension for injection RxNorm: 8986832 Milliliter 12/24/2014 No longer Active Kenalog 40 mg/mL Susp for Injection RxNorm: 0218282 1Milliliter 03/18/2013 N o longer Active Kenalog 40 mg/mL Susp for Injection RxNorm: 4680004 1Milliliter 12/07/2011 N o longer Active Immunizations [...] disorder) ICD-9: 314.01 10/13/2013 ESSENTIAL HYPERTENSION SNOMED: 92546 000 ICD-9: 401.9 10/13/2013 Depression ICD-9: 311 DIABETES TYPE II SNOMED: 174187905 ICD-9: 250.00 10/13/2013 EDEMA ICD-9: 782.3 03/18 DM W/O COMPLICATION TYPE II, UNCONTROLLED SNOMED: 26838620 ICD-9: 250.02 03/18/2013 Uncontrolled narcolepsy ICD-9: 347.00 [...] 32.0 pg 03/26/2018 Cbc With Differential Ord2 [place]% 6.9 % 03/26/2018 Cbc With Differential Ord2 [...] 2.01 K/ul 03/26/2018 Cbc With Differential Ord2 [place] ABS# 0.6 K/ul 03/26/2018 Cbc With Differential Ord2 Eos ABS# 0.1 K/ul 03/26/2018 Cbc With Differential Ord2 Baso ABS# 0.0 K/ul 03/26/2018 Tsh Ord6 TSH (3rd IS) 1.30 uIU/mL 03/26/2018 %Hba1C Ccw827 % HbA1c 26592-3 6.5 % 03/26/2018 %Hba1C Vll478 Gluc Ave 140 mg/dL 03/26/2018 Comp Metabolic Aoo297 NA 141 mEq/L 03/26/2018 Comp Metabolic Hos873 K 4.5 mEq/L 03/26/2018 Comp Metabolic Eaa798 CL 106 mEq/L 03/26/2018 Comp Metabolic Igc684 CO2 30.0 mEq/L 03/26/2018 Comp Metabolic Tlj374 AN ION GAP 10 03/26/2018 Comp Metabolic Dxg571 GL UCOSE 122 mg/dL 03/26/2018 Comp Metabolic Yzd836 Cr eat 1.0 mg/dL 03/26/2018 Comp Metabolic Gge605 eG FR 60 ml/min/1.73m2 03/26 Comp Metabolic Oxi152 BUN 18 mg/dL 03/26/2018 Comp Metabolic Ohu744 B/ C Ratio 17.5 Ratio 03/26/2018 Comp Metabolic Eue281 CA LCIUM 10.1 mg/dL 03/26/2018 Comp Metabolic Xvt121 AL K PHOS 67 U/L 03/26/2018 Comp Metabolic Ael375 T(SGOT) 22 U/L 03/26/2018 Comp Metabolic Sek995 AL T(SGPT) 26 U/L 03/26/2018 Comp Metabolic Qmn286 BI LI T 0.4 mg/dL 03/26/2018 Comp Metabolic Lxy817 AL BUMIN 4.5 g/dL 03/26/2018 Comp Metabolic Sfp233 TP RO 7.0 g/dL 03/26/2018 Comp Metabolic Hwl065 GL OB 2.6 g/dL 03/26/2018 Comp Metabolic Beu793 A/ G Ratio 1.7 Ratio 03/26/2018 Comp Metabolic Yku725 Os mo 284 mOsmo 03/26/2018 Lipid Ord30 CHOL 203 mg/dL 03/26/2018 Lipid Ord30 HDL 62.0 mg/dl 03/26/2018 Lipid Ord30 TRIG 94 mg/dL 03/26/2018 Lipid Ord30 LDL 122 mg/dL 03/26/2018 Lipid Ord30 C/HDL 3.3 Ratio 03/26/2018 Prolactin 762633 PROLACT IN 5.2 ng/mL 05/15/2017 Cbc With [...] 31.9 pg 05/14/2017 Cbc With Differential Ord2 [place]% 7.6 % 05/14/2017 Cbc With Differential Ord2 [...] 2.32 K/ul 05/14/2017 Cbc With Differential Ord2 [place] ABS# 0.7 K/ul 05/14/2017 Cbc With Differential Ord2 Eos ABS# 0.1 K/ul 05/14/2017 Cbc With Differential Ord2 Baso ABS# 0.0 K/ul 05/14/2017 Tsh Ord6 hTSH II 1.69 uIU/mL 05/14/2017 %Hba1C Ahk611 % HbA1c 64941-6 6.4 % 05/14/2017 %Hba1C Yqd372 Gluc Ave 137 mg/dL 05/14/2017 Comp Metabolic Zwt927 NA 138 mEq/L 05/14/2017 Comp Metabolic Lxu546 K 4.2 mEq/L 05/14/2017 Comp Metabolic Qkm065 CL 102 mEq/L 05/14/2017 Comp Metabolic Vgw715 CO2 29.0 mEq/L 05/14/2017 Comp Metabolic Dsp358 AN ION GAP 11 05/14/2017 Comp Metabolic Vkv089 GL UCOSE 114 mg/dL 05/14/2017 Comp Metabolic Ihw101 Cr eat 1.0 mg/dL 05/14/2017 Comp Metabolic Xvw448 eG FR 64 ml/min/1.73m2 05/14 Comp Metabolic Fqb639 BUN 22 mg/dL 05/14/2017 Comp Metabolic Mkp382 B/ C Ratio 22.7 Ratio 05/14/2017 Comp Metabolic Hcj908 CA LCIUM 9.6 mg/dL 05/14/2017 Comp Metabolic Ubm926 AL K PHOS 91 U/L 05/14/2017 Comp Metabolic Gln795 T(SGOT) 13 U/L 05/14/2017 Comp Metabolic Avi343 AL T(SGPT) 16 U/L 05/14/2017 Comp Metabolic Prh305 BI LI T 0.4 mg/dL 05/14/2017 Comp Metabolic Ncp533 AL BUMIN 4.2 g/dL 05/14/2017 Comp Metabolic Hpa715 TP RO 6.9 g/dL 05/14/2017 Comp Metabolic Kih897 GL OB 2.7 g/dL 05/14/2017 Comp Metabolic Ljf958 A/ G Ratio 1.6 Ratio 05/14/2017 Comp Metabolic Bom810 Os mo 280 mOsmo 05/14/2017 Lipid Ord30 CHOL 219 mg/dL 05/14/2017 Lipid Ord30 HDL 67.0 mg/dl 05/14/2017 Lipid Ord30 TRIG 157 mg/dL 05/14/2017 Lipid Ord30 LDL 121 mg/dL 05/14/2017 Lipid Ord30 C/HDL 3.3 Ratio 05/14/2017 Prolactin 751094 PROLACT IN 4.5 ng/mL 05/04/2016 %Hba1C Zic159 % HbA1c 49289-5 5.9 % 05/03/2016 %Hba1C Ufu912 Gluc Ave 123 mg/dL 05/03/2016 Cbc With [...] 32.3 pg 05/03/2016 Cbc With Differential Ord2 [place]ven% 7.0 % 05/03/2016 Cbc With Differential Ord2 [...] 2.38 K/ul 05/03/2016 Cbc With Differential Ord2 [place] ABS# 0.6 K/ul 05/03/2016 Cbc With Differential Ord2 Eos ABS# 0.2 K/ul 05/03/2016 Cbc With Differential Ord2 Baso ABS# 0.1 K/ul 05/03/2016 Tsh Ord6 hTSH II 0.70 uIU/mL 05/03/2016 Comp Metabolic Hjk156 NA 137 mEq/L 05/03/2016 Comp Metabolic Bhv503 K 4.3 mEq/L 05/03/2016 Comp Metabolic Iey739 CL 102 mEq/L 05/03/2016 Comp Metabolic Pxg201 CO2 25.0 mEq/L 05/03/2016 Comp Metabolic Efm140 AN ION GAP 14 05/03/2016 Comp Metabolic Ucq239 GL UCOSE 87 mg/dL 05/03/2016 Comp Metabolic Mla978 Cr eat 0.8 mg/dL 05/03/2016 Comp Metabolic Ari706 eG FR 76 ml/min/1.73m2 05/03 Comp Metabolic Jff749 BUN 11 mg/dL 05/03/2016 Comp Metabolic Puj954 B/ C Ratio 13.1 Ratio 05/03/2016 Comp Metabolic Ckb092 CA LCIUM 9.3 mg/dL 05/03/2016 Comp Metabolic Uae019 AL K PHOS 76 U/L 05/03/2016 Comp Metabolic Akv128 T(SGOT) 27 U/L 05/03/2016 Comp Metabolic Yze179 AL T(SGPT) 25 U/L 05/03/2016 Comp Metabolic Kqv396 BI LI T 0.3 mg/dL 05/03/2016 Comp Metabolic Vqt474 AL BUMIN 4.1 g/dL 05/03/2016 Comp Metabolic Vdh414 TP RO 7.1 g/dL 05/03/2016 Comp Metabolic Its682 GL OB 3.0 g/dL 05/03/2016 Comp Metabolic Ltd825 A/ G Ratio 1.4 Ratio 05/03/2016 Comp Metabolic Zeh943 Os mo 273 mOsmo 05/03/2016 Urine Culture Ucult Comp lete >100,000 col/ml aerobic grow th sent to ref lab 03/17/2015 Culture Urine [id number] URI NE CULTURE SEE NOTES 01/28/2015 Culture Urine [id number] Con tinued Results 01/28/2015 Urine Culture Ucult Comp lete >100,000 col/ml aerobic grow th sent to ref lab 01/26/2015 URINALYSIS NONAUTO W/O SCOPE 06790 Specific Eckerty 1.005 DateTime(Free Text in ) URINALYSIS NONAUTO W/O SCOPE 77014 PH 7.5 DateTime(Free Ruben t in ) URINALYSIS NONAUTO W/O SCOPE 40393 GLUCOSE neg DateTime(Free Ruben t in ) URINALYSIS NONAUTO W/O SCOPE 13769 Protein neg DateTime(Free Ruben t in ) URINALYSIS NONAUTO W/O SCOPE 05880 Blood trace DateTime(Free T ext in ) URINALYSIS NONAUTO W/O SCOPE 04992 Bilirubin small DateTime(Free T ext in ) URINALYSIS NONAUTO W/O SCOPE 05121 Ketones neg DateTime(Free Ruben t in ) URINALYSIS NONAUTO W/O SCOPE 25008 Urobilinogen 0.2 DateTime(Free Text in Aprima) URINALYSIS NONAUTO W/O SCOPE 22933 Nitrite neg DateTime(Free Ruben t in ) URINALYSIS NONAUTO W/O SCOPE 05359 Leukocytes moderate DateTime(Free Text in ) Review [...] Procedure Codes Date THER/PROPH/DIAG INJ SC/IM CPT-4: 73312 07/05/2018 TRIAMCINOLONE ACET I [place] NOS CPT-4: J3301 07/05/2018 TRIAMCINOLONE ACET I [place] NOS CPT-4: J3301 03/14/2018 IMMUNIZATION ADMIN CPT- 4: 41011 03/14/2018 ADACEL TDAP VACCINE 7 YRS/> IM CPT-4: 99265 03/14/2018 TRIAMCINOLONE ACET I [place] NOS CPT-4: J3301 05/25/2017 ROCEPHIN, PER 250 MG CPT-4: J0696 05/25/2017 TRIAMCINOLONE ACET I [place] NOS CPT-4: J3301 05/02/2016 TRIAMCINOLONE ACET I [place] NOS CPT-4: J3301 10/28/2015 ROCEPHIN, PER 250 MG CPT-4: J0696 04/19/2015 TRIAMCINOLONE ACET I [place] NOS CPT-4: J3301 04/19/2015 URINALYSIS NONAUTO W /O SCOPE CPT-4: 38140 03/15/2015 URINALYSIS NONAUTO W /O SCOPE CPT-4: 49571 01/25/2015 TRIAMCINOLONE ACET I [place] NOS CPT-4: J3301 12/24/2014 THER/PROPH/DIAG INJ SC/IM CPT-4: 78486 12/24/2014 URINALYSIS NONAUTO W /O SCOPE CPT-4: 30779 07/16/2012 DRAIN/INJECT JOINT/B URSA CPT-4: 30472 12/07/2011 Vital Signs Date Vital 07/05/2018 Blood Pressure 1: 132/78 Code: 8480-6 BMI: 32.6 Code: 92015-5 Heart Rate 1: 75 bpm Height: 5'2" SpO2: 96% Weight: 178 lbs 03/14/2018 Blood Pressure 1: 108/74 Code: 8480-6 BMI: 33.3 Code: 18205-3 Heart Rate 1: 91 bpm Height: 5'2" SpO2: 98% Weight: 182 lbs 05/25/2017 Blood Pressure 1: 142/82 Code: 8480-6 BMI: 32.0 Code: 05215-5 Heart Rate 1: 96 bpm Height: 5'2" SpO2: 94% Temperature: 37.3 (C ) / 99.2 (F) Weight: 175 lbs 05/14/2017 Blood Pressure 1: 142/78 Code: 8480-6 BMI: 32.0 Code: 88259-5 Heart Rate 1: 111 bpm Height: 5'2" SpO2: 95% Weight: 175 lbs 05/02/2016 Blood Pressure 1: 124/74 Code: 8480-6 BMI: 32.4 Code: 53302-4 Heart Rate 1: 107 bpm Height: 5'2" SpO2: 98% Weight: 177 lbs 10/28/2015 Blood Pressure 1: 124/80 Code: 8480-6 BMI: 32.6 Code: 52624-1 Heart Rate 1: 78 bpm Height: 5'2" SpO2: 91% Weight: 178 lbs 04/19/2015 Blood Pressure 1: 110/78 Code: 8480-6 BMI: 31.5 Code: 06717-9 Heart Rate 1: 88 bpm Height: 5'2" SpO2: 96% Weight: 172 lbs 12/24/2014 Blood Pressure 1: 112/72 Code: 8480-6 BMI: 30.4 Code: 95259-6 Heart Rate 1: 88 bpm Height: 5'2" Weight: 166 lbs 10/13/2013 Blood Pressure 1: 104/78 Code: 8480-6 BMI: 30.7 Code: 43333-3 Heart Rate 1: 100 bpm Height: 5'2" [...] State s she was 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 P ATIENT, LEVEL IV Diagnosis: Type 2 diabetes mellitus with hyperglycemia[ICD10: E11.65] Diagnosis: Mixed hyperlipidemia[ICD10: E78.2] Diagnosis: Other allergic rhinitis[ICD10: J30.89] Diagnosis: Attention-deficit hyperactivity disorder, combined type[ICD10: F90.2] Diagnosis: Encounter for immunization[ICD10: Z23] [facility] CPT-4: 68561 03/14/2018 [id number] EST. PATIENT, LEVEL IV Diagnosis: Other acute sinusitis[ICD10: J01.80] Diagnosis: Other allergic rhinitis[ICD10: J30.89] Michelle Martinez MD, [facility] CPT-4: 53267 05/25/2017 [id number] EST. 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 P ATIENT, LEVEL III Diagnosis: Allergic rhinitis due to pollen[ICD10: J30.1] Diagnosis: Otalgia, right ear[ICD10: H92.01] Maci Martinez MD, [facility] CPT- 4: 94882 10/28/2015 ([id number]) 99428 EST. P ATIENT, LEVEL III Diagnosis: Acute maxillary sinusitis, unspecified[ICD10: J01.00] Diagnosis: Allergic rhinitis, unspecified[ICD10: J30.9] Maci Martinez MD, [facility] CPT-4: 32555 04/19/2015 ([id number]) 44558 EST. P ATIENT, LEVEL III Diagnosis: Swelling of eyelid[ICD9: 374.82] Diagnosis: Sunburn[ICD9: 692.71] Maci Martinez MD, [facility] CPT-4: 76888 12/24/2014 ([id number]) 81235 EST. P ATIENT, LEVEL IV Diagnosis: ESSENTIAL HYPERTENSION[SNOMED: 26536147] Diagnosis: DIABETES TYPE II[SNOMED: 063721198] Diagnosis: ADHD (attention deficit hyperactivity disorder)[ICD9: 314.01] Diagnosis: Depression[ICD9: 311] Joy Martinez MD, [facility] CPT-4: 19051 10/13/2013 ([id number]) 14770 EST. P ATIENT, LEVEL IV Diagnosis: DM W/O COMPLICATION TYPE II, UNCONTROLLED[SNOMED: 77314714] Diagnosis: ESSENTIAL HYPERTENSION[SNOMED: 80333713] Diagnosis: EDEMA[ICD9: 782.3] Joy Martinez MD, [facility] CPT-4: 20884 03/18/2013 ([id number]) 01932 EST. P ATIENT, LEVEL IV Diagnosis: UTI[ICD9: 599.0] Diagnosis: DM W/O COMPLICATION TYPE II, UNCONTROLLED[SNOMED: 99500754] Joy Martinez MD, [facility] CPT-4: 53715 07/16/2012 ([id number]) 98763 EST. P ATIENT, LEVEL III Diagnosis: Uncontrolled narcolepsy[ICD9: 347.00] Diagnosis: ESSENTIAL HYPERTENSION[SNOMED: 02895831] Joy Martinez MD, C CPT-4: 64526 01/17/2012 Office outpatient ne w 30 minutes Diagnosis: Sciatica[ICD9: 724.3] Diagnosis: Chronic back pain[ICD9: 724.5] Diagnosis: ESSENTIAL HYPERTENSION[SNOMED: 91629407] Joy Martinez MD, C CPT-4: 98847 12/07/2011 Plan of Care Planned Activity Notes C odes Status Date Visit Plan: Left rib pain - the pat ient was instructed in appropriate posture - The pt is to use prn antiinflammatories to manage acute pain. The patient is to call the office if the pain is worsening or does not improve. 07/05/2018 Patient Education: Patient Medication Summary Completed [...] the office 03/14/2018 Appointment: Maci Moreno WPtel: [phone] [phone] (30 min) Complex 03/14/2018 Patient Education: [...] 05/25/2017 [facility]ment[phone] ([facility] min) Moderate 05/25/2017 Patient Education: [...] control. 05/14/2017 Appointment: [phone] [facility] ([facility] min) [facility] 05/14/2017 Patient Education: Patient Medication Summary Completed 05/14/2017 Patient Education: Obesity Completed 05/14/2017 Care Plan: Referral Order SNOMED-CT : [id number] Pending 05/14/2017 Visit Plan: Allergies - chronic [...] controlled. 05/02/2016 Appointment: Maci Moreno WPtel: [phone] (15 min) Moderate 05/02/2016 Patient Education: Patient [...] spray. 10/28/2015 Appointment: Maci Moreno WPtel: [phone] [phone] (30 min) Complex 10/28/2015 Patient Education: [...] acute symptoms. 04/19/2015 Appointment: Maci Moreno WPtel: [phone] (15 min) Moderate 04/19/2015 Patient Education: [...] the patient. 10/13/2013 Appointment: Joy Martinez WPtel: [address] [place], [place] [address] [place] Follow up 10/13/2013 Patient Education: Patient Medication Summary Completed 10/13/2013 Patient Education: Hypertension Completed 10/13/2013 Appointment: Maci Moreno WPtel: [address] [place], [place] [phone] [place] Follow up 08/29/2013 Appointment: Joy Martinez WPtel: [facility] [place] Follow up 06/23/2013 Visit Plan: Diabetes [...] peripheral edema. 03/18/2013 Appointment: Joy Martinez WPtel: [facility] Follow [facility] 03/18/2013 Patient Education: Patient Medication Summary Completed 03/18/2013 Patient Education: Hypertension Completed 03/18/2013 Appointment: Joy Martinez WPtel: [facility] Follow [facility] 10/15/2012 Appointment: Maci Moreno WPtel: [phone] Diabetic education 07/22/2012 Visit Plan: Diabetes [...] not improve. 07/16/2012 Appointment: Joy Martinez WPtel: [facility] [facility] 07/16/2012 Patient Education: Patient [...] blood pressure readings at home. 01/17/2012 Appointment: Miguel Martine[facility]el[phone] [facility] [facility] 01/17/2012 Patient Education: Patient Medication Summary [...] Q HS 12/07/2011 Appointment: Mac[facility]el[facility] [phone] [phone] [place] New Patient 12/07/2011 Patient Education: [...] 40mg refill ritalin fasting labs-orders sent to [facility] [place] [facility] -go any time fasting . Diabetes [...]
--- OUTSIDE RECORDS SUMMARY | 2019-11-02 07:11 | XMS REPORT | CCD ---
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 Unknown Has never used illegal drugs 012 Allergies, Adverse Reactions, Alerts Substance Reaction Codes Entered Date Inactivated Date Status Erythromycin RxNorm: 4053 12/07/2011 No Inactive Date Active Past Medical History Illness Codes Condition Status Onset Date Resolved Date Attention-deficit hy peractivity disorder, combined type ICD-9: [...] Condition Codes Effectiv e Dates Condition Status Attention-deficit hy peractivity disorder, combined type ICD-9: [...] Date Stop Date Sta tus Fill Instructions prednisone 20 mg tablet RxNorm: 839614 3 Tablet(s) PO daily 07/05/2018 07/09/2018 Active Ritalin 10 mg tablet RxNorm: 5959272 1 Tablet(s) PO BID 07/05/2018 08/03/2018 Active [SAVINGS FOR NON-COVERED DRUGS -- BIN:00 3585, PCN: ASPROD1, Group: XXXXX, ID# [id number], Questions: . THIS IS NOT INSURANCE.] Aldactone 25 mg tablet RxNorm: 940844 Tablet(s) 1 TABLET(S) PO BID 04/17/2018 01/11/2019 Active pantoprazole 40 mg t ablet,delayed release RxNorm: 053600 1 Tablet(s) PO QHS 04/17/2018 01/11/2019 Ac tive Bactrim 400 mg-80 mg tablet RxNorm: 531760 Tablet(s) TAKE 1 TABL ET BY MOUTH NEEDED FOR SEXUAL INTERCOURSE FOR UTI PREVENTION 04/17/2018 06/15/2018 Inactive Ritalin 10 mg tablet RxNorm: 5395358 1 Tablet(s) PO BID 04/17/2018 05/16/2018 Inactive [SAVINGS FOR NON-COVERED DRUGS -- BIN:00 3585, PCN: ASPROD1, Group: XXXXX, ID# [id number], Questions: . THIS IS NOT INSURANCE.] amitriptyline 100 mg tablet RxNorm: 911179 Tablet(s) TAKE 1 TABL ET BY MOUTH DAILY AT BEDTIME 03/14/2018 03/08/2019 Active Kenalog 40 mg/mL kat pension for injection RxNorm: 1981200 1 Milliliter(s) Inj 03/14/2018 03/14/2018 In active Ritalin 10 mg tablet RxNorm: 8625438 1 Tablet(s) PO BID 03/14/2018 04/12/2018 Inactive [SAVINGS FOR NON-COVERED DRUGS -- BIN:00 3585, PCN: ASPROD1, Group: XXXXX, ID# [id number], Questions: . THIS IS NOT INSURANCE.] Bactrim 400 mg-80 mg tablet RxNorm: 058854 TAKE 1 TABLET BY MOUT H NEEDED FOR SEXUAL INTERCOURSE FOR UTI PREVENTION 09/28/2017 11/26/2017 Inactive amitriptyline 100 mg tablet RxNorm: 459640 TAKE 1 TABLET BY MOUT H DAILY AT BEDTIME 09/25/2017 03/13/2018 In active Diflucan 150 mg tablet RxNorm: 515664 1 Tablet(s) PO daily 05/31/2017 06/04/2017 Inactive Diflucan 150 mg tablet RxNorm: 119710 1 Tablet(s) PO daily 05/31/2017 05/30/2017 Inactive Kenalog 40 mg/mL kat pension for injection RxNorm: 8111607 Milliliter(s) Inj 05/25/2017 05/25/2017 In active prednisone 10 mg tablet RxNorm: 428620 Tablet(s) PO UD 05/25/2017 09/24/2017 Inactive 6,5,4,3,2,1 Phenergan with Codei ne Syrup RxNorm: 5-10 Milliliter(s) PO QID a s needed 05/25/2017 03/13/2018 In active Keflex 500 mg capsule RxNorm: 391837 1 Capsule(s) PO TID 05/25/2017 06/03/2017 Inactive ceftriaxone 500 mg s olution for injection RxNorm: 8583107 1 Milliliter(s) Inj 05/25/2017 05/25/2017 In active estradiol 0.5 mg tablet RxNorm: 789152 1 Tablet(s) PO daily 05/14/2017 04/27/2020 Active Celexa 20 mg tablet RxNorm: 540290 1.5 Tablet(s) PO daily 05/14/2017 04/27/2020 Active Januvia 50 mg tablet RxNorm: 821139 1 Tablet(s) PO daily 05/14/2017 05/08/2018 Inactive Toprol XL 25 mg tabl et,extended release RxNorm: 790662 1 Tablet(s) PO daily 05/14/2017 05/08/2018 In active amitriptyline 100 mg tablet RxNorm: 316425 1 Tablet(s) PO QHS 05/14/2017 09/24/2017 Inactive pantoprazole 40 mg t ablet,delayed release RxNorm: 644340 1 Tablet(s) PO QHS 05/14/2017 02/07/2018 In active Bactrim 400 mg-80 mg tablet RxNorm: 720196 Tablet(s) TAKE ONE TA BLET BY MOUTH NEEDED FOR SEXUAL INTERCOURSE FOR UTI PREVENTION 05/14/2017 08/11/2017 Inactive Aldactone 25 mg tablet RxNorm: 344036 Tablet(s) 1 TABLET(S) PO BID 05/14/2017 02/07/2018 Inactive Celexa 20 mg tablet RxNorm: 935265 TAKE ONE & ONE-HALF TABLETS BY MOUTH ONC E DAILY 04/12/2017 05/13/2017 Inactive Toprol XL 25 mg tabl et,extended release RxNorm: 706167 TAKE ONE TABLET BY MO UT ONCE DAILY 02/06/2017 05/13/2017 Inactive Celexa 20 mg tablet RxNorm: 996813 TAKE ONE & ONE-HALF TABLETS BY MOUTH ONC E DAILY 01/03/2017 03/03/2017 Inactive amitriptyline 100 mg tablet RxNorm: 097219 TAKE ONE TABLET BY MO UT AT BEDTIME 12/08/2016 05/13/2017 In active Toprol XL 25 mg tabl et,extended release RxNorm: 075266 TAKE ONE TABLET BY MO UTH ONCE DAILY 11/23/2016 02/06/2017 Inactive Januvia 50 mg tablet RxNorm: 151927 TAKE ONE TABLET BY MOUTH ONCE DAILY 11/09/2016 03/08/2017 In active Bactrim 400 mg-80 mg tablet RxNorm: 729793 TAKE ONE TABLET BY MO UTH NEEDED FOR SEXUAL INTERCOURSE FOR UTI PREVENTION 09/19/2016 04/24/2017 Inactive amitriptyline 100 mg tablet RxNorm: 674509 TAKE ONE TABLET BY MO UTH AT BEDTIME 08/31/2016 11/28/2016 In active pantoprazole 40 mg t ablet,delayed release RxNorm: 459334 Tablet(s) TAKE 1 TABL ET BY MOUTH ONCE DAILY 08/16/2016 05/12/2017 Inactive estradiol 0.5 mg tablet RxNorm: 388750 TAKE ONE TABLET BY MOUTH ONCE DAILY 08/13/2016 05/13/2017 In active amitriptyline 100 mg tablet RxNorm: 892261 TAKE ONE TABLET BY MO UTH AT BEDTIME 07/31/2016 08/29/2016 In active ProAir HFA 90 mcg/ac tuation aerosol inhaler RxNorm: 884803 2 inhale INH PRN as n eeded 05/02/2016 No Stop Date Active ciprofloxacin 0.3 % eye drops RxNorm: 594152 Drop(s) OPH 2 drops e very 2 hours while awake for days 1-2 and 2 drops every 4 hours for days 3 - 7 05/02/2016 03/13/2018 Inactive Kenalog 40 mg/mL kat pension for injection RxNorm: 2349298 Milliliter(s) Inj 05/02/2016 05/02/2016 In active Zithromax Z-Nick 250 mg tablet RxNorm: 726643 1 Tablet(s) PO UD 05/02/2016 09/24/2017 Inactive albuterol sulfate 2. 5 mg/3 mL (0.083 %) solution for nebulization RxNorm: 026466 1 Milliliter(s) INH QID as needed 03/13/2018 Inactive prednisone 20 mg tablet RxNorm: 571420 1 Tablet(s) PO BID 05/02/2016 05/06/2016 Inactive amitriptyline 100 mg tablet RxNorm: 005947 1 TABLET(S) PO QHS 03/01/2016 07/30/2016 Inactive estradiol 0.5 mg tablet RxNorm: 610132 1 TABLET(S) PO DAILY 03/01/2016 09/24/2017 Inactive TAKE 1 TABLET BY MOUTH DAILY estradiol 0.5 mg tablet RxNorm: 566450 TAKE ONE TABLET BY MOUTH ONCE DAILY 03/01/2016 05/29/2016 In active Celexa 20 mg tablet RxNorm: 002112 TAKE ONE & ONE-HALF TABLETS BY MOUTH ONC E DAILY 12/03/2015 11/26/2016 Inactive amoxicillin 500 mg c apsule RxNorm: 165457 1 Capsule(s) PO BID 11/05/2015 11/04/2015 Inactive amoxicillin 500 mg c apsule RxNorm: 861270 1 Capsule(s) PO BID 11/05/2015 04/30/2017 Inactive Kenalog 40 mg/mL kat pension for injection RxNorm: 4307235 Milliliter(s) Inj 10/28/2015 10/28/2015 In active Januvia 50 mg tablet RxNorm: 231873 Tablet(s) 1 TABLET(S) PO DAILY 10/28/2015 10/21/2016 In active Ritalin 10 mg tablet RxNorm: 2422416 1 Tablet(s) PO BID 10/28/2015 11/26/2015 Inactive [SAVINGS FOR NON-COVERED DRUGS -- BIN:00 3585, PCN: ASPROD1, Group: XXXXX, ID# [id number], Questions: . THIS IS NOT INSURANCE.] Toprol XL 25 mg tabl et,extended release RxNorm: 689198 Tablet(s) 1 TABLET(S) PO DAILY 10/28/2015 10/21/2016 Inactive prednisone 20 mg tablet RxNorm: 022068 1 Tablet(s) PO BID 10/28/2015 11/01/2015 Inactive Lasix 40 mg tablet RxNorm: 316589 TAKE ONE TABLET BY MOUTH ONCE DAILY. MAY TAKE EXTRA TABLET NEEDED. 09/27/2015 12/25/2015 Inactive Bactrim 400 mg-80 mg tablet RxNorm: 472788 Tablet(s) 1 TABLET(S) PO PRN SEXUAL INTERCOURSE, UTI PREVENTATIVE 09/22/2015 12/20/2015 Inactive pantoprazole 40 mg t ablet,delayed release RxNorm: 487806 TAKE 1 TABLET BY MOUT H ONCE DAILY 07/29/2015 01/24/2016 Inactive amitriptyline 100 mg tablet RxNorm: 595060 Tablet(s) 1 TABLET(S) PO QHS 07/26/2015 09/24/2017 In active pantoprazole 40 mg t ablet,delayed release RxNorm: 828200 TAKE 1 TABLET BY MOUT H ONCE DAILY 07/21/2015 07/28/2015 Inactive Bactrim 400 mg-80 mg tablet RxNorm: 100393 1 TABLET(S) PO PRN SE XUAL INTERCOURSE, UTI PREVENTATIVE 06/21/2015 09/18/2015 Inactive Ritalin 10 mg tablet RxNorm: 1195577 1 Tablet(s) PO BID 04/19/2015 05/18/2015 Inactive [SAVINGS FOR NON-COVERED DRUGS -- BIN:00 9615, PCN: ASPROD1, Group: XXXXX, ID# [id number], Questions: . THIS IS NOT INSURANCE.] Keflex 500 mg capsule RxNorm: 943643 1 Capsule(s) PO TID 04/19/2015 04/28/2015 Inactive Kenalog 40 mg/mL kat pension for injection RxNorm: 4508490 Milliliter(s) Inj 04/19/2015 04/19/2015 In active ceftriaxone 500 mg s olution for injection RxNorm: 3777606 Inj 04/19/2015 04/19/2015 Inactive amitriptyline 100 mg tablet RxNorm: 067886 1 TABLET(S) PO QHS 03/26/2015 07/25/2015 Inactive Lasix 40 mg tablet RxNorm: 386461 1 Tablet(s) PO daily 03/26/2015 09/21/2015 Inactive may take an extra tablet as needed Aldactone 25 mg tablet RxNorm: 129738 1 TABLET(S) PO BID 03/26/2015 12/20/2015 Inactive Levaquin 500 mg tablet RxNorm: 761622 1 Tablet(s) PO daily 03/15/2015 03/21/2015 Inactive Levaquin 500 mg tablet RxNorm: 581165 1 Tablet(s) PO daily 03/15/2015 03/14/2015 Inactive hydrocodone 5 mg-devang taminophen 325 mg tablet RxNorm: 740352 one or two tabs po ev ey six hours prn Tablet(s) PO 02/26/2015 03/13/2018 Inactive hydrocodone 5 mg-devang taminophen 325 mg tablet RxNorm: 113876 one or two tabs po ev ey six hours prn Tablet(s) PO 02/26/2015 02/25/2015 Inactive amitriptyline 100 mg tablet RxNorm: 328416 1 TABLET(S) PO QHS 02/22/2015 01/17/2016 Inactive Keflex 500 mg capsule RxNorm: 479712 1 Capsule(s) PO TID 01/25/2015 01/24/2015 Inactive Keflex 500 mg capsule RxNorm: 013139 1 Capsule(s) PO TID 01/25/2015 01/31/2015 Inactive Bactrim 400 mg-80 mg tablet RxNorm: 983624 1 Tablet(s) PO PRN se xual intercourse, uti preventative 01/04/2015 01/03/2015 Inactive Bactrim 400 mg-80 mg tablet RxNorm: 602595 1 Tablet(s) PO PRN se xual intercourse, uti preventative 01/04/2015 06/20/2015 Inactive Ritalin 10 mg tablet RxNorm: 1125841 1 Tablet(s) PO BID 12/24/2014 01/22/2015 Inactive [SAVINGS FOR NON-COVERED DRUGS -- BIN:00 3585, PCN: ASPROD1, Group: XXXXX, ID# [id number], Questions: . THIS IS NOT INSURANCE.] Kenalog 40 mg/mL kat pension for injection RxNorm: 1925424 Milliliter(s) Inj 12/24/2014 12/24/2014 In active estradiol 0.5 mg tablet RxNorm: 563679 1 Tablet(s) PO daily 12/16/2014 02/29/2016 Inactive TAKE 1 TABLET BY MOUTH DAILY pantoprazole 40 mg t ablet,delayed release RxNorm: 271155 1 Tablet(s) daily 10/26/2014 07/20/2015 In active [SAVINGS FOR NON-COVERED DRUGS -- BIN:00 3585, PCN: ASPROD1, Group: XXXXX, ID# [id number], Questions: . THIS IS NOT INSURANCE.] Ritalin 10 mg tablet RxNorm: 3479806 1 Tablet(s) PO BID 10/23/2014 11/21/2014 Inactive [SAVINGS FOR NON-COVERED DRUGS -- BIN:00 3585, PCN: ASPROD1, Group: XXXXX, ID# [id number], Questions: . THIS IS NOT INSURANCE.] pantoprazole 40 mg t ablet,delayed release RxNorm: 761719 3/4 Tablet(s) daily 10/23/2014 10/25/2014 In active [SAVINGS FOR NON-COVERED DRUGS -- BIN:00 3585, PCN: ASPROD1, Group: XXXXX, ID# [id number], Questions: . THIS IS NOT INSURANCE.] Toprol XL 25 mg tabl et,extended release RxNorm: 024457 1 TABLET(S) PO DAILY 10/20/2014 10/14/2015 In active Januvia 50 mg tablet RxNorm: 323760 1 TABLET(S) PO DAILY 10/20/2014 10/14/2015 Inactive samples and script Celexa 20 mg tablet RxNorm: 203395 1.5 TABLET(S) PO DAILY TAKE 1 & 1/2 TABL ETS BY MOUTH DAILY 10/20/2014 10/14/2015 Inactive omeprazole 20 mg cap maco,delayed release RxNorm: 820187 1 Capsule(s) PO BID 09/25/2014 09/24/2014 In active omeprazole 20 mg cap maco,delayed release RxNorm: 657067 1 Capsule(s) PO BID 09/25/2014 10/22/2014 In active DC pantoprazole [SAVINGS FOR NON-COVERED DRUGS -- BIN:771327, PCN: ASPROD1, Group: XXXXX, ID# [id number], Questions: . THIS IS NOT INSURANCE.] pantoprazole 40 mg t ablet,delayed release RxNorm: 297932 1 TABLET(S) PO BID 09/24/2014 09/24/2014 In active omeprazole 20 mg tab let,delayed release RxNorm: 302004 1 Tablet(s) PO BID 08/31/2014 08/30/2014 In active dc pantoprazole 40mg omeprazole 20 mg tab let,delayed release RxNorm: 268865 1 Tablet(s) PO BID 08/31/2014 08/30/2014 In active omeprazole 20 mg tab let,delayed release RxNorm: 602731 1 Tablet(s) PO daily 08/31/2014 10/27/2015 In active change to daily Ritalin 10 mg tablet RxNorm: 7080713 1 Tablet(s) PO BID 07/20/2014 08/18/2014 Inactive [SAVINGS FOR UNINSURED PATIENTS -- BIN:0 75506, PCN: ASPROD1, Group: [id number], ID# [id number], Process claim through [employer], for questions: . THIS IS NOT INSURANCE.] amitriptyline 100 mg tablet RxNorm: 495657 1 TABLET(S) PO QHS 04/27/2014 02/21/2015 Inactive Ritalin 10 mg tablet RxNorm: 9417255 1 Tablet(s) PO BID 02/09/2014 06/08/2014 Inactive [SAVINGS FOR UNINSURED PATIENTS -- BIN:0 42153, PCN: ASPROD1, Group: [id number], ID# [id number], Process claim through [employer], for questions: . THIS IS NOT INSURANCE.] ProAir HFA 90 mcg/ac tuation aerosol inhaler RxNorm: 255241 2 inhale INH PRN 11/19/2013 10/27/2015 In active amitriptyline 100 mg tablet RxNorm: 908878 Tablet(s) PO TAKE 1 T ABLET BY MOUTH AT BEDTIME 10/27/2013 04/23/2017 Inactive Ritalin 10 mg tablet RxNorm: 0854937 1 Tablet(s) PO BID 10/13/2013 02/08/2014 Inactive estradiol 0.5 mg tablet RxNorm: 377243 1 Tablet(s) PO daily 10/13/2013 12/15/2014 Inactive TAKE 1 TABLET BY MOUTH DAILY pantoprazole 40 mg t ablet,delayed release RxNorm: 777331 1 Tablet(s) PO BID 10/13/2013 08/30/2014 In active Januvia 50 mg tablet RxNorm: 704016 1 Tablet(s) PO daily 10/13/2013 10/07/2014 Inactive samples and script Toprol XL 25 mg tabl et,extended release RxNorm: 924304 1 Tablet(s) PO daily 10/13/2013 10/07/2014 In active Celexa 20 mg tablet RxNorm: 604752 1.5 Tablet(s) PO daily TAKE 1 & 1/2 TABL ETS BY MOUTH DAILY 10/13/2013 10/07/2014 Inactive Aldactone 25 mg tablet RxNorm: 818157 1 Tablet(s) PO BID 10/13/2013 10/07/2014 Inactive Januvia 50 mg tablet RxNorm: 986591 1 Tablet(s) PO daily 10/07/2013 10/12/2013 Inactive samples and script Celexa 20 mg tablet RxNorm: 995732 1 1/2 Tablet(s) PO daily TAKE 1 & 1/2 TA BLETS BY MOUTH DAILY 05/05/2013 10/12/2013 Inactive pantoprazole 40 mg t ablet,delayed release RxNorm: 406453 1 Tablet(s) PO daily 04/30/2013 10/12/2013 In active amitriptyline 100 mg tablet RxNorm: 090346 1 Tablet(s) PO QHS 04/28/2013 10/26/2013 Inactive Ritalin 10 mg tablet RxNorm: 0596945 1 Tablet(s) PO BID 04/18/2013 05/17/2013 Inactive Kenalog 40 mg/mL Kat p for Injection RxNorm: 8075473 1 Milliliter(s) Inj 03/18/2013 03/18/2013 In active amitriptyline 100 mg tablet RxNorm: 673524 1 Tablet(s) PO QHS 03/18/2013 04/27/2013 Inactive Ritalin 10 mg tablet RxNorm: 2683741 1 Tablet(s) PO BID 02/21/2013 03/17/2013 Inactive Toprol XL 25 mg tabl et,extended release RxNorm: 808834 1 Tablet(s) PO daily 01/23/2013 07/21/2013 In active amitriptyline 100 mg tablet RxNorm: 191264 1 Tablet(s) PO QHS 01/23/2013 03/17/2013 Inactive Celexa 20 mg tablet RxNorm: 147977 Tablet(s) PO TAKE 1 & 1/2 TABLETS BY HERLINDA DAILY 12/13/2012 05/04/2013 Inactive Lasix 40 mg tablet RxNorm: 901814 1 Tablet(s) PO daily 12/13/2012 02/10/2013 Inactive and prn amitriptyline 100 mg tablet RxNorm: 011103 1 Tablet(s) PO QHS 10/21/2012 01/18/2013 Inactive Toprol XL 25 mg tabl et,extended release RxNorm: 877125 1 Tablet(s) PO daily 09/17/2012 01/14/2013 In active potassium chloride E R 10 mEq tablet,extended release RxNorm: 744621 1 Tablet(s) PO daily 08/19/2012 10/13/2013 Inactive Lasix 40 mg tablet RxNorm: 995855 1 Tablet(s) PO daily 08/19/2012 12/12/2012 Inactive and prn Ritalin 10 mg tablet RxNorm: 7191690 1 Tablet(s) PO BID 07/16/2012 10/13/2012 Inactive ciprofloxacin 500 mg tablet RxNorm: 675837 1 Tablet(s) PO BID 07/16/2012 07/22/2012 Inactive Celexa 20 mg tablet RxNorm: 265769 Tablet(s) PO TAKE 1 & 1/2 TABLETS BY [facility] DAILY 07/15/2012 12/12/2012 Inactive GE100 Blood Glucose Test Strip RxNorm: 1 Miscellaneous BID 07/11/2012 08/04/2013 Inactive and lancets Aldactone 25 mg tablet RxNorm: 260512 1 Tablet(s) PO BID 03/20/2012 03/14/2013 Inactive estradiol 0.5 mg tablet RxNorm: 248746 1 Tablet(s) PO daily 03/15/2012 06/07/2013 Inactive TAKE 1 TABLET BY MOUTH DAILY amitriptyline 100 mg tablet RxNorm: 842423 1 Tablet(s) PO QHS 03/13/2012 10/08/2012 Inactive amitriptyline 100 mg tablet RxNorm: 931553 1 Tablet(s) PO QHS 12/07/2011 01/05/2012 Inactive Kenalog 40 mg/mL Kat p for Injection RxNorm: 0146109 1 Milliliter(s) Inj 12/07/2011 12/07/2011 In active Provigil 200 mg Tab RxNorm: 992107 1 Tablet(s) PO QAM 12/07/2011 01/05/2012 Inactive Flonase Allergy Reli ef 50 mcg/actuation nasal spray,suspension RxNorm: 2544303 [place] NASAL daily as needed No Start Date Active Fish Oil 1,000 mg ca psule RxNorm: 1 Capsule(s) PO BID No Start Date 10/27/2015 Inactive Provigil 200 mg Tab RxNorm: 249040 1 Tablet(s) PO daily No Start Date 10/13/2013 Inactive Lasix 40 mg tablet RxNorm: 045314 1 Tablet(s) PO BID No Start Date 03/25/2015 Inactive Toprol XL 25 mg tabl et,extended release RxNorm: 679571 1 Tablet(s) PO daily No Start Date 09/16/2012 Inactive Prilosec 20 mg Capsu le, delayed release RxNorm: 498587 1 Capsule(s) PO daily No Start Date 10/13/2013 Inactive cyclobenzaprine 10 m g Tab RxNorm: 819424 1 Tablet(s) PO Q8 PRN No Start Date 03/17/2013 Inactive GE100 Blood Glucose Test Strip RxNorm: 1 Miscellaneous BID No Start Date 07/10/2012 Inactive pantoprazole 40 mg t ablet,delayed release RxNorm: 818194 1 Tablet(s) PO daily No Start Date 04/29/2013 Inactive Januvia 50 mg tablet RxNorm: 209922 1 Tablet(s) PO daily No Start Date 10/06/2013 Inactive samples and script Aldactone 25 mg tablet RxNorm: 762111 1 Tablet(s) PO BID No Start Date 03/19/2012 Inactive amitriptyline 100 mg Tab RxNorm: 965097 1 Tablet(s) PO QHS No Start Date 12/06/2011 Inactive Celexa 20 mg tablet RxNorm: 657401 1.5 Tablet(s) PO daily No Start Date 07/14/2012 Inactive potassium chloride E R 10 mEq tablet,extended release RxNorm: 811829 1 Tablet(s) PO BID No Start Date 08/18/2012 Inactive prednisone 20 mg Tab RxNorm: 759723 Tablet(s) PO UD 3 tabs x 2 days, 2 tabs x 2 days, 1 tab x 2 days, 1/2 tab x 2 days, 1/2 tab QOD x 2 doses then stop No Start Date 10/13/2013 Inactive estradiol 0.5 mg tablet RxNorm: 727148 1 Tablet(s) PO daily No Start Date 03/15/2012 Inactive Aldactone 25 mg tablet RxNorm: 600596 1 Tablet(s) PO BID No Start Date 10/12/2013 Inactive Lasix 40 mg tablet RxNorm: 765370 1 Tablet(s) PO BID No Start Date 08/18/2012 Inactive amitriptyline 75 mg Tab RxNorm: 842524 1 Tablet(s) PO QHS No Start Date 10/13/2013 Inactive Medication Administered Medication Codes Instruc tions Start Date Status Kenalog 40 mg/mL suspension for injection RxNorm: 3666385 1Milliliter 03/14/2018 N o longer Active ceftriaxone 500 mg solution for injection RxNorm: 4060000 1Milliliter 05/25/2017 N o longer Active Kenalog 40 mg/mL suspension for injection RxNorm: 8909206 Milliliter 05/25/2017 No longer Active Kenalog 40 mg/mL suspension for injection RxNorm: 8049920 Milliliter 05/02/2016 No longer Active Kenalog 40 mg/mL suspension for injection RxNorm: 3504004 Milliliter 10/28/2015 No longer Active ceftriaxone 500 mg solution for injection RxNorm: 0823480 04/19/2015 No longer A ctive Kenalog 40 mg/mL suspension for injection RxNorm: 5283709 Milliliter 04/19/2015 No longer Active Kenalog 40 mg/mL suspension for injection RxNorm: 6649118 Milliliter 12/24/2014 No longer Active Kenalog 40 mg/mL Susp for Injection RxNorm: 1787135 1Milliliter 03/18/2013 N o longer Active Kenalog 40 mg/mL Susp for Injection RxNorm: 1603006 1Milliliter 12/07/2011 N o longer Active Immunizations Vaccine Codes Date Status Tetanus, Diptheria, Pertussis CVX: 113 03/14/2018 completed Tetanus/Diptheria CVX: 113 03/14/2018 completed Assessments Condition Codes Effectiv e Dates Encounter for immunization ICD-10: Z 23 ICD-9: [...] disorder) ICD-9: 314.01 10/13/2013 ESSENTIAL HYPERTENSION SNOMED: 74042 000 ICD-9: 401.9 10/13/2013 Depression ICD-9: 311 DIABETES TYPE II SNOMED: 342320786 ICD-9: 250.00 10/13/2013 EDEMA ICD-9: 782.3 03/18 DM W/O COMPLICATION TYPE II, UNCONTROLLED SNOMED: 81338237 ICD-9: 250.02 03/18/2013 Uncontrolled narcolepsy ICD-9: 347.00 01/17/2012 Sacroiliitis ICD-9: 720.2 12/07/2011 Chronic back pain ICD-9: 724.5 12/07/2011 Sciatica ICD-9: 724.3 Reason For Visit Reason For Visit Effective Dates Notes diabetes mellitus 03/14/2018 ADHD headache 05/25/2017 hemorrhoids [...] 32.0 pg 03/26/2018 Cbc With Differential Ord2 Towner% 6.9 % 03/26/2018 Cbc With Differential Ord2 [...] 2.01 K/ul 03/26/2018 Cbc With Differential Ord2 Towner ABS# 0.6 K/ul 03/26/2018 Cbc With Differential Ord2 Eos ABS# 0.1 K/ul 03/26/2018 Cbc With Differential Ord2 Baso ABS# 0.0 K/ul 03/26/2018 Tsh Ord6 TSH (3rd IS) 1.30 uIU/mL 03/26/2018 %Hba1C Lcm706 % HbA1c 33807-0 6.5 % 03/26/2018 %Hba1C Onz694 Gluc Ave 140 mg/dL 03/26/2018 Comp Metabolic Wwq128 NA 141 mEq/L 03/26/2018 Comp Metabolic Dmn916 K 4.5 mEq/L 03/26/2018 Comp Metabolic Dsj192 CL 106 mEq/L 03/26/2018 Comp Metabolic Wxm404 CO2 30.0 mEq/L 03/26/2018 Comp Metabolic Ufm929 AN ION GAP 10 03/26/2018 Comp Metabolic Sqz042 GL UCOSE 122 mg/dL 03/26/2018 Comp Metabolic Fxl922 Cr eat 1.0 mg/dL 03/26/2018 Comp Metabolic Jxg345 eG FR 60 ml/min/1.73m2 03/26 Comp Metabolic Afh250 BUN 18 mg/dL 03/26/2018 Comp Metabolic Gug523 B/ C Ratio 17.5 Ratio 03/26/2018 Comp Metabolic Pjk712 CA LCIUM 10.1 mg/dL 03/26/2018 Comp Metabolic Nin509 AL K PHOS 67 U/L 03/26/2018 Comp Metabolic Ndl575 T(SGOT) 22 U/L 03/26/2018 Comp Metabolic Ewc334 AL T(SGPT) 26 U/L 03/26/2018 Comp Metabolic Qwp016 BI LI T 0.4 mg/dL 03/26/2018 Comp Metabolic Zll011 AL BUMIN 4.5 g/dL 03/26/2018 Comp Metabolic Nrc884 TP RO 7.0 g/dL 03/26/2018 Comp Metabolic Lfp410 GL OB 2.6 g/dL 03/26/2018 Comp Metabolic Vpl862 A/ G Ratio 1.7 Ratio 03/26/2018 Comp Metabolic Wgx017 Os mo 284 mOsmo 03/26/2018 Lipid Ord30 CHOL 203 mg/dL 03/26/2018 Lipid Ord30 HDL 62.0 mg/dl 03/26/2018 Lipid Ord30 TRIG 94 mg/dL 03/26/2018 Lipid Ord30 LDL 122 mg/dL 03/26/2018 Lipid Ord30 C/HDL 3.3 Ratio 03/26/2018 Prolactin 549933 PROLACT IN 5.2 ng/mL 05/15/2017 Cbc With [...] 31.9 pg 05/14/2017 Cbc With Differential Ord2 Towner% 7.6 % 05/14/2017 Cbc With Differential Ord2 [...] 2.32 K/ul 05/14/2017 Cbc With Differential Ord2 [place] ABS# 0.7 K/ul 05/14/2017 Cbc With Differential Ord2 Eos ABS# 0.1 K/ul 05/14/2017 Cbc With Differential Ord2 Baso ABS# 0.0 K/ul 05/14/2017 Tsh Ord6 hTSH II 1.69 uIU/mL 05/14/2017 %Hba1C Vrq117 % HbA1c 74854-0 6.4 % 05/14/2017 %Hba1C Bog010 Gluc Ave 137 mg/dL 05/14/2017 Comp Metabolic Php676 NA 138 mEq/L 05/14/2017 Comp Metabolic Kiu093 K 4.2 mEq/L 05/14/2017 Comp Metabolic Moq299 CL 102 mEq/L 05/14/2017 Comp Metabolic Cbk509 CO2 29.0 mEq/L 05/14/2017 Comp Metabolic Efl949 AN ION GAP 11 05/14/2017 Comp Metabolic Gwt841 GL UCOSE 114 mg/dL 05/14/2017 Comp Metabolic Kjv864 Cr eat 1.0 mg/dL 05/14/2017 Comp Metabolic Gnw801 eG FR 64 ml/min/1.73m2 05/14 Comp Metabolic Fal260 BUN 22 mg/dL 05/14/2017 Comp Metabolic Onc753 B/ C Ratio 22.7 Ratio 05/14/2017 Comp Metabolic Hew155 CA LCIUM 9.6 mg/dL 05/14/2017 Comp Metabolic Kst739 AL K PHOS 91 U/L 05/14/2017 Comp Metabolic Lrk143 T(SGOT) 13 U/L 05/14/2017 Comp Metabolic Mdm559 AL T(SGPT) 16 U/L 05/14/2017 Comp Metabolic Nlx345 BI LI T 0.4 mg/dL 05/14/2017 Comp Metabolic Oqf769 AL BUMIN 4.2 g/dL 05/14/2017 Comp Metabolic Esz139 TP RO 6.9 g/dL 05/14/2017 Comp Metabolic Lzc996 GL OB 2.7 g/dL 05/14/2017 Comp Metabolic Oon713 A/ G Ratio 1.6 Ratio 05/14/2017 Comp Metabolic Shp464 Os mo 280 mOsmo 05/14/2017 Lipid Ord30 CHOL 219 mg/dL 05/14/2017 Lipid Ord30 HDL 67.0 mg/dl 05/14/2017 Lipid Ord30 TRIG 157 mg/dL 05/14/2017 Lipid Ord30 LDL 121 mg/dL 05/14/2017 Lipid Ord30 C/HDL 3.3 Ratio 05/14/2017 Prolactin 064719 PROLACT IN 4.5 ng/mL 05/04/2016 %Hba1C Miv886 % HbA1c 89107-2 5.9 % 05/03/2016 %Hba1C Hrp950 Gluc Ave 123 mg/dL 05/03/2016 Cbc With [...] 32.3 pg 05/03/2016 Cbc With Differential Ord2 Towner% 7.0 % 05/03/2016 Cbc With Differential Ord2 [...] 2.38 K/ul 05/03/2016 Cbc With Differential Ord2 Towner ABS# 0.6 K/ul 05/03/2016 Cbc With Differential Ord2 Eos ABS# 0.2 K/ul 05/03/2016 Cbc With Differential Ord2 Baso ABS# 0.1 K/ul 05/03/2016 Tsh Ord6 hTSH II 0.70 uIU/mL 05/03/2016 Comp Metabolic Oqh719 NA 137 mEq/L 05/03/2016 Comp Metabolic Bxh395 K 4.3 mEq/L 05/03/2016 Comp Metabolic Jnf675 CL 102 mEq/L 05/03/2016 Comp Metabolic Kle484 CO2 25.0 mEq/L 05/03/2016 Comp Metabolic Guh960 AN ION GAP 14 05/03/2016 Comp Metabolic Tvw366 GL UCOSE 87 mg/dL 05/03/2016 Comp Metabolic Gvj308 Cr eat 0.8 mg/dL 05/03/2016 Comp Metabolic Kqd284 eG FR 76 ml/min/1.73m2 05/03 Comp Metabolic Qlx800 BUN 11 mg/dL 05/03/2016 Comp Metabolic Jcc730 B/ C Ratio 13.1 Ratio 05/03/2016 Comp Metabolic Ant993 CA LCIUM 9.3 mg/dL 05/03/2016 Comp Metabolic Wrk788 AL K PHOS 76 U/L 05/03/2016 Comp Metabolic Xsa249 T(SGOT) 27 U/L 05/03/2016 Comp Metabolic Lfs228 AL T(SGPT) 25 U/L 05/03/2016 Comp Metabolic Eqg512 BI LI T 0.3 mg/dL 05/03/2016 Comp Metabolic Sfi424 AL BUMIN 4.1 g/dL 05/03/2016 Comp Metabolic Orm245 TP RO 7.1 g/dL 05/03/2016 Comp Metabolic Bzd847 GL OB 3.0 g/dL 05/03/2016 Comp Metabolic Lhc314 A/ G Ratio 1.4 Ratio 05/03/2016 Comp Metabolic Nve371 Os mo 273 mOsmo 05/03/2016 Urine Culture Ucult Comp lete >100,000 col/ml aerobic grow th sent to ref lab 03/17/2015 Culture Urine [id number] URI NE CULTURE SEE NOTES 01/28/2015 Culture Urine [id number] Con tinued Results 01/28/2015 Urine Culture Ucult Comp lete >100,000 col/ml aerobic grow th sent to ref lab 01/26/2015 URINALYSIS NONAUTO W/O SCOPE 41664 Specific [place] 1.005 DateTime(Free Text in Aprima) URINALYSIS NONAUTO W/O SCOPE 54955 PH 7.5 DateTime(Free Ruben t in Aprima) URINALYSIS NONAUTO W/O SCOPE 01246 GLUCOSE neg DateTime(Free Ruben t in Aprima) URINALYSIS NONAUTO W/O SCOPE 55249 Protein neg DateTime(Free Ruben t in Aprima) URINALYSIS NONAUTO W/O SCOPE 19052 Blood trace DateTime(Free T ext in Aprima) URINALYSIS NONAUTO W/O SCOPE 38524 Bilirubin small DateTime(Free T ext in Apr) URINALYSIS NONAUTO W/O SCOPE 31447 Ketones neg DateTime(Free Ruben t in Apr) URINALYSIS NONAUTO W/O SCOPE 33665 Urobilinogen 0.2 DateTime(Free Text in Apr) URINALYSIS NONAUTO W/O SCOPE 46019 Nitrite neg DateTime(Free Ruben t in Apr) URINALYSIS NONAUTO W/O SCOPE 13691 Leukocytes moderate DateTime(Free Text in Apr) Review of Systems System Result Effective Dates Constitutional No recent illness 03/14/2018 Constitutional No [...] Date TRIAMCINOLONE ACET I [place] NOS CPT-4: J3301 03/14/2018 IMMUNIZATION ADMIN CPT- 4: 95493 03/14/2018 ADACEL TDAP VACCINE 7 YRS/> IM CPT-4: 10238 03/14/2018 TRIAMCINOLONE ACET I [place] NOS CPT-4: J3301 05/25/2017 ROCEPHIN, PER 250 MG CPT-4: J0696 05/25/2017 TRIAMCINOLONE ACET I [place] NOS CPT-4: J3301 05/02/2016 TRIAMCINOLONE ACET I [place] NOS CPT-4: J3301 10/28/2015 ROCEPHIN, PER 250 MG CPT-4: J0696 04/19/2015 TRIAMCINOLONE ACET I [place] NOS CPT-4: J3301 04/19/2015 URINALYSIS NONAUTO W /O SCOPE CPT-4: 48499 03/15/2015 URINALYSIS NONAUTO W /O SCOPE CPT-4: 55594 01/25/2015 TRIAMCINOLONE ACET I [place] NOS CPT-4: J3301 12/24/2014 THER/PROPH/DIAG INJ SC/IM CPT-4: 08948 12/24/2014 URINALYSIS NONAUTO W /O SCOPE CPT-4: 82796 07/16/2012 DRAIN/INJECT JOINT/B URSA CPT-4: 63873 12/07/2011 Vital Signs Date Vital 03/14/2018 Blood Pressure 1: 108/74 Code: 8480-6 BMI: 33.3 Code: 39093-1 Heart Rate 1: 91 bpm Height: 5'2" SpO2: 98% Weight: 182 lbs 05/25/2017 Blood Pressure 1: 142/82 Code: 8480-6 BMI: 32.0 Code: 65913-8 Heart Rate 1: 96 bpm Height: 5'2" SpO2: 94% Temperature: 37.3 (C ) / 99.2 (F) Weight: 175 lbs 05/14/2017 Blood Pressure 1: 142/78 Code: 8480-6 BMI: 32.0 Code: 35864-4 Heart Rate 1: 111 bpm Height: 5'2" SpO2: 95% Weight: 175 lbs 05/02/2016 Blood Pressure 1: 124/74 Code: 8480-6 BMI: 32.4 Code: 01584-1 Heart Rate 1: 107 bpm Height: 5'2" SpO2: 98% Weight: 177 lbs 10/28/2015 Blood Pressure 1: 124/80 Code: 8480-6 BMI: 32.6 Code: 25310-8 Heart Rate 1: 78 bpm Height: 5'2" SpO2: 91% Weight: 178 lbs 04/19/2015 Blood Pressure 1: 110/78 Code: 8480-6 BMI: 31.5 Code: 28268-7 Heart Rate 1: 88 bpm Height: 5'2" SpO2: 96% Weight: 172 lbs 12/24/2014 Blood Pressure 1: 112/72 Code: 8480-6 BMI: 30.4 Code: 41221-0 Heart Rate 1: 88 bpm Height: 5'2" Weight: 166 lbs 10/13/2013 Blood Pressure 1: 104/78 Code: 8480-6 BMI: 30.7 Code: 58975-8 Heart Rate 1: 100 bpm Height: 5'2" [...] Name Status Resu lt Effective Date Notes diabetes mellitus Quality chronic 03/14/2018 None diabetes [...] State s she was sitting in the [place] with the dog, and was slightly twisted-sat [...] Encounters Encounter Performer Loca tion Codes Date () 35795 EST. P ATIENT, LEVEL IV Diagnosis: Type 2 diabetes mellitus with hyperglycemia[ICD10: E11.65] Diagnosis: Mixed hyperlipidemia[ICD10: E78.2] Diagnosis: Other allergic rhinitis[ICD10: J30.89] Diagnosis: Attention-deficit hyperactivity disorder, combined type[ICD10: F90.2] Diagnosis: Encounter for immunization[ICD10: Z23] Maci Martinez MD, [facility] CPT-4: 61244 03/14/2018 06499 EST. PATIENT, LEVEL IV Diagnosis: Other acute sinusitis[ICD10: J01.80] Diagnosis: Other allergic rhinitis[ICD10: J30.89] Michelle Martinez MD, [facility] CPT-4: 70526 05/25/2017 42037 EST. 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 P ATIENT, LEVEL III Diagnosis: Allergic rhinitis due to pollen[ICD10: J30.1] Diagnosis: Otalgia, right ear[ICD10: H92.01] Maci Martinez MD, [facility] CPT- 4: 87337 10/28/2015 ([id number]) 53124 EST. P ATIENT, LEVEL III Diagnosis: Acute maxillary sinusitis, unspecified[ICD10: J01.00] Diagnosis: Allergic rhinitis, unspecified[ICD10: J30.9] Maci Martinez MD, [facility] CPT-4: 20024 04/19/2015 ([id number]) 05930 EST. P ATIENT, LEVEL III Diagnosis: Swelling of eyelid[ICD9: 374.82] Diagnosis: Sunburn[ICD9: 692.71] Maci Martinez MD, [facility] CPT-4: 64504 12/24/2014 ([id number]) 84551 EST. P ATIENT, LEVEL IV Diagnosis: ESSENTIAL HYPERTENSION[SNOMED: 90538803] Diagnosis: DIABETES TYPE II[SNOMED: 626779387] Diagnosis: ADHD (attention deficit hyperactivity disorder)[ICD9: 314.01] Diagnosis: Depression[ICD9: 311] Joy Martinez MD, [facility] CPT-4: 12420 10/13/2013 ([id number]) 79093 EST. P ATIENT, LEVEL IV Diagnosis: DM W/O COMPLICATION TYPE II, UNCONTROLLED[SNOMED: 71725678] Diagnosis: ESSENTIAL HYPERTENSION[SNOMED: 35035949] Diagnosis: EDEMA[ICD9: 782.3] Joy Martinez MD, [facility] CPT-4: 04657 03/18/2013 ([id number]) 24856 EST. P ATIENT, LEVEL IV Diagnosis: UTI[ICD9: 599.0] Diagnosis: DM W/O COMPLICATION TYPE II, UNCONTROLLED[SNOMED: 33356943] Joy Martinez MD, [facility] CPT-4: 29224 07/16/2012 ([id number]) 41407 EST. P ATIENT, LEVEL III Diagnosis: Uncontrolled narcolepsy[ICD9: 347.00] Diagnosis: ESSENTIAL HYPERTENSION[SNOMED: 61124742] Joy Martinez MD, [facility] CPT-4: 27184 01/17/2012 Office outpatient ne w 30 minutes Diagnosis: Sciatica[ICD9: 724.3] Diagnosis: Chronic back pain[ICD9: 724.5] Diagnosis: ESSENTIAL HYPERTENSION[SNOMED: 45309008] Joy Martinez MD, LL C CPT-4: 06752 12/07/2011 Plan of Care Planned Activity Notes C odes Status Date Visit Plan: Diabetes Mellitus -I nava ve [...] office 03/14/2018 Appointment: Maci Moreno [facility]el: [phone] [facility] [place] (30 min) Complex 03/14/2018 Patient Education: Patient [...] spray. 05/25/2017 Appointment: Michelle Mora WPtel: [phone] [facility] [address] [place] [address] (15 min) Moderate 05/25/2017 Patient Education: Patient [...] glucose control. 05/14/2017 Appointment: Michelle Mora WPtel: [facility] [place] (30 min) [facility] 05/14/2017 Patient Education: Patient Medication Summary Completed 05/14/2017 Patient Education: Obesity Completed 05/14/2017 Care Plan: Referral Order SNOMED-CT : 532469437 Pending 05/14/2017 Visit Plan: Allergies - chronic [...] controlled. 05/02/2016 Appointment: Maci Moreno WPtel: [phone] (15 min) Moderate 05/02/2016 Patient Education: [...] spray. 10/28/2015 Appointment: Maci Moreno WPtel: [phone] [place] [phone] (30 min) Complex 10/28/2015 Patient Education: Patient [...] acute symptoms. 04/19/2015 Appointment: Maci Moreno WPtel: [phone] [facility] [address] [place] [address] (15 min) Moderate 04/19/2015 Patient Education: Patient [...] the patient. 10/13/2013 Appointment: [phone] Follow up 10/13/2013 Patient Education: Patient Medication Summary Completed 10/13/2013 Patient Education: Hypertension Completed 10/13/2013 Appointment: Maci Moreno WPtel: [facility] [place] [address] Follow up 08/29/2013 Appointment: Joy [facility]: [phone] [place] Follow up 06/23/2013 Visit Plan: Diabetes Mellitus [...] peripheral edema. 03/18/2013 Appointment: Joy Martinez WPtel: [facility] [place] Follow up 03/18/2013 Patient Education: Patient Medication Summary Completed 03/18/2013 Patient Education: Hypertension Completed 03/18/2013 Appointment: Jyo Martinez WPtel: [facility] [place] Follow up 10/15/2012 Appointment: Maci Moreno WPtel: [phone] [facility] [place] [address] Diabetic education 07/22/2012 Visit Plan: Diabetes Mellitus [...] not improve. 07/16/2012 Appointment: Joy Martinez WPtel: [facility] [address] follow up 07/16/2012 Patient Education: Patient Medication [...] at home. 01/17/2012 Appointment: Joy Martinez WPtel: [address] [place] [address] 01/17/2012 Patient Education: Patient Medication Summary Completed [...] Q HS 12/07/2011 Appointment: Maci Moreno WPtel: [facility] [place] [phone] New Patient 12/07/2011 Patient Education: Patient Medication [...] 40mg refill ritalin fasting labs-orders sent to [facility] lab -go any time [...]
--- OUTSIDE RECORDS SUMMARY | 2019-11-02 07:12 | XMS REPORT ---
Author Author Lianne Hope Doctor Organization [facility] Address Unknown Phone Unavailable Care Team Providers Care Can Bander Operator Name Role Phone Migration, Doctor Unavailable Unavailable PROBLEMS Type Condition ICD9-CM Code [id number] Code Onset Dates Condition S tatus SNOMED Code Problem DTAP TEST V06.1 Active Problem Seasonal allergies J30.2 Active 4 [id number] ALLERGIES No Information ENCOUNTERS Encounter Location Date Diagnosis [facility] [address] [place] [phone] Apr, UTI symptoms R39.9 and Acute cystitis without hematuria N30.00 [facility] [address] [address] Apr, Seasonal allergies J30.2 [facility] [address] [address] 05 May, 2017 Bronchitis J40 and Upper res piratory tract infection, unspecified type J06.9 [facility] [address] [address] 14 Jun, 2016 Sore throat J02.9 and Pharyn gitis due to other organism J02.8 [facility] [address] [place] [phone] May, Sinusitis J32.9 [place] [address] [id number] [place] [address] Nov, [facility] [address] [place] [phone] Nov, IMMUNIZATIONS No Known Immunizations SOCIAL HISTORY Never Assessed REASON FOR VISIT PLAN OF CARE VITAL SIGNS MEDICATIONS No Known Medications RESULTS No Results PROCEDURES No Known procedures INSTRUCTIONS MEDICATIONS ADMINISTERED No Known Medications MEDICAL (GENERAL) HISTORY Type Description Date Medical History Hypertension heart skips with activity Medical History DM Medical History SI Joint pain Medical History GERD Medical History Periph. Edema Medical History depression/ anxiety Medical History Pituary Tumor Surgical History Hysterectomy 2005 Surgical History CSection x3 1992 Surgical History Lumpectomy 1998 Hospitalization History Acute resspiratory distress syndrome 2005
--- OUTSIDE RECORDS SUMMARY | 2019-11-02 07:12 | XMS REPORT | CCD ---
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 Name Role Phone PP Unavailable CCM Unavailable Summary Purpose Interface Exchange Insurance Providers Payer name Policy type / Coverage type Covered constitution party ID Effective Begin Date Effective End Date Blue Cross Blue Shield [facility] e Cross/Blue Shield [id number] 2015 Un known Family history Brother Diagnosis [...] M arried 12/07/[address]: 966599580 Never smoker 12/07/2011 Alcohol history Unknown occasionally [...] Fill Instructions Ritalin 10 mg tablet RxNorm: 3123552 1 Tablet(s) PO BID 04/17/2018 05/16/2018 Active [SAVINGS FOR NON-COVERED DRUGS -- BIN:00 3585, PCN: ASPROD1, Group: XXXXX, ID# [id number], Questions: . THIS IS NOT INSURANCE.] Aldactone 25 mg tablet RxNorm: 427597 Tablet(s) 1 TABLET(S) PO BID 04/17/2018 01/11/2019 Active pantoprazole 40 mg t ablet,delayed release RxNorm: 866528 1 Tablet(s) PO QHS 04/17/2018 01/11/2019 Ac tive Bactrim 400 mg-80 mg tablet RxNorm: 395048 Tablet(s) TAKE 1 TABL ET BY MOUTH NEEDED FOR SEXUAL INTERCOURSE FOR UTI PREVENTION 04/17/2018 06/15/2018 Active amitriptyline 100 mg tablet RxNorm: 185631 Tablet(s) TAKE 1 TABL ET BY MOUTH DAILY AT BEDTIME 03/14/2018 03/08/2019 Active Kenalog 40 mg/mL kat pension for injection RxNorm: 1580699 1 Milliliter(s) Inj 03/14/2018 03/14/2018 In active Ritalin 10 mg tablet RxNorm: 4375567 1 Tablet(s) PO BID 03/14/2018 04/12/2018 Inactive [SAVINGS FOR NON-COVERED DRUGS -- BIN:00 3585, PCN: ASPROD1, Group: XXXXX, ID# [id number], Questions: . THIS IS NOT INSURANCE.] Bactrim 400 mg-80 mg tablet RxNorm: 846798 TAKE 1 TABLET BY MOUT H NEEDED FOR SEXUAL INTERCOURSE FOR UTI PREVENTION 09/28/2017 11/26/2017 Inactive amitriptyline 100 mg tablet RxNorm: 949730 TAKE 1 TABLET BY MOUT H DAILY AT BEDTIME 09/25/2017 03/13/2018 In active Diflucan 150 mg tablet RxNorm: 035626 1 Tablet(s) PO daily 05/31/2017 06/04/2017 Inactive Diflucan 150 mg tablet RxNorm: 474252 1 Tablet(s) PO daily 05/31/2017 05/30/2017 Inactive Kenalog 40 mg/mL kat pension for injection RxNorm: 3294604 Milliliter(s) Inj 05/25/2017 05/25/2017 In active prednisone 10 mg tablet RxNorm: 696426 Tablet(s) PO UD 05/25/2017 09/24/2017 Inactive 6,5,4,3,2,1 Phenergan with Codei ne Syrup RxNorm: 5-10 Milliliter(s) PO QID a s needed 05/25/2017 03/13/2018 In active Keflex 500 mg capsule RxNorm: 533634 1 Capsule(s) PO TID 05/25/2017 06/03/2017 Inactive ceftriaxone 500 mg s olution for injection RxNorm: 2752384 1 Milliliter(s) Inj 05/25/2017 05/25/2017 In active estradiol 0.5 mg tablet RxNorm: 174177 1 Tablet(s) PO daily 05/14/2017 04/27/2020 Active Celexa 20 mg tablet RxNorm: 980332 1.5 Tablet(s) PO daily 05/14/2017 04/27/2020 Active Januvia 50 mg tablet RxNorm: 657979 1 Tablet(s) PO daily 05/14/2017 05/08/2018 Active Toprol XL 25 mg tabl et,extended release RxNorm: 860536 1 Tablet(s) PO daily 05/14/2017 05/08/2018 Ac tive amitriptyline 100 mg tablet RxNorm: 514686 1 Tablet(s) PO QHS 05/14/2017 09/24/2017 Inactive pantoprazole 40 mg t ablet,delayed release RxNorm: 809624 1 Tablet(s) PO QHS 05/14/2017 02/07/2018 In active Bactrim 400 mg-80 mg tablet RxNorm: 158384 Tablet(s) TAKE ONE TA BLET BY MOUTH NEEDED FOR SEXUAL INTERCOURSE FOR UTI PREVENTION 05/14/2017 08/11/2017 Inactive Aldactone 25 mg tablet RxNorm: 615077 Tablet(s) 1 TABLET(S) PO BID 05/14/2017 02/07/2018 Inactive Celexa 20 mg tablet RxNorm: 302961 TAKE ONE & ONE-HALF TABLETS BY MOUTH ONC E DAILY 04/12/2017 05/13/2017 Inactive Toprol XL 25 mg tabl et,extended release RxNorm: 780406 TAKE ONE TABLET BY MO UTH ONCE DAILY 02/06/2017 05/13/2017 Inactive Celexa 20 mg tablet RxNorm: 785721 TAKE ONE & ONE-HALF TABLETS BY MOUTH ONC E DAILY 01/03/2017 03/03/2017 Inactive amitriptyline 100 mg tablet RxNorm: 949333 TAKE ONE TABLET BY MO UTH AT BEDTIME 12/08/2016 05/13/2017 In active Toprol XL 25 mg tabl et,extended release RxNorm: 634716 TAKE ONE TABLET BY MO UTH ONCE DAILY 11/23/2016 02/06/2017 Inactive Januvia 50 mg tablet RxNorm: 526877 TAKE ONE TABLET BY MOUTH ONCE DAILY 11/09/2016 03/08/2017 In active Bactrim 400 mg-80 mg tablet RxNorm: 969410 TAKE ONE TABLET BY MO UTH NEEDED FOR SEXUAL INTERCOURSE FOR UTI PREVENTION 09/19/2016 04/24/2017 Inactive amitriptyline 100 mg tablet RxNorm: 932931 TAKE ONE TABLET BY [facility] AT BEDTIME 08/31/2016 11/28/2016 In active pantoprazole 40 mg t ablet,delayed release RxNorm: 487095 Tablet(s) TAKE 1 TABL ET BY MOUTH ONCE DAILY 08/16/2016 05/12/2017 Inactive estradiol 0.5 mg tablet RxNorm: 385916 TAKE ONE TABLET BY MOUTH ONCE DAILY 08/13/2016 05/13/2017 In active amitriptyline 100 mg tablet RxNorm: 299398 TAKE ONE TABLET BY [facility] AT BEDTIME 07/31/2016 08/29/2016 In active ProAir HFA 90 mcg/ac tuation aerosol inhaler RxNorm: 808259 2 inhale INH PRN as n eeded 05/02/2016 No Stop Date Active ciprofloxacin 0.3 % eye drops RxNorm: 102334 Drop(s) OPH 2 drops e very 2 hours while awake for days 1-2 and 2 drops every 4 hours for days 3 - 7 05/02/2016 03/13/2018 Inactive Kenalog 40 mg/mL kat pension for injection RxNorm: 8752936 Milliliter(s) Inj 05/02/2016 05/02/2016 In active Zithromax Z-Nick 250 mg tablet RxNorm: 651937 1 Tablet(s) PO UD 05/02/2016 09/24/2017 Inactive albuterol sulfate 2. 5 mg/3 mL (0.083 %) solution for nebulization RxNorm: 705030 1 Milliliter(s) INH QID as needed 03/13/2018 Inactive prednisone 20 mg tablet RxNorm: 750626 1 Tablet(s) PO BID 05/02/2016 05/06/2016 Inactive amitriptyline 100 mg tablet RxNorm: 377271 1 TABLET(S) PO QHS 03/01/2016 07/30/2016 Inactive estradiol 0.5 mg tablet RxNorm: 344438 1 TABLET(S) PO DAILY 03/01/2016 09/24/2017 Inactive TAKE 1 TABLET BY MOUTH DAILY estradiol 0.5 mg tablet RxNorm: 170074 TAKE ONE TABLET BY MOUTH ONCE DAILY 03/01/2016 05/29/2016 In active Celexa 20 mg tablet RxNorm: 324079 TAKE ONE & ONE-HALF TABLETS BY MOUTH ONC E DAILY 12/03/2015 11/26/2016 Inactive amoxicillin 500 mg c apsule RxNorm: 780314 1 Capsule(s) PO BID 11/05/2015 11/04/2015 Inactive amoxicillin 500 mg c apsule RxNorm: 173579 1 Capsule(s) PO BID 11/05/2015 04/30/2017 Inactive Kenalog 40 mg/mL kat pension for injection RxNorm: 2083079 Milliliter(s) Inj 10/28/2015 10/28/2015 In active Januvia 50 mg tablet RxNorm: 407463 Tablet(s) 1 TABLET(S) PO DAILY 10/28/2015 10/21/2016 In active Ritalin 10 mg tablet RxNorm: 8714549 1 Tablet(s) PO BID 10/28/2015 11/26/2015 Inactive [SAVINGS FOR NON-COVERED DRUGS -- BIN:00 9947, PCN: ASPROD1, Group: XXXXX, ID# [id number], Questions: . THIS IS NOT INSURANCE.] Toprol XL 25 mg tabl et,extended release RxNorm: 168097 Tablet(s) 1 TABLET(S) PO DAILY 10/28/2015 10/21/2016 Inactive prednisone 20 mg tablet RxNorm: 542406 1 Tablet(s) PO BID 10/28/2015 11/01/2015 Inactive Lasix 40 mg tablet RxNorm: 350571 TAKE ONE TABLET BY MOUTH ONCE DAILY. MAY TAKE EXTRA TABLET NEEDED. 09/27/2015 12/25/2015 Inactive Bactrim 400 mg-80 mg tablet RxNorm: 104170 Tablet(s) 1 TABLET(S) PO PRN SEXUAL INTERCOURSE, UTI PREVENTATIVE 09/22/2015 12/20/2015 Inactive pantoprazole 40 mg t ablet,delayed release RxNorm: 628982 TAKE 1 TABLET BY MOUT H ONCE DAILY 07/29/2015 01/24/2016 Inactive amitriptyline 100 mg tablet RxNorm: 704905 Tablet(s) 1 TABLET(S) PO QHS 07/26/2015 09/24/2017 In active pantoprazole 40 mg t ablet,delayed release RxNorm: 182010 TAKE 1 TABLET BY MOUT H ONCE DAILY 07/21/2015 07/28/2015 Inactive Bactrim 400 mg-80 mg tablet RxNorm: 795374 1 TABLET(S) PO PRN SE XUAL INTERCOURSE, UTI PREVENTATIVE 06/21/2015 09/18/2015 Inactive Ritalin 10 mg tablet RxNorm: 0406518 1 Tablet(s) PO BID 04/19/2015 05/18/2015 Inactive [SAVINGS FOR NON-COVERED DRUGS -- BIN:00 3585, PCN: ASPROD1, Group: XXXXX, ID# [id number], Questions: . THIS IS NOT INSURANCE.] Keflex 500 mg capsule RxNorm: 903507 1 Capsule(s) PO TID 04/19/2015 04/28/2015 Inactive Kenalog 40 mg/mL kat pension for injection RxNorm: 7507680 Milliliter(s) Inj 04/19/2015 04/19/2015 In active ceftriaxone 500 mg s olution for injection RxNorm: 2859189 Inj 04/19/2015 04/19/2015 Inactive amitriptyline 100 mg tablet RxNorm: 081376 1 TABLET(S) PO QHS 03/26/2015 07/25/2015 Inactive Lasix 40 mg tablet RxNorm: 900051 1 Tablet(s) PO daily 03/26/2015 09/21/2015 Inactive may take an extra tablet as needed Aldactone 25 mg tablet RxNorm: 081833 1 TABLET(S) PO BID 03/26/2015 12/20/2015 Inactive Levaquin 500 mg tablet RxNorm: 440148 1 Tablet(s) PO daily 03/15/2015 03/21/2015 Inactive Levaquin 500 mg tablet RxNorm: 276151 1 Tablet(s) PO daily 03/15/2015 03/14/2015 Inactive hydrocodone 5 mg-devang taminophen 325 mg tablet RxNorm: 100299 one or two tabs po ev ey six hours prn Tablet(s) PO 02/26/2015 03/13/2018 Inactive hydrocodone 5 mg-devang taminophen 325 mg tablet RxNorm: 747138 one or two tabs po ev ey six hours prn Tablet(s) PO 02/26/2015 02/25/2015 Inactive amitriptyline 100 mg tablet RxNorm: 006986 1 TABLET(S) PO QHS 02/22/2015 01/17/2016 Inactive Keflex 500 mg capsule RxNorm: 223358 1 Capsule(s) PO TID 01/25/2015 01/24/2015 Inactive Keflex 500 mg capsule RxNorm: 986966 1 Capsule(s) PO TID 01/25/2015 01/31/2015 Inactive Bactrim 400 mg-80 mg tablet RxNorm: 110994 1 Tablet(s) PO PRN se xual intercourse, uti preventative 01/04/2015 01/03/2015 Inactive Bactrim 400 mg-80 mg tablet RxNorm: 129410 1 Tablet(s) PO PRN se xual intercourse, uti preventative 01/04/2015 06/20/2015 Inactive Ritalin 10 mg tablet RxNorm: 2413026 1 Tablet(s) PO BID 12/24/2014 01/22/2015 Inactive [SAVINGS FOR NON-COVERED DRUGS -- BIN:00 3585, PCN: ASPROD1, Group: XXXXX, ID# [id number], Questions: . THIS IS NOT INSURANCE.] Kenalog 40 mg/mL kat pension for injection RxNorm: 3857413 Milliliter(s) Inj 12/24/2014 12/24/2014 In active estradiol 0.5 mg tablet RxNorm: 793862 1 Tablet(s) PO daily 12/16/2014 02/29/2016 Inactive TAKE 1 TABLET BY MOUTH DAILY pantoprazole 40 mg t ablet,delayed release RxNorm: 011622 1 Tablet(s) daily 10/26/2014 07/20/2015 In active [SAVINGS FOR NON-COVERED DRUGS -- BIN:00 3585, PCN: ASPROD1, Group: XXXXX, ID# [id number], Questions: . THIS IS NOT INSURANCE.] Ritalin 10 mg tablet RxNorm: 1443992 1 Tablet(s) PO BID 10/23/2014 11/21/2014 Inactive [SAVINGS FOR NON-COVERED DRUGS -- BIN:00 3585, PCN: ASPROD1, Group: XXXXX, ID# [id number], Questions: . THIS IS NOT INSURANCE.] pantoprazole 40 mg t ablet,delayed release RxNorm: 767430 3/4 Tablet(s) daily 10/23/2014 10/25/2014 In active [SAVINGS FOR NON-COVERED DRUGS -- BIN:00 3585, PCN: ASPROD1, Group: XXXXX, ID# [id number], Questions: . THIS IS NOT INSURANCE.] Toprol XL 25 mg tabl et,extended release RxNorm: 581836 1 TABLET(S) PO DAILY 10/20/2014 10/14/2015 In active Januvia 50 mg tablet RxNorm: 046931 1 TABLET(S) PO DAILY 10/20/2014 10/14/2015 Inactive samples and script Celexa 20 mg tablet RxNorm: 531610 1.5 TABLET(S) PO DAILY TAKE 1 & 1/2 TABL ETS BY MOUTH DAILY 10/20/2014 10/14/2015 Inactive omeprazole 20 mg cap maco,delayed release RxNorm: 302848 1 Capsule(s) PO BID 09/25/2014 09/24/2014 In active omeprazole 20 mg cap maco,delayed release RxNorm: 289738 1 Capsule(s) PO BID 09/25/2014 10/22/2014 In active DC pantoprazole [SAVINGS FOR NON-COVERED DRUGS -- BIN:295683, PCN: ASPROD1, Group: XXXXX, ID# [id number], Questions: . THIS IS NOT INSURANCE.] pantoprazole 40 mg t ablet,delayed release RxNorm: 732088 1 TABLET(S) PO BID 09/24/2014 09/24/2014 In active omeprazole 20 mg tab let,delayed release RxNorm: 309634 1 Tablet(s) PO BID 08/31/2014 08/30/2014 In active dc pantoprazole 40mg omeprazole 20 mg tab let,delayed release RxNorm: 540565 1 Tablet(s) PO BID 08/31/2014 08/30/2014 In active omeprazole 20 mg tab let,delayed release RxNorm: 658999 1 Tablet(s) PO daily 08/31/2014 10/27/2015 In active change to daily Ritalin 10 mg tablet RxNorm: 9801855 1 Tablet(s) PO BID 07/20/2014 08/18/2014 Inactive [SAVINGS FOR UNINSURED PATIENTS -- BIN:0 34755, PCN: ASPROD1, Group: [id number], ID# [id number], Process claim through Row44, for questions: . THIS IS NOT INSURANCE.] amitriptyline 100 mg tablet RxNorm: 260251 1 TABLET(S) PO QHS 04/27/2014 02/21/2015 Inactive Ritalin 10 mg tablet RxNorm: 6271130 1 Tablet(s) PO BID 02/09/2014 06/08/2014 Inactive [SAVINGS FOR UNINSURED PATIENTS -- BIN:0 74719, PCN: ASPROD1, Group: AME08, ID# [id number], Process claim through Row44, for questions: . THIS IS NOT INSURANCE.] ProAir HFA 90 mcg/ac tuation aerosol inhaler RxNorm: 728241 2 inhale INH PRN 11/19/2013 10/27/2015 In active amitriptyline 100 mg tablet RxNorm: 850153 Tablet(s) PO TAKE 1 T ABLET BY MOUTH AT BEDTIME 10/27/2013 04/23/2017 Inactive Ritalin 10 mg tablet RxNorm: 0252353 1 Tablet(s) PO BID 10/13/2013 02/08/2014 Inactive estradiol 0.5 mg tablet RxNorm: 494179 1 Tablet(s) PO daily 10/13/2013 12/15/2014 Inactive TAKE 1 TABLET BY MOUTH DAILY pantoprazole 40 mg t ablet,delayed release RxNorm: 908231 1 Tablet(s) PO BID 10/13/2013 08/30/2014 In active Januvia 50 mg tablet RxNorm: 206411 1 Tablet(s) PO daily 10/13/2013 10/07/2014 Inactive samples and script Toprol XL 25 mg tabl et,extended release RxNorm: 426895 1 Tablet(s) PO daily 10/13/2013 10/07/2014 In active Celexa 20 mg tablet RxNorm: 139404 1.5 Tablet(s) PO daily TAKE 1 & 1/2 TABL ETS BY MOUTH DAILY 10/13/2013 10/07/2014 Inactive Aldactone 25 mg tablet RxNorm: 926196 1 Tablet(s) PO BID 10/13/2013 10/07/2014 Inactive Januvia 50 mg tablet RxNorm: 672276 1 Tablet(s) PO daily 10/07/2013 10/12/2013 Inactive samples and script Celexa 20 mg tablet RxNorm: 935066 1 1/2 Tablet(s) PO daily TAKE 1 & 1/2 TA BLETS BY MOUTH DAILY 05/05/2013 10/12/2013 Inactive pantoprazole 40 mg t ablet,delayed release RxNorm: 606363 1 Tablet(s) PO daily 04/30/2013 10/12/2013 In active amitriptyline 100 mg tablet RxNorm: 695514 1 Tablet(s) PO QHS 04/28/2013 10/26/2013 Inactive Ritalin 10 mg tablet RxNorm: 0788291 1 Tablet(s) PO BID 04/18/2013 05/17/2013 Inactive Kenalog 40 mg/mL Kat p for Injection RxNorm: 5698033 1 Milliliter(s) Inj 03/18/2013 03/18/2013 In active amitriptyline 100 mg tablet RxNorm: 081401 1 Tablet(s) PO QHS 03/18/2013 04/27/2013 Inactive Ritalin 10 mg tablet RxNorm: 9472085 1 Tablet(s) PO BID 02/21/2013 03/17/2013 Inactive Toprol XL 25 mg tabl et,extended release RxNorm: 821491 1 Tablet(s) PO daily 01/23/2013 07/21/2013 In active amitriptyline 100 mg tablet RxNorm: 828446 1 Tablet(s) PO QHS 01/23/2013 03/17/2013 Inactive Celexa 20 mg tablet RxNorm: 153339 Tablet(s) PO TAKE 1 & 1/2 TABLETS BY HERLINDA TH DAILY 12/13/2012 05/04/2013 Inactive Lasix 40 mg tablet RxNorm: 110474 1 Tablet(s) PO daily 12/13/2012 02/10/2013 Inactive and prn amitriptyline 100 mg tablet RxNorm: 964749 1 Tablet(s) PO QHS 10/21/2012 01/18/2013 Inactive Toprol XL 25 mg tabl et,extended release RxNorm: 140181 1 Tablet(s) PO daily 09/17/2012 01/14/2013 In active potassium chloride E R 10 mEq tablet,extended release RxNorm: 742537 1 Tablet(s) PO daily 08/19/2012 10/13/2013 Inactive Lasix 40 mg tablet RxNorm: 667320 1 Tablet(s) PO daily 08/19/2012 12/12/2012 Inactive and prn Ritalin 10 mg tablet RxNorm: 2410071 1 Tablet(s) PO BID 07/16/2012 10/13/2012 Inactive ciprofloxacin 500 mg tablet RxNorm: 056887 1 Tablet(s) PO BID 07/16/2012 07/22/2012 Inactive Celexa 20 mg tablet RxNorm: 230614 Tablet(s) PO TAKE 1 & 1/2 TABLETS BY HERLINDA TH DAILY 07/15/2012 12/12/2012 Inactive GE100 Blood Glucose Test Strip RxNorm: 1 Miscellaneous BID 07/11/2012 08/04/2013 Inactive and lancets Aldactone 25 mg tablet RxNorm: 346726 1 Tablet(s) PO BID 03/20/2012 03/14/2013 Inactive estradiol 0.5 mg tablet RxNorm: 191588 1 Tablet(s) PO daily 03/15/2012 06/07/2013 Inactive TAKE 1 TABLET BY MOUTH DAILY amitriptyline 100 mg tablet RxNorm: 279061 1 Tablet(s) PO QHS 03/13/2012 10/08/2012 Inactive amitriptyline 100 mg tablet RxNorm: 427851 1 Tablet(s) PO QHS 12/07/2011 01/05/2012 Inactive Kenalog 40 mg/mL Kat p for Injection RxNorm: 7053668 1 Milliliter(s) Inj 12/07/2011 12/07/2011 In active Provigil 200 mg Tab RxNorm: 539716 1 Tablet(s) PO QAM 12/07/2011 01/05/2012 Inactive Flonase Allergy Reli ef 50 mcg/actuation nasal spray,suspension RxNorm: 0903784 [place] NASAL daily as needed No Start Date Active Fish Oil 1,000 mg ca psule RxNorm: 1 Capsule(s) PO BID No Start Date 10/27/2015 Inactive Provigil 200 mg Tab RxNorm: 245230 1 Tablet(s) PO daily No Start Date 10/13/2013 Inactive Lasix 40 mg tablet RxNorm: 095941 1 Tablet(s) PO BID No Start Date 03/25/2015 Inactive Toprol XL 25 mg tabl et,extended release RxNorm: 103460 1 Tablet(s) PO daily No Start Date 09/16/2012 Inactive Prilosec 20 mg Capsu le, delayed release RxNorm: 704207 1 Capsule(s) PO daily No Start Date 10/13/2013 Inactive cyclobenzaprine 10 m g Tab RxNorm: 166152 1 Tablet(s) PO Q8 PRN No Start Date 03/17/2013 Inactive GE100 Blood Glucose Test Strip RxNorm: 1 Miscellaneous BID No Start Date 07/10/2012 Inactive pantoprazole 40 mg t ablet,delayed release RxNorm: 543693 1 Tablet(s) PO daily No Start Date 04/29/2013 Inactive Januvia 50 mg tablet RxNorm: 603659 1 Tablet(s) PO daily No Start Date 10/06/2013 Inactive samples and script Aldactone 25 mg tablet RxNorm: 956323 1 Tablet(s) PO BID No Start Date 03/19/2012 Inactive amitriptyline 100 mg Tab RxNorm: 777574 1 Tablet(s) PO QHS No Start Date 12/06/2011 Inactive Celexa 20 mg tablet RxNorm: 217707 1.5 Tablet(s) PO daily No Start Date 07/14/2012 Inactive potassium chloride E R 10 mEq tablet,extended release RxNorm: 689287 1 Tablet(s) PO BID No Start Date 08/18/2012 Inactive prednisone 20 mg Tab RxNorm: 328341 Tablet(s) PO UD 3 tabs x 2 days, 2 tabs x 2 days, 1 tab x 2 days, 1/2 tab x 2 days, 1/2 tab QOD x 2 doses then stop No Start Date 10/13/2013 Inactive estradiol 0.5 mg tablet RxNorm: 328988 1 Tablet(s) PO daily No Start Date 03/15/2012 Inactive Aldactone 25 mg tablet RxNorm: 835793 1 Tablet(s) PO BID No Start Date 10/12/2013 Inactive Lasix 40 mg tablet RxNorm: 313412 1 Tablet(s) PO BID No Start Date 08/18/2012 Inactive amitriptyline 75 mg Tab RxNorm: 460686 1 Tablet(s) PO QHS No Start Date 10/13/2013 Inactive Medication Administered Medication Codes Instruc tions Start Date Status Kenalog 40 mg/mL suspension for injection RxNorm: 6328562 1Milliliter 03/14/2018 N o longer Active ceftriaxone 500 mg solution for injection RxNorm: 8370854 1Milliliter 05/25/2017 N o longer Active Kenalog 40 mg/mL suspension for injection RxNorm: 4213999 Milliliter 05/25/2017 No longer Active Kenalog 40 mg/mL suspension for injection RxNorm: 0492263 Milliliter 05/02/2016 No longer Active Kenalog 40 mg/mL suspension for injection RxNorm: 7808395 Milliliter 10/28/2015 No longer Active ceftriaxone 500 mg solution for injection RxNorm: 8376348 04/19/2015 No longer A ctive Kenalog 40 mg/mL suspension for injection RxNorm: 3413605 Milliliter 04/19/2015 No longer Active Kenalog 40 mg/mL suspension for injection RxNorm: 8797776 Milliliter 12/24/2014 No longer Active Kenalog 40 mg/mL Susp for Injection RxNorm: 7463250 1Milliliter 03/18/2013 N o longer Active Kenalog 40 mg/mL Susp for Injection RxNorm: 8707325 1Milliliter 12/07/2011 N o longer Active Immunizations [...] disorder) ICD-9: 314.01 10/13/2013 ESSENTIAL HYPERTENSION SNOMED: 70383 000 ICD-9: 401.9 10/13/2013 Depression ICD-9: 311 DIABETES TYPE II SNOMED: 834049428 ICD-9: 250.00 10/13/2013 EDEMA ICD-9: 782.3 03/18 DM W/O COMPLICATION TYPE II, UNCONTROLLED SNOMED: 22213059 ICD-9: 250.02 03/18/2013 Uncontrolled narcolepsy ICD-9: 347.00 01/17/2012 Sacroiliitis ICD-9: 720.2 12/07/2011 Sciatica ICD-9: 724.3 Chronic back pain ICD-9: 724.5 12/07/2011 Reason For Visit Reason For Visit Effective Dates Notes diabetes mellitus 03/14/2018 ADHD headache 05/25/2017 hemorrhoids 05/14/2017 sinus congestion 05/02/2016 earache 10/28/2015 headache 04/19/2015 eyelid edema 12/24/2014 hypertension 10/13/2013 diabetes mellitus 03/18/2013 Hospital Follow Up 07/16/2012 daytime hypersomnolence 01/17/2012 back pain 12/07/2011 Results Observation Observation Code Item Item Code Result Date %Hba1C Xhc563 % HbA1c 12120-6 6.5 % 03/26/2018 %Hba1C Taw673 Gluc Ave 140 mg/dL 03/26/2018 Comp Metabolic Jtb324 NA 141 mEq/L 03/26/2018 Comp Metabolic Qzc737 K 4.5 mEq/L 03/26/2018 Comp Metabolic Dgh320 CL 106 mEq/L 03/26/2018 Comp Metabolic Azv704 CO2 30.0 mEq/L 03/26/2018 Comp Metabolic Vsh927 AN ION GAP 10 03/26/2018 Comp Metabolic Pfg439 GL UCOSE 122 mg/dL 03/26/2018 Comp Metabolic Szx914 Cr eat 1.0 mg/dL 03/26/2018 Comp Metabolic Dsy275 eG FR 60 ml/min/1.73m2 03/26 Comp Metabolic Bho134 BUN 18 mg/dL 03/26/2018 Comp Metabolic Hyt503 B/ C Ratio 17.5 Ratio 03/26/2018 Comp Metabolic Spv094 CA LCIUM 10.1 mg/dL 03/26/2018 Comp Metabolic Afl478 AL K PHOS 67 U/L 03/26/2018 Comp Metabolic Haq753 T(SGOT) 22 U/L 03/26/2018 Comp Metabolic Aqa089 AL T(SGPT) 26 U/L 03/26/2018 Comp Metabolic Lgd598 BI LI T 0.4 mg/dL 03/26/2018 Comp Metabolic Zjx438 AL BUMIN 4.5 g/dL 03/26/2018 Comp Metabolic Him878 TP RO 7.0 g/dL 03/26/2018 Comp Metabolic Hki383 GL OB 2.6 g/dL 03/26/2018 Comp Metabolic Kqf211 A/ G Ratio 1.7 Ratio 03/26/2018 Comp Metabolic Wmy842 Os mo 284 mOsmo 03/26/2018 Lipid Ord30 CHOL 203 mg/dL 03/26/2018 Lipid Ord30 HDL 62.0 mg/dl 03/26/2018 Lipid Ord30 TRIG 94 mg/dL 03/26/2018 Lipid Ord30 LDL 122 mg/dL 03/26/2018 Lipid Ord30 C/HDL 3.3 Ratio 03/26/2018 Cbc With Differential Ord2 WBC 8.55 K/ul 03/26/2018 Cbc With Differential Ord2 RBC 4.69 M/ul 03/26/2018 Cbc With Differential Ord2 HGB 15.0 g/dl 03/26/2018 Cbc With Differential Ord2 Neut% 67.6 % 03/26/2018 Cbc With Differential Ord2 HCT 45.6 % 03/26/2018 Cbc With Differential Ord2 MCV 97.2 fl 03/26/2018 Cbc With Differential Ord2 Lymph% 23.5 % 03/26/2018 Cbc With Differential Ord2 MCH 32.0 pg 03/26/2018 Cbc With Differential Ord2 [place]% 6.9 % 03/26/2018 Cbc With Differential Ord2 [...] 2.01 K/ul 03/26/2018 Cbc With Differential Ord2 [place] ABS# 0.6 K/ul 03/26/2018 Cbc With Differential Ord2 Eos ABS# 0.1 K/ul 03/26/2018 Cbc With Differential Ord2 Baso ABS# 0.0 K/ul 03/26/2018 Tsh Ord6 TSH (3rd IS) 1.30 uIU/mL 03/26/2018 Prolactin 012846 PROLACT IN 5.2 ng/mL 05/15/2017 Cbc With Differential Ord2 WBC 9.75 K/ul 05/14/2017 Cbc With Differential Ord2 RBC 4.80 M/ul 05/14/2017 Cbc With Differential Ord2 HGB 15.3 g/dl 05/14/2017 Cbc With Differential Ord2 HCT 46.4 % 05/14/2017 Cbc With Differential Ord2 Neut% 67.1 % 05/14/2017 Cbc With Differential Ord2 Lymph% 23.8 % 05/14/2017 Cbc With Differential Ord2 MCV 96.7 fl 05/14/2017 Cbc With Differential Ord2 [place]% 7.6 % 05/14/2017 Cbc With Differential Ord2 MCH 31.9 pg 05/14/2017 Cbc With Differential Ord2 MCHC 33.0 pg 05/14/2017 Cbc With Differential Ord2 Eos% 1.2 % 05/14/2017 Cbc With Differential Ord2 PLT 369 K/ul 05/14/2017 Cbc With Differential Ord2 Baso% 0.3 % 05/14/2017 Cbc With Differential Ord2 RDW 13.2 % 05/14/2017 Cbc With Differential Ord2 Neut ABS# 6.54 K/ul 05/14/2017 Cbc With Differential Ord2 Lymph ABS# 2.32 K/ul 05/14/2017 Cbc With Differential Ord2 [place] ABS# 0.7 K/ul 05/14/2017 Cbc With Differential Ord2 Eos ABS# 0.1 K/ul 05/14/2017 Cbc With Differential Ord2 Baso ABS# 0.0 K/ul 05/14/2017 Tsh Ord6 hTSH II 1.69 uIU/mL 05/14/2017 %Hba1C Zxp663 % HbA1c 27335-9 6.4 % 05/14/2017 %Hba1C Ntz455 Gluc Ave 137 mg/dL 05/14/2017 Comp Metabolic Wfq991 NA 138 mEq/L 05/14/2017 Comp Metabolic Kql381 K 4.2 mEq/L 05/14/2017 Comp Metabolic Lod938 CL 102 mEq/L 05/14/2017 Comp Metabolic Osn321 CO2 29.0 mEq/L 05/14/2017 Comp Metabolic Ase185 AN ION GAP 11 05/14/2017 Comp Metabolic Wfg520 GL UCOSE 114 mg/dL 05/14/2017 Comp Metabolic Qcz412 Cr eat 1.0 mg/dL 05/14/2017 Comp Metabolic Uhz886 eG FR 64 ml/min/1.73m2 05/14 Comp Metabolic Ppl272 BUN 22 mg/dL 05/14/2017 Comp Metabolic Tva300 B/ C Ratio 22.7 Ratio 05/14/2017 Comp Metabolic Tco611 CA LCIUM 9.6 mg/dL 05/14/2017 Comp Metabolic Fms925 AL K PHOS 91 U/L 05/14/2017 Comp Metabolic Veu343 T(SGOT) 13 U/L 05/14/2017 Comp Metabolic Zvj582 AL T(SGPT) 16 U/L 05/14/2017 Comp Metabolic Qyb035 BI LI T 0.4 mg/dL 05/14/2017 Comp Metabolic Aay113 AL BUMIN 4.2 g/dL 05/14/2017 Comp Metabolic Suk230 TP RO 6.9 g/dL 05/14/2017 Comp Metabolic Eyx719 GL OB 2.7 g/dL 05/14/2017 Comp Metabolic Tzc774 A/ G Ratio 1.6 Ratio 05/14/2017 Comp Metabolic Wrf480 Os mo 280 mOsmo 05/14/2017 Lipid Ord30 CHOL 219 mg/dL 05/14/2017 Lipid Ord30 HDL 67.0 mg/dl 05/14/2017 Lipid Ord30 TRIG 157 mg/dL 05/14/2017 Lipid Ord30 LDL 121 mg/dL 05/14/2017 Lipid Ord30 C/HDL 3.3 Ratio 05/14/2017 Prolactin 370617 PROLACT IN 4.5 ng/mL 05/04/2016 Cbc With Differential Ord2 WBC 8.63 K/ul 05/03/2016 Cbc With Differential Ord2 RBC 4.61 M/ul 05/03/2016 Cbc With Differential Ord2 HGB 14.9 g/dl 05/03/2016 Cbc With Differential Ord2 HCT 45.1 % 05/03/2016 Cbc With Differential Ord2 Neut% 62.8 % 05/03/2016 Cbc With Differential Ord2 Lymph% 27.6 % 05/03/2016 Cbc With Differential Ord2 MCV 97.8 fl 05/03/2016 Cbc With Differential Ord2 MCH 32.3 pg 05/03/2016 Cbc With Differential Ord2 [place]% 7.0 % 05/03/2016 Cbc With Differential Ord2 MCHC 33.0 pg 05/03/2016 Cbc With Differential Ord2 Eos% 2.0 % 05/03/2016 Cbc With Differential Ord2 Baso% 0.6 % 05/03/2016 Cbc With Differential Ord2 PLT 344 K/ul 05/03/2016 Cbc With Differential Ord2 RDW 12.7 % 05/03/2016 Cbc With Differential Ord2 Neut ABS# 5.43 K/ul 05/03/2016 Cbc With Differential Ord2 Lymph ABS# 2.38 K/ul 05/03/2016 Cbc With Differential Ord2 [place] ABS# 0.6 K/ul 05/03/2016 Cbc With Differential Ord2 Eos ABS# 0.2 K/ul 05/03/2016 Cbc With Differential Ord2 Baso ABS# 0.1 K/ul 05/03/2016 Comp Metabolic Pwb608 NA 137 mEq/L 05/03/2016 Comp Metabolic Pcx926 K 4.3 mEq/L 05/03/2016 Comp Metabolic Hdb305 CL 102 mEq/L 05/03/2016 Comp Metabolic Jmu124 CO2 25.0 mEq/L 05/03/2016 Comp Metabolic Skf331 AN ION GAP 14 05/03/2016 Comp Metabolic Rjq132 GL UCOSE 87 mg/dL 05/03/2016 Comp Metabolic Bcv946 Cr eat 0.8 mg/dL 05/03/2016 Comp Metabolic Iua148 eG FR 76 ml/min/1.73m2 05/03 Comp Metabolic Hgj361 BUN 11 mg/dL 05/03/2016 Comp Metabolic Don740 B/ C Ratio 13.1 Ratio 05/03/2016 Comp Metabolic Emm753 CA LCIUM 9.3 mg/dL 05/03/2016 Comp Metabolic Mji650 AL K PHOS 76 U/L 05/03/2016 Comp Metabolic Zig253 T(SGOT) 27 U/L 05/03/2016 Comp Metabolic Bze825 AL T(SGPT) 25 U/L 05/03/2016 Comp Metabolic Cyp316 BI LI T 0.3 mg/dL 05/03/2016 Comp Metabolic Qjy041 AL BUMIN 4.1 g/dL 05/03/2016 Comp Metabolic Jkl460 TP RO 7.1 g/dL 05/03/2016 Comp Metabolic Jit649 GL OB 3.0 g/dL 05/03/2016 Comp Metabolic Xma442 A/ G Ratio 1.4 Ratio 05/03/2016 Comp Metabolic Eoe151 Os mo 273 mOsmo 05/03/2016 Tsh Ord6 hTSH II 0.70 uIU/mL 05/03/2016 %Hba1C Has161 % HbA1c 40237-2 5.9 % 05/03/2016 %Hba1C Roj339 Gluc Ave 123 mg/dL 05/03/2016 Urine Culture Ucult Comp lete >100,000 col/ml aerobic grow th sent to ref lab 03/17/2015 Culture Urine [id number] URI NE CULTURE SEE NOTES 01/28/2015 Culture Urine [id number] Con tinued Results 01/28/2015 Urine Culture Ucult Comp lete >100,000 col/ml aerobic grow th sent to ref lab 01/26/2015 URINALYSIS NONAUTO W/O SCOPE 45469 Specific Salol 1.005 DateTime(Free Text in ) URINALYSIS NONAUTO W/O SCOPE 92481 PH 7.5 DateTime(Free Ruben t in ) URINALYSIS NONAUTO W/O SCOPE 78298 GLUCOSE neg DateTime(Free Ruben t in Apr) URINALYSIS NONAUTO W/O SCOPE 46710 Protein neg DateTime(Free Ruben t in Aprima) URINALYSIS NONAUTO W/O SCOPE 48489 Blood trace DateTime(Free T ext in Aprima) URINALYSIS NONAUTO W/O SCOPE 68372 Bilirubin small DateTime(Free T ext in Apr) URINALYSIS NONAUTO W/O SCOPE 15953 Ketones neg DateTime(Free Ruben t in Aprima) URINALYSIS NONAUTO W/O SCOPE 77917 Urobilinogen 0.2 DateTime(Free Text in Apr) URINALYSIS NONAUTO W/O SCOPE 82322 Nitrite neg DateTime(Free Ruben t in Aprima) URINALYSIS NONAUTO W/O SCOPE 52956 Leukocytes moderate DateTime(Free Text in Apr) Review [...] masses 03/18/2013 None Full Exam - General 1995 Respiratory auscultation Overall: breath sounds clear bilaterally 03/18/2013 None Full Exam - General 1995 Respiratory respiratory effort/rhythm Overall: no retractions 03/18/2013 None Full Exam - General 1995 Respiratory respiratory effort/rhythm Overall: normal rate 03/18/2013 [...] CPT-4: J3301 03/14/2018 IMMUNIZATION ADMIN CPT- 4: 23482 03/14/2018 ADACEL TDAP VACCINE 7 YRS/> IM CPT-4: 96171 03/14/2018 TRIAMCINOLONE ACET I [place] NOS CPT-4: J3301 05/25/2017 ROCEPHIN, PER 250 MG CPT-4: J0696 05/25/2017 TRIAMCINOLONE ACET I [place] NOS CPT-4: J3301 05/02/2016 TRIAMCINOLONE ACET I [place] NOS CPT-4: J3301 10/28/2015 ROCEPHIN, PER 250 MG CPT-4: J0696 04/19/2015 TRIAMCINOLONE ACET I [place] NOS CPT-4: J3301 04/19/2015 URINALYSIS NONAUTO W /O SCOPE CPT-4: 35942 03/15/2015 URINALYSIS NONAUTO W /O SCOPE CPT-4: 43579 01/25/2015 TRIAMCINOLONE ACET I [place] NOS CPT-4: J3301 12/24/2014 THER/PROPH/DIAG INJ SC/IM CPT-4: 79356 12/24/2014 URINALYSIS NONAUTO W /O SCOPE CPT-4: 99061 07/16/2012 DRAIN/INJECT JOINT/B URSA CPT-4: 54603 12/07/2011 Vital Signs Date Vital 03/14/2018 Blood Pressure 1: 108/74 Code: 8480-6 BMI: 33.3 Code: 00760-0 Heart Rate 1: 91 bpm Height: 5'2" SpO2: 98% Weight: 182 lbs 05/25/2017 Blood Pressure 1: 142/82 Code: 8480-6 BMI: 32.0 Code: 62291-7 Heart Rate 1: 96 bpm Height: 5'2" SpO2: 94% Temperature: 37.3 (C ) / 99.2 (F) Weight: 175 lbs 05/14/2017 Blood Pressure 1: 142/78 Code: 8480-6 BMI: 32.0 Code: 08966-3 Heart Rate 1: 111 bpm Height: 5'2" SpO2: 95% Weight: 175 lbs 05/02/2016 Blood Pressure 1: 124/74 Code: 8480-6 BMI: 32.4 Code: 43965-9 Heart Rate 1: 107 bpm Height: 5'2" SpO2: 98% Weight: 177 lbs 10/28/2015 Blood Pressure 1: 124/80 Code: 8480-6 BMI: 32.6 Code: 48997-0 Heart Rate 1: 78 bpm Height: 5'2" SpO2: 91% Weight: 178 lbs 04/19/2015 Blood Pressure 1: 110/78 Code: 8480-6 BMI: 31.5 Code: 97860-3 Heart Rate 1: 88 bpm Height: 5'2" SpO2: 96% Weight: 172 lbs 12/24/2014 Blood Pressure 1: 112/72 Code: 8480-6 BMI: 30.4 Code: 78038-7 Heart Rate 1: 88 bpm Height: 5'2" Weight: 166 lbs 10/13/2013 Blood Pressure 1: 104/78 Code: 8480-6 BMI: 30.7 Code: 43865-0 Heart Rate 1: 100 bpm Height: 5'2" [...] State s she was sitting in the 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 P ATIENT, LEVEL IV Diagnosis: Type 2 diabetes mellitus with hyperglycemia[ICD10: E11.65] Diagnosis: Mixed hyperlipidemia[ICD10: E78.2] Diagnosis: Other allergic rhinitis[ICD10: J30.89] Diagnosis: Attention-deficit hyperactivity disorder, combined type[ICD10: F90.2] Diagnosis: Encounter for immunization[ICD10: Z23] Maci Martinez MD, [facility] CPT-4: 01297 03/14/2018 13110 EST. PATIENT, LEVEL IV Diagnosis: Other acute sinusitis[ICD10: J01.80] Diagnosis: Other allergic rhinitis[ICD10: J30.89] Michelle Martinez MD, [facility] CPT-4: 99108 05/25/2017 99817 EST. 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 P ATIENT, LEVEL III Diagnosis: Allergic rhinitis due to pollen[ICD10: J30.1] Diagnosis: Otalgia, right ear[ICD10: H92.01] Maci Martinez MD, [facility] CPT- 4: 87509 10/28/2015 ([id number]) 47847 EST. P ATIENT, LEVEL III Diagnosis: Acute maxillary sinusitis, unspecified[ICD10: J01.00] Diagnosis: Allergic rhinitis, unspecified[ICD10: J30.9] Maci Martinez MD, [facility] CPT-4: 43112 04/19/2015 ([id number]) 33154 EST. P ATIENT, LEVEL III Diagnosis: Swelling of eyelid[ICD9: 374.82] Diagnosis: Sunburn[ICD9: 692.71] Maci Martinez MD, [facility] CPT-4: 01638 12/24/2014 ([id number]) 93834 EST. P ATIENT, LEVEL IV Diagnosis: ESSENTIAL HYPERTENSION[SNOMED: 45291645] Diagnosis: DIABETES TYPE II[SNOMED: 896974327] Diagnosis: ADHD (attention deficit hyperactivity disorder)[ICD9: 314.01] Diagnosis: Depression[ICD9: 311] Joy Martinez MD, [facility] CPT-4: 57708 10/13/2013 ([id number]) 18995 EST. P ATIENT, LEVEL IV Diagnosis: DM W/O COMPLICATION TYPE II, UNCONTROLLED[SNOMED: 43004048] Diagnosis: ESSENTIAL HYPERTENSION[SNOMED: 80423141] Diagnosis: EDEMA[ICD9: 782.3] Joy Martinez MD, [facility] CPT-4: 86383 03/18/2013 ([id number]) 00553 EST. P ATIENT, LEVEL IV Diagnosis: UTI[ICD9: 599.0] Diagnosis: DM W/O COMPLICATION TYPE II, UNCONTROLLED[SNOMED: 07931980] Joy Martinez MD, [facility] CPT-4: 19224 07/16/2012 ([id number]) 36918 EST. P ATIENT, LEVEL III Diagnosis: Uncontrolled narcolepsy[ICD9: 347.00] Diagnosis: ESSENTIAL HYPERTENSION[SNOMED: 03327588] Joy Martinez MD, C CPT-4: 86127 01/17/2012 Office outpatient ne w 30 minutes Diagnosis: Sciatica[ICD9: 724.3] Diagnosis: Chronic back pain[ICD9: 724.5] Diagnosis: ESSENTIAL HYPERTENSION[SNOMED: 22430587] Joy Martinez MD, C CPT-4: 49910 12/07/2011 Plan of Care Planned Activity Notes C odes Status Date Appointment: [phone] ([facility] min[facility] 03/14/2018 Patient Education: Patient Medication Summary Completed 03/14/2018 Patient Education: Diabetes Completed 03/14/2018 Patient Education: Cholesterol Management Completed 03/14/2018 Appointment: Michelle Mor[facility]el[facility] (15 min) Moderate 05/25/2017 Patient Education: Patient Medication Summary Completed 05/25/2017 Referral: Jules Maria Referral Initiated 05/24/2017 Appointment: Michelle Mora WPtel: [facility] (30 min) Complex 05/14/2017 Patient Education: Patient Medication Summary Completed 05/14/2017 Patient Education: Obesity Completed 05/14/2017 Care Plan: Referral Order SNOMED-CT : 778874604 Pending 05/14/2017 Appointment: Maci Moreno WPtel: [phone] (15 min) Moderate 05/02/2016 Patient Education: Patient Medication Summary Completed 05/02/2016 Appointment: Maci Moreno WPtel: [phone] (30 min) Complex 10/28/2015 Patient Education: Patient Medication Summary Completed 10/28/2015 Patient Education: Obesity Completed 10/28/2015 Appointment: Maci Moreno WPtel: [phone] (15 min) Moderate 04/19/2015 Patient Education: Patient Medication Summary Completed 04/19/2015 Appointment: Lab Draw 03/15/2015 Patient Education: Patient Medication Summary Completed 03/15/2015 Patient Education: Patient Medication Summary Completed 01/25/2015 Patient Education: Patient Medication Summary Completed 12/24/2014 Appointment: Joy [facility]el[facility] Follow [facility] 10/13/2013 Patient Education: Patient Medication Summary Completed 10/13/2013 Patient Education: Hypertension Completed 10/13/2013 Appointment: Maci Moreno WPtel: [phone] Follow up 08/29/2013 Appointment: Joy Martinez [facility]Ptel[facility] Follow up 06/23/2013 Appointment: Joy Martinez WPtel: [facility] Follow up 03/18/2013 Patient Education: Patient Medication Summary Completed 03/18/2013 Patient Education: Hypertension Completed 03/18/2013 Appointment: Joy Martinez WPtel: [facility] Follow up 10/15/2012 Appointment: Maci Moreno WPtel: [phone] Diabetic education 07/22/2012 Appointment: Joy Martinez [facility]Ptel[facility] [facility] follow up 07/16/2012 Patient Education: Patient Medication Summary Completed 07/16/2012 Appointment: Joy Martinez [facility]Ptel[facility] Other 01/17/2012 Patient Education: Patient Medication Summary Completed 01/17/2012 Patient Education: High Blood Pressure: Essential Hypertension Completed 01/17/2012 Appointment: Maci Moreno WPtel: [phone] New Patient 12/07/2011 Patient Education: Patient Medication Summary Completed 12/07/2011 Patient Education: High Blood Pressure: Essential Hypertension Completed 12/07/2011 Referral: Jules Maria Referral Initiated Instructions No Instructions
--- OUTSIDE RECORDS SUMMARY | 2019-11-02 07:12 | XMS REPORT ---
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 Fitter'S Assistant Name Role Phone JAIRON TAPIA CP Unavailable Allergies, Adverse Reactions, Alerts Substance Reaction Event Type Erythromycin nausea and vomiting Drug Allergy Problems Problem Type Condition Code Onset Dates Condition Statu s Assessment Sinusitis J32.9 Active Problem DTAP TEST V06.1 Active Medications Medication Code System Code Instructions Start Date End Date Status Dosage Aldactone [facility] [address]-35 25 MG Orally Twice a day not defined PredniSONE [facility] [address]-05 40 mg Orally Once a day sta rting 05/28/15 May 27, 2015 May 31, 2015 1 tablet with food Amitriptyline HCl [facility] [address]-21 125mg Orally Once a day 1 tablet Augmentin [facility] [address]-19 875-125 MG Orally every 12 hrs De 2014Jun 06, 2015 1 tablet Estradiol [facility] [address]-04 10 MCG Orally Once a day 1 tablet Diflucan [facility] [address]-32 150 MG Orally On ce a day; may repeat in 4-5 days prn vaginal itching May 27, 2015 1 tablet Flonase Allergy Relief [facility] [address]-45 50 MCG/ACT Nasall y 2 times a day May 27, 2015 1 spray in each nost ril Flonase ND 0 not defined Mucinex DM Maximum Strength [facility] [address]-36 not defined Protonix [facility] [address]-01 40 MG Orally Once a day 1 tablet Celexa [facility] [address]-68 20 MG Orally Once a day 1.5 Toprol XL [facility] [address]-19 50 MG Orally Once a day not defined Lasix [facility] [address]-89 40 MG Orally BID n ot defined Adderall [facility] [address]-08 20 MG Orally Once a day 1 tablet in the morning Procedures Procedure Coding System Code Date SOLUMEDROL (UP TO 125 MG) CPT-4 J2930 May THER/PROPH/DIAG INJ, SC/IM CPT-4 60513 May 182014 Office Visit, Est Pt., Level 3 CPT-4 63961 D 2014 Vital Signs Date/Time: May 27, 2015 Temperature 97.9 F Weight 169 lbs Height 61 in BMI 31.93 Index Blood Pressure Diastolic 74 mmHg Blood Pressure Systolic 106 mmHg Cardiac Monitoring Heart Rate 96 bpm Results No Known Results Summary Purpose [employer] Submission
--- OUTSIDE RECORDS SUMMARY | 2019-11-02 07:12 | XMS REPORT ---
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 Name Role Phone DILLON LINDSEY STEVENSON Unavailable PROBLEMS Type Condition ICD9-CM Code JAB69-OX Code Onset Dates Condition S tatus SNOMED Code Problem DTAP TEST V06.1 Active ALLERGIES Substance Reaction Event Type Date Status Erythromycin nausea and vomiting Drug Allergy May, Active ENCOUNTERS Encounter Location Date Diagnosis [facility] [address] [address] May, Bronchitis J40 and Upper res piratory tract infection, unspecified type J06.9 [facility] [address] [address] Jun, Sore throat J02.9 and Pharyn gitis due to other organism J02.8 [facility] [address] [address] May, Sinusitis J32.9 [place] [address] [address] Nov, [facility] [address] [address] Nov, IMMUNIZATIONS No Known Immunizations SOCIAL HISTORY Never Assessed REASON FOR VISIT cough, chest congestion. been sick for a week. [email or web address] PLAN OF CARE Activity Details Follow Up prn Reason: VITAL SIGNS Height 61 in 2017-05-22 Weight 176.8 lbs 2017-05-22 Temperature 97.7 degrees Fahrenheit 2017-05-22 Heart Rate 96 bpm 2017-05-22 Respiratory Rate 20 2017-05-22 BMI 33.40 kg/m2 2017-05-22 Blood pressure systolic 136 mmHg 2017-05-22 Blood pressure diastolic 82 mmHg 2017-05-22 MEDICATIONS Medication Instructions Dosage Frequency Start Date End Date Duration S tatus Aldactone 25 MG Orally Twice a day 12h Active Toprol XL 50 MG Orally Once a day 24h Active Celexa 20 MG Orally Once a day 1.5 24h A ctive Lasix 40 MG Orally BID 12h Active Amitriptyline HCl 125mg Orally Once a day 1 tablet 24h Active Protonix 40 MG Orally Once a day 1 tablet 24h Active Mucinex DM Maximum Strength Active PredniSONE 20 MG Orally Once a day 1 tablet 24h May, May, 5 days Active Azithromycin 250 MG Orally Once a day 2 tablets on the rst day, then 1 tablet daily for 4 days 24h May, May, 5 day(s) Active Estradiol 10 MCG Orally Once a day 1 tablet 24h Active Flonase Active Diflucan 150 MG Orally Once a day; may repeat in 4-5 day s prn vaginal itching 1 tablet May, 1 dose Not-Taking Adderall 20 MG Orally Once a day 1 tablet in the morning 24h Active Flonase Allergy Relief 50 MCG/ACT Nasally 2 times a day 1 spray in each nostril 12h May, Active RESULTS No Results PROCEDURES No Known procedures INSTRUCTIONS MEDICATIONS ADMINISTERED No Known Medications MEDICAL (GENERAL) HISTORY Type Description Date Medical History Hypertension heart skips with activity Medical History DM Medical History SI Joint pain Medical History GERD Medical History Periph. Edema Medical History depression/ anxiety Medical History Pituary Tumor Surgical History Hysterectomy 2004 Surgical History CSection x3 1992 Surgical History Lumpectomy 1997 Hospitalization History Acute resspiratory distress syndrome 2004
[2019-11-02 07:18] LABS: BASOPHILS % (AUTO) 0 % (0-10); EOSINOPHILS # (AUTO) 0.3 10^3/uL (0.0-0.3); EOSINOPHILS % (AUTO) 3 % (0-10); HEMATOCRIT 41 % (35-52); HEMOGLOBIN 13.8 G/DL (11.5-16.0); LYMPHOCYTES # (AUTO) 3.1 X 10^3 (1.0-4.0); LYMPHOCYTES % (AUTO) 33 % (12-44); MEAN CORPUSCULAR HEMOGLOBIN 32 PG (25-34); MEAN CORPUSCULAR HGB CONC 34 G/DL (32-36); MEAN CORPUSCULAR VOLUME 94 FL (80-99); MEAN PLATELET VOLUME 8.5 FL (7.4-10.4); MONOCYTES # (AUTO) 0.5 X 10^3 (0.0-1.0); MONOCYTES % (AUTO) 6 % (0-12); NEUTROPHILS # (AUTO) 5.4 X 10^3 (1.8-7.8); NEUTROPHILS % (AUTO) 58 % (42-75); PLATELET COUNT 341 10^3/uL (130-400); RED CELL DISTRIBUTION WIDTH 12.1 % (10.0-14.5); WHITE BLOOD COUNT 9.3 10^3/uL (4.3-11.0)
[2019-11-02 07:26] LABS: ALBUMIN 4.1 GM/DL (3.2-4.5); CHLORIDE 106 MMOL/L (98-107); POTASSIUM 3.8 MMOL/L (3.6-5.0); SODIUM 140 MMOL/L (135-145)
[2019-11-02 07:27] LABS: CALCIUM 9.2 MG/DL (8.5-10.1)
[2019-11-02 07:28] LABS: GLUCOSE 123 MG/DL (70-105)
[2019-11-02 07:30] LABS: BILIRUBIN,TOTAL 0.3 MG/DL (0.1-1.0); CARBON DIOXIDE 21 MMOL/L (21-32)
[2019-11-02 07:32] LABS: ALKALINE PHOSPHATASE 90 U/L (40-136); CREATININE SERUM 0.97 MG/DL (0.60-1.30); GFR ESTIMATED 60
[2019-11-02 07:33] LABS: BUN/CREATININE RATIO 12
[2019-11-02 07:35] LABS: ALANINE AMINOTRANSFERASE 28 U/L (0-55)
[2019-11-02 07:43] LABS: FIBRIN DEGRADATION PRODUCTS 0.3 UG/ML (0.00-0.49); INR 0.9 (0.8-1.4); PROTHROMBIN TIME PATIENT 12.4 SEC (12.2-14.7)
--- NOTE | 2019-11-02 07:48 | ED Neurological Problem ---
General Chief Complaint: Neuro-Stroke Like Symptoms Stated Complaint: RIGHT SIDE WEAKNESS Nursing Triage Note: PT AMBULATED TO ROOM 7 PT CO OF R SIDED FACIAL DROOPING UPON AWAKENING THIS AM AT APPROX 0630. 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 Nursing Sepsis Screen: No Definite Risk Source: patient Exam Limitations: no limitations History of Present Illness Date Seen by Provider: November 02, 2019 Time Seen by Provider: 06:49 Initial Comments Here with report of onset of facial drooping on the right including the forehead. Also feels paresthesia on the right side of face including tongue. Noticed this this morning when she woke up and she was applying makeup prior to coming to work. She states that she couldn't get her right eye to open right. Noticed taste disturbance yesterday afternoon. Last known well time otherwise last night prior to going to bed which was actually quite late. She states that she went to bed between 1 and 2 AM. She has been under a lot of stress lately secondary to caring for elderly parents. Denies weakness or numbness to any other area of the body. She was able to walk in without difficulty. 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 Timing/Duration: 4-6 hours, other (last known well time 4-5 hours prior to arrival) Severity: moderate Associated Symptoms: No fever/chills, No nausea/vomiting; paresthesia; No slurred speech, No trouble walking, No vision changes; other (facial weakness and droop) Allergies and Home Medications Allergies Coded Allergies: No Known Drug Allergies (Unverified , 02/23/09) Home Medications Acetaminophen 325 Mg Tablet, 650 MG PO PRN, (Reported) EVERY 4 HOURS NEEDED FOR PAIN Amitriptyline Hcl 100 Mg Tablet, 100 MG PO HS, (Reported) Citalopram Hydrobromide 20 Mg Tablet, 1.5 TAB PO DAILY, (Reported) Estradiol 0.5 Mg Tablet, 0.5 MG PO DAILY, (Reported) Furosemide 40 Mg Tab, 40 MG PO BID, (Reported) Magnesium Oxide 400 Mg Capsule, 400 MG PO --, (Reported) Metformin Hcl 500 Mg Tablet, 250 MG PO BID, (Reported) Methylphenidate Hcl 10 Mg Tablet, 10 MG PO BID, (Reported) Metoprolol Succinate 25 Mg Tab.sr.24h, 25 MG PO DAILY, (Reported) Pantoprazole Sod 40 Mg Tab, 40 MG PO BID, (Reported) Potassium Chloride 20 Meq Tab.prt.sr, 20 MEQ PO , (Reported) Spironolactone 25 Mg Tablet, 25 MG PO BID, (Reported) Sucralfate 1 Gm Tab, 1 TAB PO ACHS, (Reported) DISSOLVED IN 30 ML WATER FOR SLURRY AND TAKE DISSOLVED [Albuterol] , 2 INHALER INH BID, (Reported) 2 INHAL. BID AND Q 2 HRS. NEEDED FOR SHORTNESS OF AIR Patient Home Medication List Home Medication List Reviewed: Yes Review of Systems Review of Systems Constitutional: see HPI; No chills, No fever Eyes: Denies Blindness, Denies Blurred Vision; Other (weakness of right upper and lower eyelid) Ears, Nose, Mouth, Throat: ear pain (right-sided); denies mouth pain Respiratory: No cough, No short of breath, No wheezing Cardiovascular: no symptoms reported Gastrointestinal: No abdominal pain, No nausea, No vomiting Genitourinary: no symptoms reported Musculoskeletal: see HPI; No joint pain, No muscle pain; muscle weakness; No neck pain Skin: no symptoms reported Psychiatric/Neurological: See HPI, Numbness, Weakness Endocrine: No Symptoms Reported All Other Systems Reviewed Negative Unless Noted: Yes Past Dittksz-Hffovl-Fgqcgj Hx Past Med/Social Hx: Reviewed Nursing Past Med/Soc Hx Patient Social History Alcohol Use: Denies Use Recreational Drug Use: No Smoking Status: Never a Smoker Recent Foreign Travel: No Contact w/Someone Who Travel: No Recent Infectious Disease Expo: No Recent Hopitalizations: No Physical Abuse: No Sexual Abuse: No Immunizations Up To Date Tetanus Booster (TDap): Unknown Date of Pneumonia Vaccine: May 18, 2009 Date of Influenza Vaccine: Mar 18, 2012 Past Medical History Surgeries: Yes (SHOULDER SURG) Respiratory: No Cardiac: Yes Neurological: No Reproductive Disorders: Yes Gastrointestinal: No Musculoskeletal: No Endocrine: Yes Pituitary Disease Loss of Vision: Denies Hearing Impairment: Denies Cancer: No Psychosocial: No Integumentary: No Blood Disorders: No Family Medical History Reviewed Nursing Family Hx Physical Exam Vital Signs Vital Signs - First Documented 11/02/19 06:45 Temp 37.2 Pulse 104 Resp 18 B/P (MAP) 173/106 (128) Pulse Ox 100 Capillary Refill : Less Than 3 Seconds Height, Weight, BMI Height: '" Weight: lbs. oz. kg; 31.00 BMI Method:Stated General Appearance: WD/WN, mild distress HEENT: PERRL/EOMI, TMs normal, pharynx normal, other (right-sided tongue weakness. Right sided facial droop and weakness including for head. Difficulty with completely opening or closing eye on the right.) Neck: full range of motion, supple Respiratory: lungs clear, normal breath sounds Cardiovascular: regular rate, rhythm, no murmur Gastrointestinal: non tender, soft Back: normal inspection, no CVA tenderness, no vertebral tenderness Extremities: normal range of motion, non-tender, normal inspection, no pedal edema Neurologic/Psychiatric: alert, oriented x 3, motor weakness (facial droop), other (paresthesia along the right side of face) Crainal Nerves: normal hearing, PERRL, facial asymmetry (but stated), tongue deviation to R Coordination/Gait: normal finger to nose, normal gait Motor/Sensory: no pronator drift, sensory deficit (right side of face but otherwise normal throughout the rest of the body) Skin: normal color, warm/dry Stroke NIH Stroke Scale Assessment Level of Consciousness: 0=Alert (0), Level of Consciousness-Questions: 0=Answers both month/age (0), LOC Commands: 0=Performs both tasks (0), Visual Hazel: 0=No visual loss (0), Facial Movement (Facial Paresis): 1=Minor paralysis (1), Motor Function-Arms Right: 0=No drift (0), Motor Function-Arms Left: 0=No drift (0), Motor Function-Legs Right: 0=No drift (0), Motor Function-Legs Left: 0=No drift (0), Limb Ataxia: 0=Absent (0), Sensory: 1=Mild to Moderate loss (1), Best Language: 0=No aphasia (0), Dysarthria: 0=Normal (0), Extinction & Inattention: 0=No abnormality (0), Total: Progress/Results/Core Measures Results/Orders Lab Results Laboratory Tests Test 11/02/19 07:05 11/02/19 07:35 Range/Units White Blood Count 9.3 4.3-11.0 10^3/uL Red Blood Count 4.33 L 4.35-5.85 10^6/uL Hemoglobin 13.8 11.5-16.0 G/DL Hematocrit 41 35-52 % Mean Corpuscular Volume 94 80-99 FL Mean Corpuscular Hemoglobin 32 25-34 PG Mean Corpuscular Hemoglobin Concent 34 32-36 G/DL Red Cell Distribution Width 12.1 10.0-14.5 % Platelet Count 341 130-400 10^3/uL Mean Platelet Volume 8.5 7.4-10.4 FL Neutrophils (%) (Auto) 58 42-75 % Lymphocytes (%) (Auto) 33 12-44 % Monocytes (%) (Auto) 6 0-12 % Eosinophils (%) (Auto) 3 0-10 % Basophils (%) (Auto) 0 0-10 % Neutrophils # (Auto) 5.4 1.8-7.8 X 10^3 Lymphocytes # (Auto) 3.1 1.0-4.0 X 10^3 Monocytes # (Auto) 0.5 0.0-1.0 X 10^3 Eosinophils # (Auto) 0.3 0.0-0.3 10^3/uL Basophils # (Auto) 0.0 0.0-0.1 10^3/uL Prothrombin Time 12.4 12.2-14.7 SEC INR Comment 0.9 0.8-1.4 Activated Partial Thromboplast Time 32 24-35 SEC D-Dimer 0.30 0.00-0.49 UG/ML Sodium Level 140 135-145 MMOL/L Potassium Level 3.8 3.6-5.0 MMOL/L Chloride Level 106 98-107 MMOL/L Carbon Dioxide Level 21 21-32 MMOL/L Anion Gap 13 5-14 MMOL/L Blood Urea Nitrogen 12 7-18 MG/DL Creatinine 0.97 0.60-1.30 MG/DL Estimat Glomerular Filtration Rate 60 BUN/Creatinine Ratio 12 Glucose Level 123 H 70-105 MG/DL Calcium Level 9.2 8.5-10.1 MG/DL Corrected Calcium 9.1 8.5-10.1 MG/DL Total Bilirubin 0.3 0.1-1.0 MG/DL Aspartate Amino Transf (AST/SGOT) 26 5-34 U/L Alanine Aminotransferase (ALT/SGPT) 28 0-55 U/L Alkaline Phosphatase 90 40-136 U/L Troponin I < 0.028 <0.028 NG/ML Total Protein 7.0 6.4-8.2 GM/DL Albumin 4.1 3.2-4.5 GM/DL Glucometer 129 H 70-110 MG/DL My Orders Orders - KAYLIN MABRY MD Cbc With Automated Diff (11/02/19 07:07) Protime With Inr (11/02/19 07:07) Partial Thromboplastin Time (11/02/19 07:07) Comprehensive Metabolic Panel (11/02/19 07:07) Fibrin Degradation Products (11/02/19 07:07) Troponin I (11/02/19 07:07) Chest 1 View, Ap/Pa Only (11/02/19 07:07) Ekg Tracing (11/02/19 07:07) Nothing By Mouth (11/02/19 Lunch) Accucheck Stat ONCE (11/02/19 07:07) Ed Iv/Invasive Line Start (11/02/19 07:07) Vital Signs Stroke Patient Q15M (11/02/19 07:07) Ct Head Wo-R/O Stroke (11/02/19 07:07) Intake & Output 06,14,22 (11/02/19 07:07) Monitor-Rhythm Ecg Trace Only (11/02/19 07:07) Dysphagia Screening Tool (11/02/19 07:07) Lipid Panel (11/03/19 06:00) Prednisone Tablet (Deltasone Tablet) (11/02/19 08:30) Vital Signs/I&O 11/02/19 06:45 Temp 37.2 Pulse 104 Resp 18 B/P (MAP) 173/106 (128) Pulse Ox 100 Blood Pressure Mean: 128 FSBG Bedside Testing Finger Stick Blood Glucose: 129 Blood Glucose Action Taken: REPORTED TO DR MABRY Progress Progress Note : Progress Note Seen and evaluated on arrival. Physical exam does appear to be more consistent with Connors's palsy and patient has had quite a bit of stress recently. Does have some risk factors otherwise including hypertension and age for stroke. We will go ahead and initiate stroke evaluation and this was discussed with the patient who agrees. IV, labs, chest x-ray and EKG ordered. CT head ordered. Stroke scale is a 2 for right facial droop and paresthesias on the right side of face. Everything else is negative. Monitor patient. 0826: CT negative. No acute findings on other evaluation. This does appear to be more consistent with Connors's palsy. Prednisone 60 mg by mouth now ordered. We will initiate outpatient steroid Dosepak and also antiviral therapy based on current recommendations. Findings concerns discussed with the patient. We did discuss I protection with eyedrops and tape at night. She will call Dr. Mendoza's office in the morning for follow-up appointment. I will send a copy of the chart to Dr. Martinez as well as Dr. Mendoza. Discharged home with return precautions. Patient verbalize understanding instructions and agreement with plan. Initial ECG Impression Date: November 02, 2019 Initial ECG Impression Time: 07:18 Initial ECG Rate: 93 Initial ECG Rhythm: Normal Sinus Initial ECG Comparisson: Unchanged Comment Sinus rhythm with normal axis. No evidence of ST elevation CO. Similar to previous of 07/02/12. Interpreted by me. Diagnostic Imaging Diagonstic Imaging: Xray Plain Films/CT/US/NM/MRI: chest Comments NAME: XENA MONACO MED REC#: [id number] PT STATUS: REG ER : 1965 PHYSICIAN: KAYLIN MABRY MD ADMIT DATE: 11/02/19/ER Draft Date of Exam:11/02/19 CHEST 1 VIEW, AP/PA ONLY INDICATION: Right-sided weakness. TECHNIQUE: Single view chest 7:52 AM. CORRELATION STUDY: None FINDINGS: The heart size, mediastinal configuration and pulmonary vascularity are within normal limits. The lungs are clear with no consolidating infiltrate. There is no significant effusion or pneumothorax. IMPRESSION: 1. Stable, negative appearing chest. Dictated on workstation # [id number] Dict: 11/02/19 0802 Trans: 11/02/19 0802 DO [id number] Interpreted by: RICHI MALONE DO Electronically signed by: Diagonstic Imaging: CT Plain Films/CT/US/NM/MRI: head Comments [facility]. [place], [place] NAME: XENA MONACO MED REC#: [id number] PT STATUS: REG ER : 1965 PHYSICIAN: KAYLIN MABRY MD ADMIT DATE: 11/02/19/ER Draft Date of Exam:11/02/19 CT HEAD WO-R/O STROKE PROCEDURE: CT head wo r/o stroke. TECHNIQUE: Multiple contiguous axial images were obtained through the brain without the use of intravenous contrast. Auto Exposure Controls were utilized during the CT exam to meet ALARA standards for radiation dose reduction. DATE: November 02, 2019. COMPARISON: MRI brain of November 12, 2015. INDICATION: 53-year-old female, right-sided weakness. History of pituitary tumor. FINDINGS: There is a small low-attenuation focus in the left basal ganglia which likely correlates with a T2 hyperintense focus seen on prior MRI brain imaging on prior axial T2 sequence series 4 image 14. This is not well seen on prior FLAIR imaging. The ventricles and cerebral spinal fluid spaces are of normal size and configuration for the patient's age. There is no mass effect or midline shift. There is no acute intracranial hemorrhage. There is no abnormal extra-axial fluid collection. There is nonspecific opacification in the right mastoid air cells. IMPRESSION: 1. No evidence of an interval acute intracranial abnormality. 2. Small low-attenuation focus in the left basal ganglia unchanged since prior MRI brain imaging of November 12, 2015 which potentially could relate to sequela of remote prior insult. Dictated on workstation # [id number] Dict: 11/02/19 0802 Trans: 11/02/19 0808 [facility] [id number] Interpreted by: WILLIAM FERNANDES MD Electronically signed by: Reviewed: Reviewed by Me Departure Impression Primary Impression: Connors's palsy Disposition: 01 HOME, SELF-CARE Condition: Stable Departure-Patient Inst. Decision time for Depature: 08:28 Referrals: TWILA MARTINEZ MD, SHANE R OD Patient Instructions: Connors's Palsy (DC) Add. Discharge Instructions: All discharge instructions reviewed with patient and/or family. Voiced understanding. You need to follow-up with your doctor this week for recheck and further evaluation. Monitor blood sugars daily as the prednisone may increase your blood sugar. You need to decrease stress as much as possible. Follow-up with Dr. [facility] for recheck and to evaluate the eye on the right especially. You may use djna-wum-jrvipls natural tears eyedrops to prevent drying. You may use the paper tape at nighttime only to close right eye after placing eyedrops in to prevent drying overnight. Take medications as directed. Return for increasing symptoms, weakness, difficulty with walking or other concerns as needed. Scripts Prednisone (Prednisone) 10 Mg Tab.ds.pk 10 MG PO DAILY, #42 EA Take 6 tabs(60mg)daily,decrease by 1 tab(10mg)every other day. Prov: KAYLIN MABRY MD 11/02/19 Valacyclovir HCl (Valacyclovir) 1,000 Mg Tablet 1000 MG PO BID for 7 Days, #14 TAB 0 Refills Prov: KAYLIN MABRY MD 11/02/19 Copy Copies To 1: TWILA MARTINEZ MD Copies To 2: BOB MENDOZA OD, TIMOTHY D MD November 02, 2019 07:48
--- NOTE | 2019-11-02 08:03 | Diagnostic Imaging Report ---
INDICATION: Right-sided weakness. TECHNIQUE: Single view chest 7:52 AM. CORRELATION STUDY: None FINDINGS: The heart size, mediastinal configuration and pulmonary vascularity are within normal limits. The lungs are clear with no consolidating infiltrate. There is no significant effusion or pneumothorax. IMPRESSION: 1. Stable, negative appearing chest. Dictated by: Dictated on workstation # [id number]
--- NOTE | 2019-11-02 08:08 | Diagnostic Imaging Report ---
PROCEDURE: CT head wo r/o stroke. TECHNIQUE: Multiple contiguous axial images were obtained through the brain without the use of intravenous contrast. Auto Exposure Controls were utilized during the CT exam to meet ALARA standards for radiation dose reduction. DATE: November 02, 2019. COMPARISON: MRI brain of November 12, 2015. INDICATION: 53-year-old female, right-sided weakness. History of pituitary tumor. FINDINGS: There is a small low-attenuation focus in the left basal ganglia which likely correlates with a T2 hyperintense focus seen on prior MRI brain imaging on prior axial T2 sequence series 4 image 14. This is not well seen on prior FLAIR imaging. The ventricles and cerebral spinal fluid spaces are of normal size and configuration for the patient's age. There is no mass effect or midline shift. There is no acute intracranial hemorrhage. There is no abnormal extra-axial fluid collection. There is nonspecific opacification in the right mastoid air cells. IMPRESSION: 1. No evidence of an interval acute intracranial abnormality. 2. Small low-attenuation focus in the left basal ganglia unchanged since prior MRI brain imaging of November 12, 2015 which potentially could relate to sequela of remote prior insult. Dictated by: Dictated on workstation # [id number]
[2019-11-02] MEDS ORDERED: PRED10TA22 PO (08:26)
[2019-11-02] MEDS ORDERED: VALA10007 PO (08:26)
[2019-11-02] MEDS ORDERED: predniSONE 20 MG TAB PO ONE (08:30)
[2019-11-02 08:37] VITALS: BP 123/83
== END 2019-11-02 08:37 | disposition home or self-care (01) ==
LOC: EDUNIT# 06:48 → ER 06:50
DX: G51.0 Bell's palsy (principal); Z79.52 Long term (current) use of systemic steroids; Z79.84 Long term (current) use of oral hypoglycemic drugs
CPT/HCPCS: 36415; 70450; 71045; 80053; 82962; 84484; 85025; 85379; 85610; 85730; 93005; 93041

== ENCOUNTER → 2019-11-06 | Outpatient (CLI) | payer BC ==
[~2019-11-06] MED LIST changes: +GADOBUTROL 10 MMOL/10 ML (GADAVIST) VIAL IV ONE; +PRED10TA22 PO; +VALA10007 PO
--- NOTE | 2019-11-06 10:25 | Diagnostic Imaging Report ---
CLINICAL INDICATION: Patient right facial droop. Possible stroke. EXAM: MRI of the brain performed without and with 10 cc of Gadavist IV contrast. Sequences include axial DWI, ADC map, axial gradient echo, axial T2, axial FLAIR, axial T1, axial T1 post IV contrast, coronal T1 fat-sat post IV contrast, and sagittal T1 post IV contrast. COMPARISON: Head CT without contrast dated 11/02/2019. MRI of the brain performed without and with IV contrast dated 11/12/2015. FINDINGS: There is no evidence of acute cerebral infarct, intracranial hemorrhage, or gross mass effect. There is no abnormal IV contrast enhancement. The brain parenchymal volume appears appropriate for patient's age. There is normal cherry-white matter distinction. There is no significant midline shift or herniation. The sy[place] of [place] vascular structures show no gross abnormality as visualized. There is no evidence of hydrocephalus. The basal cisterns are unremarkable. The skull, extracranial soft tissue, and orbits are unremarkable. The paranasal sinuses are unremarkable. Mastoid air cells are clear. Fatty marrow is again seen involving the mastoid areas. IMPRESSION: Stable MRI of the brain with no evidence of acute intracranial process. There is no abnormal IV contrast enhancement. Dictated by: Dictated on workstation # [id number]
== END ==
LOC: RAD 08:58
PROVIDERS: ATTEND Family Medicine
DX: R29.810 Facial weakness (principal)
CPT/HCPCS: 70553

== ENCOUNTER → 2021-05-06 | Outpatient (CLI) | payer BC, OTHER ==
[~2021-05-06] MED LIST changes: -GADOBUTROL 10 MMOL/10 ML (GADAVIST) VIAL IV ONE
--- NOTE | 2021-05-06 11:28 | Diagnostic Imaging Report ---
INDICATION: Right shoulder pain and injury. TIME OF EXAM: 10:42 AM 3 views of the right shoulder were obtained. FINDINGS: Glenohumeral and acromioclavicular alignment are normal. Acromiohumeral space is normal. No fracture or dislocation is identified. IMPRESSION: No acute abnormality is detected. Dictated by: Dictated on workstation # [id number]
== END ==
LOC: RAD 10:13
PROVIDERS: ATTEND Nurse Practitioner Family
DX: S49.91XA Unspecified injury of right shoulder and upper arm, initial encounter (principal); X58.XXXA Exposure to other specified factors, initial encounter
CPT/HCPCS: 73030

== ENCOUNTER → 2021-08-09 | Outpatient (CLI) | payer OTHER ==
--- NOTE | 2021-08-09 16:59 | Diagnostic Imaging Report ---
PROCEDURE: MRI right joint upper extremity without contrast. TECHNIQUE: Multiplanar, multisequence non contrast-enhanced MRI of the right upper extremity was accomplished. INDICATION: Right shoulder pain. COMPARISON: Radiographs from 05/06/2021. FINDINGS: No acute fracture is seen in the right shoulder. Alignment appears normal. Cyst-like changes in the lateral humeral head are likely degenerative. There is no significant joint effusion. There are mild degenerative changes in the acromioclavicular joint. There is mild fraying at the anterior fibers of the supraspinatus tendon. The infraspinatus tendon and teres minor tendon are intact. The subscapularis tendon appears intact. No focal muscular atrophy is seen. The long head of the biceps tendon is normal in course and signal. The glenoid labrum is suboptimally evaluated in the absence of intra-articular contrast. There may be some degeneration anteriorly and posteriorly but no paralabral cyst is seen. The acromion has a curved undersurface. The coracoclavicular and coracoacromial ligaments are intact. Soft tissues about the right shoulder demonstrate no acute abnormality. IMPRESSION: 1. Mild fraying at the anterior fibers of the supraspinatus tendon. No high-grade partial-thickness or full-thickness rotator cuff tear is seen. 2. Mild degenerative change in the acromioclavicular joint. Dictated by: Dictated on workstation # [id number]
== END ==
LOC: RAD 13:50
PROVIDERS: ATTEND Nurse Practitioner Family
DX: M25.511 Pain in right shoulder (principal)
CPT/HCPCS: 73221

== ENCOUNTER → 2021-11-15 | Outpatient (RCR) | payer OTHER | END | disposition home or self-care (01) | PROVIDERS: ATTEND Nurse Practitioner Family | DX: M25.511 Pain in right shoulder (principal); I10 Essential (primary) hypertension; E11.9 Type 2 diabetes mellitus without complications; Z98.890 Other specified postprocedural states; Z96.611 Presence of right artificial shoulder joint ==

== ENCOUNTER 2021-12-14 11:13 | Outpatient (RCR) | payer OTHER | END 2021-12-15 | disposition home or self-care (01) | PROVIDERS: ATTEND Nurse Practitioner Family | DX: M25.511 Pain in right shoulder (principal); I10 Essential (primary) hypertension; E11.9 Type 2 diabetes mellitus without complications; Z98.890 Other specified postprocedural states; Z96.611 Presence of right artificial shoulder joint ==

== ENCOUNTER 2022-01-11 11:31 | Outpatient (RCR) | payer OTHER | END 2022-01-15 | disposition home or self-care (01) | PROVIDERS: ATTEND Nurse Practitioner Family | DX: M25.511 Pain in right shoulder (principal); I10 Essential (primary) hypertension; E11.9 Type 2 diabetes mellitus without complications; Z98.890 Other specified postprocedural states ==

== ENCOUNTER 2022-01-19 08:46 | Outpatient (RCR) | payer OTHER | END 2022-01-19 10:31 | disposition home or self-care (01) | PROVIDERS: ATTEND Nurse Practitioner Family | DX: Z98.890 Other specified postprocedural states (principal); I10 Essential (primary) hypertension; E11.9 Type 2 diabetes mellitus without complications ==